=== PATIENT | female | born 1940 | race Caucasian/White ===

== ENCOUNTER 2016-08-08 11:09 | Emergency (ER) | payer OTHER ==
[2016-08-08 11:45] VITALS: BP 193/72; PULSE 68; RESP 18; TEMP 97.7; O2SAT 91
--- NOTE | 2016-08-08 12:21 | UCPHY ---
[id number] Chief complaint. Right shoulder pain HPI. 76-year-old female with previous surgery to the right shoulder developed pain in the right shoulder the middle of the night. She was fine when she went to bed and then she rolled over awoke her up. She is concerned could be dislocated. She has pain with range of motion and some tenderness and swelling to the anterior aspect of the right shoulder. ROS Constitutional. no fever/chills, no weakness Eyes. no problems with vision ENT. no sore throat, no nasal drainage Cardiovascular. no chest pain Respiratory. no shortness of breath, no cough Abdominal. no abdominal pain, no nausea/vomiting, no diarrhea . no problems urinating MS. Right shoulder pain Skin. no rash Lymph. no swollen glands Neuro. no headache, no dizziness, no difficulty walking or with speech Past Medical/Surgical History: Carotid endarterectomy, appendectomy hysterectomy. Previous rotator cuff repair. Hypertension Social History: , nonsmoker, no alcohol Smoking Status: Former smoker Physical Exam: General Appearance: Alert well-developed female distress vital signs are stable Eyes: Pupils equal and round no pallor or injection. ENT, Mouth: Mucous membranes are moist. Respiratory: There are no retractions, lungs are clear to auscultation. Cardiovascular: Regular rate and rhythm. Gastrointestinal: Abdomen is soft and nontender, no masses, bowel sounds normal. Neurological: Awake and alert, sensory and motor exams grossly normal. Skin: Warm and dry, no rashes. Musculoskeletal: Neck is supple nontender. Extremities tenderness to the anterior aspect of the right shoulder. No obvious deformity. She has active range of motion including flexion extension and AB duction Psychiatric: Patient is oriented X 3, there is no agitation. Constitutional: Initial Vital Signs Temperature (C) 36.5 C 08/08/16 11:37 Heart Rate 68 08/08/16 11:37 Respiratory Rate 18 08/08/16 11:37 Blood Pressure 193/72 H 08/08/16 11:37 O2 Sat (%) 91 L 08/08/16 11:37 O2 Delivery Mode Room Air Allergies/Adverse Reactions: levofloxacin [From Levaquin] Allergy (Verified 08/08/16 11:45) meclizine HCl [From Antivert] Allergy (Verified 08/08/16 11:45) procainamide HCl [From Procan SR] Allergy (Verified 08/08/16 11:45) thallium-201 Allergy (Verified 08/08/16 11:45) Home Medications: Medication Instructions Recorded Aspirin 81mg (*) 08/08/16 Estradiol 08/08/16 INDAPAMIDE 08/08/16 Lisinopril 08/08/16 MAGNESIUM 08/08/16 Metoprolol Succinate 08/08/16 Omeprazole 08/08/16 Pravastatin Sodium 08/08/16 Medical Decision Making - Diagnostics Imaging: X-ray right shoulder interpreted by me and discussed with Dr. Pace shows degeneration and previous rotator cuff surgery. There is no evidence of dislocation or fracture ED Course/Re-evaluation: Re-evaluation patient's and placed a sling. The patient is able to abduct and has good range of motion of the shoulder. She and I discussed treatment plan including criteria for return importance of follow-up and further evaluation. She expresses understanding and agreement Differential Diagnosis: I considered fracture, dislocation, rotator cuff injury Departure - Departure Disposition: Home, Routine, Self-Care Clinical Impression: Right shoulder pain Qualifiers: Chronicity: acute Qualifier Code: (M25.511) Pain in right shoulder Condition: Good Instructions: Shoulder Pain (ED) Additional Instructions: Ice to shoulder next 24-48 hours. Sling for 3-4 days. Tylenol or ibuprofen as needed for discomfort. Return for worsening symptoms. Follow up with orthopedist for further evaluation of your shoulder Referrals: Dawn Watt MD [Primary Care Provider] - As per Instructions Emerson Schultz MD [Medical Doctor] - 5-7 days, call for appt. - PQRS PQRS Measurement: 134: Depression screening and followup, PRIME MD-PHQ2 (12 years and older) Over the last 2 weeks, how often have you been bothered by any of the following problems? 1. Feeling down, depressed, or hopeless? 2. Little interest or pleasure in doing things? Patient answered no to both 1 and 2 130: Documentation of medications. Reviewed all patient medications, doses, route and frequency. 226: Do you smoke? No. 47: 65 and older: Advanced care planning. Patient has advanced directive.
--- NOTE | 2016-08-08 15:15 | DX ---
Right Shoulder, Four Views August 08, 2016 at 11:56 a.m. Clinical History: 76-year-old female who indicated that she believes her shoulder dislocated last nig ht with no specific antecedent trauma. She had prior rotator cuff surgery nine years ago. Comparison Study: CT mobility specialist topogram associated with a neck exam, dated March 09, 2016. Findings: There are three orthopedic anchors projected over the humeral head. The positioning of the right humeral head relative to the glenoid on the AP projection is unchanged from the previous CT sca n. There appears to be glenohumeral alignment, also confirmed on axillary and scapular Y views. There is some narrowing of the acromiohumeral distance, which may reflect some rotator cuff pathology. The re is smoothly-contoured osteolysis versus postsurgical resection of the distal right clavicle. The c oracoclavicular distance is normal. The scapula is intact, as is the visualized right rib cage. There is no acute fracture observed. I discussed these findings with Dr. Odin Salcedo, who indicated the patient had appropriate range of motion with no clinical evidence of a dislocation. Impression: There is no acute osseous abnormality identified. If there is further clinical concern regarding the patient's shoulder pain and/or integrity of the ro tator cuff, MR imaging could be considered.
== END 2016-08-08 12:42 | disposition home or self-care (01) ==
LOC: CED 11:09
DX: M25.511 Pain in right shoulder (principal); Z87.891 Personal history of nicotine dependence
CPT/HCPCS: 73030; G0463; 99214-PO

== ENCOUNTER → 2016-10-08 | Outpatient (CLI) | payer OTHER ==
[~2016-10-08] MED LIST: IOPAMIDOL (ISOVUE 370) 100 ML BTL IV ONE
== END ==
LOC: CIMAGING 11:12
PROVIDERS: ATTEND Surgery
DX: I70.8 Atherosclerosis of other arteries (principal); J43.2 Centrilobular emphysema; Z98.890 Other specified postprocedural states
CPT/HCPCS: 70498; Q9967

== ENCOUNTER 2016-12-12 15:17 | Observation (INO) | payer OTHER ==
[2016-12-12] MEDS ORDERED: ONDANSETRON 4 MG/2 ML VIAL IVP ONE (15:54)
[2016-12-12] MEDS ORDERED: NS 500 ML IV ONE ×2 (15:54→17:30)
--- NOTE | 2016-12-12 15:54 | EDPHY ---
H & P Time Seen by Provider: 12/12/16 15:25 HPI/ROS: CHIEF COMPLAINT: Nausea and vomiting HISTORY OF PRESENT ILLNESS: Patient is a 76-year-old female with a history of vascular disease who presents to the emergency department with nausea and vomiting since . Patient made a salad with 1000 [place] and Rachael dressing mixed together. She thought she may have had some bad tried onions. 2 hours later she developed nausea, vomiting and diarrhea. She has had numerous episodes daily. She last vomited this morning "a small amount." Her last episode of emesis prior to that was prior to going to bed. She has no abdominal pain. She denies fevers. No dysuria frequency. Patient had intermittent mild epigastric pain none recently. No shortness of breath or cough. REVIEW OF SYSTEMS: My complete review of systems is negative except as mentioned in the HPI. Past Medical/Surgical History: Includes vascular disease, carotid endarterectomy, tonsillectomy, appendectomy, hysterectomy, rotator cuff surgery Social history: The patient quit smoking 2 years ago. The patient was at home alone. Smoking Status: Former smoker Physical Exam: 36.7, 157/66, 71, 16, 89% on room air GENERAL: Well-appearing, in no acute distress, alert. HEENT: Eyes normal to inspection, normal pharynx, no signs of dehydration. NECK: No thyromegaly, no lymphadenopathy, supple. RESPIRATORY: Clear to auscultation bilaterally, no rales, rhonchi or wheezing. CVS: Regular rate and rhythm, no rubs, murmurs, or gallops. ABDOMEN: Soft, nontender, nondistended, no organomegaly. Benign BACK: Normal to inspection, no CVA tenderness. SKIN: Normal color, no rash, warm, dry. No pallor. EXTREMITIES: No pedal edema, no calf tenderness, no Homans sign or cords, no joint swelling. NEURO/PSYCH: Alert and oriented x3, normal mood and affect, normal motor sensory exam. Constitutional: Initial Vital Signs Temperature (C) 36.7 C 12/12/16 15:18 Heart Rate 71 12/12/16 15:18 Respiratory Rate 16 12/12/16 15:18 Blood Pressure 157/66 H 12/12/16 15:18 O2 Sat (%) 89 L 12/12/16 15:18 O2 Delivery Mode Room Air Allergies/Adverse Reactions: levofloxacin [From Levaquin] Allergy (Verified 08/08/16 11:45) meclizine HCl [From Antivert] Allergy (Verified 08/08/16 11:45) procainamide HCl [From Procan SR] Allergy (Verified 08/08/16 11:45) thallium-201 Allergy (Verified 08/08/16 11:45) Home Medications: Medication Instructions Recorded Aspirin 81mg (*) 08/08/16 Estradiol 08/08/16 INDAPAMIDE 08/08/16 Lisinopril 08/08/16 MAGNESIUM 08/08/16 Metoprolol Succinate 08/08/16 Omeprazole 08/08/16 Pravastatin Sodium 08/08/16 Medical Decision Making ED Course/Re-evaluation: In the emergency department I discussed the plan with the patient. I answered all her questions. IV was placed. Laboratory studies ordered. Patient was given normal saline 500 mL IV and Zofran 4 mg IV. The patient a mildly elevated white count of 10.5. Her med crit is normal. Platelets are normal. Her chemistry panel is notable for low sodium 130, a low potassium at 3.3, chloride 92, carbon dioxide 21, anion gap 27, BUN 46, creatinine 1.5, glucose 117. LFTs are normal. Lipase 151. 1628: The patient was given a repeat dose of normal saline 500 mL IV for hydration. Differential Diagnosis: My differential includes but is not limited to small-bowel obstruction, perforation, viral illness, presents [place] ischemia, dehydration, electrolyte abnormality, sugar abnormality, cholecystitis, pancreatitis - Data Points Laboratory Results: Laboratory Results 12/12/16 15:32 12/12/16 15:32 12/12/16 12/12/16 15:32 15:32 WBC 10.53 10^3/uL H 10^3/uL (3.80-9.50) RBC 5.06 10^6/uL 10^6/uL (4.18-5.33) Hgb 14.6 g/dL g/dL (12.6-16.3) Hct 44.7 % % (38.0-47.0) MCV 88.3 fL fL (81.5-99.8) MCH 28.9 pg pg (27.9-34.1) MCHC 32.7 g/dL g/dL (32.4-36.7) RDW 15.5 % H % (11.5-15.2) Plt Count 238 10^3/uL 10^3/uL (150-400) MPV 12.0 fL H fL (8.7-11.7) Neut % (Auto) 74.2 % % (39.3-74.2) Lymph % (Auto) 14.2 % L % (15.0-45.0) [place] % (Auto) 10.7 % % (4.5-13.0) Eos % (Auto) 0.2 % L % (0.6-7.6) Baso % (Auto) 0.3 % % (0.3-1.7) Nucleat RBC Rel Count 0.0 % % (0.0-0.2) Absolute Neuts (auto) 7.82 10^3/uL H 10^3/uL (1.70-6.50) Absolute Lymphs (auto) 1.49 10^3/uL 10^3/uL (1.00-3.00) Absolute Monos (auto) 1.13 10^3/uL H 10^3/uL (0.30-0.80) Absolute Eos (auto) 0.02 10^3/uL L 10^3/uL (0.03-0.40) Absolute Basos (auto) 0.03 10^3/uL 10^3/uL (0.02-0.10) Absolute Nucleated RBC 0.00 10^3/uL 10^3/uL (0-0.01) Immature Gran % 0.4 % % (0.0-1.1) Immature Gran # 0.04 10^3/uL 10^3/uL (0.00-0.10) Sodium 130 mEq/L L mEq/L (134-144) Potassium 3.3 mEq/L L mEq/L (3.5-5.2) Chloride 92 mEq/L L mEq/L (97-110) Carbon Dioxide 21 mEq/l L mEq/l (22-31) Anion Gap 17 mEq/L H mEq/L (8-16) BUN 46 mg/dL H mg/dL (7-23) Creatinine 1.5 mg/dL H mg/dL (0.6-1.0) Estimated GFR 34 Glucose 117 mg/dL H mg/dL (70-100) Calcium 9.1 mg/dL mg/dL (8.5-10.4) Total Bilirubin 1.2 mg/dL mg/dL (0.1-1.4) Conjugated Bilirubin 0.2 mg/dL mg/dL (0.0-0.5) Unconjugated Bilirubin 1.0 mg/dL mg/dL (0.0-1.1) AST 35 IU/L IU/L (14-46) ALT 36 IU/L IU/L (9-52) Alkaline Phosphatase 116 IU/L IU/L (38-126) Total Protein 8.3 g/dL H g/dL (6.3-8.2) Albumin 4.3 g/dL g/dL (3.5-5.0) Lipase 151.0 IU/L IU/L (23-300) Medications Given: Discontinued Medications Sodium Chloride (Ns) 500 mls @ 0 mls/hr IV ONCE ONE; Wide Open PRN Reason: Protocol Stop: 12/12/16 15:55 Last Admin: 12/12/16 16:11 Dose: 500 mls Ondansetron HCl (Zofran) 4 mg IVP EDNOW ONE Stop: 12/12/16 15:55 Last Admin: 12/12/16 16:11 Dose: Not Given Departure - Departure Disposition: Home, Routine, Self-Care Clinical Impression: Nausea vomiting and diarrhea Condition: Good Instructions: Acute Nausea and Vomiting (ED), Acute Diarrhea (ED) Referrals: Dawn Watt MD [Primary Care Provider] - 5-7 days, call for appt.
[2016-12-12 16:10] LABS: % IMMATURE GRANULYOCYTES 0.4 % (0.0-1.1); ABSOLUTE IMMATURE GRANULOCYTES 0.04 10^3/uL (0.00-0.10); ADD DIFF? NO; ADD MORPH? NO; ADD SCAN? NO; ATYPICAL LYMPHOCYTE FLAG 20 (0-99); FRAGMENT RBC FLAG 0 (0-99); HEMATOCRIT 44.7 % (38.0-47.0); HEMOGLOBIN 14.6 g/dL (12.6-16.3); LEFT SHIFT FLG 0 (0-99); LIPEMIA HEMOLYSIS FLAG 80 (0-99); MEAN CELL HEMOGLOBIN 28.9 pg (27.9-34.1); MEAN CELL HEMOGLOBIN CONCENTR. 32.7 g/dL (32.4-36.7); MEAN CELL VOLUME 88.3 fL (81.5-99.8); PLATELET CLUMPS FLAG 10 (0-99); PLATELET COUNT 238 10^3/uL (150-400); RED BLOOD CELL COUNT 5.06 10^6/uL (4.18-5.33); RED CELL DISTRIBUTION WIDTH 15.5 % (11.5-15.2)
[2016-12-12 16:19] LABS: ALANINE AMINOTRANSFERASE 36 IU/L (9-52); ALBUMIN 4.3 g/dL (3.5-5.0); ALKALINE PHOSPHATASE 116 IU/L (38-126); ANION GAP 17 mEq/L (8-16); ASPARTATE AMINOTRANSFERASE 35 IU/L (14-46); BILIRUBIN,TOTAL 1.2 mg/dL (0.1-1.4); BILIRUBIN-CONJUGATED 0.2 mg/dL (0.0-0.5); CALCIUM 9.1 mg/dL (8.5-10.4); CARBON DIOXIDE 21 mEq/l (22-31); CHLORIDE 92 mEq/L (97-110); CREATININE 1.5 mg/dL (0.6-1.0); GLOMERULAR FILTRATION RATE 34; GLUCOSE 117 mg/dL (70-100); POTASSIUM 3.3 mEq/L (3.5-5.2); SODIUM 130 mEq/L (134-144); TOTAL PROTEIN 8.3 g/dL (6.3-8.2)
[2016-12-12 18:09] LABS: COLOR YELLOW; LEUKOCYTE ESTERASE,URINE NEGATIVE (NEGATIVE); NITRITE,URINE NEGATIVE (NEGATIVE)
[2016-12-12 18:16] LABS: BACTERIA TRACE /hpf (NONE SEEN); MUCUS TRACE /lpf (NONE-1+)
[2016-12-12] MEDS ORDERED: ONDANSETRON 4 MG/2 ML VIAL IVP PRN (20:05)
[2016-12-12] MEDS ORDERED: ONDANSETRON DISINTEGRATING 4 MG TAB PO PRN (20:05)
[2016-12-12] MEDS ORDERED: PROMETHAZINE HCL 25 MG/ML INJ IVP PRN (20:05)
[2016-12-12] MEDS ORDERED: ACETAMINOPHEN 325 MG TAB PO PRN (20:05)
[2016-12-12] MEDS ORDERED: PRAVASTATIN SODIUM 40 MG TAB PO SCH (21:00)
[2016-12-12] MEDS ORDERED: ASPIRIN EC 325 MG TAB PO SCH (21:00)
--- NOTE | 2016-12-12 21:01 | GHP ---
[f rep st] HISTORY AND PHYSICAL DATE OF ADMISSION: 12/12/2016 HISTORY OF PRESENT ILLNESS: The patient is a pleasant 76-year-old female with a history of hyperten charo, vascular disease, and carotid endarterectomy by Dr. Nakul hunt, who presents with 4 days of naus ea, vomiting, and diarrhea. She attributes this to some salad dressing she ate. She merged some Ca chet and ranch dressing. She has had no sick contacts. No one around her has been sick. She has taken in limited p.o. She has had multiple bowel movements per day. No hematemesis. No coffee-gr ound emesis. No black diarrhea. No abdominal pain. She does not have her appendix. She has felt lightheaded, especially with one episode of straining at stool, trying to get all of her diarrhea ou t. No falls. REVIEW OF SYSTEMS: A complete 10-point review of systems was conducted and negative except as noted in the HPI. PAST MEDICAL HISTORY: 1. Hypertension. 2. Hyperlipidemia. 3. Peripheral vascular disease. 4. Left and right carotid endarterectomy. 5. Appendectomy. 6. Septoplasty. 7. Hysterectomy. 8. Rotator cuff tear. 9. Rhinoplasty. 10. Coronary artery disease. ALLERGIES: Levaquin, meclizine, Persantine, procainamide. 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 Quit smoking 2 years ago. . Minimal alcoho l. FAMILY HISTORY: Daughter present at the bedside and healthy. PHYSICAL EXAM: PRESENTING VITALS: Temp 36.7, blood pressure 157/66, pulse 71, breathing 16 times a minute, 89% on room air. GENERAL: No acute distress. HEENT: Mucous membranes dry. NECK: Suppl e, without lymphadenopathy or JVD. LUNGS: Clear to auscultation bilaterally. HEART: S1, S2. Not tachycardic. ABDOMEN: Soft, nontender, nondistended. LOWER EXTREMITIES: Without edema. Calves are nontender. SKIN: Without rash. NEUROLOGIC: Exam is nonfocal. LABORATORY DATA: White count 10.5, hematocrit 44, platelets 230,000. Sodium 130, potassium 2.3, ch loride 92, bicarb 21, BUN 46, creatinine 1.5--baseline 0.7, glucose 117. LFTs normal. Lipase pham l. UA shows 5-10 white cells and 2+ epithelial cells, consistent with a contaminated specimen. I have discussed the case Dr. Filomena Morse. ASSESSMENT AND PLAN: A 76-year-old female who presents with viral gastroenteritis. 1. Viral gastroenteritis. Supportive treated with IV fluids and antiemetics. 2. Hyponatremia. This is mild. She has had low sodiums in the past. We will follow. 3. Hypokalemia. This is secondary to nausea, vomiting, and poor p.o. intake. We will put some pot assium in her IV fluids. 4. Acute kidney injury, prerenal. Volume resuscitate and follow. 5. Hypertension. We will continue her beta aime and hold her ERNST inhibitor and her indapamide. 6. Prophylaxis. Moderate to high risk. Likely in the hospital just 24 hours. We will just do SCD s for now. If she is in the hospital longer than 24 hours, recommend pharmacologic VT prophylaxis. 7. Observation status. /[id number]/MODL
[2016-12-12] MEDS: NS W/ 20 KCl/L 1,000 ML IV SCH (22:01)
[2016-12-13] MEDS: NS W/ 20 KCl/L 1,000 ML IV SCH (05:43)
[2016-12-13 06:43] LABS: ANION GAP 7 mEq/L (8-16); CALCIUM 7.5 mg/dL (8.5-10.4); CARBON DIOXIDE 22 mEq/l (22-31); CHLORIDE 104 mEq/L (97-110); GLOMERULAR FILTRATION RATE 54; GLUCOSE 77 mg/dL (70-100); POTASSIUM 3.4 mEq/L (3.5-5.2); SODIUM 133 mEq/L (134-144)
[2016-12-13] MEDS ORDERED: NON-FORMULARY NEW DRUG (Omeprazole [Prilosec 20 Mg] 20 MG) PO SCH (09:00)
[2016-12-13] MEDS ORDERED: ESTRADIOL 0.5 MG TAB PO SCH (09:00)
[2016-12-13] MEDS ORDERED: PANTOPRAZOLE SODIUM 40 MG TAB PO SCH (09:00)
[2016-12-13] MEDS: METOPROLOL TARTRATE 100 MG TAB PO SCH ×2 (10:19→16:34)
[2016-12-13] MEDS: PRESERVISION AREDS2 FORMULA EYE VIT 1 EACH PO SCH ×2 (10:22→16:35)
[2016-12-13 12:16] VITALS: RESP 16
[2016-12-13 15:16] VITALS: TEMP 97.7; O2SAT 94
[2016-12-13 16:31] VITALS: BP 170/74; PULSE 68
[2016-12-13] MEDS ORDERED: MAGNESIUM OXIDE 250 MG PO SCH (17:00)
[2016-12-13] MEDS ORDERED: MAGNESIUM OXIDE 400 MG TAB PO SCH (17:00)
--- NOTE | 2016-12-13 19:28 | GDS ---
[f rep st] DISCHARGE SUMMARY DIAGNOSES: 1. Viral gastroenteritis. 2. Acute kidney injury. 3. Hyponatremia. 4. Hypokalemia. 5. Chronic hypertension. 6. History of peripheral vascular disease. 7. Coronary artery disease. HOSPITAL COURSE: This is a 76-year-old female, admitted with a few days of intractable nausea, vomi ting, as well as diarrhea. She was dehydrated on presentation. She had hyponatremia with a sodium of 130, which is somewhat worse than her chronic sodiums. Her creatinine was 1.5 on admission, down to 1.0 the day after with hydration. She is tolerating a small amount of food, as well as liquids at this time. She has not had any episodes of vomiting or diarrhea today. She believes that she ca n keep herself adequately hydrated. I have discussed this all with her daughter as well. MEDICATION CHANGES: 1. Hold lisinopril with recent acute kidney injury. 2. Continue metoprolol. 3. Continue indapamide. 4. Start low-dose amlodipine as she is still hypertensive on discharge with blood pressure of 170/9 5. /[id number]/MODL
== END 2016-12-13 19:20 | disposition home or self-care (01) ==
LOC: F1N 18:52
PROVIDERS: ADMIT Internal Medicine; ATTEND Student in an Organized Health Care Education/Training Program
DX: A08.4 Viral intestinal infection, unspecified (principal); N17.9 Acute kidney failure, unspecified; E87.1 Hypo-osmolality and hyponatremia; E87.6 Hypokalemia; I25.10 Atherosclerotic heart disease of native coronary artery without angina pectoris; I73.9 Peripheral vascular disease, unspecified; I10 Essential (primary) hypertension; E78.5 Hyperlipidemia, unspecified
CPT/HCPCS: G0378 ×2

== ENCOUNTER → 2017-01-06 | Outpatient (CLI) | payer OTHER | LOC: CIMAGING 13:56 | PROVIDERS: ATTEND Family Medicine | DX: Z12.31 Encounter for screening mammogram for malignant neoplasm of breast (principal) | CPT/HCPCS: G0202 ==

== ENCOUNTER → 2017-01-18 | Outpatient (CLI) | payer OTHER | LOC: CIMAGING 13:16 | PROVIDERS: ATTEND Family Medicine | DX: Z12.39 Encounter for other screening for malignant neoplasm of breast (principal); N63 Unspecified lump in breast | CPT/HCPCS: 76641; G0206 ==

== ENCOUNTER 2017-02-12 23:52 | Emergency (ER) | payer OTHER ==
[2017-02-12 23:59] VITALS: TEMP 98.1
[2017-02-13] MEDS ORDERED: TDAP ADULT 0.5 ML INJ (BOOSTRIX) IM ONE
--- NOTE | 2017-02-13 01:17 | EDPHY ---
H & P Stated Complaint: fall, skin injuries to left hand and forearm - Personal History Current Tetanus/Diphtheria Vaccine: Unsure Tetanus Vaccine Date: unsure, "but likely up to date with PCP" - Medical/Surgical History Hx Asthma: No Hx Chronic Respiratory Disease: Yes Hx Diabetes: No Hx Cardiac Disease: Yes Hx Renal Disease: No Hx Cirrhosis: No Hx Alcoholism: No Hx HIV/AIDS: No Hx Splenectomy or Spleen Trauma: No Other PMH: PCP Elsi Watt. Tetanus ??? Flu vacc . carotid endarectomy / tonsilectomy appy,hyster. Rotator cuff surg r shoulder 10 yrs ago - Social History Smoking Status: Former smoker HPI/ROS: Chief complaint: Left hand injury History of present illness: This is a 77-year-old female who presents to the emergency department for left hand injury. Just prior to arrival patient tripped and fell cutting her left 3rd finger, she has also noted scrapes to her left 4th finger and her forearm. There has been some pain. Bleeding but that has been controlled with a dressing. She states she can still move the fingers well. No report of abnormal coolness or paresthesias in the finger. No other trauma is reported. She is unsure of her last tetanus shot. (Geraldo Vitale) - Physical Exam Exam: General: Alert, nontoxic Skin: There is a 2 cm laceration to the proximal, flexor surface of the left 3rd finger, abrasion left 4th finger and forearm. Musculoskeletal: Patient is flexing and extending all fingers in all joints without difficulty, she is moving the wrist in all fry. The hand, wrist and forearm is nontender. Vascular: Capillary refill brisk in all digits of the left hand. Radial pulse 2 +. Neurologic: Sensation intact in the fingers left hand using light touch and two -point discrimination (Geraldo Vitale) Constitutional: Initial Vital Signs Temperature (C) 36.7 C 02/12/17 23:54 Heart Rate 69 02/12/17 23:54 Respiratory Rate 19 02/12/17 23:54 Blood Pressure 198/92 H 02/12/17 23:54 O2 Sat (%) 94 02/12/17 23:54 O2 Delivery Mode Room Air Allergies/Adverse Reactions: levofloxacin [From Levaquin] Allergy (Verified 08/08/16 11:45) meclizine HCl [From Antivert] Allergy (Verified 08/08/16 11:45) procainamide HCl [From Procan SR] Allergy (Verified 08/08/16 11:45) thallium-201 Allergy (Verified 08/08/16 11:45) Home Medications: Medication Instructions Recorded Aspirin EC [Aspirin EC 325 mg (*)] 325 mg PO HS 08/08/16 Estradiol 0.5 mg PO DAILY 08/08/16 Indapamide [Indapamide 2.5 mg (*)] 2.5 mg PO HS 08/08/16 Metoprolol Tartrate [Lopressor 100 100 mg PO BID@,08/08/16 mg (*)] Omeprazole [Prilosec 20 mg] 20 mg PO DAILY 08/08/16 Pravastatin Sodium [Pravachol] 40 mg PO HS 08/08/16 C/E/Zn/Cu/OM3/DHA/EPA/LUT/ZEAX 1 cap PO BID@12/12/16 [Preservision Areds 2 Softgel] Magnesium Oxide 250 mg PO DAILY@17 12/12/16 amLODIPine BESYLATE [Norvasc 2.5 2.5 mg PO DAILY #30 tab 12/13/16 mg (*)] Medical Decision Making - Diagnostics Imaging: I viewed and interpreted images myself Procedures: Procedure: Laceration repair. Verbal consent was obtained from the patient. The 2 cm laceration on the left 3rd finger was anesthetized in the usual fashion. The wound was irrigated, draped and explored to its base with a gloved finger. There were no deep structures involved. The tendon was identified and no injury was noted. No foreign body contamination appreciated. The wound was repaired with 5 0 Prolene , 10 simple interrupted sutures. The wound repair was simple. The procedure was performed by myself. Procedure: Splint placement. A finger splint was applied. After application of the splint I returned and re- examined the patient. The splint was adequately immobilizing the joint and distal to the splint the patient's circulation and sensation was intact. (Geraldo Vitale) ED Course/Re-evaluation: Patient seen under the supervision of my secondary supervising physician Dr. Caroline Cuello. Patient presents to the emergency department for injury to her left hand. She primarily has a laceration to her left middle finger. The finger is neurovascularly intact. She has good musculoskeletal control. Other wounds are minor. X-rays obtained and negative. Wound has been cleaned, repaired and dressed. The finger splinted. Her tetanus is updated. She will be discharged home, home care is discussed. She is referred to a hand surgeon for continued evaluation and care. Return precautions are given. The patient voiced understanding and agreement with plan. (Geraldo Vitale) PHYSICIAN DOCUMENTATION: The patient was evaluated and managed by the Physician Instrument Setter. My co- signature indicates that I have reviewed this chart and I agree with the findings and plan of care as documented. I am the secondary supervising physician. (Caroline Daly) Differential Diagnosis: Included but not limited to soft tissue injury, deep structure injury, foreign body contamination (Geraldo Vitale) - Data Points Medications Given: Discontinued Medications Diphtheria/Tetanus/Acell Pertussis (Boostrix) 0.5 ml IM .ONCE ONE Stop: 02/13/17 00:01 Last Admin: 02/13/17 00:40 Dose: 0.5 ml Departure - Departure Disposition: Home, Routine, Self-Care Clinical Impression: Finger laceration Qualifiers: Encounter type: initial encounter Finger: middle finger Damage to nail status: without damage Foreign body presence: without foreign body Laterality: left Qualified Code(s): S61.213A - Laceration without foreign body of left middle finger without damage to nail, initial encounter Condition: Good Instructions: Care For Your Stitches (ED), Finger Laceration (ED), Acute Wounds (ED) Additional Instructions: Follow-up with a hand surgeon next week for recheck Stitches to be removed in 10 days If symptoms worsen or new symptoms develop return to the emergency room for recheck Referrals: Dawn Watt MD [Primary Care Provider] - As per Instructions Leroy Delcid MD [Medical Doctor] - As per Instructions
[2017-02-13 01:27] VITALS: BP 163/74; PULSE 58; RESP 18; O2SAT 93
== END 2017-02-13 01:46 | disposition home or self-care (01) ==
PROC: 0HQGXZZ Repair Left Hand Skin, External Approach (ICD-10-PCS; principal; 2017-02-12)
DX: S61.213A Laceration without foreign body of left middle finger without damage to nail, initial encounter (principal); Z87.891 Personal history of nicotine dependence; Z79.82 Long term (current) use of aspirin; Z23 Encounter for immunization; W01.0XXA Fall on same level from slipping, tripping and stumbling without subsequent striking against object, initial encounter

== ENCOUNTER → 2017-03-31 | Outpatient (CLI) | payer OTHER | LOC: CIMAGING 13:26 | PROVIDERS: ATTEND Surgery | DX: I70.0 Atherosclerosis of aorta (principal); I65.21 Occlusion and stenosis of right carotid artery; I67.2 Cerebral atherosclerosis; I70.8 Atherosclerosis of other arteries; J43.2 Centrilobular emphysema | CPT/HCPCS: 70498; Q9967 ==

== ENCOUNTER → 2017-10-12 | Outpatient (CLI) | payer OTHER ==
[~2017-10-12] MED LIST changes: -IOPAMIDOL (ISOVUE 370) 100 ML BTL IV ONE; +IOPAMIDOL (ISOVUE-300) 100 ML BTL ONE
== END ==
LOC: CIMAGING 09:13
PROVIDERS: ATTEND Internal Medicine Gastroenterology
DX: C15.9 Malignant neoplasm of esophagus, unspecified (principal); I70.90 Unspecified atherosclerosis; I31.8 Other specified diseases of pericardium; D44.11 Neoplasm of uncertain behavior of right adrenal gland; K62.3 Rectal prolapse; N81.10 Cystocele, unspecified; M51.36 Other intervertebral disc degeneration, lumbar region
CPT/HCPCS: 71260; 74177; Q9967

== ENCOUNTER → 2017-10-30 | Outpatient (CLI) | payer OTHER ==
[~2017-10-30] MED LIST changes: +GADOBUTROL 10 ML VIAL IVP ONE; -IOPAMIDOL (ISOVUE-300) 100 ML BTL ONE
== END ==
LOC: FIMAGING 09:00
PROVIDERS: ATTEND Internal Medicine Hematology & Oncology
DX: G31.9 Degenerative disease of nervous system, unspecified (principal); C15.5 Malignant neoplasm of lower third of esophagus; D60.0 Chronic acquired pure red cell aplasia
CPT/HCPCS: 70553; A9585

== ENCOUNTER 2017-11-04 08:36 | Day surgery (SDC) | payer OTHER ==
[2017-11-04] MEDS ORDERED: ceFAZolin 2 GM/SWFI 2 GM/20 ML SYR IVP ONE (08:44)
[2017-11-04] MEDS ORDERED: LR 1,000 ML IV ONE (08:45)
[2017-11-04] MEDS ORDERED: BUPIVACAINE 0.5% 30 ML SDV ONE (09:24)
[2017-11-04] MEDS ORDERED: PROPOFOL 200 MG/20 ML VIAL ONE ×2 (09:25)
[2017-11-04] MEDS ORDERED: LIDOCAINE 2% 5 ML SDV ONE (09:25)
--- NOTE | 2017-11-04 09:34 | PDHPUP ---
History & Physical Update H&P update statement: This history and physical update is based on an assessment of the patient which was completed after admission or registration (within 24 hours), but prior to the surgery/procedure. H&P update: H&P reviewed & patient examined, no change in patient's condition since H&P completed
[2017-11-04] MEDS ORDERED: ONDANSETRON 4 MG/2 ML VIAL IVP PRN (09:55)
[2017-11-04] MEDS ORDERED: fentaNYL 100 MCG/2 ML INJ IVP PRN (09:55)
[2017-11-04] MEDS ORDERED: DEXAMETHASONE 4 MG/ML VIAL IVP PRN (09:55)
[2017-11-04] MEDS ORDERED: NALOXONE HCL 0.4 MG/ML INJ IVP PRN (09:55)
[2017-11-04] MEDS ORDERED: ALBUTEROL 3 ML DEYVIAL IH PRN (09:55)
[2017-11-04] MEDS ORDERED: LR 500 ML IV PRN (09:55)
--- NOTE | 2017-11-04 09:55 | PDANEPAE ---
ANE Past Medical History - Cardiovascular History Hx Hypertension: Yes Hx Arrhythmias: Yes Hx Chest Pain: No Hx Coronary Artery / Peripheral Vascular Disease: Yes Hx CHF / Valvular Disease: No Hx Palpitations: Yes Cardiovascular History Comment: HYPERLIPIDEMIA. CAROTID ARTERY STENOSIS. PVD - Pulmonary History Hx COPD: Yes Hx Asthma/Reactive Airway Disease: No Hx Recent Upper Respiratory Infection: No Hx Oxygen in Use at Home: No Hx Sleep Apnea: No Sleep Apnea Screening Result - Last Documented: Negative - Neurologic History Hx Cerebrovascular Accident: No Hx Seizures: No Hx Dementia: No - Endocrine History Hx Diabetes: No - Renal History Hx Renal Disorders: No - Liver History Hx Hepatic Disorders: No - Neurological & Psychiatric Hx Hx Neurological and Psychiatric Disorders: No - Cancer History Hx Cancer: No Cancer History Comment: ESOPHAGEAL CANCER - Congenital Disorder History Hx Congenital Disorders: No - GI History Hx Gastrointestinal Disorders: Yes Gastrointestinal History Comment: ACID REFLUX - Other Health History Other Health History: NEG - Chronic Pain History Chronic Pain: No - Surgical History Prior Surgeries: L CEA. HYSTERECTOMY. TONSILLECTOMY. DEVIATED SEPTUM. RHINOPLASTY. RTC R SHOULDER ANE Review of Systems Review of Systems: - Exercise capacity METS (RN): 4 METS ANE Patient History - Allergies Allergies/Adverse Reactions: levofloxacin [From Levaquin] Allergy (Verified 08/08/16 11:45) meclizine HCl [From Antivert] Allergy (Verified 08/08/16 11:45) procainamide HCl [From Procan SR] Allergy (Verified 08/08/16 11:45) thallium-201 Allergy (Verified 08/08/16 11:45) - Home Medications Home Medications: Aspirin EC [Aspirin EC 325 mg (*)] 325 mg PO HS 08/08/16 [Last Taken 11/03/17] Estradiol 0.5 mg PO DAILY 08/08/16 [Last Taken 11/04/17] Indapamide [Indapamide 2.5 mg (*)] 2.5 mg PO HS 08/08/16 [Last Taken 11/03/17] Metoprolol Tartrate [Lopressor 100 mg (*)] 100 mg PO BID@08/08/16 [Last Taken 11/04/17] Omeprazole [Prilosec 20 mg] 20 mg PO DAILY 08/08/16 [Last Taken 11/04/17] Pravastatin Sodium [Pravachol] 40 mg PO HS 08/08/16 [Last Taken 11/03/17] C/E/Zn/Cu/OM3/DHA/EPA/LUT/ZEAX [Preservision Areds 2 Softgel] 1 cap PO BID@, 12/12/16 [Last Taken 11/03/17] Magnesium Oxide 250 mg PO DAILY@12/12/16 [Last Taken 11/03/17] Colace 11/02/17 [Last Taken 11/03/17] - NPO status NPO Since - Liquids (Date): 11/04/17 NPO Since - Liquids (Time): 06:30 NPO Since - Solids (Date): 11/03/17 NPO Since - Solids (Time): 20:00 - Smoking Hx Smoking Status: Former smoker - Family Anes Hx Family Hx Anesthesia Complications: UNK ANE Labs/Vital Signs - Labs Result Diagrams: 11/04/17 09:30 - Vital Signs Blood Pressure: 139/74 Heart Rate: 60 Respiratory Rate: 16 O2 Sat (%): 92 Height: 152.4 cm Weight: 59.874 kg ANE Physical Exam - Airway Neck exam: decreased ROM Mallampati Score: Class 1 Mouth exam: normal dental/mouth exam - Pulmonary Pulmonary: no respiratory distress, no rales or rhonchi, clear to auscultation - Cardiovascular Cardiovascular: regular rate and rhythym, no murmur, rub, or gallop - ASA Status ASA Status: III ANE Anesthesia Plan Anesthesia Plan: GA w LMA
[2017-11-04] MEDS ORDERED: BACITRACIN ZINC 14.2 GM OINTTUBE TP ONE (10:17)
--- NOTE | 2017-11-04 10:29 | POSTOPPROG ---
Post Op Note Date of Operation: 11/04/17 Surgeon: Timothy Mota Anesthesiologist: XIANG Anesthesia: GET(General Endotracheal) Pre-op Diagnosis: ESOPHAGEAL CANCER Post-op Diagnosis: SAME Indication: CHEMO ACCESS Procedure: LEFT SUBCLAVIAN PORT WITH FLOURO Findings: GOOD POSITION AND FLOW Inf/Abcess present in the surg proc area at time of surgery?: No Depth: Deep Incisional (Fascial) EBL: Minimal Complications: 0
[2017-11-04] MEDS ORDERED: ONDANSETRON DISINTEGRATING 4 MG TAB PO PRN (10:30)
[2017-11-04] MEDS ORDERED: HYDROCODONE/APAP 5/325 TAB PO PRN (10:30)
[2017-11-04 11:33] VITALS: BP 172/69
--- NOTE | 2017-11-04 11:44 | POSTANESTH ---
Post Anesthetic Evaluation Cardiovascular Status: Normal, Stable, Similar to Pre-Op Cond Respiratory Status: Normal, Stable, Similar to Pre-op Cond. Level of Consciousness/Mental Status: Can Participate in Eval Pain Control: Adequate, Prn Tx Ordered Nausea/Vomiting Control: Adequate, Prn Tx Ordered Complications Possibly Related to Anesthesia: None Noted
--- NOTE | 2017-11-06 18:15 | GOP ---
[f rep st] OPERATIVE REPORT DATE OF OPERATION: SURGEON: Timothy Mota MD PREOPERATIVE DIAGNOSIS: Esophageal cancer. POSTOPERATIVE DIAGNOSIS: Esophageal cancer. PROCEDURE PERFORMED: Left subclavian port placement with fluoroscopic guidance. FINDINGS: Patient was found to have good flow and good position of the catheter. DESCRIPTION OF PROCEDURE: Patient taken to the operating room where she received satisfactory genera l laryngeal mask anesthesia by Dr. Dominguez. Placed in supine position and prepped and draped in the u sual sterile fashion. A single stick was made in the left subclavian vein. Guidewire was introduced . Position was confirmed with fluoroscopy. A subcu pocket was made in the 2nd intercostal space. P ort tubing was passed from that pocket to the subclavian insertion site. It was trimmed to the appro priate length using fluoroscopic guidance and introduced via the introducer sheath into the right atr ium. The pocket was closed with 3-0 Vicryl for the subcu and a 4-0 Prolene subcuticular stitch for t he skin. The port was secured to the fascia with 3-0 Vicryl sutures. The entrance site was also christina sed with Prolene mattress suture. The catheter was flushed with heparin and saline and appeared to f low well. There were no complications. Taken to recovery room in good condition. Copy requested to: [facility] /[id number]/MODL
== END 2017-11-04 12:20 | disposition home or self-care (01) ==
LOC: FSGY 08:36
PROVIDERS: ATTEND Surgery
PROC: B5171ZA Fluoroscopy of Left Subclavian Vein using Low Osmolar Contrast, Guidance (ICD-10-PCS; 2017-11-04)
PROC: 0JH60XZ Insertion of Tunneled Vascular Access Device into Chest Subcutaneous Tissue and Fascia, Open Approach (ICD-10-PCS; principal; 2017-11-04 09:45)
PROC: 05H533Z Insertion of Infusion Device into Right Subclavian Vein, Percutaneous Approach (ICD-10-PCS; principal; 2017-11-04 09:45)
DX: C15.9 Malignant neoplasm of esophagus, unspecified (principal); I10 Essential (primary) hypertension; I65.29 Occlusion and stenosis of unspecified carotid artery; I25.10 Atherosclerotic heart disease of native coronary artery without angina pectoris; E78.5 Hyperlipidemia, unspecified; J44.9 Chronic obstructive pulmonary disease, unspecified; K21.9 Gastro-esophageal reflux disease without esophagitis; I73.9 Peripheral vascular disease, unspecified; Z79.82 Long term (current) use of aspirin; Z87.891 Personal history of nicotine dependence
CPT/HCPCS: C1788; J0690; J1642; J2704

== ENCOUNTER → 2017-11-16 | Outpatient (CLI) | payer OTHER | PROVIDERS: ATTEND Internal Medicine Hematology & Oncology | DX: R13.10 Dysphagia, unspecified (principal); C15.5 Malignant neoplasm of lower third of esophagus; D50.0 Iron deficiency anemia secondary to blood loss (chronic) | CPT/HCPCS: 74230; 92611; G8996; G8997; G8998 ==

== ENCOUNTER 2018-01-27 20:33 | Inpatient (IN) | payer OTHER ==
[2018-01-27] MEDS ORDERED: NS 500 ML IV ONE (20:46)
[2018-01-27] MEDS ORDERED: MAG HYDROX/AL HYDROX/SIMETH 30 ML UDCUP PO ONE (20:46)
[2018-01-27] MEDS ORDERED: HYOSCYAMINE SULFATE 0.125 MG TAB PO ONE (20:46)
[2018-01-27] MEDS ORDERED: LIDOCAINE 2% VISCOUS 15 ML UDCUP PO ONE (20:46)
--- NOTE | 2018-01-27 20:50 | EDPHY ---
H & P Time Seen by Provider: 01/27/18 20:35 HPI/ROS: CHIEF COMPLAINT: Epigastric pain HISTORY OF PRESENT ILLNESS: The patient is a 77-year-old female who comes to the emergency department via EMS complaining of epigastric pain after eating a cheeseburger at 3 o'clock this afternoon. She has history of esophageal cancer as well as hiatal hernia. She just finished her chemotherapy and radiation 2 weeks ago. Her oncologist is Dr. Feliz. She also has a history of atrial fibrillation but is not anticoagulated other than aspirin. She also started azithromycin 2 days ago for a dry cough. She had a single episode of diarrhea today. She has felt slightly short of breath. REVIEW OF SYSTEMS: Constitutional: denies: chills, fever, recent illness, recent injury EENTM: denies: blurred vision, double vision, nose congestion Respiratory: See HPI Cardiac: See HPI Gastrointestinal/Abdominal: See HPI denies: nausea, vomiting, blood streaked stools Genitourinary: denies: dysuria, frequency, hematuria, pain Musculoskeletal: denies: joint pain, muscle pain Skin: denies: lesions, rash, jaundice, bruising Neurological: denies: headache, numbness, paresthesia, tingling, dizziness, weakness Hematologic/Lymphatic: denies: blood clots, easy bleeding, easy bruising Immunologic/allergic: denies: HIV/AIDS, transplant EXAM: GENERAL: no acute distress. HEAD: Atraumatic, normocephalic. EYES: Pupils equal round and reactive to light, extraocular movements intact, sclera anicteric, conjunctiva are normal. ENT: TMs normal, nares patent, oropharynx clear without exudates. Moist mucous membranes. NECK: Normal range of motion, supple without lymphadenopathy or JVD. LUNGS: Breath sounds clear to auscultation bilaterally and equal. No wheezes rales or rhonchi. HEART: Irregular without murmurs, rubs or gallops. ABDOMEN: Soft, nontender, normoactive bowel sounds. No guarding, no rebound. No masses appreciated. BACK: No CVA tenderness, no spinal tenderness, step-offs or deformities EXTREMITIES: Normal range of motion, no pitting or edema. No clubbing or cyanosis. NEUROLOGICAL: Cranial nerves II through XII grossly intact. Normal speech, normal gait. 5/5 strength, normal movement in all extremities, normal sensation PSYCH: Normal mood, normal affect. SKIN: Warm, dry, normal turgor, no visible rashes or lesions. Source: Patient - Personal History Tetanus Vaccine Date: unsure, "but likely up to date with PCP" - Medical/Surgical History Hx Asthma: No Hx Chronic Respiratory Disease: Yes Hx Diabetes: No Hx Cardiac Disease: Yes Hx Renal Disease: No Hx Cirrhosis: No Hx Alcoholism: No Hx HIV/AIDS: No Hx Splenectomy or Spleen Trauma: No Other PMH: Esophageal cancer, hiatal hernia, atrial fibrillation. carotid endarectomy /tonsilectomy appy,hyster. Rotator cuff surg r shoulder 10 yrs ago - Family History Significant Family History: No pertinent family hx - Social History Smoking Status: Former smoker Alcohol Use: None Constitutional: Initial Vital Signs Temperature (C) 36.5 C 01/27/18 20:40 Heart Rate 128 H 01/27/18 20:40 Respiratory Rate 18 01/27/18 20:40 Blood Pressure 158/101 H 01/27/18 20:40 O2 Sat (%) 95 01/27/18 20:40 O2 Delivery Mode Room Air Allergies/Adverse Reactions: levofloxacin [From Levaquin] Allergy (Verified 01/27/18 20:47) meclizine HCl [From Antivert] Allergy (Verified 01/27/18 20:47) procainamide HCl [From Procan SR] Allergy (Verified 01/27/18 20:47) thallium-201 Allergy (Verified 01/27/18 20:47) Home Medications: Medication Instructions Recorded Aspirin EC [Aspirin EC 325 mg (*)] 325 mg PO HS 08/08/16 Indapamide [Indapamide 2.5 mg (*)] 2.5 mg PO HS 08/08/16 Pravastatin Sodium [Pravachol] 40 mg PO 08/08/16 C/E/Zn/Cu/OM3/DHA/EPA/LUT/ZEAX 1 cap PO BID@12/12/16 [Preservision Areds 2 Softgel] Magnesium Oxide 250 mg PO DAILY@12/12/16 Azithromycin [Zithromax] 250 mg PO DAILY 01/28/18 Cholecalciferol Vit D3 [Vitamin D3 2,000 units PO DAILY 01/28/18 (*)] Potassium Chloride [Potassium 10 meq PO DAILY@1800 01/28/18 Chloride] Potassium Chloride [Potassium 20 meq PO DAILY 01/28/18 Chloride] Medical Decision Making - Diagnostics EKG Interpretation: An EKG obtained and was read and documented in trace view. Please see trace view for full reading and report. Atrial fibrillation, no acute ischemic changes Imaging: Discussed imaging studies w/ header dock Radiologist ED Course/Re-evaluation: The patient has low sodium and potassium compared to blood draws earlier today. She states that she has been battling this was supplements but was not able to take her medications today because it hurts her to swallow. She is anemic which is also baseline. She received transfusion week ago. She has not had any blood in her stool. She thinks that her epigastric pain is from her hiatal hernia which may be true. She does not feel better after GI cocktail. I will add Protonix. Her 1st troponin is negative. Her D-dimer is elevated and she is high risk for DVTs consider AFib and cancer status not anticoagulated. I will order CT of her chest. 10:40 p.m. I discussed the case with Dr. Rodriguez who will admit to the PCU. Differential Diagnosis: Partial list of the Differential diagnosis considered include but were not limited to; electrolyte abnormality, arrhythmia, GERD, hiatal hernia and although unlikely based on the history and physical exam, I also considered perforation, obstruction, acute coronary disease. Critical Care Time: Critical care time spent by me, Dr. Montoya exclusive with this patient was 35 minutes, exclusive of the PA time exclusive of procedures. The organ system that was at risk was cardiovascular and I gave diagnostics, IV medications, consultation and admission to prevent worsening of the patient's condition - Data Points Laboratory Results: Laboratory Results 01/28/18 04:00 01/28/18 04:00 Medications Given: Azithromycin (Zithromax) 250 mg PO DAILY [facility] PRN Reason: Protocol Stop: 01/31/18 13:44 Last Admin: 01/30/18 08:57 Dose: 250 mg Pantoprazole Sodium (Protonix) 40 mg PO DAILY [facility] Stop: 07/27/18 08:59 Last Admin: 01/29/18 07:41 Dose: 40 mg Discontinued Medications Al Hydroxide/Mg Hydroxide (Maalox Susp) 30 ml PO ONCE ONE Stop: 01/27/18 20:47 Last Admin: 01/27/18 21:23 Dose: 30 ml Hyoscyamine Sulfate (Levsin, Hyomax-Sl) 0.25 mg PO ONCE ONE Stop: 01/27/18 20:47 Last Admin: 01/27/18 21:22 Dose: 0.25 mg Sodium Chloride (Ns) 500 mls @ 0 mls/hr IV EDNOW ONE; [facility] PRN Reason: Protocol Stop: 01/27/18 20:47 Last Admin: 01/27/18 21:24 Dose: 500 mls Potassium Chloride (Potassium Cl 10 Meq (Premix)) 100 mls @ 100 mls/hr IV Q1H NACNY Stop: 01/28/18 00:59 Last Admin: 01/28/18 00:45 Dose: 100 mls Magnesium Sulfate (Magnesium Sulf 2 Gm (Premix)) 50 mls @ 50 mls/hr IV ONCE ONE Stop: 01/28/18 00:23 Last Admin: 01/27/18 23:57 Dose: 50 mls Magnesium Sulfate (Magnesium Sulf 2 Gm (Premix)) 50 mls @ 50 mls/hr IV ONCE ONE Stop: 01/29/18 09:25 Last Admin: 01/29/18 10:12 Dose: 50 mls Potassium Chloride (Potassium Cl 10 Meq (Premix)) 100 mls @ 100 mls/hr IV ONCE ONE Stop: 01/29/18 09:24 Last Admin: 01/29/18 09:03 Dose: 100 mls Potassium Chloride (Potassium Cl 10 Meq (Premix)) 100 mls @ 100 mls/hr IV ONCE ONE Stop: 01/29/18 10:54 Last Admin: 01/29/18 11:31 Dose: 100 mls Magnesium Sulfate/Dextrose (Magnesium Sulf 1 Gm (Premix)) 100 mls @ 100 mls/hr IV ONCE ONE Stop: 01/30/18 09:08 Last Admin: 01/30/18 08:51 Dose: 100 mls Lidocaine (Lidocaine 2% Viscous) 15 ml PO ONCE ONE Stop: 01/27/18 20:47 Last Admin: 01/27/18 22:53 Dose: Not Given Potassium Chloride (Klor-Con) 40 meq PO ONCE ONE Stop: 01/28/18 06:58 Last Admin: 01/28/18 07:52 Dose: 40 meq Point of Care Test Results: Chemistry 01/27/18 21:22 POC Troponin I 0.01 ng/mL ng/mL (0.00-0.08) Departure - Departure Disposition: [facility] Acute Clinical Impression: Hypokalemia, Hyponatremia Chest pain Qualifiers: Chest pain type: unspecified Qualified Code(s): R07.9 - Chest pain, unspecified Atrial fibrillation Qualifiers: Atrial fibrillation type: chronic Qualified Code(s): I48.2 - Chronic atrial fibrillation Condition: Fair
--- NOTE | 2018-01-27 20:58 | CPEKG ---
Heart Rate: 127 RR Interval: 472 P-R Interval: 196 QRSD Interval: 80 QT Interval: 328 QTC Interval: 477 P [place]: 80 QRS [place]: 43 T Wave [place]: -68 EKG Severity - BORDERLINE ECG - EKG Impression: Atrial fibrillation Electronically Signed By: Antwan Montoya 27-Jan-2018 21:00:17
[2018-01-27] MEDS ORDERED: KETAMINE 500 MG/10 ML VIAL IVP ONE ×2 (21:20→21:28)
[2018-01-27] MEDS ORDERED: PROPOFOL 200 MG/20 ML VIAL IVP ONE ×2 (21:20→21:33)
[2018-01-27 21:44] LABS: INR 1.05 (0.83-1.16); PROTIME(PATIENT) 13.9 SEC (12.0-15.0)
[2018-01-27 22:01] LABS: PLATELET COUNT 33 10^3/uL (150-400)
[2018-01-27] MEDS ORDERED: POTASSIUM Cl (KCl) 100 ML IV ONE (22:12)
[2018-01-27] MEDS ORDERED: IOPAMIDOL (ISOVUE 370) 100 ML BTL IV ONE (22:37)
[2018-01-27] MEDS ORDERED: ACETAMINOPHEN 325 MG TAB PO PRN (22:39)
[2018-01-27] MEDS ORDERED: ONDANSETRON 4 MG/2 ML VIAL IVP PRN (22:39)
[2018-01-27] MEDS ORDERED: ONDANSETRON DISINTEGRATING 4 MG TAB PO PRN (22:39)
[2018-01-27] MEDS: POTASSIUM Cl (KCl) 100 ML IV SCH (23:03)
[2018-01-27] MEDS ORDERED: MAGNESIUM SULF 2 GM/WATER 50 ML IV ONE (23:24)
[2018-01-28] MEDS: POTASSIUM Cl (KCl) 100 ML IV SCH (00:45)
--- NOTE | 2018-01-28 01:37 | PDGENHP ---
History and Physical - Chief Complaint Abdominal pain - History of Present Illness 77 yo F w/ hx of esophageal CA s/p chemotherapy and radiation presents with abdominal pain. Patient was eating a hamburger and drinking a soda when she began to experience severe epigastric pain around 3 PM. The pain radiated to her back. She denies vomiting and diarrhea. The pain has resolved at this time. Work-up in the ED included an elevated D-dimer so a CTA was obtained, which showed only esophageal thickening. Her laboratory work-up is notable for pancytopenia, which is stable and due to her recent treatment, as well as hypokalemia and hyponatremia. Per the patient and family her electrolytes have been difficult to manage at home due to her poor PO tolerance. She is being admitted for management of this. Case discussed with ED physician Dr. Montoya, previous records reviewed including most recent progress note from Dr. Feliz dated 01/24/18. History Information - Allergies/Home Medication List Allergies/Adverse Reactions: levofloxacin [From Levaquin] Allergy (Verified 01/27/18 20:47) meclizine HCl [From Antivert] Allergy (Verified 01/27/18 20:47) procainamide HCl [From Procan SR] Allergy (Verified 01/27/18 20:47) thallium-201 Allergy (Verified 01/27/18 20:47) Home Medications: Aspirin EC [Aspirin EC 325 mg (*)] 325 mg PO HS 08/08/16 [Last Taken 11/03/17] Indapamide [Indapamide 2.5 mg (*)] 2.5 mg PO HS 08/08/16 [Last Taken 11/03/17] Pravastatin Sodium [Pravachol] 40 mg PO HS 08/08/16 [Last Taken 11/03/17] C/E/Zn/Cu/OM3/DHA/EPA/LUT/ZEAX [Preservision Areds 2 Softgel] 1 cap PO BID@12/12/16 [Last Taken 11/03/17] Magnesium Oxide 250 mg PO DAILY@12/12/16 [Last Taken 11/03/17] Colace 11/02/17 [Last Taken 11/03/17] Azithromycin 01/27/18 [Last Taken Unknown] I have personally reviewed and updated: family history, medical history - Past Medical History cancer - Surgical History Reports: appendectomy, hysterectomy Additional surgical history: L CEA - Family History Positive for: cancer - Social History Smoking Status: Former smoker Alcohol Use: None Review of Systems Review of Systems: ROS: 10pt was reviewed & negative except for what was stated in HPI & below Physical Exam Physical Exam: Temp Pulse Resp BP Pulse Ox 36.7 C 108 H 14 167/82 H 93 01/28/18 00:35 01/28/18 00:35 01/28/18 00:35 01/28/18 00:35 01/28/18 00:35 Constitutional: no apparent distress, chronically ill appearing Eyes: PERRL, EOMI Ears, Nose, Mouth, Throat: moist mucous membranes, no oral mucosal ulcers Cardiovascular: regular rate and rhythym, no murmur, rub, or gallop Respiratory: no respiratory distress, no rales or rhonchi Gastrointestinal: normoactive bowel sounds, soft, non-tender abdomen Skin: warm, normal color Musculoskeletal: full muscle strength, no muscle tenderness Neurologic: AAOx3, CN II-XII Intact Psychiatric: interacting appropriately, not anxious Lab Data & Imaging Review 01/27/18 21:20 01/27/18 21:20 WBC 3.27 10^3/uL (3.80-9.50) L 01/27/18 21:20 RBC 2.47 10^6/uL (4.18-5.33) L 01/27/18 21:20 Hgb 7.5 g/dL (12.6-16.3) L 01/27/18 21:20 Hct 22.4 % (38.0-47.0) L 01/27/18 21:20 MCV 90.7 fL (81.5-99.8) 01/27/18 21:20 MCH 30.4 pg (27.9-34.1) 01/27/18 21:20 MCHC 33.5 g/dL (32.4-36.7) 01/27/18 21:20 RDW 21.6 % (11.5-15.2) H 01/27/18 21:20 Plt Count 33 10^3/uL (150-400) L 01/27/18 21:20 MPV 12.4 fL (8.7-11.7) H 01/27/18 21:20 Neut % (Auto) Not Reported 01/27/18 21:20 Lymph % (Auto) Not Reported 01/27/18 21:20 [place] % (Auto) Not Reported 01/27/18 21:20 Eos % (Auto) Not Reported 01/27/18 21:20 Baso % (Auto) Not Reported 01/27/18 21:20 Nucleat RBC Rel Count Not Reported 01/27/18 21:20 Absolute Neuts (auto) Not Reported 01/27/18 21:20 Absolute Lymphs (auto) Not Reported 01/27/18 21:20 Absolute Monos (auto) Not Reported 01/27/18 21:20 Absolute Eos (auto) Not Reported 01/27/18 21:20 Absolute Basos (auto) Not Reported 01/27/18 21:20 Absolute Nucleated RBC Not Reported 01/27/18 21:20 Immature Gran % Not Reported 01/27/18 21:20 Seg Neutrophils % 68.0 % 01/27/18 21:20 Band Neutrophils % 0 % 01/27/18 21:20 Lymphocytes % 11.0 % 01/27/18 21:20 Monocytes % 20.0 % 01/27/18 21:20 Eosinophils % 0 % 01/27/18 21:20 Basophils % 1.0 % 01/27/18 21:20 Metamyelocytes % 0 % 01/27/18 21:20 Myelocytes % 0 % 01/27/18 21:20 Promyelocytes % 0 % 01/27/18 21:20 Blast Cells % 0 % 01/27/18 21:20 Immature Gran # Not Reported 01/27/18 21:20 Absolute Seg Neuts 2.22 10^/uL (1.70-6.50) 01/27/18 21:20 Absolute Band Neuts 0.00 10^3/uL (0.00-0.70) 01/27/18 21:20 Absolute Lymphocytes 0.36 10^3/uL (1.00-3.00) L 01/27/18 21:20 Absolute Monocytes 0.65 10^3/uL (0.30-0.80) 01/27/18 21:20 Absolute Eosinophils 0.00 10^3/uL (0.03-0.40) L 01/27/18 21:20 Absolute Basophils 0.03 10^3/uL (0.02-0.10) 01/27/18 21:20 Absolute Metamyelocyte 0.00 10^3/mL (0.00-0.00) 01/27/18 21:20 Absolute Myelocytes 0.00 10^3/mL (0.00-0.00) 01/27/18 21:20 Absolute Promyelocytes 0.00 10^3/uL (0.00-0.00) 01/27/18 21:20 Absolute Plasma Cells 0.00 10^3/uL (0.00-0.00) 01/27/18 21:20 Nucleated RBCs 0 /100 WBC (0-0) 01/27/18 21:20 Absolute Blast Cells 0.00 10^3/uL (0.00-0.00) 01/27/18 21:20 Plasma Cells % 0 % 01/27/18 21:20 Platelet Estimate DECREASED (ADEQ) L 01/27/18 21:20 PT 13.9 SEC (12.0-15.0) 01/27/18 21:20 INR 1.05 (0.83-1.16) 01/27/18 21:20 APTT 34.2 SEC (23.0-38.0) 01/27/18 21:20 D-Dimer 1.59 ug/mLFEU (0.00-0.50) H 01/27/18 21:20 Sodium 127 mEq/L (135-145) L 01/27/18 21:20 Potassium 2.7 mEq/L (3.3-5.0) L* 01/27/18 21:20 Chloride 96 mEq/L (97-110) L 01/27/18 21:20 Carbon Dioxide 25 mEq/l (22-31) 01/27/18 21:20 Anion Gap 6 mEq/L (8-16) L 01/27/18 21:20 BUN 17 mg/dL (7-23) 01/27/18 21:20 Creatinine 0.6 mg/dL (0.6-1.0) 01/27/18 21:20 Estimated GFR > 60 01/27/18 21:20 Glucose 142 mg/dL (70-100) H 01/27/18 21:20 Serum Osmolality 273 mosmo/kg (280-297) L 01/27/18 21:20 Calcium 7.7 mg/dL (8.5-10.4) L 01/27/18 21:20 Magnesium 1.2 mg/dL (1.6-2.3) L 01/27/18 21:20 Total Bilirubin 0.9 mg/dL (0.1-1.4) 01/27/18 21:20 Conjugated Bilirubin 0.2 mg/dL (0.0-0.5) 01/27/18 21:20 Unconjugated Bilirubin 0.7 mg/dL (0.0-1.1) 01/27/18 21:20 AST 30 IU/L (14-46) 01/27/18 21:20 ALT 27 IU/L (9-52) 01/27/18 21:20 Alkaline Phosphatase 106 IU/L (38-126) 01/27/18 21:20 POC Troponin I 0.01 ng/mL (0.00-0.08) 01/27/18 21:22 Total Protein 5.7 g/dL (6.3-8.2) L 01/27/18 21:20 Albumin 2.9 g/dL (3.5-5.0) L 01/27/18 21:20 Lipase 72 IU/L (23-300) 01/27/18 21:20 Imaging Review: Imaging Impressions Chest X-Ray 01/27/18 20:46 Impression: No acute findings in the chest. Chest/Thorax CTA 01/27/18 22:29 Impression: 1. No visible pulmonary embolus. 2. Increased diffuse esophageal thickening, which could be related to radiation change or less likely progression of disease. 3. Grossly stable paraesophageal adenopathy. 4. Additional findings as above. Findings discussed with Malik Kulkarni 01/27/2018 at 23:33. Visualized and Interpreted EKG results: Yes EKG Interpretation: Positive for: other (Afib) Assessment & Plan Assessment: 77 yo F w/ hx of esophageal CA and AF p/w abdominal pain. Plan: 1. Abdominal pain - Likely related to combination of esophagitis and large hiatal hernia. Troponin negative on admission and ECG without signs of acute ischemia. CTPE negative for PE or other acute pathology. - Admit for observation - Will start daily PPI 2. Hypokalemia - Per patient and family this has been a chronic issue in the setting of recent esophagitis and poor PO intake. Additionally, hypomagnesemia may be complicating the issue. - Replete K and Mg as needed - Monitor on telemetry 3. Hyponatremia - Suspect hypovolemic etiology noting overall picture of dehydration. - Obtain [place], FeNa - S/p 500 mL NS Bolus - Repeat BMP in the AM 4. Pancytopenia - 2/2 chemotherapy, values are relatively stable from prior. 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 Her course has been complicated by dysphagia and poor PO intake. 6. Severe protein calorie malnutrition - 2/2 above. - Dietary consult placed - Will order TID nutritional supplements with meals 7. AF - Has prior hx of this but not on medication. It seems metoprolol was stopped due to low blood pressures. She is not on anticoagulation ( contraindicated in setting of thrombocytopenia). - Monitor on telemetry - Will rely on PRN neri blocking agents as needed if she sustains concerning heart rates only Diet - Regular + TID supplements Code - DNR per patient wishes Ppx - SCDs 2/2 thrombocytopenia Dispo - Admit under observation status
[2018-01-28] MEDS ORDERED: PANTOPRAZOLE SODIUM 40 MG VIAL IVP SCH (04:11)
[2018-01-28 04:45] LABS: PLATELET COUNT 30 10^3/uL (150-400)
[2018-01-28] MEDS ORDERED: POTASSIUM CL 20 MEQ TAB PO ONE (06:57)
[2018-01-28] MEDS: PANTOPRAZOLE SODIUM 40 MG TAB PO SCH (07:52)
--- NOTE | 2018-01-28 10:28 | ASMTCMCOM ---
CM Note CM Note Notes: CM reviewed chart for D/C palnning. Pt is a 77 y/o female with hx of esophogeal CA s/p chemotherapy and radiation presents with abdominal pain. Pt was eating when she began to experience severe epigastric pain; the pain radiated to her back. Pain resolved by the time she came to the unit. Her lab workup was notable for pancytopenia, which is stable and due to her recent treatment, as well as hypokalemia and hyponatremia. Per Pt and family electrolytes have been difficult to manage at home due to her poor PO tolerance. She was admitted for management of this. Pt's daughter is Ashley, #[phone]. Per Verónica, her mother is not eating, drinking or taking her medications regularly. Daughter is concerned that her mother's weakness may lead to a fall and would like her to be discharge to SNF/Rehab. Hospitalist informed. If Pt is discharged home today home care with an RN will be considered. CM to follow. D/C Plan: TBD Date Signed: 01/28/2018 10:27 AM Electronically Signed By:Dianna Bojorquez
[2018-01-28] MEDS: AZITHROMYCIN 250 MG TAB PO SCH (14:32)
--- NOTE | 2018-01-28 18:22 | HOSPPROG ---
Hospitalist Progress Note Assessment/Plan: Ms Mcguire is a 77yo F with h/o esophageal cancer recently undergoing chemotherapy and radiation who presents with abdominal pain and several electrolyte abnormalities. 1. Hypokalemia: Requiring IV replacement. Almost certainly related to poor PO intake. Monitor and replete K and Mg as needed. 2. Deconditioning: Related to chemotherapy. Consulted PT/OT. 3. Abdominal pain: Improving. Suspect related to esophagitis and will continue PPI. 4. Pancytopenia: Related to chemotherapy. Counts stable with no e/o bleeding. Transfuse to keep hgb>7, plts>10. 5. Acute bronchitis: Diagnosed by oncologist recently. Will continue azithromycin for 5 day course. 6. Hypovolemic hyponatremia: Improved with IVF. Monitor. 7. Severe protein calorie malnutrition: Secondary to malignancy. Dietary consult placed and ordered TID nutritional supplements with meals. 8. 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 9. Atrial fibrillation: In NSR here. Monitor. VTE ppx: SCDs Diet: regular Code: DNR Disposition: Will remain inpatient for management of severe electrolyte abnormalities. 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 CM involved and will await PT/OT recs to determine final disposition. Subjective: Feeling weak and tired but has good appetite. Denies fevers, chills , cough. No nausea or pain. Objective: Vital Signs Temp Pulse Resp BP Pulse Ox 36.8 C 85 18 113/62 94 01/28/18 15:48 01/28/18 15:48 01/28/18 15:48 01/28/18 15:48 01/28/18 15:48 PT 13.9 SEC (12.0-15.0) 01/27/18 21:20 INR 1.05 (0.83-1.16) 01/27/18 21:20 - Physical Exam Constitutional: cachectic Eyes: PERRL, anicteric sclera, EOMI Ears, Nose, Mouth, Throat: dry mucous membranes Cardiovascular: regular rate and rhythym, no murmur, rub, or gallop Respiratory: no respiratory distress, no rales or rhonchi, clear to auscultation Gastrointestinal: normoactive bowel sounds, soft, non-tender abdomen, no palpable masses Skin: no rashes or abrasions, no fluctuance, no induration Neurologic: AAOx3, sensation intact bilaterally, weakness (4+/5 strenght throughout), CN II-XII Intact, No numbness Psychiatric: interacting appropriately, not anxious, not encephalopathic, thought process linear ICD10 Worksheet Patient Problems: Problems Problem Status Onset Atrial fibrillation Acute Chest pain Acute Hypokalemia Acute Hyponatremia Acute Carotid stenosis Acute Nausea vomiting and diarrhea Acute
[2018-01-29 06:12] LABS: PLATELET COUNT 28 10^3/uL (150-400)
[2018-01-29] MEDS: PANTOPRAZOLE SODIUM 40 MG TAB PO SCH (07:41)
[2018-01-29] MEDS: AZITHROMYCIN 250 MG TAB PO SCH (07:54)
--- NOTE | 2018-01-29 08:08 | PDMN ---
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
[2018-01-29] MEDS ORDERED: POTASSIUM Cl (KCl) 100 ML IV ONE ×2 (08:25→09:55)
[2018-01-29] MEDS ORDERED: MAGNESIUM SULF 2 GM/WATER 50 ML IV ONE (08:26)
--- NOTE | 2018-01-29 12:39 | HOSPPROG ---
Hospitalist Progress Note Assessment/Plan: Ms Mcguire is a 77yo F with h/o esophageal cancer recently undergoing chemotherapy and radiation who presents with abdominal pain and several electrolyte abnormalities. 1. Hypokalemia: Requiring IV replacement. Related to poor PO intake. Monitor and replete K and Mg as needed. 2. Anemia: Hgb 6.4 this morning. No e/o blood loss. Due to chemotherapy. Will transfuse 1u PRBC. 3. Deconditioning: Related to chemotherapy. Consulted PT/OT and they are recommending SNF placement which patient is agreeable to. Case management invovled. 4. Abdominal pain: Improving. Suspect related to esophagitis and will continue PPI. 5. Pancytopenia: Related to chemotherapy. Counts stable with no e/o bleeding. Transfuse to keep hgb>7, plts>10. 6. Acute bronchitis: Diagnosed by oncologist recently. Continue azithromycin for 5 day course. 7. Hypovolemic hyponatremia: Improved with IVF. Monitor. 8. Severe protein calorie malnutrition: Secondary to malignancy. Dietary consult placed and ordered TID nutritional supplements with meals. 9. 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 10. Atrial fibrillation: In NSR here. Monitor. VTE ppx: SCDs with thrombocytopenia Diet: regular Code: DNR Disposition: Will remain inpatient for management of severe electrolyte abnormalities. PT recommending SNF placement due to deconditioning/unsafe for home discharge at this time. Subjective: Lynne is tired this morning and continues to be cold all the time. Denies fever, rigors, shortness of breath, bleeding. No cough. Objective: Vital Signs Temp Pulse Resp BP Pulse Ox 36.8 C 78 13 126/66 H 94 01/29/18 07:33 01/29/18 07:33 01/29/18 07:33 01/29/18 07:33 01/29/18 07:33 Laboratory Results 01/29/18 05:55 01/29/18 05:55 01/28/18 01/29/18 01/30/18 05:59 05:59 05:59 Intake Total 750 Balance 750 PT 13.9 SEC (12.0-15.0) 01/27/18 21:20 INR 1.05 (0.83-1.16) 01/27/18 21:20 - Physical Exam Constitutional: no apparent distress, not in pain, cachectic Eyes: PERRL, anicteric sclera, EOMI Ears, Nose, Mouth, Throat: dry mucous membranes Cardiovascular: regular rate and rhythym, no murmur, rub, or gallop Respiratory: no respiratory distress, no rales or rhonchi, clear to auscultation Gastrointestinal: normoactive bowel sounds, soft, non-tender abdomen, no palpable masses Skin: warm, no fluctuance, no induration, rash (petechiae on bilateral arms) Musculoskeletal: generalized weakness (4+/5 weakness throughout) Neurologic: AAOx3 Psychiatric: interacting appropriately, not anxious, not encephalopathic, thought process linear ICD10 Worksheet Patient Problems: Problems Problem Status Onset Atrial fibrillation Acute Chest pain Acute Hypokalemia Acute Hyponatremia Acute Carotid stenosis Acute Nausea vomiting and diarrhea Acute
--- NOTE | 2018-01-29 16:47 | ASMTCMCOM ---
CM Note CM Note Notes: Chart reviewed. Not ready for dc due to electrolyte abnormalities. Referrals via allscripts for SNF. CM to follow, Plan: SNF rehab Date Signed: 01/29/2018 04:46 PM Electronically Signed By:Colleen Aguilera RN
[2018-01-30 07:28] LABS: PLATELET COUNT 36 10^3/uL (150-400)
[2018-01-30] MEDS ORDERED: MAGNESIUM SULF 1 GM/DEXTROSE 100 ML IV ONE (08:09)
[2018-01-30] MEDS: AZITHROMYCIN 250 MG TAB PO SCH (08:57)
[2018-01-30] MEDS: POTASSIUM Cl (KCl) 100 ML IV SCH (13:36)
[2018-01-30] MEDS ORDERED: POTASSIUM CL 20 MEQ TAB PO ONE (14:12)
--- NOTE | 2018-01-30 15:11 | HOSPPROG ---
Hospitalist Progress Note Assessment/Plan: Ms Mcguire is a 77yo F with h/o esophageal cancer recently undergoing chemotherapy and radiation who presents with abdominal pain and several electrolyte abnormalities. 1. Hypokalemia: Improving. Repleted with IV magnesium and PO potasiium today. Will continue to monitor and replete. 2. Deconditioning: Related to chemotherapy. Consulted PT/OT and they are recommending SNF placement which patient is agreeable to. Case management invovled. 3. Anemia: S/p 1 u PRBC on 01/29 with appropriate response. No e/o bleeding. Related to chemotherapy. Monitor daily. 4. Abdominal pain: Improved. Suspect related to esophagitis and will continue PPI. 5. Pancytopenia: Related to chemotherapy. Counts stable with no e/o bleeding. Transfuse to keep hgb>7, plts>10. 6. Acute bronchitis: Diagnosed by oncologist recently. Continue azithromycin for 5 day course, to complete today. 7. Hypovolemic hyponatremia: Improved with IVF. Monitor. 8. Severe protein calorie malnutrition: Secondary to malignancy. Dietary consult placed and ordered TID nutritional supplements with meals. 9. 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 10. Atrial fibrillation: In NSR here. Monitor. VTE ppx: SCDs with thrombocytopenia Diet: regular Code: DNR Disposition: Remain inpatient for management of severe electrolyte disturbances. If improved and stable in AM, plan to discharge to SNF. Subjective: Doing better this morning. No pain or nausea. Still has mild discomfort when swallowing. No fevers. Objective: Vital Signs Temp Pulse Resp BP Pulse Ox 36.8 C 72 16 122/78 H 94 01/30/18 07:35 01/30/18 07:35 01/30/18 07:35 01/30/18 07:35 01/30/18 07:35 Laboratory Results 01/30/18 06:15 01/30/18 06:15 01/29/18 01/30/18 01/31/18 05:59 05:59 05:59 Intake Total 750 1200 Output Total 850 Balance 750 350 PT 13.9 SEC (12.0-15.0) 01/27/18 21:20 INR 1.05 (0.83-1.16) 01/27/18 21:20 - Physical Exam Constitutional: no apparent distress, not in pain, cachectic Eyes: PERRL, anicteric sclera, EOMI Ears, Nose, Mouth, Throat: hearing normal, ears appear normal, no oral mucosal ulcers, dry mucous membranes Cardiovascular: regular rate and rhythym, no murmur, rub, or gallop Respiratory: no respiratory distress, no rales or rhonchi, clear to auscultation Gastrointestinal: normoactive bowel sounds, soft, non-tender abdomen, no palpable masses Skin: no rashes or abrasions, no fluctuance, no induration, other (L chest port c/d/i) Musculoskeletal: generalized weakness (4+/5 strenght throughout) Neurologic: AAOx3, sensation intact bilaterally Psychiatric: interacting appropriately, not anxious, not encephalopathic, thought process linear ICD10 Worksheet Patient Problems: Problems Problem Status Onset Atrial fibrillation Acute Chest pain Acute Hypokalemia Acute Hyponatremia Acute Carotid stenosis Acute Nausea vomiting and diarrhea Acute
[2018-01-31] MEDS ORDERED: POTASSIUM CL 20 MEQ TAB PO ONE (08:23)
[2018-01-31] MEDS ORDERED: MAGNESIUM OXIDE 400 MG TAB PO ONE (08:24)
[2018-01-31] MEDS: PANTOPRAZOLE SODIUM 40 MG TAB PO SCH (09:25)
[2018-01-31] MEDS: AZITHROMYCIN 250 MG TAB PO SCH (09:26)
[2018-01-31 11:39] VITALS: BP 135/79
[2018-01-31] MEDS ORDERED: amLODIPine BESYLATE 5 MG TAB PO SCH (11:45)
--- NOTE | 2018-01-31 12:18 | PDIAF ---
- Diagnosis Code Status: Do Not Resuscitate - Medication Management Discharge Medications: Medications to Continue on Transfer Aspirin EC [Aspirin EC 325 mg (*)] 325 mg PO HS 08/08/16 [Last Taken 01/26/18] Pravastatin Sodium [Pravachol] 40 mg PO HS 08/08/16 [Last Taken 01/26/18] C/E/Zn/Cu/OM3/DHA/EPA/LUT/ZEAX [Preservision Areds 2 Softgel] 1 cap PO BID@, 12/12/16 [Last Taken 01/26/18] Magnesium Oxide 250 mg PO DAILY@12/12/16 [Last Taken 01/26/18] Cholecalciferol Vit D3 [Vitamin D3 (*)] 2,000 units PO DAILY 01/28/18 [Last Taken 01/26/18] Potassium Chloride 10 meq PO DAILY@1800 01/28/18 [Last Taken 01/26/18] Potassium Chloride 20 meq PO DAILY 01/28/18 [Last Taken 01/26/18] Pantoprazole Sodium [Protonix 40mg (*)] 40 mg PO DAILY tab 01/31/18 [Last Taken Unknown] amLODIPine BESYLATE [Norvasc 5 mg (*)] 5 mg PO DAILY tab 01/31/18 [Last Taken Unknown] Discharge Medications: Refer to the Discharge Home Medication list for PRN reason. - Orders Services needed: Physical Therapy (Recommend 4 wheeled walker.), Occupational Therapy (Recommend shower chair and grab bars in walk-in shower for safety.) Additional Instructions: 1. You will be discharging to [facility]. 2. Please continue taking your medications as prescribed. We have discontinued your indapamide and started amlodipine to help control your blood pressure. Additionally we have started you on protonix to help with GI symptoms. You completed a course of azithromycin for bronchitis while you were here and do not need to continue this medication. - Follow Up Care Current Providers and Referrals: Patient,NotPresent [Unknown] - As per Instructions
--- NOTE | 2018-01-31 14:23 | PDIAF ---
- Diagnosis Code Status: Do Not Resuscitate - Medication Management Discharge Medications: Medications to Continue on Transfer Aspirin EC [Aspirin EC 325 mg (*)] 325 mg PO HS 08/08/16 [Last Taken 01/26/18] Pravastatin Sodium [Pravachol] 40 mg PO HS 08/08/16 [Last Taken 01/26/18] C/E/Zn/Cu/OM3/DHA/EPA/LUT/ZEAX [Preservision Areds 2 Softgel] 1 cap PO BID@, 12/12/16 [Last Taken 01/26/18] Magnesium Oxide 250 mg PO DAILY@17 12/12/16 [Last Taken 01/26/18] Cholecalciferol Vit D3 [Vitamin D3 (*)] 2,000 units PO DAILY 01/28/18 [Last Taken 01/26/18] Potassium Chloride 10 meq PO DAILY@1800 01/28/18 [Last Taken 01/26/18] Potassium Chloride 20 meq PO DAILY 01/28/18 [Last Taken 01/26/18] Pantoprazole Sodium [Protonix 40mg (*)] 40 mg PO DAILY tab 01/31/18 [Last Taken Unknown] Sulfamethox/Tmp 800/160 mg [Bactrim Ds] 1 tab PO BID #6 tab 01/31/18 [Last Taken Unknown] amLODIPine BESYLATE [Norvasc 5 mg (*)] 5 mg PO DAILY tab 01/31/18 [Last Taken Unknown] Additional Medication Instructions: Please initiate bactrim DS 1 tab PO BID for 3 days upon discharge for urinary tract infection. Discharge Medications: Refer to the Discharge Home Medication list for PRN reason. - Orders Services needed: Physical Therapy, Occupational Therapy Additional Instructions: 1. You will be discharging to [facility]. 2. Please continue taking your medications as prescribed. We have discontinued your indapamide and started amlodipine to help control your blood pressure. Additionally we have started you on protonix to help with GI symptoms. You completed a course of azithromycin for bronchitis while you were here and do not need to continue this medication. 3. Your oncologist called before you discharged and said that you had a urinary tract infection from a recent urine sample that was not treated. This tested positive for E coli and we will send you to [facility] with 3 days of bactrim. - Follow Up Care Current Providers and Referrals: Patient,NotPresent [Unknown] - As per Instructions
--- NOTE | 2018-01-31 14:26 | ASMTCMCOM ---
CM Note CM Note Notes: Patient discussed in rounds today. Medically cleared for discharge to SNF. Message left with daughter? FABIÁN Sanches at [phone]. Final orders via allscripts. CM available if other needs arise. Plan: To Power Back Date Signed: 01/31/2018 12:52 PM Electronically Signed By:Colleen Aguilera RN
--- NOTE | 2018-02-01 09:06 | ASDISCHSUM ---
Discharge Information Plan Status:SNF Medically Cleared to Leave: Discharge Date:01/31/2018 03:35 PM CM D/C Disposition: ADT D/C Disposition:Home, Routine, Self-Care Projected Discharge Date:01/31/2018 11:00 AM Transportation at D/C: Discharge Delay Reason: Follow-Up Date:01/31/2018 11:00 AM Discharge Slot: Final Diagnosis: Placement Information Referral Type:*Residential/SNF Referral ID:[id number] Provider Name:Judie Kirkland Address 1:[address] Phone Number: Address 2: Fax Number: City:[place] Selection Factors: State:[place] Patient Contact Information Contact Name:RAMON Relationship:Daughter Address: Work Phone: Gisel:MIRIAM Guardado Phone: [facility] Code:[place] Email: Financial Information Financial Class:Medicare Advantage Plans Primary Plan Desc:[facility] ADVANTAGE PLANS Primary Plan Number:[id number] Secondary Plan Desc: Secondary Plan Number: Assessment Information [facility] CM Progress Note CM Note CM Note Notes: CM reviewed chart for D/C palnning. Pt is a 77 y/o female with hx of esophogeal CA s/p chemotherapy and radiation presents with abdominal pain. Pt was eating when she began to experience severe epigastric pain; the pain radiated to her back. Pain resolved by the time she came to the unit. Her lab workup was notable for pancytopenia, which is stable and due to her recent treatment, as well as hypokalemia and hyponatremia. Per Pt and family electrolytes have been difficult to manage at home due to her poor PO tolerance. She was admitted for management of this. Pt's daughter is Ashley, #[phone]. Per Verónica, her mother is not eating, drinking or taking her medications regularly. Daughter is concerned that her mother's weakness may lead to a fall and would like her to be discharge to SNF/Rehab. Hospitalist informed. If Pt is discharged home today home care with an RN will be considered. CM to follow. D/C Plan: TBD Date Signed: 01/28/2018 10:27 AM Electronically Signed By:Dianna Bojorquez [facility] CM Progress Note CM Note CM Note Notes: Chart reviewed. Not ready for dc due to electrolyte abnormalities. Referrals via allscripts for SNF. CM to follow, Plan: SNF rehab Date Signed: 01/29/2018 04:46 PM Electronically Signed By:Colleen Aguilera RN [facility] CM Progress Note CM Note CM Note Notes: Patient discussed in rounds today. Medically cleared for discharge to SNF. Message left with daughterDenisha Sanches at [phone]. Final orders via allscripts. CM available if other needs arise. Plan: To Power Back Date Signed: 01/31/2018 12:52 PM Electronically Signed By:Colleen Aguilera RN Intervention Information Intervention Type:*IM-Signed Date of Service:01/31/2018 01:37 PM Patient Type:Inpatient Staff Member:Cally Acevedo Hours: Discipline: Severity: Comment:
--- NOTE | 2018-02-02 15:32 | PDDCSUM ---
Discharge Summary Discharge Summary: Date of Admission: 01/28/2018 Date of Discharge: 01/31/2018 Consultants: none Procedures/Studies: none Brief Hospital Course by Diagnosis: 77yo F with h/o esophageal cancer recently undergoing chemotherapy and radiation who presents with abdominal pain and electrolyte abnormalities. 1. Hypokalemia: Due to poor PO. Resolved prior to discharge with supplementation. She was discharged on K supplementation and we discontinued her indapamide. 2. Deconditioning: PT/OT recommended SNF and patient discharged to [facility]. Daughter is primary planisher. Patient usually lives at home alone. 3. Anemia: S/p 1 u PRBC on 01/29 with appropriate response. No e/o bleeding. Related to chemotherapy. 4. Abdominal pain: Improved. Suspect related to esophagitis and continued PPI. 5. Pancytopenia: Related to chemotherapy. Counts stable with no e/o bleeding or infection. 6. Acute bronchitis: Diagnosed by oncologist recently. Completed course of azithromcyin. 7. E coli UTI: Patient's oncologist called hospital on day of discharge and informed us that urine sample from 01/25 was + for E coli. Patient is asymptomatic. Given her leukopenia, elected to treat with 3 days of bactrim. 8. Severe protein calorie malnutrition: Secondary to malignancy. Nutritional supplements with meals. 9. 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 10. Atrial fibrillation: In NSR here. 11. HTN: Discontinued indapamide. Started amlodipine. Follow Up Plan/Items for Follow Up: 1. Monitor blood counts, transfuse hgb<7, plts<10 2. Assess need for home health after discharge from SNF Tests Pending at Discharge: none Medications at Discharge: Please refer to EMR for complete list. We discontinued her indapamide and started amlodipine 5mg daily. We also added pantoprazole 40mg daily. She will complete 3 days of bactrim. Physical Exam: Vitals reviewed and patient examined on day of discharge. She was alert and oriented with normal cardiac, pulmonary and abdominal exams.
== END 2018-01-31 15:35 | DRG 640 ==
LOC: EDUNIT# → F2W 01-28 00:22 → OBSVTOIN 01-28 13:34
PROVIDERS: ADMIT Student in an Organized Health Care Education/Training Program; ATTEND Student in an Organized Health Care Education/Training Program
PROC: 30233N1 Transfusion of Nonautologous Red Blood Cells into Peripheral Vein, Percutaneous Approach (ICD-10-PCS; principal; 2018-01-29)
DX: E87.6 Hypokalemia (principal); D61.810 Antineoplastic chemotherapy induced pancytopenia; E43 Unspecified severe protein-calorie malnutrition; C15.9 Malignant neoplasm of esophagus, unspecified; N39.0 Urinary tract infection, site not specified; K20.9 Esophagitis, unspecified; E86.9 Volume depletion, unspecified; D64.81 Anemia due to antineoplastic chemotherapy; J40 Bronchitis, not specified as acute or chronic; B96.20 Unspecified Escherichia coli [E. coli] as the cause of diseases classified elsewhere; I48.91 Unspecified atrial fibrillation; I10 Essential (primary) hypertension; K44.9 Diaphragmatic hernia without obstruction or gangrene; Z66 Do not resuscitate
CPT/HCPCS: 84484-PO; 97110-GP; 97116-GP; 97161-GP; 97165-GO; 97535-GO; G0378; G8978-GP-CJ; G8979-GP-CI; G8987-GO-CJ; G8988-GO-CI; J1642; J3475; J3480; P9016; Q9967

== ENCOUNTER 2018-05-16 11:24 | Inpatient (IN) | payer OTHER ==
[2018-05-16 12:16] LABS: PLATELET COUNT 163 10^3/uL (150-400)
--- NOTE | 2018-05-16 12:31 | EDPHY ---
H & P Stated Complaint: cancer pt presents with hypoxia Time Seen by Provider: 05/16/18 12:29 HPI/ROS: CHIEF COMPLAINT: Hypoxemia HISTORY OF PRESENT ILLNESS: The patient has a history of esophageal cancer and is referred to the ED for evaluation of acute hypoxemia. The patient reportedly underwent upper endoscopy last week. She did have a productive cough following that procedure which is improved over the past several days. She has continued to have ongoing hypoxemia, pleuritic pain and cough. The patient denies any asymmetric calf pain or swelling. She is not currently anticoagulated. The patient denies any vomiting or diarrhea. She denies fever. The patient reports that her symptoms of shortness of breath or moderate to severe in nature. REVIEW OF SYSTEMS: A comprehensive 10 point review of systems is otherwise negative aside from elements mentioned in the history of present illness. Source: Patient - Personal History Current Tetanus Diphtheria and Acellular Pertussis (TDAP): Unsure Tetanus Vaccine Date: unsure, "but likely up to date with PCP" - Medical/Surgical History Hx Asthma: No Hx Chronic Respiratory Disease: Yes Hx Diabetes: No Hx Cardiac Disease: Yes Hx Renal Disease: No Hx Cirrhosis: No Hx Alcoholism: No Hx HIV/AIDS: No Hx Splenectomy or Spleen Trauma: No Other PMH: Esophageal cancer, hiatal hernia, atrial fibrillation. carotid endarectomy /tonsilectomy appy,hyster. Rotator cuff surg r shoulder 10 yrs ago - Social History Smoking Status: Former smoker - Physical Exam Exam: General Appearance: Alert, no distress Eyes: Pupils equal and round no pallor or injection ENT, Mouth: Dry mucous membranes Respiratory: Crackles right lung base Cardiovascular: Tachycardic Gastrointestinal: Abdomen is soft and nontender, no masses, bowel sounds normal Neurological: 5/5 strength all 4 extremities Skin: Warm and dry, no rashes Musculoskeletal: Neck is supple nontender Extremities: symmetrical, full range of motion, specifically no evidence of DVT Constitutional: Initial Vital Signs Temperature (C) 37.6 C 05/16/18 11:32 Heart Rate 122 H 05/16/18 11:32 Respiratory Rate 22 H 05/16/18 11:32 Blood Pressure 112/81 H 05/16/18 11:32 O2 Sat (%) 64 L 05/16/18 11:32 O2 Delivery Mode Nasal Cannula O2 (L/minute) 3 Allergies/Adverse Reactions: levofloxacin [From Levaquin] Allergy (Verified 05/16/18 11:30) meclizine HCl [From Antivert] Allergy (Verified 05/16/18 11:30) procainamide HCl [From Procan SR] Allergy (Verified 05/16/18 11:30) thallium-201 Allergy (Verified 05/16/18 11:30) Home Medications: Medication Instructions Recorded Aspirin EC [Aspirin EC 325 mg (*)] 325 mg PO HS 08/08/16 Pravastatin Sodium [Pravachol] 40 mg PO HS 08/08/16 C/E/Zn/Cu/OM3/DHA/EPA/LUT/ZEAX 1 cap PO BID@,12/12/16 [Preservision Areds 2 Softgel] Magnesium Oxide 250 mg PO DAILY@12/12/16 Cholecalciferol Vit D3 [Vitamin D3 2,000 units PO DAILY 01/28/18 (*)] Pantoprazole Sodium [Protonix 40mg 40 mg PO DAILY tab 01/31/18 (*)] amLODIPine BESYLATE [Norvasc 5 mg 5 mg PO DAILY tab 01/31/18 (*)] Medical Decision Making - Diagnostics Imaging Results: Imaging Impressions Chest X-Ray 05/16/18 11:47 Impression: Bilateral pneumonia. Chest/Thorax CTA 05/16/18 12:54 Impression: 1. No evidence of thrombopulmonary embolic disease. 2. Acute interstitial edema/pneumonitis may be sequela of chemotherapy, aspiration with reactive inflammation, or viral pneumonitis. 3. New simple right pleural effusion. No evidence of empyema. 4. New minimal left hilar lymphadenopathy. 5. Right paraesophageal node and diffuse esophageal thickening are unchanged. Findings discussed with Emergency Department physician, Dr. Leo Penn on May 16, 2018 at 1348 hours. ED Course/Re-evaluation: The patient presents to the ED with tachycardia and hypoxemia. The patient was given supplemental oxygen and does corrects with 2 L nasal cannula. The patient did have endoscopy a week ago then developed respiratory symptoms. She also has a history of esophageal cancer. Given history of malignancy in absence of fever I did perform a CT pulmonary angiogram which demonstrates no evidence of PE. The patient does have evidence of bilateral pneumonia. Blood cultures x2 have been obtained. Screening lactic acid was performed and is normal. The patient will be started on IV Invanz. The patient will be admitted to the hospital in a setting of her hypoxemia. The patient does have evidence of sepsis with tachycardia and tachypnea. There is no evidence of severe sepsis. Consultation is made with the hospitalist service. The patient will be admitted by Dr. Carrasquillo to a medical-surgical floor bed. Differential Diagnosis: Differential diagnosis considered includes asthma, bronchitis, pneumonia, aspiration pneumonia, pulmonary embolism, pleural effusion - Data Points Laboratory Results: Laboratory Results 05/16/18 11:50 05/16/18 11:50 05/16/18 05/16/18 05/16/18 11:50 11:50 11:50 WBC 8.34 10^3/uL 10^3/uL (3.80-9.50) RBC 3.67 10^6/uL L 10^6/uL (4.18-5.33) Hgb 10.9 g/dL L g/dL (12.6-16.3) Hct 32.8 % L % (38.0-47.0) MCV 89.4 fL fL (81.5-99.8) MCH 29.7 pg pg (27.9-34.1) MCHC 33.2 g/dL g/dL (32.4-36.7) RDW 14.8 % % (11.5-15.2) Plt Count 163 10^3/uL 10^3/uL (150-400) MPV 11.8 fL H fL (8.7-11.7) Neut % (Auto) 83.1 % H % (39.3-74.2) Lymph % (Auto) 7.1 % L % (15.0-45.0) [place] % (Auto) 8.3 % % (4.5-13.0) Eos % (Auto) 1.0 % % (0.6-7.6) Baso % (Auto) 0.1 % L % (0.3-1.7) Nucleat RBC Rel Count 0.0 % % (0.0-0.2) Absolute Neuts (auto) 6.93 10^3/uL H 10^3/uL (1.70-6.50) Absolute Lymphs (auto) 0.59 10^3/uL L 10^3/uL (1.00-3.00) Absolute Monos (auto) 0.69 10^3/uL 10^3/uL (0.30-0.80) Absolute Eos (auto) 0.08 10^3/uL 10^3/uL (0.03-0.40) Absolute Basos (auto) 0.01 10^3/uL L 10^3/uL (0.02-0.10) Absolute Nucleated RBC 0.00 10^3/uL 10^3/uL (0-0.01) Immature Gran % 0.4 % % (0.0-1.1) Immature Gran # 0.03 10^3/uL 10^3/uL (0.00-0.10) RBC/WBC/PLT Morphology TNP Platelet Estimate TNP VBG Lactic Acid 1.9 mmol/L mmol/L (0.7-2.1) Sodium 134 mEq/L L mEq/L (135-145) Potassium 3.5 mEq/L mEq/L (3.3-5.0) Chloride 95 mEq/L L mEq/L (97-110) Carbon Dioxide 28 mEq/l mEq/l (22-31) Anion Gap 11 mEq/L mEq/L (6-14) BUN 19 mg/dL mg/dL (7-23) Creatinine 0.6 mg/dL mg/dL (0.6-1.0) Estimated GFR > 60 Glucose 101 mg/dL H mg/dL (70-100) Calcium 8.1 mg/dL L mg/dL (8.5-10.4) Departure - Departure Disposition: [facility] Inpatient Acute Clinical Impression: Esophageal cancer Pneumonia Qualifiers: Pneumonia type: aspiration pneumonia Laterality: bilateral Condition: Fair Referrals: Dawn Watt MD [Primary Care Provider] - As per Instructions
[2018-05-16] MEDS ORDERED: IOPAMIDOL (ISOVUE 370) 100 ML BTL IV ONE (13:05)
[2018-05-16] MEDS ORDERED: ERTAPENEM 1 GM in NS 100 ML IV ONE (14:00)
[2018-05-16] MEDS ORDERED: ONDANSETRON 4 MG/2 ML VIAL IVP PRN (14:15)
[2018-05-16] MEDS ORDERED: ACETAMINOPHEN 325 MG TAB PO PRN (14:15)
--- NOTE | 2018-05-16 14:56 | PDGENHP ---
History and Physical - Chief Complaint Productive Cough, SOB - History of Present Illness Lynne Mcguire is a 78 yo F with a PMHx of esophageal cancer s/p chemotherapy and radiation, HTN, HLD who presents to [facility] for cough and shortness of breath. She reports that she had a surveillance EGD last Tuesday which after the procedure she began to experience these symptoms. She also reports on and off chills and fevers. She has had productive sputum of clear, yellow, and brown sputum. She also has had dyspnea on exertion. She denies any chest pain, d/c, n/v, dysuria, presyncope. Per report patient had 02 sat of 60% on RA which improved to 90's on 3L NC. She does not wear 02 at home. History Information - Allergies/Home Medication List Allergies/Adverse Reactions: levofloxacin [From Levaquin] Allergy (Verified 05/16/18 14:15) Other-Enter Comments meclizine HCl [From Antivert] Allergy (Verified 05/16/18 14:15) Other-Enter Comments procainamide HCl [From Procan SR] Allergy (Verified 05/16/18 14:15) Unknown thallium-201 Allergy (Verified 05/16/18 14:15) Other-Enter Comments Home Medications: Pravastatin Sodium [Pravachol] 40 mg PO HS 08/08/16 [Last Taken 05/15/18] C/E/Zn/Cu/OM3/DHA/EPA/LUT/ZEAX [Preservision Areds 2 Softgel] 1 cap PO BIDMEAL 12/12/16 [Last Taken 05/16/18] Cholecalciferol Vit D3 [Vitamin D3 (*)] 2,000 units PO DAILY18 01/28/18 [Last Taken 05/15/18] I have personally reviewed and updated: family history, medical history, social history, surgical history - Past Medical History cancer - Surgical History Reports: appendectomy, hysterectomy Additional surgical history: L CEA - Family History Positive for: cancer - Social History Smoking Status: Former smoker Review of Systems Review of Systems: ROS: 10pt was reviewed & negative except for what was stated in HPI & below Physical Exam Physical Exam: Temp Pulse Resp BP Pulse Ox 37.6 C 103 H 18 115/70 93 05/16/18 11:32 05/16/18 14:00 05/16/18 14:00 05/16/18 14:00 05/16/18 14:00 Constitutional: no apparent distress, chronically ill appearing Eyes: PERRL Ears, Nose, Mouth, Throat: dry mucous membranes Cardiovascular: tachycardia Respiratory: no respiratory distress, reduced air movement, dullness to percussion Gastrointestinal: soft, non-tender abdomen Genitourinary: no bladder tenderness Musculoskeletal: no joint effusions Neurologic: AAOx3 Psychiatric: interacting appropriately Lab Data & Imaging Review 05/16/18 11:50 05/16/18 11:50 WBC 8.34 10^3/uL (3.80-9.50) 05/16/18 11:50 RBC 3.67 10^6/uL (4.18-5.33) L 05/16/18 11:50 Hgb 10.9 g/dL (12.6-16.3) L 05/16/18 11:50 Hct 32.8 % (38.0-47.0) L 05/16/18 11:50 MCV 89.4 fL (81.5-99.8) 05/16/18 11:50 MCH 29.7 pg (27.9-34.1) 05/16/18 11:50 MCHC 33.2 g/dL (32.4-36.7) 05/16/18 11:50 RDW 14.8 % (11.5-15.2) 05/16/18 11:50 Plt Count 163 10^3/uL (150-400) 05/16/18 11:50 MPV 11.8 fL (8.7-11.7) H 05/16/18 11:50 Neut % (Auto) 83.1 % (39.3-74.2) H 05/16/18 11:50 Lymph % (Auto) 7.1 % (15.0-45.0) L 05/16/18 11:50 [place] % (Auto) 8.3 % (4.5-13.0) 05/16/18 11:50 Eos % (Auto) 1.0 % (0.6-7.6) 05/16/18 11:50 Baso % (Auto) 0.1 % (0.3-1.7) L 05/16/18 11:50 Nucleat RBC Rel Count 0.0 % (0.0-0.2) 05/16/18 11:50 Absolute Neuts (auto) 6.93 10^3/uL (1.70-6.50) H 05/16/18 11:50 Absolute Lymphs (auto) 0.59 10^3/uL (1.00-3.00) L 05/16/18 11:50 Absolute Monos (auto) 0.69 10^3/uL (0.30-0.80) 05/16/18 11:50 Absolute Eos (auto) 0.08 10^3/uL (0.03-0.40) 05/16/18 11:50 Absolute Basos (auto) 0.01 10^3/uL (0.02-0.10) L 05/16/18 11:50 Absolute Nucleated RBC 0.00 10^3/uL (0-0.01) 05/16/18 11:50 Immature Gran % 0.4 % (0.0-1.1) 05/16/18 11:50 Immature Gran # 0.03 10^3/uL (0.00-0.10) 05/16/18 11:50 RBC/WBC/PLT Morphology TNP 05/16/18 11:50 Platelet Estimate TNP 05/16/18 11:50 VBG Lactic Acid 1.9 mmol/L (0.7-2.1) 05/16/18 11:50 Sodium 134 mEq/L (135-145) L 05/16/18 11:50 Potassium 3.5 mEq/L (3.3-5.0) 05/16/18 11:50 Chloride 95 mEq/L (97-110) L 05/16/18 11:50 Carbon Dioxide 28 mEq/l (22-31) 05/16/18 11:50 Anion Gap 11 mEq/L (6-14) 05/16/18 11:50 BUN 19 mg/dL (7-23) 05/16/18 11:50 Creatinine 0.6 mg/dL (0.6-1.0) 05/16/18 11:50 Estimated GFR > 60 05/16/18 11:50 Glucose 101 mg/dL (70-100) H 05/16/18 11:50 Calcium 8.1 mg/dL (8.5-10.4) L 05/16/18 11:50 Visualized and Interpreted Chest x-ray results: Yes Chest X-Ray results: infiltrate, effusion Assessment & Plan Assessment: Pneumonia (Acute) - Presents 6 days after surveillance EGD with productive cough and SOB - CXR shows bilateral PNA, alveolar opacities in b/l lower lobes and RML - CTA performed which was negative for PE, showed interstitial edema/pneumonitis , aspiration w reactive inflammation, vs. viral pneumonitis - Likely aspiration in setting of recent EGD - Mildly tachycardic on exam, 02 improved to 90's on 3L NC - Started on Invanz in ED, will continue for now - Blood cultures collected x2, f/u results - Will order sputum cx - Continue 02, wean as toleration Sepsis - Tachycardic with tachypnea on admission, BP WNL - LA 1.9 on admission - Will give IVF upon admission - Management of PNA as above Acute Hypoxic Respiratory Failure - 02 on RA 60% reported by ED staff, improved to 90's on 3L NC - 2/2 to PNA, Pleural effusion, management as above - Wean 02 as tolerated R Pleural Effusion - Seen on CT, new, no evidence of empyema - May be parapneumonic effusion vs. malignant effusion - Consider therapeutic/diagnostic thoracentesis in the AM, will repeat CXR in the AM Esophageal cancer (Acute) - Follows with Dr. Feliz - R paraesophageal node and diffuse esophageal thickening are unchanged on CT from today - Consider discussing with Oncology in the AM HTN - Holding home Amlodipine in setting of sepsis HLD - Continue home Pravastatin after med reconciliation FEN: Regular diet Ppx: Lovenox Code: DNR Dispo: Admit to Medicine, pending clinical course
--- NOTE | 2018-05-16 15:40 | PDMN ---
Medical Necessity Medical necessity: MCG: M 283 aspiration pna 3 days: 78 yr old with recent EGD, admits with cough, SOB, chills, fever, productive sputum, dyspnea on exertion, RA sats 64% , 3L in the 90's - PMHx of esophageal Ca s/p chemo and radiation. HTN, HLD, CXR shows bilat pna., alveolar opacities in bilat lower lobes and RML., sepsis , tachycardia with tachypnea on admission, R pleural effusion, admit as INPT from time of admit.
[2018-05-16] MEDS: NS 1,000 ML IV SCH ×2 (17:12→23:52)
[2018-05-16] MEDS: CHOLECALCIFEROL VIT D3 1,000 UNITS TAB PO SCH (17:14)
[2018-05-16] MEDS: PRESERVISION AREDS2 FORMULA EYE VIT 1 EACH PO SCH (17:15)
[2018-05-16] MEDS: MAGNESIUM OXIDE 400 MG TAB PO SCH (19:31)
[2018-05-16] MEDS: PRAVASTATIN SODIUM 40 MG TAB PO SCH (21:48)
[2018-05-17 05:44] LABS: PLATELET COUNT 143 10^3/uL (150-400)
[2018-05-17] MEDS ORDERED: ERTAPENEM 0.5 GM in NS 50 ML IV SCH (09:00)
[2018-05-17] MEDS: ERTAPENEM 1 GM in NS 100 ML IV SCH (09:17)
[2018-05-17] MEDS: PRESERVISION AREDS2 FORMULA EYE VIT 1 EACH PO SCH ×2 (09:17→17:41)
--- NOTE | 2018-05-17 09:52 | ASMTCMCOM ---
CM Note CM Note Notes: Pt is a 78 y/o female admitted for pneumonia, hypoxemia, and esophageal cancer. Therapies have been ordered and awaiting recommendations. Needs are TBD at this time. CM to follow. Plan: TBD Date Signed: 05/17/2018 09:52 AM Electronically Signed By:AYAAN Degroot
--- NOTE | 2018-05-17 14:51 | HOSPPROG ---
Hospitalist Progress Note Assessment/Plan: 78 yo F w esophageal CA here w aspiration pneumonia aspiration: ertapenem incident response consultant eval esophageal CA: was having surveillance endoscopy results unknown at this time AHRF: 2/2 above sepsis: tachycardia, hypotension, infection proph: lmwh dispo: inpt needs snf Subjective: cxr w R>L airspace disease c/w aspiration pneumonia Objective: Vital Signs Temp Pulse Resp BP Pulse Ox 36.7 C 91 18 121/47 H 83 L 05/17/18 12:00 05/17/18 12:00 05/17/18 12:00 05/17/18 12:00 05/17/18 12:59 Microbiology 05/16/18 22:05 - Final Sputum, Expectorated Sputum Culture - Final Laboratory Results 05/17/18 05:13 05/17/18 05:13 05/16/18 05/17/18 05/18/18 05:59 05:59 05:59 Intake Total 540 Balance 540 - Physical Exam Constitutional: no apparent distress, appears nourished Eyes: PERRL, anicteric sclera Ears, Nose, Mouth, Throat: moist mucous membranes, hearing normal Cardiovascular: regular rate and rhythym, no murmur, rub, or gallop, No tachycardia Respiratory: rhonchi, other (R>L crackles and rhonchi. 1/2 [address] up on R) Gastrointestinal: normoactive bowel sounds, soft, non-tender abdomen Genitourinary: no bladder fullness, No lujan in urethra Skin: warm Musculoskeletal: no muscle tenderness, No full muscle strength Neurologic: AAOx3 ICD10 Worksheet Patient Problems: Problems Problem Status Onset Esophageal cancer Acute Pneumonia Acute Atrial fibrillation Acute Carotid stenosis Acute Chest pain Acute Hypokalemia Acute Hyponatremia Acute Nausea vomiting and diarrhea Acute
[2018-05-17] MEDS: ENOXAPARIN 40 MG/0.4 ML SYR SC SCH (16:23)
[2018-05-17] MEDS: CHOLECALCIFEROL VIT D3 1,000 UNITS TAB PO SCH (17:40)
[2018-05-17] MEDS: MAGNESIUM OXIDE 400 MG TAB PO SCH (17:41)
[2018-05-17] MEDS: PRAVASTATIN SODIUM 40 MG TAB PO SCH (21:30)
[2018-05-18] MEDS: PRESERVISION AREDS2 FORMULA EYE VIT 1 EACH PO SCH ×2 (08:44→17:57)
[2018-05-18] MEDS: ENOXAPARIN 40 MG/0.4 ML SYR SC SCH (08:44)
[2018-05-18] MEDS: ERTAPENEM 1 GM in NS 100 ML IV SCH (08:45)
--- NOTE | 2018-05-18 09:59 | ASMTCMCOM ---
CM Note CM Note Notes: CM spoke to pts daughter Verónica. Verónica would like a referral sent to [facility]. Pt has been in the past and had a good experience. Referral sent. [facility] is able to accept. CM discussed case w/ Dr. Carrasquillo. Pt is still currently getting ivabx. CM to follow. Plan: Powerback Date Signed: 05/18/2018 09:59 AM Electronically Signed By:AYAAN Degroot
[2018-05-18] MEDS ORDERED: guaiFENesin 600 MG TAB.ER PO PRN (15:29)
--- NOTE | 2018-05-18 15:29 | HOSPPROG ---
Hospitalist Progress Note Assessment/Plan: 78 yo F w esophageal CA here w aspiration pneumonia aspiration: ertapenem, changed to unasyn today per pharmacy sports physician eval esophageal CA: was having surveillance endoscopy results unknown at this time AHRF: 2/2 above sepsis: tachycardia, hypotension, infection, improving proph: lmwh dispo: inpt needs snf Subjective: Patient reports improving shortness of breath this AM Objective: Vital Signs Temp Pulse Resp BP Pulse Ox 37.1 C 92 18 109/61 96 05/18/18 12:00 05/18/18 12:00 05/18/18 12:00 05/18/18 12:00 05/18/18 12:00 Laboratory Results 05/17/18 05:13 05/17/18 05:13 05/17/18 05/18/18 05/19/18 05:59 05:59 05:59 Intake Total 540 750 Balance 540 750 - Physical Exam Constitutional: chronically ill appearing Eyes: PERRL Ears, Nose, Mouth, Throat: moist mucous membranes Cardiovascular: regular rate and rhythym Respiratory: reduced air movement, rhonchi Gastrointestinal: soft, non-tender abdomen Skin: normal color Musculoskeletal: generalized weakness Neurologic: AAOx3 Psychiatric: interacting appropriately ICD10 Worksheet Patient Problems: Problems Problem Status Onset Esophageal cancer Acute Pneumonia Acute Atrial fibrillation Acute Carotid stenosis Acute Chest pain Acute Hypokalemia Acute Hyponatremia Acute Nausea vomiting and diarrhea Acute
[2018-05-18] MEDS: CHOLECALCIFEROL VIT D3 1,000 UNITS TAB PO SCH (17:57)
[2018-05-18] MEDS: MAGNESIUM OXIDE 400 MG TAB PO SCH (17:57)
[2018-05-18] MEDS: PRAVASTATIN SODIUM 40 MG TAB PO SCH (20:06)
[2018-05-19] MEDS: AMPICILLIN/SULBACTAM 3 GM in NS 100 ML IV SCH ×3 (05:36→18:57)
[2018-05-19 05:49] LABS: PLATELET COUNT 145 10^3/uL (150-400)
[2018-05-19] MEDS: PRESERVISION AREDS2 FORMULA EYE VIT 1 EACH PO SCH ×2 (07:46→18:23)
[2018-05-19] MEDS: ENOXAPARIN 40 MG/0.4 ML SYR SC SCH (07:47)
--- NOTE | 2018-05-19 12:57 | HOSPPROG ---
Hospitalist Progress Note Assessment/Plan: 78 yo F w esophageal CA here w aspiration pneumonia aspiration: ertapenem, changed to unasyn yesterday per pharmacy instructor of education eval esophageal CA: was having surveillance endoscopy results unknown at this time AHRF: 2/2 above sepsis: tachycardia, hypotension, infection, improving proph: lmwh dispo: inpt needs snf Subjective: Patient reports improving SOB this AM Objective: Vital Signs Temp Pulse Resp BP Pulse Ox 36.6 C 100 12 124/69 H 90 L 05/19/18 12:26 05/19/18 12:26 05/19/18 12:26 05/19/18 12:26 05/19/18 12:26 Laboratory Results 05/19/18 05:27 05/19/18 05:27 05/18/18 05/19/18 05/20/18 05:59 05:59 05:59 Intake Total 750 Balance 750 - Physical Exam Constitutional: chronically ill appearing Eyes: PERRL Ears, Nose, Mouth, Throat: moist mucous membranes Cardiovascular: regular rate and rhythym Respiratory: rhonchi Gastrointestinal: soft, non-tender abdomen Skin: warm Musculoskeletal: generalized weakness Neurologic: AAOx3 Psychiatric: interacting appropriately ICD10 Worksheet Patient Problems: Problems Problem Status Onset Esophageal cancer Acute Pneumonia Acute Atrial fibrillation Acute Carotid stenosis Acute Chest pain Acute Hypokalemia Acute Hyponatremia Acute Nausea vomiting and diarrhea Acute
[2018-05-19] MEDS: CHOLECALCIFEROL VIT D3 1,000 UNITS TAB PO SCH (18:22)
[2018-05-19] MEDS: MAGNESIUM OXIDE 400 MG TAB PO SCH (18:23)
[2018-05-19] MEDS: PRAVASTATIN SODIUM 40 MG TAB PO SCH (21:33)
[2018-05-20] MEDS: AMPICILLIN/SULBACTAM 3 GM in NS 100 ML IV SCH ×4 (00:43→17:31)
[2018-05-20] MEDS: PRESERVISION AREDS2 FORMULA EYE VIT 1 EACH PO SCH ×2 (08:41→17:28)
[2018-05-20] MEDS: ENOXAPARIN 40 MG/0.4 ML SYR SC SCH (08:41)
--- NOTE | 2018-05-20 10:22 | HOSPPROG ---
Hospitalist Progress Note Assessment/Plan: 78 yo F w esophageal CA here w aspiration pneumonia aspiration: ertapenem, changed to unasyn on 05/18 Patient continues to require oxygen with persistent rhonchi in b/l LL, will repeat CXR this morning, likely continue IV abx, Day 5 esophageal CA: was having surveillance endoscopy results unknown at this time AHRF: 2/2 above sepsis: tachycardia, hypotension, infection, improving proph: lmwh dispo: inpt needs snf Subjective: Patient reports improved SOB this AM Objective: Vital Signs Temp Pulse Resp BP Pulse Ox 36.7 C 103 H 16 136/74 H 89 L 05/20/18 07:27 05/20/18 07:27 05/20/18 07:27 05/20/18 07:27 05/20/18 07:27 Laboratory Results 05/19/18 05:27 05/19/18 05:27 - Physical Exam Constitutional: no apparent distress, chronically ill appearing Eyes: PERRL Ears, Nose, Mouth, Throat: moist mucous membranes Cardiovascular: regular rate and rhythym Respiratory: no respiratory distress, rhonchi (b/l lower lobes) Gastrointestinal: normoactive bowel sounds Genitourinary: no bladder fullness Skin: warm Neurologic: AAOx3 Psychiatric: interacting appropriately ICD10 Worksheet Patient Problems: Problems Problem Status Onset Esophageal cancer Acute Pneumonia Acute Atrial fibrillation Acute Carotid stenosis Acute Chest pain Acute Hypokalemia Acute Hyponatremia Acute Nausea vomiting and diarrhea Acute
--- NOTE | 2018-05-20 14:26 | ASMTCMCOM ---
CM Note CM Note Notes: Reviewed chart regarding discharge plan of care, pt's progress. Per MD notes, pt still requiring oxygen and has rhonchi in the bilateral lower lobes. Repeat CXR ordered. Pt on Day 5 of IV antibiotics. Per prior CM notes, pt to discharge to [facility] when medically stable. Plan remains unchanged. CM will continue to follow. Discharge Plan: [facility] Date Signed: 05/20/2018 02:25 PM Electronically Signed By:Dafne Gee RN
[2018-05-20] MEDS: CHOLECALCIFEROL VIT D3 1,000 UNITS TAB PO SCH (17:28)
[2018-05-20] MEDS: MAGNESIUM OXIDE 400 MG TAB PO SCH (17:28)
[2018-05-20] MEDS: PRAVASTATIN SODIUM 40 MG TAB PO SCH (20:46)
[2018-05-21] MEDS: AMPICILLIN/SULBACTAM 3 GM in NS 100 ML IV SCH ×5 (00:41→23:27)
[2018-05-21 06:01] LABS: PLATELET COUNT 133 10^3/uL (150-400)
[2018-05-21] MEDS: PRESERVISION AREDS2 FORMULA EYE VIT 1 EACH PO SCH ×2 (08:22→17:51)
[2018-05-21] MEDS: ENOXAPARIN 40 MG/0.4 ML SYR SC SCH (08:24)
--- NOTE | 2018-05-21 10:44 | HOSPPROG ---
Hospitalist Progress Note Assessment/Plan: 78 yo F w esophageal CA here w aspiration pneumonia aspiration: ertapenem, changed to unasyn on 05/18 Patient continues to require oxygen with now improving/almost resolved rhonchi in b/l LL, repeat CXR from yesterday showed persistent interstitial opacities - Will continue IV Unasyn, Day 6/(Likely 10 day course), consider transition tomorrow to PO if improving esophageal CA: was having surveillance endoscopy results unknown at this time AHRF: 2/2 above sepsis: tachycardia, hypotension, infection, improving proph: lmwh dispo: inpt needs snf Subjective: Patient reports much improved breathing this morning, able to take deep breaths Objective: Vital Signs Temp Pulse Resp BP Pulse Ox 36.9 C 113 H 16 118/65 87 L 05/21/18 07:29 05/21/18 07:29 05/21/18 07:29 05/21/18 07:29 05/21/18 07:29 Laboratory Results 05/21/18 04:16 05/21/18 04:16 05/20/18 05/21/18 05/22/18 05:59 05:59 05:59 Intake Total 850 500 Balance 850 500 - Physical Exam Constitutional: no apparent distress, chronically ill appearing Eyes: PERRL Ears, Nose, Mouth, Throat: moist mucous membranes Cardiovascular: regular rate and rhythym Respiratory: no respiratory distress, rhonchi (mild, b/l LL) Gastrointestinal: normoactive bowel sounds Genitourinary: no bladder fullness Skin: normal color Neurologic: AAOx3 Psychiatric: interacting appropriately ICD10 Worksheet Patient Problems: Problems Problem Status Onset Esophageal cancer Acute Pneumonia Acute Atrial fibrillation Acute Carotid stenosis Acute Chest pain Acute Hypokalemia Acute Hyponatremia Acute Nausea vomiting and diarrhea Acute
[2018-05-21] MEDS: IPRATROPIUM/ALBUTEROL 3 ML DEYVIAL IH PRN (16:22)
[2018-05-21] MEDS: CHOLECALCIFEROL VIT D3 1,000 UNITS TAB PO SCH (17:51)
[2018-05-21] MEDS: MAGNESIUM OXIDE 400 MG TAB PO SCH (17:52)
[2018-05-21] MEDS: PRAVASTATIN SODIUM 40 MG TAB PO SCH (19:59)
[2018-05-22] MEDS: AMPICILLIN/SULBACTAM 3 GM in NS 100 ML IV SCH ×2 (05:00→12:32)
[2018-05-22] MEDS: PRESERVISION AREDS2 FORMULA EYE VIT 1 EACH PO SCH ×2 (08:04→17:50)
[2018-05-22] MEDS: ENOXAPARIN 40 MG/0.4 ML SYR SC SCH (08:05)
[2018-05-22] MEDS ORDERED: IOPAMIDOL (ISOVUE 370) 100 ML BTL IV ONE (09:31)
--- NOTE | 2018-05-22 10:05 | ASMTCMCOM ---
CM Note CM Note Notes: CM spoke to Dr. Carrasquillo regarding d/c POC. Pt is not responding to ivabx at this time. A CT has been ordered. Updates sent to [facility]. CM to follow. Plan: Powerback Date Signed: 05/22/2018 10:04 AM Electronically Signed By:AYAAN Degroot
--- NOTE | 2018-05-22 11:16 | HOSPPROG ---
Hospitalist Progress Note Assessment/Plan: 78 yo F w esophageal CA here w aspiration pneumonia aspiration: ertapenem, changed to unasyn on 05/18 - Patient continues to require oxygen with now improving/almost resolved rhonchi in b/l LL, repeat CXR from 05/19 showed persistent interstitial opacities, will repeat CT chest today due to continued 02 requirement - Will continue IV Unasyn, Day 7/(Likely 10 day course), consider transition tomorrow to PO if improving esophageal CA: was having surveillance endoscopy results unknown at this time AHRF: 2/2 above sepsis: tachycardia, hypotension, infection, improving proph: lmwh dispo: inpt needs snf Subjective: Patient reports improving SOB Objective: Vital Signs Temp Pulse Resp BP Pulse Ox 36.6 C 101 H 18 91/49 L 91 L 05/22/18 07:34 05/22/18 07:34 05/22/18 07:34 05/22/18 07:34 05/22/18 07:34 Microbiology 05/17/18 05:13 Blood Culture - Final Blood 05/17/18 05:21 Blood Culture - Final Blood Laboratory Results 05/21/18 04:16 05/21/18 04:16 05/21/18 05/22/18 05/23/18 05:59 05:59 05:59 Intake Total 850 1440 250 Balance 850 1440 250 - Physical Exam Constitutional: chronically ill appearing Eyes: PERRL Ears, Nose, Mouth, Throat: moist mucous membranes Cardiovascular: regular rate and rhythym Respiratory: reduced air movement, rhonchi Gastrointestinal: soft, non-tender abdomen Skin: normal color Neurologic: AAOx3 Psychiatric: interacting appropriately ICD10 Worksheet Patient Problems: Problems Problem Status Onset Esophageal cancer Acute Pneumonia Acute Atrial fibrillation Acute Carotid stenosis Acute Chest pain Acute Hypokalemia Acute Hyponatremia Acute Nausea vomiting and diarrhea Acute
[2018-05-22] MEDS: IPRATROPIUM/ALBUTEROL 3 ML DEYVIAL IH PRN (17:48)
[2018-05-22] MEDS: MAGNESIUM OXIDE 400 MG TAB PO SCH (17:49)
[2018-05-22] MEDS: CHOLECALCIFEROL VIT D3 1,000 UNITS TAB PO SCH (17:50)
[2018-05-22] MEDS: PIPERACILLIN/TAZO 4.5 GM/DEX 100 ML IV SCH ×2 (17:50→23:55)
[2018-05-22] MEDS ORDERED: PIPERACILLIN/TAZO 3.375 GM/DEX 50 ML IV SCH (18:00)
[2018-05-22] MEDS: PRAVASTATIN SODIUM 40 MG TAB PO SCH (21:58)
[2018-05-23 04:54] LABS: PLATELET COUNT 125 10^3/uL (150-400)
[2018-05-23] MEDS: PIPERACILLIN/TAZO 4.5 GM/DEX 100 ML IV SCH ×4 (05:29→23:49)
[2018-05-23] MEDS: PRESERVISION AREDS2 FORMULA EYE VIT 1 EACH PO SCH ×2 (08:18→18:00)
[2018-05-23] MEDS: ENOXAPARIN 40 MG/0.4 ML SYR SC SCH (08:19)
[2018-05-23] MEDS ORDERED: POTASSIUM CL 20 MEQ TAB PO ONE (10:15)
--- NOTE | 2018-05-23 16:00 | HOSPPROG ---
Hospitalist Progress Note Objective: Vital Signs Temp Pulse Resp BP Pulse Ox 37.2 C 107 H 18 152/72 H 90 L 05/23/18 15:39 05/23/18 15:39 05/23/18 15:39 05/23/18 15:39 05/23/18 15:39 Laboratory Results 05/23/18 04:18 05/23/18 04:18 05/22/18 05/23/18 05/24/18 05:59 05:59 05:59 Intake Total 1440 250 Balance 1440 250 ICD10 Worksheet Patient Problems: Problems Problem Status Onset Esophageal cancer Acute Pneumonia Acute Atrial fibrillation Acute Carotid stenosis Acute Chest pain Acute Hypokalemia Acute Hyponatremia Acute Nausea vomiting and diarrhea Acute
[2018-05-23] MEDS: MAGNESIUM OXIDE 400 MG TAB PO SCH (17:59)
[2018-05-23] MEDS: CHOLECALCIFEROL VIT D3 1,000 UNITS TAB PO SCH (18:00)
--- NOTE | 2018-05-23 18:12 | HOSPPROG ---
Hospitalist Progress Note Assessment/Plan: The patient is a 78-year-old female with PMH esophageal cancer who was admitted for aspiration pneumonia after she underwent EGD with ballooning. This patient is new to me. Reviewed patient's chart/records for this visit. ASSESSMENT/PLAN: Interstitial pneumonia, worsening - DDx AIP, R side pleural effusion Hypoxemia, 2/2 above Esophageal cancer Suspected Emphysema Hx tobacco smoking -Pt not responding to Abx and O2 demand remains high. Unclear if this is bacterial/aspiration PNA vs AIP. Check procalcitonin, resp panel to r/o viruses/ atypical organisms. Recheck sputum Cx. Request for Pulm to see in AM. -Discussed case w/ Pulm and ID. -Consult Oncology. -Check AM labs w/ BNP. -Consider thoracentesis if pleural effusion gets large enough. -Continue O2, SVNs. -Consider steroids to help w/ breathing if O2 demand remains high. VTE prophylaxis: Lovenox Code Status: DNR Status: Inpatient for greater than 2 midnight stay. Disposition: Med surge with discharge eventually anticipated back to rehab ____ SUBJECTIVE: Patient has continued to require 6 L of oxygen to maintain O2 sat 90%. She has been coughing more today, productive of phlegm which is nonbloody , sometimes yellow. OBJECTIVE: Physical Exam: General: The patient is an elderly female who is alert and in no acute distress. HEENT: normocephalic, extraocular movements intact, conjunctivae clear. Mucous membranes moist. Neck: trachea midline, no visible masses. CV: +S1/S2, RRR, no MRG. Resp: unlabored, bilateral breath sounds. Bibasilar rales. Few rhonchi right side. Abd: soft and nondistended. Musculoskeletal: Normal muscle tone/bulk. Neuro: cranial nerves II XII grossly intact. Intact gross motor and sensory function. Psych: Appropriate mood and appropriate affect. Skin: + pallor. No petechiae. Heme/lymph: No peripheral edema at bilateral lower extremities. Labs/Imaging/Other Tests: CTA chest-no PE. Interval worsening of severe, acute interstitial pneumonia. Stable small right pleural effusion. CTA chest-no PE. Worsening interstitial pneumonia. Sputum Cx - normal resp doug. Objective: Vital Signs Temp Pulse Resp BP Pulse Ox 37.2 C 107 H 18 152/72 H 90 L 05/23/18 15:39 05/23/18 15:39 05/23/18 15:39 05/23/18 15:39 05/23/18 15:39 Laboratory Results 05/23/18 04:18 05/23/18 04:18 05/22/18 05/23/18 05/24/18 05:59 05:59 05:59 Intake Total 1440 250 Balance 1440 250 - Time Spent With Patient Time Spent with Patient: greater than 35 minutes Time Spent with Patient: Greater than 35 minutes spent on this patients care, greater than 50% of time spent counseling, educating, and coordinating care regarding the above mentioned plan. ICD10 Worksheet Patient Problems: Problems Problem Status Onset Esophageal cancer Acute Pneumonia Acute Atrial fibrillation Acute Carotid stenosis Acute Chest pain Acute Hypokalemia Acute Hyponatremia Acute Nausea vomiting and diarrhea Acute
[2018-05-23] MEDS: PRAVASTATIN SODIUM 40 MG TAB PO SCH (21:48)
[2018-05-24 05:01] LABS: PLATELET COUNT 120 10^3/uL (150-400)
[2018-05-24] MEDS: PIPERACILLIN/TAZO 4.5 GM/DEX 100 ML IV SCH ×3 (05:43→17:02)
[2018-05-24] MEDS: IPRATROPIUM/ALBUTEROL 3 ML DEYVIAL IH PRN ×2 (06:11→09:29)
--- NOTE | 2018-05-24 09:53 | ASMTCMCOM ---
CM Note CM Note Notes: Pt admitted to hospital after experiencing sob post EGD. Currently still not responding to abx, changes to abx have been made and hopefully she will respond. Pulmonary and ID have been consulted. Hosea Sanches is involved and dc to SNF is planned DC Plan: Powerback Date Signed: 05/24/2018 09:52 AM Electronically Signed By:Gilma Castillo RN
--- NOTE | 2018-05-24 10:17 | HOSPPROG ---
Hospitalist Progress Note Assessment/Plan: The patient is a 78-year-old female with PMH esophageal cancer who was admitted for aspiration pneumonia. ASSESSMENT/PLAN: Acute hypoxemia respiratory failure, on Oxymask 15L Interstitial pneumonia, worsening - multiple possible causes R pleural effusion Hypoxemia, 2/2 above Suspected Emphysema Hx recent Esophageal cancer, in remission Hx tobacco smoking -Upgrade pt to Intermediate care (stepdown) for closer monitoring for resp decompensation. -Stat CXR, ABG. -Solumedrol IVP. -Consulted Pulm and Onc. -Consider thoracentesis if pleural effusion gets large enough. -Continue O2, SVNs. -Discussed w/ Pulm, Onc. VTE prophylaxis: Lovenox Code Status: DNR Status: Inpatient for greater than 2 midnight stay. Disposition: Med surge with discharge eventually anticipated back to rehab ____ SUBJECTIVE: Notified by pt's RN that pt's O2 demand went up to 15L today. Pt had walked around the floor w/ PT while on 25L O2 and felt labored in breathing afterward. OBJECTIVE: Physical Exam: General: The patient is an elderly female who is alert and in no acute distress. HEENT: normocephalic, extraocular movements intact, conjunctivae clear. Mucous membranes moist. Neck: trachea midline, no visible masses. CV: +S1/S2, tachy rate, no MRG. Resp: unlabored on Oxymask at rest, bilateral breath sounds. Bibasilar rales. +fine crackles b/l throughout both lungs posteriorly. Abd: soft and nondistended. Musculoskeletal: Normal muscle tone/bulk. Neuro: cranial nerves II XII grossly intact. Intact gross motor and sensory function. Psych: Appropriate mood and appropriate affect. Skin: + pallor. No petechiae. No cold extremities noted. No cyanosis noted in extremities. Heme/lymph: No peripheral edema at bilateral lower extremities. Labs/Imaging/Other Tests: CTA chest-no PE. Interval worsening of severe, acute interstitial pneumonia. Stable small right pleural effusion. CTA chest-no PE. Worsening interstitial pneumonia. Sputum Cx - normal resp doug. Procalcitonin - positive. Resp panel - negative. ABG - normal. CXR - pending. Objective: Vital Signs Temp Pulse Resp BP Pulse Ox 36.2 C 105 H 20 108/58 L 85 L 05/24/18 07:24 05/24/18 09:07 05/24/18 09:07 05/24/18 07:24 05/24/18 09:07 Microbiology 05/23/18 21:50 Respiratory Panel (PCR) - Final Nasal, Sinus - Anaerobic Tube/Swab No Organism Detected By Pcr Laboratory Results 05/24/18 04:20 05/24/18 04:20 05/23/18 05/24/18 05/25/18 05:59 05:59 05:59 Intake Total 250 Balance 250 - Time Spent With Patient Time Spent with Patient: greater than 35 minutes Time Spent with Patient: Greater than 35 minutes spent on this patients care, greater than 50% of time spent counseling, educating, and coordinating care regarding the above mentioned plan. ICD10 Worksheet Patient Problems: Problems Problem Status Onset Esophageal cancer Acute Pneumonia Acute Atrial fibrillation Acute Carotid stenosis Acute Chest pain Acute Hypokalemia Acute Hyponatremia Acute Nausea vomiting and diarrhea Acute
--- NOTE | 2018-05-24 10:23 | ASMTCMCOM ---
CM Note CM Note Notes: Pt getting transferred to ICU, Powerback has been updated Date Signed: 05/24/2018 10:22 AM Electronically Signed By:Gilma Castillo RN
[2018-05-24] MEDS ORDERED: methylPREDNISolone SOD SUCC 125 MG/2 ML VIAL IVP ONE (10:26)
[2018-05-24] MEDS: ENOXAPARIN 40 MG/0.4 ML SYR SC SCH (10:49)
[2018-05-24] MEDS: PRESERVISION AREDS2 FORMULA EYE VIT 1 EACH PO SCH ×2 (10:49→17:02)
--- NOTE | 2018-05-24 15:33 | GCON ---
ONCOLOGY INITIAL VISIT PRIMARY ONCOLOGIST: Dr. Oskar Feliz. REASON FOR VISIT: Evaluation and management of esophageal cancer. 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 She was a stage III (T3 N2). She presented with dysphagia and 10-pound weight loss. She was having a partially obstructing mass in the lower third of her esop hagus. Initial staging showed no evidence of metastatic disease, so she was treated with radiation w ith concurrent chemotherapy, which the chemotherapy was carboplatin and etoposide. She received 4 cy cles of chemotherapy, which completed in mid January. Radiation completed at the end of December, total dos e of about just under 5000 cGy. She had a post-treatment PET-CT scan in March that showed a shahzad le bit of activity at the region of the mass, but no other sites of metastatic disease. She had an e ndoscopy with biopsies that showed just inflammation. Last week, she was doing a followup endoscopy, which had biopsies and a dilation. This is her second dilation that she has had. This was a week before she was admitted to the hospital. She was told t o follow up a chest x-ray a week later, which she did. She was found to be hypoxic, and there was co ncern of aspiration pneumonia. She reports that she started having problems with cough and shortness of breath shortly after the upper endoscopy. On arrival, she was saturating 60% on room air, which improved with 3 L of oxygen. She was admitted to the hospital and started on antibiotics, but she do es not seem like she has been getting much better. She feels like it is a little harder to take a de ep breath, and she still feels very tired. She denies any fever or chills. She denies any pain. Pr ior to coming in, her daughter reports that the patient has had a very poor appetite. She lost a tot al of 20 pounds from the time of the cancer diagnosis. At her last visit last month, her weight was 59 kg, and she is currently [address] scan showed that the pleural effusion was worse, as w ell as the consolidation and interstitial pneumonia. I was asked to see her because of the history o f esophageal cancer. ALLERGIES: She is allergic to levofloxacin, meclizine, procainamide, and Valium. HOME MEDICATIONS: Include magnesium oxide, PreserVision, amlodipine, pravastatin, and cholecalcifero l. PAST MEDICAL HISTORY: Chronic illnesses include: 1. Esophageal cancer, as described above. 2. Hypertension. 3. Carotid artery stenosis, status post left carotid endarterectomy. 4. Degenerative joint disease. PAST SURGICAL HISTORY: Includes appendectomy and hysterectomy. FAMILY HISTORY: Positive for a sister who may have had esophageal cancer. SOCIAL HISTORY: She smoked about a quarter pack a day, quit about 3 years ago. No alcohol use. She lives alone. REVIEW OF SYSTEMS: Ten-point review of systems performed. Pertinent positives as per HPI, otherwise negative. PHYSICAL EXAM: VITAL SIGNS: Current temperature is 36.4. Since her hospitalization, her highest te mperature is 37.4. Pulse is in the 120s. Saturations currently 97%, I believe on 5 L. Blood pressu re is 120/48. GENERAL: She is an elderly woman. She is actually awake and alert. She appears fati gued, but in no distress. Her daughter is with her. HEENT: Sclerae nonicteric. Oral mucosa is unr emarkable. LUNGS: Bilateral crackles and squeaks. CARDIAC: Tachycardic, but regular. ABDOMEN: S oft. EXTREMITIES: No edema. SKIN: Unremarkable. NEUROLOGICAL: Grossly intact. ERIBERTO EXAM: I d id not appreciate any peripheral lymphadenopathy. LABS: On arrival, she had a mild anemia at 10.9, but her white count and platelet count were normal. At her visit last month, her hemoglobin was 12.1. The platelet count was 100,000. Chemistries las t month were normal, except for an albumin of 3.4. Chemistries on arrival, LFTs and albumin have not been done, but sodium is down a little bit, but otherwise unremarkable. Currently, her hemoglobin i s 8.8. White count is normal, platelet count 120,000. Chest CT showed no embolic disease. There is, again, a consolidative opacification associated with e xtensive airspace disease and interstitial thickening, with honeycombing superimposed on m oderate to severe changes of emphysema. This has worsened significantly since last week. Her pleura l effusion has also enlarged. Cultures, including respiratory panel, are all negative. She had a pr evious swallow study in May, which was normal. IMPRESSION: 1. 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 2. Bilateral multilobular pneumonia, without fever. PLAN: At this point, I do not have an explanation for the cause of her pneumonia. She is too far ou t for this to be related to the chemotherapy or radiation. I cannot entirely rule out lymphangitic s pread, but she is not as ill as would be expected for that diagnosis, and it had significantly worsen ed over the last week, making this less likely. A classic bacterial infection is less likely as the patient is not severely ill. She should be under good coverage for an aspiration pneumonia. I agree with a consultation with Pulmonary for evaluation and whether or not she might benefit from bronchos copy. I also recommend that we repeat her swallow study to make sure she is not having persistent si lent aspiration that could be contributing to the worsening changes. I do not recommend any other st udies at this time. She can be transfused as clinically indicated when needed. /[id number]/MODL
[2018-05-24] MEDS: MAGNESIUM OXIDE 400 MG TAB PO SCH (17:02)
[2018-05-24] MEDS: CHOLECALCIFEROL VIT D3 1,000 UNITS TAB PO SCH (17:02)
[2018-05-24] MEDS: methylPREDNISolone SOD SUCC 125 MG/2 ML VIAL IVP SCH (18:12)
[2018-05-24] MEDS: AZITHROMYCIN IV 500 MG in NS 250 ML IV SCH (18:12)
--- NOTE | 2018-05-24 19:04 | GCON ---
PULMONARY CRITICAL CARE CONSULTATION DATE OF CONSULTATION: 05/24/2018 REASON FOR CONSULTATION: Progressive pulmonary infiltrates associated with hypoxemia. HISTORY: The patient is a very pleasant 78-year-old who was admitted on 05/16 with "pneumonia." Following admission, she was treated with Invanz for suspected aspiration pneumonia. Her symptoms had been present prior to admission and started after a recent upper endoscopy associated with biopsies and dilatation. The patient does have a history of esophageal cancer. This was diagnosed in October of this year. She was stage III at the time of diagnosis and was treated with chemotherapy including carboplatin and etoposide along with radiation therapy. She completed all therapies by mid January. Followup PET-CT done approximately 2 months ago showed no evidence of metastatic disease and only a small amount of residual activity in the area of her esophagus that was initially involved by cancer. A CT scan done on the day of admission showed no evidence of pulmonary embolic disease. There was evidence of bilateral interstitial pneumonitis that was nonspecific and felt possibly to be viral versus aspiration versus inflammatory and secondary to previous chemotherapy. A small right pleural effusion was present as well, along with minimal lymphadenopathy, probably reactive. Despite treatment over the last week, she has not improved. Chest x-rays have suggested worsening of her interstitial process. She has been on Unasyn. Antibiotics were changed on the to Zosyn. She has been on inhaled therapies. She was given 1 dose of Solu-Medrol today. She has had no atypical coverage. A respiratory viral panel has been negative. BNP was only mildly elevated and did not suggest significant congestive heart failure. Repeat CT scan done on the showed progression of her interstitial infiltrates and a persistent small pleural effusion. The patient clinically is doing well. She was transferred to the intensive care unit today secondary to increasing oxygen requirements. However , in the ICU, she was only on 4 L. She is coughing up only a small amount of yellow mucus at times. She does feel short of breath. She denies any chest pain. She is not wheezing. 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 She had a CT scan of the chest done in October of this year for staging of her esophageal carcinoma. Emphysema was noted. There was lower zone interstitial thickening with some peripheral honeycombing, but no active interstitial process. She does have a long history of tobacco abuse. She quit smoking 3 years ago. She was told previously she had COPD, but was never on any inhaled therapies, never on oxygen previously. PAST MEDICAL HISTORY: Remarkable for the esophageal cancer, systemic hypertension, history of carotid disease with previous left endarterectomy and degenerative joint disease. PAST SURGICAL HISTORY: Previous surgeries have included appendectomy and hysterectomy. MEDICATIONS: On admission included amlodipine and Pravachol, supplements and vitamins. DRUG ALLERGIES: Levaquin, meclizine, procainamide, and thallium. SOCIAL HISTORY: The patient lives independently. She has a daughter and extended family nearby. Alcohol is negative. She started smoking around the age of 19 and quit around the age of 74. When she quit, she was smoking a quarter pack of cigarettes per day, but smoked more than that previously. FAMILY HISTORY: Sister possibly with esophageal cancer. REVIEW OF SYSTEMS: 10-point review of systems is negative except as outlined above. There is no history of heart disease that she is aware of. No history of thromboembolic disease. PHYSICAL EXAMINATION: GENERAL: Reveals a pleasant elderly woman who is sitting comfortably up in a chair. Family is at the bedside. VITAL SIGNS: She is on 4 L with saturations of 94%. Respiratory rate somewhat shallow at 20. Blood pressure is 128/68, heart rate approximately 100 with probable sinus tachycardia versus possible atrial fibrillation on the monitor. She is afebrile. HEENT: Unremarkable for lymphadenopathy or thyromegaly. Mucous membranes are moist. There is no jugular venous distention. CHEST: Reveals rales bilaterally most of the way up. These are present anteriorly as well. There are no rhonchi, no significant wheezes. Expiratory phase is mildly prolonged. HEART: Somewhat irregular. There is a soft systolic murmur, no obvious gallop. P2 is increased. ABDOMEN: Soft, nontender. There is no organomegaly. EXTREMITIES: Unremarkable for edema, cords, or tenderness. NEUROLOGIC: Nonfocal. ASSESSMENT: #1. Interstitial pneumonitis. The patient presented with shortness of breath, hypoxemia, and interstitial changes on x-ray and CT scan. This has progressed during hospitalization despite treatment with antibiotics for possible aspiration pneumonia. The patient has little symptoms to support the diagnosis of a significant bacterial pneumonia. She is not coughing much, has little in the way of sputum, which is only slightly yellow. Respiratory panel has been negative. Blood cultures are negative. She did have an interstitial process going on at the bases peripherally over 6 months ago. The possibility of a rapidly progressive interstitial pneumonia/pneumonitis does exist. An atypical infectious process is possible as well. Chemotherapy and radiation therapy were completed almost 6 months ago at this point. I feel she is too far out for a chemo/radiation induced pneumonitis. Opportunistic infection seems unlikely as she has not been recently immunosuppressed. Metastatic esophageal cancer to the long also seems unlikely. Further evaluation is warranted. #2. Esophageal cancer. Without evidence of significant metastatic disease. #3. COPD/emphysema. Secondary to previous tobacco abuse. Probably mild to possibly moderate as she has never had any significant symptoms prior to this presentation. #4. History of systemic hypertension, carotid disease. PLAN AND RECOMMENDATIONS: The patient will be kept in the intensive care unit for now. Bronchoscopy with biopsies will be arranged in the next day or 2. This does not need to be done emergently and tomorrow is Thanksgiving, so Tuesday may be the best day to perform this procedure. She will be at somewhat increased risk for complications such as pneumothorax in light of her emphysema. Coverage for atypical organisms will be empirically added. Further serologies will be obtained. Intravenous Solu-Medrol will be continued for now. A cardiac echo will be requested for tomorrow. Further plans and recommendations will be made based on her progress over the next 12-24 hours. /[id number]/MODL MTDD
[2018-05-24] MEDS: PRAVASTATIN SODIUM 40 MG TAB PO SCH (21:07)
[2018-05-24] MEDS: ONDANSETRON DISINTEGRATING 4 MG TAB PO PRN (21:52)
[2018-05-25] MEDS: methylPREDNISolone SOD SUCC 125 MG/2 ML VIAL IVP SCH ×4 (00:13→18:07)
[2018-05-25] MEDS: PIPERACILLIN/TAZO 4.5 GM/DEX 100 ML IV SCH ×4 (00:13→18:14)
[2018-05-25 05:58] LABS: PLATELET COUNT 134 10^3/uL (150-400)
[2018-05-25 06:05] LABS: INR 1.22 (0.83-1.16); PROTIME(PATIENT) 15.6 SEC (12.0-15.0)
[2018-05-25] MEDS: PRESERVISION AREDS2 FORMULA EYE VIT 1 EACH PO SCH ×2 (10:18→18:08)
[2018-05-25] MEDS: ENOXAPARIN 40 MG/0.4 ML SYR SC SCH (10:18)
[2018-05-25] MEDS: AZITHROMYCIN IV 500 MG in NS 250 ML IV SCH (10:55)
--- NOTE | 2018-05-25 11:42 | SOAPPROG ---
SOAP Progress Note Assessment/Plan: Assessment: 1. Interstitial pneumonitis: Initially thought to be possible aspiration pneumonia. Cultures are negative, respiratory panel negative. No leukocytosis or fevers. Currently on Zosyn which should provide adequate coverage for aspiration. On steroids as well. Plan for bronchoscopy on tuesday. 2. 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 Based on imaging, it doesn't appear to be dx recurrence. 05/25/18 11:38 Subjective: No acute events overnight. Feeling frustrated today as she is not getting better. Objective: Vital Signs Temp Pulse Resp BP Pulse Ox 36.4 C 98 20 120/60 93 05/25/18 07:38 05/25/18 07:38 05/25/18 07:38 05/25/18 07:38 05/25/18 07:38 Microbiology 05/23/18 21:50 Respiratory Panel (PCR) - Final Nasal, Sinus - Anaerobic Tube/Swab No Organism Detected By Pcr Laboratory Results 05/25/18 05:45 05/24/18 04:20 05/24/18 05/25/18 05/26/18 05:59 05:59 05:59 Intake Total 1070 Balance 1070 PT 15.6 SEC (12.0-15.0) H 05/25/18 05:45 INR 1.22 (0.83-1.16) H 05/25/18 05:45 General: Pleasant, conversant, NAD HEENT: NC in place, op clear, eomi CV: RRR Pulm: Bilateral crackles appreciated 1/3 up the lung fry abd: Soft, nt, nd, bs+ Ext: No c/c/e ICD10 Worksheet Patient Problems: Problems Problem Status Onset Esophageal cancer Acute Pneumonia Acute Atrial fibrillation Acute Carotid stenosis Acute Chest pain Acute Hypokalemia Acute Hyponatremia Acute Nausea vomiting and diarrhea Acute
--- NOTE | 2018-05-25 12:32 | PDINTPN ---
Communications Coordinator Progress Note Assessment/Plan: Assessment: Bilateral pulmonary infiltrates: Differential includes atypical infectious process, inflammatory process including possible Hamilton Rich, opportunistic infection (less likely), drug-induced pneumonitis (less likely). Doubt aspiration. Swallow study today looked pretty good. On empiric antibiotics and empiric steroids. For bronchoscopy and biopsies tomorrow. Acute respiratory failure secondary to #1. Associated with hypoxemia. 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 Currently on inhaled medications and steroids. Esophageal cancer. [place] to be localized, without evidence of significant metastatic disease in March. Anemia: Hematocrit stable at 30. No active bleeding. Follow. Metabolic: No issues identified. Prophylaxis: On enoxaparin, eating. Plan: Continue oxygen and inhaled therapies. Continue present antibiotics and steroids. Mobilize as possible. Await further serologies pending. Will proceed with bronchoscopies and biopsies tomorrow. 30 min of critical care time spent directly with the patient. Issues discussed with the patient. No family members present. Discussed with hospitalist, are T , nursing, and the ICU multi disciplinary team. Subjective: Feels better. On 4 L. Still short of breath with increased hypoxemia walking to the bathroom. Little in the way of cough and mucus this morning. No pain. Objective: Vital Signs Temp Pulse Resp BP Pulse Ox 36.4 C 98 20 120/60 93 05/25/18 07:38 05/25/18 07:38 05/25/18 07:38 05/25/18 07:38 05/25/18 07:38 Microbiology 05/23/18 21:50 Respiratory Panel (PCR) - Final Nasal, Sinus - Anaerobic Tube/Swab No Organism Detected By Pcr Laboratory Results 05/25/18 05:45 05/24/18 04:20 05/24/18 05/25/18 05/26/18 05:59 05:59 05:59 Intake Total 1070 Balance 1070 PT 15.6 SEC (12.0-15.0) H 05/25/18 05:45 INR 1.22 (0.83-1.16) H 05/25/18 05:45 Laboratory Tests 05/25/18 05/25/18 05/25/18 05:45 05:45 05:45 ESR 85 H C-Reactive Protein 138.3 H Anti-Cycl Citrul Peptide QUITA Screen Pending Urine Legionella Ag Ur Strep pneumoniae Ag 05/25/18 05/25/18 05:45 09:15 ESR C-Reactive Protein Anti-Cycl Citrul Peptide Pending QUITA Screen Urine Legionella Ag Pending Ur Strep pneumoniae Ag Pending CXR: Bilateral infiltrates about the same. Physical Exam - Physical Exam General Appearance: alert, no apparent distress, thin EENT: other (Nasal cannula in place at 4-6 L) Neck: normal inspection (No JVD) Respiratory: decreased breath sounds (Bilaterally. Excursions improved compared to yesterday), rales (Rales present bilaterally. Decreased both anteriorly and posteriorly today.), No rhonchi, No wheezing Cardiac/Chest: regular rate, rhythm, No gallop Abdomen: normal bowel sounds, non-tender, soft Pelvic Exam: other (No [place] catheter) Skin: warm/dry, pallor Extremities: No pedal edema Neuro/Psych: no motor/sensory deficits, No cognition abnormalities ICD10 Worksheet Patient Problems: Problems Problem Status Onset Carotid stenosis Acute Nausea vomiting and diarrhea Acute Chest pain Acute Hypokalemia Acute Hyponatremia Acute Atrial fibrillation Acute Pneumonia Acute Esophageal cancer Acute
[2018-05-25] MEDS: PANTOPRAZOLE SODIUM 40 MG TAB PO SCH (14:04)
[2018-05-25] MEDS: ONDANSETRON DISINTEGRATING 4 MG TAB PO PRN (15:52)
--- NOTE | 2018-05-25 17:22 | HOSPPROG ---
Hospitalist Progress Note Assessment/Plan: The patient is a 78-year-old female with PMH esophageal cancer who was admitted for aspiration pneumonia. ASSESSMENT/PLAN: Acute hypoxemia respiratory failure, on Oxymask 15L Interstitial pneumonia, worsening - many Ddx of etiology R pleural effusion Hypoxemia, 2/2 above Suspected Emphysema Hx recent Esophageal cancer, in remission Hx tobacco smoking -Upgrade pt to Intermediate care (stepdown) for closer monitoring for resp decompensation. -Stat CXR, ABG. -Solumedrol IVP. -Consulted Pulm and Onc. -Consider thoracentesis if pleural effusion gets large enough. -Continue O2, SVNs. VTE prophylaxis: Lovenox Code Status: DNR Status: Inpatient for greater than 2 midnight stay. Disposition: Med surge with discharge eventually anticipated back to rehab ____ SUBJECTIVE: Notified by pt OBJECTIVE: Physical Exam: General: The patient is an elderly female who is alert and in no acute distress. HEENT: normocephalic, extraocular movements intact, conjunctivae clear. Mucous membranes moist. Neck: trachea midline, no visible masses. CV: +S1/S2, tachy rate, no MRG. Resp: unlabored on Oxymask at rest, bilateral breath sounds. Bibasilar rales. +fine crackles b/l throughout both lungs posteriorly. Abd: soft and nondistended. Musculoskeletal: Normal muscle tone/bulk. Neuro: cranial nerves II XII grossly intact. Intact gross motor and sensory function. Psych: Appropriate mood and appropriate affect. Skin: + pallor. No petechiae. No cold extremities noted. No cyanosis noted in extremities. Heme/lymph: No peripheral edema at bilateral lower extremities. Labs/Imaging/Other Tests: CTA chest-no PE. Interval worsening of severe, acute interstitial pneumonia. Stable small right pleural effusion. CTA chest-no PE. Worsening interstitial pneumonia. Sputum Cx - normal resp doug. Procalcitonin - positive. Resp panel - negative. ABG - normal. CXR - pending. Objective: Vital Signs Temp Pulse Resp BP Pulse Ox 36.7 C 99 18 136/71 H 90 L 05/25/18 15:57 05/25/18 15:57 05/25/18 15:57 05/25/18 15:57 05/25/18 15:57 Laboratory Results 05/25/18 05:45 05/24/18 04:20 05/24/18 05/25/18 05/26/18 05:59 05:59 05:59 Intake Total 1070 400 Output Total 300 Balance 1070 100 PT 15.6 SEC (12.0-15.0) H 05/25/18 05:45 INR 1.22 (0.83-1.16) H 05/25/18 05:45 - Time Spent With Patient Time Spent with Patient: greater than 35 minutes Time Spent with Patient: Greater than 35 minutes spent on this patients care, greater than 50% of time spent counseling, educating, and coordinating care regarding the above mentioned plan. ICD10 Worksheet Patient Problems: Problems Problem Status Onset Esophageal cancer Acute Pneumonia Acute Atrial fibrillation Acute Carotid stenosis Acute Chest pain Acute Hypokalemia Acute Hyponatremia Acute Nausea vomiting and diarrhea Acute
--- NOTE | 2018-05-25 17:27 | HOSPPROG ---
Hospitalist Progress Note Assessment/Plan: The patient is a 78-year-old female with PMH esophageal cancer who was admitted for aspiration pneumonia. ASSESSMENT/PLAN: Acute hypoxemia respiratory failure, improved Idiopathic Interstitial pneumonia R pleural effusion Hypoxemia, 2/2 above Suspected Emphysema Hx recent Esophageal cancer, in remission Hx tobacco smoking -Downgrade to med tele status since O2 demand has improved. -I have discussed the case w/ Pulm and Oncology. -Awaiting bronchoscopy tomorrow. -Solumedrol IVP - working well. Add PPI to protect stomach as pt has Hx gastritis. -Continue O2, SVNs. -PT. VTE prophylaxis: Lovenox Code Status: DNR Status: Inpatient for greater than 2 midnight stay. Disposition: Med surge with discharge eventually anticipated back to rehab ____ SUBJECTIVE: Today pt feels well. On 6L O2. OBJECTIVE: Physical Exam: General: The patient is an elderly female who is alert and in no acute distress. HEENT: normocephalic, extraocular movements intact, conjunctivae clear. Mucous membranes moist. Neck: trachea midline, no visible masses. Resp: unlabored on NC at rest. Abd: soft and nondistended. Musculoskeletal: Normal muscle tone/bulk. Neuro: cranial nerves II XII grossly intact. Intact gross motor and sensory function. Psych: Appropriate mood and appropriate affect. Skin: + pallor. No petechiae. No cold extremities noted. No cyanosis noted in extremities. Heme/lymph: No peripheral edema at bilateral lower extremities. Labs/Imaging/Other Tests: CTA chest-no PE. Interval worsening of severe, acute interstitial pneumonia. Stable small right pleural effusion. CTA chest-no PE. Worsening interstitial pneumonia. Sputum Cx - normal resp doug. Procalcitonin - positive. Resp panel - negative. ABG - normal. CXR - personally interpreted - b/l infiltrates. Objective: Vital Signs Temp Pulse Resp BP Pulse Ox 36.7 C 99 18 136/71 H 90 L 05/25/18 15:57 05/25/18 15:57 05/25/18 15:57 05/25/18 15:57 05/25/18 15:57 Laboratory Results 05/25/18 05:45 05/24/18 04:20 05/24/18 05/25/18 05/26/18 05:59 05:59 05:59 Intake Total 1070 400 Output Total 300 Balance 1070 100 PT 15.6 SEC (12.0-15.0) H 05/25/18 05:45 INR 1.22 (0.83-1.16) H 05/25/18 05:45 ICD10 Worksheet Patient Problems: Problems Problem Status Onset Esophageal cancer Acute Pneumonia Acute Atrial fibrillation Acute Carotid stenosis Acute Chest pain Acute Hypokalemia Acute Hyponatremia Acute Nausea vomiting and diarrhea Acute
[2018-05-25] MEDS: CHOLECALCIFEROL VIT D3 1,000 UNITS TAB PO SCH (18:08)
[2018-05-25] MEDS: MAGNESIUM OXIDE 400 MG TAB PO SCH (18:08)
[2018-05-25] MEDS: PRAVASTATIN SODIUM 40 MG TAB PO SCH (22:06)
[2018-05-26] MEDS: methylPREDNISolone SOD SUCC 125 MG/2 ML VIAL IVP SCH ×4 (00:26→17:58)
[2018-05-26 05:12] LABS: PLATELET COUNT 139 10^3/uL (150-400)
[2018-05-26] MEDS: AZITHROMYCIN IV 500 MG in NS 250 ML IV SCH (08:53)
[2018-05-26] MEDS: PANTOPRAZOLE SODIUM 40 MG TAB PO SCH (10:32)
[2018-05-26] MEDS: PRESERVISION AREDS2 FORMULA EYE VIT 1 EACH PO SCH ×2 (10:32→17:58)
--- NOTE | 2018-05-26 10:54 | PDINTPN ---
Neuropsychology Medical Consultant Progress Note Assessment/Plan: Assessment: Bilateral pulmonary infiltrates: Differential includes atypical infectious process, inflammatory process including possible Hamilton Rich, opportunistic infection (less likely), drug-induced pneumonitis (less likely). Doubt aspiration: swallow study 05/25 with only minor potential for aspiration. On empiric antibiotics and empiric steroids. For bronchoscopy and biopsies today. Acute respiratory failure secondary to #1. Associated with hypoxemia. 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 Currently on inhaled medications and steroids. Esophageal cancer. [place] to be localized, without evidence of significant metastatic disease in March. Anemia: Hematocrit stable at 32. No active bleeding. Follow. Metabolic: No issues identified. Prophylaxis: On enoxaparin, eating. Plan: Continue oxygen and inhaled therapies. Continue present antibiotics and steroids. Mobilize as possible. Await further serologies pending. Will proceed with bronchoscopies and biopsies today. Risks and benefits discussed. 20 min of critical care time spent directly with the patient. Issues discussed with the patient. Subjective: Remains short of breath, having trouble bringing up mucus this morning. Objective: Vital Signs Temp Pulse Resp BP Pulse Ox 36.5 C 85 20 127/45 H 92 05/26/18 07:54 05/26/18 07:54 05/26/18 07:54 05/26/18 07:54 05/26/18 07:54 Laboratory Results 05/26/18 05:06 05/26/18 05:06 05/25/18 05/26/18 05/27/18 05:59 05:59 05:59 Intake Total 1070 1996 Output Total 300 Balance 1070 1696 PT 15.6 SEC (12.0-15.0) H 05/25/18 05:45 INR 1.22 (0.83-1.16) H 05/25/18 05:45 Laboratory Tests 05/26/18 05:06 Calcium 7.4 L Laboratory Tests 05/25/18 05:45 PT 15.6 H INR 1.22 H APTT 36.5 CXR: No change in infiltrates bilaterally Physical Exam - Physical Exam General Appearance: alert, no apparent distress EENT: PERRL/EOMI, other (OxyMask in place) Neck: normal inspection (No JVD) Respiratory: decreased breath sounds, rales (Bilaterally at the posterior bases , extending about 1/[address]), No rhonchi (Some central secretions present) Cardiac/Chest: regular rate, rhythm, systolic murmur, No gallop Abdomen: normal bowel sounds, non-tender, soft Skin: warm/dry, pallor Extremities: No pedal edema Neuro/Psych: no motor/sensory deficits, No cognition abnormalities ICD10 Worksheet Patient Problems: Problems Problem Status Onset Carotid stenosis Acute Nausea vomiting and diarrhea Acute Chest pain Acute Hypokalemia Acute Hyponatremia Acute Atrial fibrillation Acute Pneumonia Acute Esophageal cancer Acute
[2018-05-26] MEDS ORDERED: EPINEPHrine 1 MG/ML INJ ONE ×2 (12:20→12:33)
[2018-05-26] MEDS ORDERED: ALBUTEROL 3 ML DEYVIAL ONE (12:20)
[2018-05-26] MEDS ORDERED: BENZOCAINE UNIT DOSE SPRAY HURRICAINE MM ONE (12:20)
[2018-05-26] MEDS ORDERED: LIDOCAINE 1% 300 MG/30 ML SDV ONE (12:20)
[2018-05-26] MEDS ORDERED: LIDOCAINE HCL 4% TOPICAL SOLN 50ML ONE (12:21)
[2018-05-26] MEDS ORDERED: MIDAZOLAM 2 MG/2 ML VIAL ONE (12:34)
[2018-05-26] MEDS ORDERED: fentaNYL 100 MCG/2 ML INJ ONE (12:34)
--- NOTE | 2018-05-26 13:04 | PDPROPOC ---
Sedation Plan of Care Sedation Plan of Care: vital signs stable, mental status noted, patient educated of risks, benefits, alternatives, patient can tolerate sedation ASA Classification: ASA 2 Planned drugs: fentanyl, midazolam Mallampati Score: Class 2 (Hypoxemia present with needs between 4 and 10 L. At risk for increased hypoxemia post bronchoscopy. Do not resuscitate status will be waved for the procedure) Mallampati Reference Image:
[2018-05-26] MEDS ORDERED: METOPROLOL TARTRATE 5 MG/5 ML INJ IVP ONE ×2 (13:15)
[2018-05-26] MEDS ORDERED: fentaNYL 100 MCG/2 ML INJ IVP ONE ×2 (13:30)
[2018-05-26] MEDS ORDERED: MIDAZOLAM 2 MG/2 ML VIAL IVP ONE ×2 (13:30)
[2018-05-26] MEDS ORDERED: PROTOCOL POTASSIUM 1 DOSE MISC PRN (14:13)
[2018-05-26] MEDS ORDERED: PROTOCOL MAGNESIUM 1 DOSE IV PRN (14:13)
[2018-05-26] MEDS ORDERED: ALBUMIN 5% 500 ML IV ONE (14:21)
--- NOTE | 2018-05-26 15:09 | GPN ---
DATE OF PROCEDURE: 05/26/2018 PROCEDURE PERFORMED: Bronchoscopy. INDICATION FOR PROCEDURE: Increasing bilateral pulmonary infiltrates of unclear etiology in a patien t with underlying esophageal cancer. DESCRIPTION OF PROCEDURE: The procedure was performed in the endoscopy unit. Informed consent was o btained from the patient. Appropriate time-out was performed. N95 masks were worn, although there w as no evidence of risk for airborne infectious respiratory organisms. Conscious sedation included 3 mg of Versed and 75 mcg of fentanyl. Approximately 25 mL of 1% lidocaine was used for topical anesth esia, with 4 cc of 4% lidocaine used to anesthetize the posterior oropharynx. 4 cc of 1:10,000 epine phrine was given at the end of the procedure for bleeding as described below. The fiberoptic bronchoscope was passed via a bite block orally in the larynx. The vocal cords were i dentified. They appeared normal and moved normally with phonation. The bronchoscope was then advanc ed into the trachea and in the lower tracheobronchial tree bilaterally. All areas were observed to a t least the first subsegmental level. Anatomy was normal bilaterally. There were no endobronchial l esions. There were no secretions. There was no evidence of extrinsic compression. Bronchoalveolar lavage/bronch wash samples were taken from both sides and combined. Following this, a transbronchial biopsy was performed under fluoroscopic guidance in the anterior lateral segment of the left upper l obe. One biopsy was obtained. With this, there was significant bleeding, estimated to possibly be 5 0 mL? The airway was left occluded by the bronchoscope and suction applied. Eventually, 2 cc of 1:1 0,000 epinephrine was given. When bleeding persisted and heart rate did not rise significantly, anot her 2 cc was eventually given. With this, heart rate went from approximately 100-120. At the end of the procedure, there was no evidence of any further bleeding. The bronchoscope was removed from the left upper lobe. Blood was removed from other airways, and the bronchoscope withdrawn. Saturations on supplemental oxygen were in the 90s throughout the procedure. She had [address], a simpl e mask and a nasal cannula. She was mildly hypertensive throughout the procedure. Prior to starting the procedure, secondary to tachycardia, PVCs, and some short runs of SVT, 5 mg of metoprolol was given intravenously. IMPRESSION: 1. Normal endobronchial anatomy. 2. Bilateral pulmonary infiltrates, query etiology. 3. Bleeding with a single biopsy obtained, as outlined above. Appropriate samples were sent to the lab and included cultures, PCP stains, and routine pathology fro m the biopsy. Following the procedure, the patient is being moved from recovery to a bed in the intensive care unit as full intensive care status. All of the above was discussed with the patient's daughter and son-in-law. /[id number]/MODL
[2018-05-26] MEDS ORDERED: POTASSIUM CL 10 MEQ TAB PO ONE ×2 (16:08→21:35)
--- NOTE | 2018-05-26 17:26 | HOSPPROG ---
Hospitalist Progress Note Assessment/Plan: The patient is a 78-year-old female with PMH esophageal cancer who was admitted for aspiration pneumonia. ASSESSMENT/PLAN: Diffuse parenchymal lung disease, stable Acute hypoxemic respiratory failure, 2/2 above R pleural effusion Suspected Emphysema Hx recent Esophageal cancer, in remission Hx tobacco smoking -Bronchoscopy today. Pulm recs appreciated. FU specimen studies. -Solumedrol IVP. -Continue O2, SVNs. -Discussed w/ Onc. -Empiric Abx in case of PNA - was on Invanz, now Zosyn. Azithro added 04/23. -Add cardiac monitoring. VTE prophylaxis: Lovenox Code Status: DNR Status: Inpatient for greater than 2 midnight stay. Disposition: Med surge with discharge eventually anticipated back to rehab ____ SUBJECTIVE: Saw pt earlier this AM prior to bronchoscopy. She felt well, was awaiting bronch. Coughed up a large blob of phlegm earlier but was unable to save it. She is up from 6L O2 to 10L. OBJECTIVE: Physical Exam: General: The patient is an elderly female who is alert and in no acute distress. HEENT: normocephalic, extraocular movements intact, conjunctivae clear. Mucous membranes moist. Neck: trachea midline, no visible masses. CV: +S1/S2, reg rate, no MRG. Resp: unlabored, on NC O2. Abd: soft and nondistended. Musculoskeletal: Normal muscle tone/bulk. Neuro: cranial nerves II XII grossly intact. Intact gross motor and sensory function. Psych: Appropriate mood and appropriate affect. Skin: + pallor. No petechiae. No cold extremities noted. No cyanosis noted in extremities. Heme/lymph: No peripheral edema at bilateral lower extremities. Labs/Imaging/Other Tests: CTA chest-no PE. Interval worsening of severe, acute interstitial pneumonia. Stable small right pleural effusion. CTA chest-no PE. Worsening interstitial pneumonia. Sputum Cx - normal resp doug. Procalcitonin - positive. Resp panel - negative. ABG - normal. CXR - b/l infiltrates. Objective: Vital Signs Temp Pulse Resp BP Pulse Ox 36.4 C 100 18 97/54 L 91 L 05/26/18 11:54 05/26/18 16:00 05/26/18 16:00 05/26/18 16:00 05/26/18 16:00 Microbiology 05/26/18 13:25 Gram Stain - Final Bronchial Alveolar Lavage - Bilateral Lobes Laboratory Results 05/26/18 15:07 05/26/18 15:07 05/25/18 05/26/18 05/27/18 05:59 05:59 05:59 Intake Total 1070 1996 Output Total 300 Balance 1070 1696 PT 15.6 SEC (12.0-15.0) H 05/25/18 05:45 INR 1.22 (0.83-1.16) H 05/25/18 05:45 - Time Spent With Patient Time Spent with Patient: greater than 35 minutes Time Spent with Patient: Greater than 35 minutes spent on this patients care, greater than 50% of time spent counseling, educating, and coordinating care regarding the above mentioned plan. ICD10 Worksheet Patient Problems: Problems Problem Status Onset Esophageal cancer Acute Pneumonia Acute Atrial fibrillation Acute Carotid stenosis Acute Chest pain Acute Hypokalemia Acute Hyponatremia Acute Nausea vomiting and diarrhea Acute
[2018-05-26] MEDS: CHOLECALCIFEROL VIT D3 1,000 UNITS TAB PO SCH (17:58)
[2018-05-26] MEDS: MAGNESIUM OXIDE 400 MG TAB PO SCH (17:58)
[2018-05-26] MEDS: PRAVASTATIN SODIUM 40 MG TAB PO SCH (21:36)
[2018-05-26] MEDS: PIPERACILLIN/TAZO 4.5 GM/DEX 100 ML IV SCH (23:25)
[2018-05-27] MEDS: methylPREDNISolone SOD SUCC 125 MG/2 ML VIAL IVP SCH ×4 (00:10→18:37)
[2018-05-27] MEDS: PIPERACILLIN/TAZO 4.5 GM/DEX 100 ML IV SCH ×3 (05:28→18:36)
[2018-05-27 05:47] LABS: PLATELET COUNT 165 10^3/uL (150-400)
[2018-05-27] MEDS: PRESERVISION AREDS2 FORMULA EYE VIT 1 EACH PO SCH ×2 (09:19→17:21)
[2018-05-27] MEDS: ENOXAPARIN 40 MG/0.4 ML SYR SC SCH (09:20)
[2018-05-27] MEDS: PANTOPRAZOLE SODIUM 40 MG TAB PO SCH (09:20)
[2018-05-27] MEDS: AZITHROMYCIN IV 500 MG in NS 250 ML IV SCH (09:20)
[2018-05-27] MEDS ORDERED: FUROSEMIDE 20 MG/2 ML VIAL IVP ONE (10:38)
[2018-05-27] MEDS: FLUCONAZOLE/NaCl 200 ML IV SCH (11:08)
--- NOTE | 2018-05-27 11:38 | ASMTCMCOM ---
CM Note CM Note Notes: 05/27/2018 Case Management Note Discussed pt during multidisciplanary rounds this morning. Pt has high O2 needs and increased SOB with exertion. Updated [facility] on [employer]. Case Management d/c poc: [facility] re[facility] when medically stable. Case Management to follow. Date Signed: 05/27/2018 11:37 AM Electronically Signed By:Keila Aguirre RN
--- NOTE | 2018-05-27 13:05 | SOAPPROG ---
SOAP Progress Note Assessment/Plan: Assessment: 1. Interstitial pneumonitis: Initially thought to be possible aspiration pneumonia. Cultures are negative, respiratory panel negative. No leukocytosis or fevers. Currently on Zosyn which should provide adequate coverage for aspiration. On steroids as well. Had bronch. Results are pending. She had pulm hemorrhage post procedure and had increased O2 requirement, so now in ICU. Specific therapy will be related to the results of her bronch (infectious vs. inflammatory). 2. 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 Based on imaging, it doesn't appear to be dx recurrence. Plan: - Agree with pulm RX as you are doing - Agree with empiric abx - Check bronch results when available I spoke with the patient and her daughter Ashley Bourgeois today. 05/27/18 13:02 Subjective: Doesn't feel short of breath. Eating. Blames her recent deterioration on her recent EGD. Objective: Vital Signs Temp Pulse Resp BP Pulse Ox 36.4 C 92 28 H 156/72 H 87 L 05/27/18 10:00 05/27/18 12:00 05/27/18 12:00 05/27/18 12:00 05/27/18 12:00 Microbiology 05/26/18 13:25 Gram Stain - Final Bronchial Alveolar Lavage - Bilateral Lobes Laboratory Results 05/27/18 05:30 05/27/18 05:30 05/25/18 05/26/18 05/27/18 23:59 23:59 23:59 Intake Total 1951 545 500 Output Total 300 650 Balance 1651 545 -150 PT 15.6 SEC (12.0-15.0) H 05/25/18 05:45 INR 1.22 (0.83-1.16) H 05/25/18 05:45 Physical Exam - Physical Exam General Appearance: alert, mild distress ICD10 Worksheet Patient Problems: Problems Problem Status Onset Carotid stenosis Acute Nausea vomiting and diarrhea Acute Chest pain Acute Hypokalemia Acute Hyponatremia Acute Atrial fibrillation Acute Pneumonia Acute Esophageal cancer Acute
--- NOTE | 2018-05-27 13:48 | PDINTPN ---
Hims Clerk Progress Note Assessment/Plan: Assessment: 78-year-old with underlying esophageal cancer and COPD admitted with hypoxemia and bilateral pulmonary infiltrates. She was initially treated with antibiotics for possible aspiration but had progressive hypoxemia and worsening of infiltrates by chest x-ray and CT scan. Bilateral pulmonary infiltrates: Differential includes atypical infectious process, inflammatory process including possible Hamilton Rich, opportunistic infection (less likely), drug-induced pneumonitis (less likely). Doubt aspiration: swallow study 05/25 with only minor potential for aspiration. On empiric antibiotics and empiric steroids. Bronchoscopy 05/27. Unfortunately only 1 biopsy obtained secondary to bleeding. Cultures and pathology pending. Some fungal organisms present. These likely will end up being [place]. QUITA elevated along with CRP and ESR. Associated pneumonitis thus not excluded. Acute respiratory failure secondary to #1. Associated with hypoxemia. Oxygen requirements remain high. 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 Currently on inhaled medications and steroids. Esophageal cancer. [place] to be localized, without evidence of significant metastatic disease in March. Anemia: Hematocrit stable at 28. No active bleeding. Follow. Metabolic: No issues identified. Prophylaxis: On enoxaparin, eating. Plan: Continue oxygen and inhaled therapies. Continue present antibiotics and steroids. Will likely stop Zosyn tomorrow if cultures are negative. Will add Diflucan pending further information from the bronchoscopy. Mobilize as possible. Await further serologies. Await pathology from biopsy 35 min of critical care time spent directly with the patient, RT, nursing, and the ICU multi disciplinary team.. Issues discussed with the patient. I also met with the patient's family including daughter, son-in-law, and son for about 20 min discussing where we are at clinically and prognosis. Subjective: Doing okay. Remains on double oxygen setup. Remains short of breath. No chest pain. Had a lot a cough yesterday after the bronchoscopy and brought up blood several times. Objective: Vital Signs Temp Pulse Resp BP Pulse Ox 36.4 C 92 28 H 156/72 H 87 L 05/27/18 10:00 05/27/18 12:00 05/27/18 12:00 05/27/18 12:00 05/27/18 12:00 Microbiology 05/26/18 13:25 Gram Stain - Final Bronchial Alveolar Lavage - Bilateral Lobes Laboratory Results 05/27/18 05:30 05/27/18 05:30 05/26/18 05/27/18 05/28/18 05:59 05:59 05:59 Intake Total 1995 620 Output Total 300 1000 Balance 1696 620 -1000 PT 15.6 SEC (12.0-15.0) H 05/25/18 05:45 INR 1.22 (0.83-1.16) H 05/25/18 05:45 Laboratory Tests 05/27/18 05:30 Potassium 4.2 Magnesium 2.0 Laboratory Tests 05/25/18 05:45 QUITA Screen 1.24 H QUITA Titer 1:640 Physical Exam - Physical Exam General Appearance: alert, no apparent distress EENT: other (On double O2 set-up) Neck: normal inspection (No JVD) Respiratory: decreased breath sounds, rales (Present bilaterally, no change), No rhonchi, No wheezing Cardiac/Chest: regular rate, rhythm, No gallop Abdomen: normal bowel sounds, non-tender, soft Pelvic Exam: other (No [place] catheter) Skin: normal color, warm/dry Extremities: No pedal edema Neuro/Psych: no motor/sensory deficits, No cognition abnormalities ICD10 Worksheet Patient Problems: Problems Problem Status Onset Esophageal cancer Acute Pneumonia Acute Atrial fibrillation Acute Carotid stenosis Acute Chest pain Acute Hypokalemia Acute Hyponatremia Acute Nausea vomiting and diarrhea Acute
[2018-05-27] MEDS: CHOLECALCIFEROL VIT D3 1,000 UNITS TAB PO SCH (17:18)
[2018-05-27] MEDS: MAGNESIUM OXIDE 400 MG TAB PO SCH (17:18)
--- NOTE | 2018-05-27 17:28 | HOSPPROG ---
Hospitalist Progress Note Assessment/Plan: The patient is a 78-year-old female with PMH esophageal cancer who was admitted for aspiration pneumonia, but worsened despite treatment, and is now suspected to have a non-infectious parenchymal lung disease. ASSESSMENT/PLAN: Diffuse parenchymal lung disease, stable Acute hypoxemic respiratory failure, 2/2 above Hemoptysis, post-bronchoscopy - resolved R pleural effusion Suspected Emphysema Sinus tachycardia, intermittent - likely 2/2 lung disease Hx recent Esophageal cancer, in remission Hx tobacco smoking -FU Bronch studies. -Solumedrol IVP. -O2, SVNs. -Empiric Abx in case of PNA - was initially on Invanz, now Zosyn. Azithro added 04/23. VTE prophylaxis: Lovenox. Code Status: DNR. Status: Inpatient for greater than 2 midnight stay. Disposition: Med surge with discharge eventually anticipated back to rehab ____ SUBJECTIVE: Saw pt w/ her daughter and son. She feels okay. Has intermittent sinus tachycardia. OBJECTIVE: Physical Exam: General: The patient is an elderly female who is alert and in no acute distress. HEENT: normocephalic, extraocular movements intact, conjunctivae clear. Mucous membranes moist. Neck: trachea midline, no visible masses. CV: +S1/S2, reg rhythm, rate jumped from 90 to 130 for a few seconds and then back to 90 during auscultation, no MRG. Resp: unlabored, on NC O2. Abd: soft and nondistended. Musculoskeletal: Normal muscle tone/bulk. Neuro: cranial nerves II XII grossly intact. Intact gross motor and sensory function. Psych: Appropriate mood and appropriate affect. Skin: + pallor. No petechiae. No cold extremities noted. No cyanosis noted in extremities. Heme/lymph: No peripheral edema at bilateral lower extremities. Labs/Imaging/Other Tests: CTA chest-no PE. Interval worsening of severe, acute interstitial pneumonia. Stable small right pleural effusion. CTA chest-no PE. Worsening interstitial pneumonia. Sputum Cx - normal resp doug. Procalcitonin - positive. Resp panel - negative. Objective: Vital Signs Temp Pulse Resp BP Pulse Ox 36.4 C 91 21 H 156/65 H 89 L 05/27/18 10:00 05/27/18 16:00 05/27/18 16:00 05/27/18 16:00 05/27/18 16:00 Microbiology 05/26/18 13:25 Mycobacterial Smear (NICOLLE) - Final Bronchial Alveolar Lavage - Bilateral Lobes 05/26/18 13:25 Gram Stain - Final Bronchial Alveolar Lavage - Bilateral Lobes Laboratory Results 05/27/18 05:30 05/27/18 05:30 05/26/18 05/27/18 05/28/18 05:59 05:59 05:59 Intake Total 1995 620 Output Total 300 1350 Balance 1696 620 -1350 PT 15.6 SEC (12.0-15.0) H 05/25/18 05:45 INR 1.22 (0.83-1.16) H 05/25/18 05:45 ICD10 Worksheet Patient Problems: Problems Problem Status Onset Esophageal cancer Acute Pneumonia Acute Atrial fibrillation Acute Carotid stenosis Acute Chest pain Acute Hypokalemia Acute Hyponatremia Acute Nausea vomiting and diarrhea Acute
[2018-05-27] MEDS ORDERED: AMIODARONE HCL 100 ML IV ONE (19:30)
[2018-05-27] MEDS ORDERED: METOPROLOL TARTRATE 5 MG/5 ML INJ IVP ONE (19:30)
[2018-05-27] MEDS ORDERED: POTASSIUM CL 20 MEQ/15 ML UDCUP PO ONE (19:30)
[2018-05-27] MEDS: PRAVASTATIN SODIUM 40 MG TAB PO SCH (19:34)
[2018-05-27] MEDS: METOPROLOL TARTRATE 25 MG TAB PO SCH (21:13)
[2018-05-28] MEDS: methylPREDNISolone SOD SUCC 125 MG/2 ML VIAL IVP SCH ×5 (00:54→23:37)
[2018-05-28] MEDS: PIPERACILLIN/TAZO 4.5 GM/DEX 100 ML IV SCH ×2 (00:54→06:33)
[2018-05-28 06:56] LABS: PLATELET COUNT 135 10^3/uL (150-400)
[2018-05-28] MEDS ORDERED: POTASSIUM CL 20 MEQ/15 ML UDCUP PO ONE (08:02)
[2018-05-28] MEDS ORDERED: MAGNESIUM SULF 1 GM/DEXTROSE 100 ML IV ONE (08:03)
[2018-05-28] MEDS ORDERED: POTASSIUM CL 20 MEQ PKT PO ONE (08:15)
[2018-05-28] MEDS: FLUCONAZOLE/NaCl 200 ML IV SCH (08:23)
[2018-05-28] MEDS: AZITHROMYCIN 250 MG TAB PO SCH (09:15)
[2018-05-28] MEDS: PRESERVISION AREDS2 FORMULA EYE VIT 1 EACH PO SCH ×2 (09:17→17:43)
[2018-05-28] MEDS: ENOXAPARIN 40 MG/0.4 ML SYR SC SCH (09:33)
[2018-05-28] MEDS: PANTOPRAZOLE SODIUM 40 MG TAB PO SCH (09:35)
[2018-05-28] MEDS: METOPROLOL TARTRATE 25 MG TAB PO SCH ×2 (09:35→20:26)
--- NOTE | 2018-05-28 12:47 | PDINTPN ---
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 She was initially treated with antibiotics for possible aspiration but had progressive hypoxemia and worsening of infiltrates by chest x-ray and CT scan. Bilateral pulmonary infiltrates: Differential includes atypical infectious process, inflammatory process including possible Hamilton Rich, opportunistic infection (less likely), delayed drug-induced pneumonitis to previous chemotherapy (less likely). Doubt aspiration: swallow study 05/25 with only minor potential for aspiration. On empiric antibiotics and empiric steroids. Bronchoscopy done 05/27. Unfortunately only 1 biopsy obtained secondary to bleeding. Cultures negative so far and pathology pending. Some fungal organisms present. These likely will end up being Autumn. QUITA elevated along with CRP and ESR. Associated pneumonitis thus not excluded. Acute respiratory failure secondary to #1. Associated with hypoxemia. Oxygen requirements remain high but stable. 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 Currently on inhaled medications and steroids. Esophageal cancer. [place] to be localized, without evidence of significant metastatic disease in March. Anemia: Hematocrit stable at 29. No active bleeding. Follow. Metabolic: No issues identified. Prophylaxis: On enoxaparin, eating. Plan: Continue oxygen and inhaled therapies. Continue azithromycin, Diflucan for now and steroids. DC Zosyn. Will await further culture information from the bronchoscopy a expect this to be negative. Mobilize as possible. Await further serologies. Await pathology from biopsy 40 min of critical care time spent directly with the patient, RT, nursing, and the ICU multi disciplinary team.. Issues discussed with the patient. I also met with the patient's family including daughter, son-in-law, and son for about 20 min discussing where we are at clinically and prognosis. Subjective: Feels about the same over the last 24 hr. Remains short of breath with any attempts at exertional activities. Little cough or mucus. No further blood. Denies chest pain. Objective: Vital Signs Temp Pulse Resp BP Pulse Ox 36.4 C 75 27 H 151/69 H 98 05/28/18 11:58 05/28/18 11:58 05/28/18 11:58 05/28/18 11:58 05/28/18 11:58 Microbiology 05/26/18 13:25 Gram Stain - Final Bronchial Alveolar Lavage - Bilateral Lobes 05/26/18 13:25 Mycobacterial Smear (NICOLLE) - Final Bronchial Alveolar Lavage - Bilateral Lobes Laboratory Results 05/28/18 06:40 05/28/18 06:40 05/27/18 05/28/18 05/29/18 05:59 05:59 05:59 Intake Total 620 1329 100 Output Total 2050 Balance 620 -721 100 PT 15.6 SEC (12.0-15.0) H 05/25/18 05:45 INR 1.22 (0.83-1.16) H 05/25/18 05:45 Laboratory Tests 05/28/18 06:40 Calcium 7.6 L Magnesium 1.8 Total Bilirubin 0.7 AST 34 ALT 47 Albumin 2.9 L CXR: No significant changes in bilateral pulmonary infiltrates. Physical Exam - Physical Exam General Appearance: alert, no apparent distress EENT: PERRL/EOMI, other (Simple mask and nasal cannula in place) Neck: normal inspection (No JVD) Respiratory: lungs clear (Anteriorly), decreased breath sounds (At bases), rales (Bibasilar rales persist, approximately 3[address]) Cardiac/Chest: regular rate, rhythm, extra beats (PACs) Abdomen: normal bowel sounds, non-tender, soft Pelvic Exam: other (Using commode, good urine output) Skin: normal color, warm/dry Extremities: No pedal edema Neuro/Psych: no motor/sensory deficits, No cognition abnormalities ICD10 Worksheet Patient Problems: Problems Problem Status Onset Carotid stenosis Acute Nausea vomiting and diarrhea Acute Chest pain Acute Hypokalemia Acute Hyponatremia Acute Atrial fibrillation Acute Pneumonia Acute Esophageal cancer Acute
--- NOTE | 2018-05-28 12:56 | SOAPPROG ---
SOAP Progress Note Assessment/Plan: Assessment: 1. Interstitial pneumonitis: Initially thought to be possible aspiration pneumonia. Cultures are negative, respiratory panel negative. No leukocytosis or fevers. Currently on Zosyn which should provide adequate coverage for aspiration. On steroids as well. Had bronch. Results are pending. She had pulm hemorrhage post procedure and had increased O2 requirement, so now in ICU. Specific therapy will be related to the results of her bronch (infectious vs. inflammatory). CXR is looking a little better today 28 MAY 2018. 2. 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 Based on imaging, it doesn't appear to be dx recurrence. Plan: - Agree with pulm RX as you are doing - Agree with empiric abx/steroids - Check bronch results when available Discussed with Dr. Med Jurado. Subjective: She feels a little better today. Objective: Vital Signs Temp Pulse Resp BP Pulse Ox 36.4 C 75 27 H 151/69 H 98 05/28/18 11:58 05/28/18 11:58 05/28/18 11:58 05/28/18 11:58 05/28/18 11:58 Microbiology 05/26/18 13:25 Gram Stain - Final Bronchial Alveolar Lavage - Bilateral Lobes 05/26/18 13:25 Mycobacterial Smear (NICOLLE) - Final Bronchial Alveolar Lavage - Bilateral Lobes Laboratory Results 05/28/18 06:40 05/28/18 06:40 05/26/18 05/27/18 05/28/18 23:59 23:59 23:59 Intake Total 545 1279 650 Output Total 1600 450 Balance 545 -321 200 PT 15.6 SEC (12.0-15.0) H 05/25/18 05:45 INR 1.22 (0.83-1.16) H 05/25/18 05:45 Physical Exam - Physical Exam General Appearance: mild distress Respiratory: rhonchi (scattered) Abdomen: normal bowel sounds Neuro/Psych: oriented x 3 ICD10 Worksheet Patient Problems: Problems Problem Status Onset Esophageal cancer Acute Pneumonia Acute Atrial fibrillation Acute Carotid stenosis Acute Chest pain Acute Hypokalemia Acute Hyponatremia Acute Nausea vomiting and diarrhea Acute
--- NOTE | 2018-05-28 14:33 | HOSPPROG ---
Hospitalist Progress Note Assessment/Plan: The patient is a 78-year-old female with PMH esophageal cancer who was admitted for aspiration pneumonia, but worsened despite treatment, and is now suspected to have a non-infectious parenchymal lung disease. ASSESSMENT/PLAN: Diffuse parenchymal lung disease, stable Acute hypoxemic respiratory failure, 2/2 above Suspected Emphysema Hx tobacco smoking -FU Bronch studies, pending labs/microbiology. -Solumedrol IVP. -O2, SVNs. -Empiric antimicrobials in case of PNA -Started on Invanz 05/16. -Switched to Unasyn on 05/18. -Switched to Zosyn 05/22 - present. -Azithro 04/23 - present. -Fluconazole 05/27. Sinus tachycardia, treated HTN, treated -Likely 2/2 high O2 demand/lung disease -Pulm gave pt amiodarone yesterday. Also scheduled metoprolol 25mg BID. -Pt does not want Echo at this time, she is tired of tests. She sees [facility] in the outpatient setting. Hemoptysis, post-bronch Hx recent Esophageal cancer, in remission VTE prophylaxis: Lovenox. Code Status: DNR. Status: Inpatient for greater than 2 midnight stay. Disposition: Med [facility] with discharge eventually anticipated back to rehab ____ SUBJECTIVE: Saw pt today. She just ambulated around the unit w/ O2. On 15L w/ Oxymask. OBJECTIVE: Physical Exam: General: The patient is an elderly female who is alert and in no acute distress. HEENT: normocephalic, extraocular movements intact, conjunctivae clear. Mucous membranes moist. Neck: trachea midline, no visible masses. CV: +S1/S2, reg rhythm, reg rate, no MRG. Resp: unlabored, on Oxymask, +b/l fine crackles posterior lungs, CTAB anteriorly. Abd: soft and nondistended. Musculoskeletal: Normal muscle tone/bulk. Neuro: cranial nerves II XII grossly intact. Intact gross motor and sensory function. Psych: Appropriate mood and appropriate affect. Skin: + pallor. No petechiae. No cold extremities noted. No cyanosis noted in extremities. Heme/lymph: No peripheral edema at bilateral lower extremities. Labs/Imaging/Other Tests: CTA chest-no PE. Interval worsening of severe, acute interstitial pneumonia. Stable small right pleural effusion. CTA chest-no PE. Worsening interstitial pneumonia. Sputum Cx - normal resp doug. Procalcitonin - positive. Resp panel - negative. CXR [personally interpreted]: limited study as it is AP 1 view. Stable chest - b /l infiltrates mostly low/mid lungs. SARIAH hemorrhage improved. Objective: Vital Signs Temp Pulse Resp BP Pulse Ox 36.4 C 75 27 H 151/69 H 98 05/28/18 11:58 05/28/18 11:58 05/28/18 11:58 05/28/18 11:58 05/28/18 11:58 Microbiology 05/26/18 13:25 Gram Stain - Final Bronchial Alveolar Lavage - Bilateral Lobes 05/26/18 13:25 Mycobacterial Smear (NICOLLE) - Final Bronchial Alveolar Lavage - Bilateral Lobes Laboratory Results 05/28/18 06:40 05/28/18 06:40 05/27/18 05/28/18 05/29/18 05:59 05:59 05:59 Intake Total 620 1329 587 Output Total 2050 Balance 620 -721 587 PT 15.6 SEC (12.0-15.0) H 05/25/18 05:45 INR 1.22 (0.83-1.16) H 05/25/18 05:45 ICD10 Worksheet Patient Problems: Problems Problem Status Onset Esophageal cancer Acute Pneumonia Acute Atrial fibrillation Acute Carotid stenosis Acute Chest pain Acute Hypokalemia Acute Hyponatremia Acute Nausea vomiting and diarrhea Acute
[2018-05-28] MEDS ORDERED: POTASSIUM CL 10 MEQ TAB PO ONE (17:41)
[2018-05-28] MEDS: MAGNESIUM OXIDE 400 MG TAB PO SCH (17:45)
[2018-05-28] MEDS: CHOLECALCIFEROL VIT D3 1,000 UNITS TAB PO SCH (17:45)
[2018-05-28] MEDS: PRAVASTATIN SODIUM 40 MG TAB PO SCH (20:26)
[2018-05-29] MEDS: methylPREDNISolone SOD SUCC 125 MG/2 ML VIAL IVP SCH ×4 (06:35→22:40)
--- NOTE | 2018-05-29 09:34 | HOSPPROG ---
Hospitalist Progress Note Assessment/Plan: 78-year-old female with PMH esophageal cancer who was admitted for suspected aspiration pneumonia, but now concern for worsening ILD with increased O2 requirements. ASSESSMENT/PLAN: Diffuse parenchymal lung disease with bibasilar infiltrates - reviewed recent CT and compared with prior 01/[address] Caro, process has rapidly blossomed since 01/2018. Query ILD with acute infection. No aspiration on video swallow 05/25. Acute hypoxemic respiratory failure, 2/2 above - s/p bronch complicated by pulmonary hemorrhage with hemoptysis, which is now resolved Suspected COPD Hx tobacco abuse -Cont Zosyn (previously on Invanz 05/16, then Unasyn 05/18) -D/C Azithro, s/p 7 days -Cont Fluconazole, started 05/27 -cont solumedrol 60 IV q6h per pulm recs, day 6 -FU Bronch studies, pending labs/microbiology. -Wean O2 as above (currently requiring 10-15 LPM with poor reserve) Sinus tachycardia, resolved -cont BB HTN - Likely 2/2 high O2 demand/lung disease -declined echo -outpt f/u [facility] Hx recent Esophageal cancer, in remission VTE prophylaxis: Lovenox. Code Status: DNR. Status: cont inpt Disposition: Med surg with discharge eventually anticipated back to rehab ____ Subjective: Pt doing ok. Up in chair. Cough persists, is wet, bringing up some clearish sputum. No more hemoptysis. No CP. SOB with activity. No fevers/chills. Objective: Vital Signs Temp Pulse Resp BP Pulse Ox 36.5 C 76 24 H 148/80 H 93 05/29/18 07:30 05/29/18 07:30 05/29/18 07:30 05/29/18 07:30 05/29/18 07:30 Microbiology 05/26/18 13:25 Gram Stain - Final Bronchial Alveolar Lavage - Bilateral Lobes Laboratory Results 05/28/18 06:40 05/29/18 05:28 05/28/18 05/29/18 05/30/18 05:59 05:59 05:59 Intake Total 1329 1097 Output Total 2050 Balance -721 1097 PT 15.6 SEC (12.0-15.0) H 05/25/18 05:45 INR 1.22 (0.83-1.16) H 05/25/18 05:45 - Physical Exam Constitutional: no apparent distress Eyes: PERRL Ears, Nose, Mouth, Throat: moist mucous membranes Cardiovascular: regular rate and rhythym Respiratory: no respiratory distress, inspiratory crackles Gastrointestinal: normoactive bowel sounds, soft, non-tender abdomen Skin: warm Musculoskeletal: full muscle strength Neurologic: AAOx3 Psychiatric: interacting appropriately ICD10 Worksheet Patient Problems: Problems Problem Status Onset Esophageal cancer Acute Pneumonia Acute Atrial fibrillation Acute Carotid stenosis Acute Chest pain Acute Hypokalemia Acute Hyponatremia Acute Nausea vomiting and diarrhea Acute
[2018-05-29] MEDS: PRESERVISION AREDS2 FORMULA EYE VIT 1 EACH PO SCH ×2 (09:35→17:17)
[2018-05-29] MEDS: PANTOPRAZOLE SODIUM 40 MG TAB PO SCH (09:36)
[2018-05-29] MEDS: METOPROLOL TARTRATE 25 MG TAB PO SCH ×3 (09:36→22:39)
[2018-05-29] MEDS: ENOXAPARIN 40 MG/0.4 ML SYR SC SCH (09:36)
[2018-05-29] MEDS ORDERED: methylPREDNISolone SOD SUCC 125 MG/2 ML VIAL IVP SCH (09:45)
[2018-05-29] MEDS: AZITHROMYCIN 250 MG TAB PO SCH (09:45)
--- NOTE | 2018-05-29 09:45 | PDINTPN ---
Certified Paralegal Progress Note Assessment/Plan: Assessment/Plan: 78-year-old with underlying esophageal cancer and COPD admitted 05/16 with hypoxemia and bilateral pulmonary infiltrates. She was initially treated with antibiotics for possible aspiration but had progressive hypoxemia and worsening of infiltrates by chest x-ray and CT scan. * Bilateral pulmonary infiltrates: Differential includes atypical infectious process, inflammatory process including possible Hamilton Rich, opportunistic infection (less likely), delayed drug-induced pneumonitis to previous chemotherapy (less likely). Doubt aspiration: swallow study 05/25 with only minor potential for aspiration. On empiric antibiotics and empiric steroids. Bronchoscopy done 05/27. Unfortunately only 1 biopsy obtained secondary to bleeding. Cultures negative so far and pathology pending. Some fungal organisms present. These likely will end up being Autumn. QUITA elevated along with CRP and ESR. Associated pneumonitis thus not excluded. -await pathology report * Acute respiratory failure secondary to #1. Associated with hypoxemia. Oxygen requirements remain high but stable. -wean as tolerated * 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 -continue inhaled medications and steroids. * Esophageal cancer. [place] to be localized, without evidence of significant metastatic disease in March. * Anemia: Hematocrit stable at 29. No active bleeding. Follow. * Metabolic: No issues identified. * Prophylaxis: On enoxaparin, eating. * PT/OT * Out of bed Subjective: Sitting up in chair. Comfortable. Concerned about eating and possibly aspirating. Objective: Vital Signs Temp Pulse Resp BP Pulse Ox 36.5 C 76 24 H 148/80 H 93 05/29/18 07:30 05/29/18 07:30 05/29/18 07:30 05/29/18 07:30 05/29/18 07:30 Microbiology 05/26/18 13:25 Gram Stain - Final Bronchial Alveolar Lavage - Bilateral Lobes Laboratory Results 05/28/18 06:40 05/29/18 05:28 05/28/18 05/29/18 05/30/18 05:59 05:59 05:59 Intake Total 1329 1097 Output Total 2050 Balance -721 1097 PT 15.6 SEC (12.0-15.0) H 05/25/18 05:45 INR 1.22 (0.83-1.16) H 05/25/18 05:45 - Time Spent With Patient Time Spent With Patient: 35 min of time spent with patient, over 1/2 involved with coordination of care counseling. Case discussed with nursing. Physical Exam - Physical Exam General Appearance: alert, no apparent distress EENT: PERRL/EOMI Neck: non-tender, full range of motion Respiratory: crackles (Bibasilar), No accessory muscle use, No wheezing Cardiac/Chest: normal peripheral pulses, regular rate, rhythm, systolic murmur Abdomen: normal bowel sounds, non-tender, soft Pelvic Exam: deferred Rectal: deferred Lymphatic: no adenopathy Extremities: normal range of motion, non-tender, normal inspection, normal capillary refill Neuro/Psych: alert, normal mood/affect, oriented x 3 ICD10 Worksheet Patient Problems: Problems Problem Status Onset Esophageal cancer Acute Pneumonia Acute Atrial fibrillation Acute Carotid stenosis Acute Chest pain Acute Hypokalemia Acute Hyponatremia Acute Nausea vomiting and diarrhea Acute
[2018-05-29] MEDS: FLUCONAZOLE/NaCl 200 ML IV SCH (10:47)
[2018-05-29] MEDS ORDERED: POTASSIUM CL 10 MEQ TAB PO ONE ×4 (13:49→19:44)
--- NOTE | 2018-05-29 15:26 | SOAPPROG ---
SOAP Progress Note Assessment/Plan: Assessment/Plan: 78 yo woman w localized SCC of lower esophagus s/p definitive chemoXRT who p/w acute hypoxic resp failure and bilateral infiltrates of unknwon etiology 1. AHRF - Bronch without any final dx treated empirically w antibiotics and antifungals Hypoxemia has improved on steroids, ?ILD vs pneumonitis doubt aspiration given swallowing study 2. Hx of SCC of esophagus - no e/o recurrence 3. Anemia - multifactorial did have hemoptysis post bronch 4. COPD 05/29/18 15:23 05/29/18 15:26 05/29/18 15:26 Subjective: No acute events feels breathing better Objective: Vital Signs Temp Pulse Resp BP Pulse Ox 36.5 C 77 20 147/69 H 95 05/29/18 11:44 05/29/18 11:44 05/29/18 11:44 05/29/18 11:44 05/29/18 11:44 Microbiology 05/26/18 13:25 Gram Stain - Final Bronchial Alveolar Lavage - Bilateral Lobes Laboratory Results 05/28/18 06:40 05/29/18 05:28 05/28/18 05/29/18 05/30/18 05:59 05:59 05:59 Intake Total 1329 1097 Output Total 2050 Balance -721 1097 PT 15.6 SEC (12.0-15.0) H 05/25/18 05:45 INR 1.22 (0.83-1.16) H 05/25/18 05:45 Gen - elderly woman NAD HEENT - anicteric CV- RRR Lungs- inspiratory crackles bilaterally but moving air well Abd - soft, BS+ Ext - no edema ICD10 Worksheet Patient Problems: Problems Problem Status Onset Esophageal cancer Acute Pneumonia Acute Atrial fibrillation Acute Carotid stenosis Acute Chest pain Acute Hypokalemia Acute Hyponatremia Acute Nausea vomiting and diarrhea Acute
[2018-05-29] MEDS: MAGNESIUM OXIDE 400 MG TAB PO SCH (16:29)
[2018-05-29] MEDS ORDERED: METOPROLOL TARTRATE 25 MG TAB PO SCH (17:05)
[2018-05-29] MEDS: CHOLECALCIFEROL VIT D3 1,000 UNITS TAB PO SCH (17:17)
[2018-05-29] MEDS: PRAVASTATIN SODIUM 40 MG TAB PO SCH (20:13)
[2018-05-30] MEDS: methylPREDNISolone SOD SUCC 125 MG/2 ML VIAL IVP SCH (04:14)
[2018-05-30] MEDS: ENOXAPARIN 40 MG/0.4 ML SYR SC SCH (07:53)
[2018-05-30] MEDS: METOPROLOL TARTRATE 25 MG TAB PO SCH ×3 (07:53→21:54)
[2018-05-30] MEDS: PANTOPRAZOLE SODIUM 40 MG TAB PO SCH (07:53)
[2018-05-30] MEDS: PRESERVISION AREDS2 FORMULA EYE VIT 1 EACH PO SCH ×2 (07:53→16:54)
--- NOTE | 2018-05-30 08:22 | PDINTPN ---
Instrumentation Instructor Progress Note Assessment/Plan: Assessment/Plan: 78-year-old with underlying esophageal cancer and COPD admitted 05/16 with hypoxemia and bilateral pulmonary infiltrates. She was initially treated with antibiotics for possible aspiration but had progressive hypoxemia and worsening of infiltrates by chest x-ray and CT scan. * Bilateral pulmonary infiltrates: Differential includes atypical infectious process, inflammatory process including possible Hamilton Rich, opportunistic infection (less likely), delayed drug-induced pneumonitis to previous chemotherapy (less likely). Doubt aspiration: swallow study 05/25 with only minor potential for aspiration. On empiric antibiotics and empiric steroids. Bronchoscopy done 05/27. Unfortunately only 1 biopsy obtained secondary to bleeding. Cultures negative so far and pathology pending. Some fungal organisms present. These likely will end up being Autumn. QUITA elevated along with CRP and ESR. Associated pneumonitis thus not excluded. -pathology report is nondiagnostic -continue high-dose steroids -patient clinically improved -will check a high-resolution CT scan of the chest today * Acute respiratory failure secondary to #1. Associated with hypoxemia. 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 -continue inhaled medications and steroids. * Esophageal cancer. [place] to be localized, without evidence of significant metastatic disease in March. * Anemia: Hematocrit stable at 29. No active bleeding. Follow. * Metabolic: No issues identified. * Prophylaxis: On enoxaparin, eating. * PT/OT -begin ambulation * Out of bed * Disposition-stable enough for transfer to floor Subjective: Looks and feels markedly improved. Objective: Vital Signs Temp Pulse Resp BP Pulse Ox 36.6 C 79 21 H 157/75 H 90 L 05/30/18 07:19 05/30/18 07:19 05/30/18 07:19 05/30/18 07:19 05/30/18 07:19 Microbiology 05/26/18 13:25 Gram Stain - Final Bronchial Alveolar Lavage - Bilateral Lobes Bronchial Culture - Final Laboratory Results 05/28/18 06:40 05/30/18 05:30 05/29/18 05/30/18 05/31/18 05:59 05:59 05:59 Intake Total 1097 1154 Output Total 375 Balance 1097 779 PT 15.6 SEC (12.0-15.0) H 05/25/18 05:45 INR 1.22 (0.83-1.16) H 05/25/18 05:45 - Time Spent With Patient Time Spent With Patient: 35 min of time spent with patient, over 1/2 involved with coordination of care or counseling Physical Exam - Physical Exam General Appearance: WD/WN, alert, no apparent distress EENT: PERRL/EOMI Neck: non-tender, full range of motion, supple, normal inspection Respiratory: crackles (Bibasilar), No respiratory distress, No wheezing Cardiac/Chest: normal peripheral pulses, regular rate, rhythm Peripheral Pulses: 2+: carotid (R), carotid (L), femoral (R), femoral (L), dorsalis-pedis (R), dorsalis-pedis (L) Abdomen: normal bowel sounds, non-tender, soft Pelvic Exam: deferred Rectal: deferred Skin: normal color, warm/dry Extremities: normal range of motion, non-tender, normal inspection, normal capillary refill Neuro/Psych: no motor/sensory deficits, alert, normal mood/affect, oriented x 3 ICD10 Worksheet Patient Problems: Problems Problem Status Onset Esophageal cancer Acute Pneumonia Acute Atrial fibrillation Acute Carotid stenosis Acute Chest pain Acute Hypokalemia Acute Hyponatremia Acute Nausea vomiting and diarrhea Acute
--- NOTE | 2018-05-30 08:24 | HOSPPROG ---
Hospitalist Progress Note Assessment/Plan: 78-year-old female with PMH esophageal cancer who was admitted for suspected aspiration pneumonia, but now concern for worsening ILD with increased O2 requirements. ASSESSMENT/PLAN: Diffuse parenchymal lung disease with bibasilar infiltrates - reviewed recent CT and compared with prior 01/[address] Caro, process has rapidly blossomed since 01/2018. Query ILD with acute infection. No aspiration on video swallow 05/25. Acute hypoxemic respiratory failure, 2/2 above - s/p bronch complicated by pulmonary hemorrhage with hemoptysis, which is now resolved Suspected COPD Hx tobacco abuse -S/P 7 days atbx (erta, then unasyn) -change steroids to prednisone, 60 mg daily per pulm -high res chest CT today, reviewed imaging with pulm, improved -cont to wean O2 as able SVT - occurred last night -increased metoprolol to 25 tid -change albuterol to xopenex HTN - cont BB -consider addition of norvasc Hx recent Esophageal cancer, in remission VTE prophylaxis: Lovenox. Code Status: DNR. Disposition: cont inpt, transfer to med/surg. Discussed with Dr. Caro. ____ Subjective: Pt feels a bit better. Coughing less. No CP or SOB. No fevers/ chills. Objective: Vital Signs Temp Pulse Resp BP Pulse Ox 36.6 C 79 21 H 157/75 H 90 L 05/30/18 07:19 05/30/18 07:19 05/30/18 07:19 05/30/18 07:19 05/30/18 07:19 Microbiology 05/26/18 13:25 Gram Stain - Final Bronchial Alveolar Lavage - Bilateral Lobes Bronchial Culture - Final Laboratory Results 05/28/18 06:40 05/30/18 05:30 05/29/18 05/30/18 05/31/18 05:59 05:59 05:59 Intake Total 1097 1154 Output Total 375 Balance 1097 779 PT 15.6 SEC (12.0-15.0) H 05/25/18 05:45 INR 1.22 (0.83-1.16) H 05/25/18 05:45 - Physical Exam Constitutional: no apparent distress Eyes: PERRL Ears, Nose, Mouth, Throat: moist mucous membranes Cardiovascular: regular rate and rhythym Respiratory: no respiratory distress, inspiratory crackles Gastrointestinal: normoactive bowel sounds, soft, non-tender abdomen Skin: warm Musculoskeletal: full muscle strength Neurologic: AAOx3 Psychiatric: interacting appropriately ICD10 Worksheet Patient Problems: Problems Problem Status Onset Esophageal cancer Acute Pneumonia Acute Atrial fibrillation Acute Carotid stenosis Acute Chest pain Acute Hypokalemia Acute Hyponatremia Acute Nausea vomiting and diarrhea Acute
[2018-05-30] MEDS ORDERED: IPRATROPIUM BROMIDE 0.5 MG/2.5 ML DEYVIAL IH PRN (08:25)
[2018-05-30] MEDS ORDERED: LEVALBUTEROL 1.25 MG/3 ML DEYVIAL IH PRN (08:25)
--- NOTE | 2018-05-30 09:08 | ASMTCMCOM ---
CM Note CM Note Notes: Family Meeting Family meeting was held today with pt's daughter Verónica and son Masood. Pt's children report that Lynne has a strong personality and is awaiting anxiously to hear pathology results that are likely to come today. They are reporting that Lynne just "beat" her esophagal cancer and was doing very well and optimistic. They report that Lynne is very concerned and overwhelmed with her treatment right now hypersensitive to the ways she is treated/spoken to. Lynne likes to be included in any conversations about her care. Pt's family reports Lynne has been having short term memory issues and would benefit being reminded of where the call light/phone is prior to leaving the room. Pt's family reports that she is the youngest of 4 children and has recently lost her two brothers and her to cancer. Verónica, pts daughter, reports she would like to be there when the test results are in and discussed with pt. Pt goes to [facility] in [place] and has a strong voodoo family, [place] [employer] has been here to visit. Pt currently lives at an independent living senior residence in [place] and would like to return after going to [facility]. CM to follow. Plan: [facility] Date Signed: 05/29/2018 04:25 PM Electronically Signed By:Tori Collins
[2018-05-30] MEDS: predniSONE 20 MG TAB PO SCH (09:25)
[2018-05-30] MEDS: FLUCONAZOLE/NaCl 200 ML IV SCH (09:28)
[2018-05-30] MEDS: MAGNESIUM OXIDE 400 MG TAB PO SCH (16:54)
[2018-05-30] MEDS: CHOLECALCIFEROL VIT D3 1,000 UNITS TAB PO SCH (16:54)
--- NOTE | 2018-05-30 17:11 | ECHO ---
[email or web address] [address] Main: [phone] Fax: Transthoracic Echocardiogram Name: SIMONA LAUGHLIN MR#: [id number] Study Date: 05/30/2018 Study Time: 02:38 PM Date of : 1940 Age: 78 year(s) Height: 152.4 cm (60 in.) Weight: 53.07 kg (117 lb.) BSA: 1.49 m2 Gender: Female Examination: Echo Indication: V-Tach, Supraventricular Tachycardia Image Quality: Contrast: Requested by: Meghan Pena BP: 161 mmHg/88 mmHg Heart Rate: Rhythm: Normal sinus rhythm Indication: V-Tach, Supraventricular Tachycardia Procedure Staff Balancing Machine Set Up Worker: Deni Romero RDCS Reading Physician: Brittney Romo MD Requesting Provider: Meghan Pena Conclusions: Normal size left ventricle. No LV hypertrophy. Normal global systolic LV function. EF is 71 %. No regional wall motion abnormality. Normal size right ventricle. Normal RV function. The left atrium is normal in size. Mild mitral valve regurgitation is present. No prior echo Measurements: Chambers Valvular Assessment AV/MV Valvular Assessment TV/PV Normal Normal Normal Name Value Range Name Value Range Name Value Range Ao Shayy (MM): 2.3 cm (2.2 cm-3.7 AV Vmax: 1.38 m/s (1 m/s-1.7 PV Vmax: 0.62 m/s (0.6 m/s-0.9 cm) m/s) m/s) IVSd (2D): 0.9 cm (0.6 cm-1.1 AV maxP mmHg ( - ) PV PGmax: 2 mmHg ( - ) cm) LVOT Vmax: 0.88 m/s (0.7 m/s-1.1 LVDd (2D): 3.8 cm (3.9 cm-5.3 m/s) cm) MV E Vmax: 1.12 m/s ( - ) LVDs (2D): 2.3 cm (2.1 cm-4 cm) LVPWd (2D): 1.0 cm ( - ) LVEF (2D): 71 (>=54 %) Continued Measurements: Chambers Valvular Assessment AV/MV Patient: SIMONA LAUGHLIN Study Date: 05/30/2018 Page 1 of 2 02:38 PM Name Value Name Value LADs Lon.5 cm MV E' Septal: 0.04 m/s LA Area: 15.5 cm2 MV E/E' Septal: 28.70 LA Volume: 39 ml MV E/E' Lateral: 20.90 LA Volume Index: 26.2 ml/m2 RA Area: 15.0 cm2 Findings: Left Ventricle: Normal size left ventricle. No LV hypertrophy. Normal global systolic LV function. EF is 71 %. No regional wall motion abnormality. Grade 1 diastolic dysfunction (abnormal relaxation). Right Ventricle: Normal size right ventricle. Normal RV function. Left Atrium: The left atrium is normal in size. The LA Volume index is 26.2 ml/m2. Right Atrium: The right atrium is normal in size. The RA measure 4.3cm x 3.2cm. Mitral Valve: The mitral valve is normal in appearance. There is mild thickening of the mitral valve leaflets. Mild mitral valve regurgitation is present. Aortic Valve: Mild aortic cusp calcification is noted. There is no significant aortic valve regurgitation. No aortic valve stenosis is present. Tricuspid Valve: The tricuspid valve is normal in appearance and function. Pulmonic Valve: The pulmonic valve is normal in appearance and function. Aorta: The aorta is normal. Pericardium: No pericardial effusion. (No Signature Object) Patient: SIMONA LAUGHLIN Study Date: 05/30/2018 Page 2 of 2 02:38 PM [id number]
[2018-05-30] MEDS ORDERED: POTASSIUM CL 10 MEQ TAB PO ONE (21:44)
[2018-05-30] MEDS: PRAVASTATIN SODIUM 40 MG TAB PO SCH (21:54)
[2018-05-31] MEDS: METOPROLOL TARTRATE 25 MG TAB PO SCH ×3 (08:06→21:00)
[2018-05-31] MEDS: PANTOPRAZOLE SODIUM 40 MG TAB PO SCH (08:06)
[2018-05-31] MEDS: predniSONE 20 MG TAB PO SCH (08:06)
[2018-05-31] MEDS: PRESERVISION AREDS2 FORMULA EYE VIT 1 EACH PO SCH ×2 (08:06→17:11)
[2018-05-31] MEDS: ENOXAPARIN 40 MG/0.4 ML SYR SC SCH (08:07)
[2018-05-31] MEDS: POTASSIUM CL 10 MEQ TAB PO ONE ×2 (08:12→10:40)
--- NOTE | 2018-05-31 08:58 | PDINTPN ---
Cash Management Specialist Progress Note Assessment/Plan: Assessment/Plan: 78-year-old with underlying esophageal cancer and COPD admitted 05/16 with hypoxemia and bilateral pulmonary infiltrates. She was initially treated with antibiotics for possible aspiration but had progressive hypoxemia and worsening of infiltrates by chest x-ray and CT scan. * Bilateral pulmonary infiltrates: Differential includes atypical infectious process, inflammatory process including possible Hamilton Rich, opportunistic infection (less likely), delayed drug-induced pneumonitis to previous chemotherapy (less likely). Doubt aspiration: swallow study 05/25 with only minor potential for aspiration. On empiric antibiotics and empiric steroids. Bronchoscopy done 05/27. Unfortunately only 1 biopsy obtained secondary to bleeding. Cultures negative so far and pathology pending. Some fungal organisms present. These likely will end up being Autumn. QUITA elevated along with CRP and ESR. Associated pneumonitis thus not excluded. -pathology report is nondiagnostic -continue high-dose steroids -patient clinically improved -high-resolution CT scan of the chest is markedly improved * Acute respiratory failure secondary to #1. Associated with hypoxemia. 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 -continue inhaled medications and steroids. * SVT-echocardiogram with normal ejection fraction. * Esophageal cancer. [place] to be localized, without evidence of significant metastatic disease in March. * Anemia: Hematocrit stable at 29. No active bleeding. Follow. * Metabolic: No issues identified. * Prophylaxis: On enoxaparin, eating. * PT/OT -begin ambulation * Out of bed * Disposition-stable enough for transfer to floor Subjective: Breathing easily. Still breathless exertion. Cough has improved. Objective: Vital Signs Temp Pulse Resp BP Pulse Ox 36.4 C 71 18 141/63 H 97 05/31/18 07:41 05/31/18 08:06 05/31/18 07:41 05/31/18 08:06 05/31/18 07:41 Microbiology 05/26/18 13:25 Mycobacterial Smear (NICOLLE) - Final Bronchial Alveolar Lavage - Bilateral Lobes Laboratory Results 05/28/18 06:40 05/31/18 05:06 05/30/18 05/31/18 06/01/18 05:59 05:59 05:59 Intake Total 1154 925 Output Total 375 575 Balance 779 350 PT 15.6 SEC (12.0-15.0) H 11/22/18 05:45 INR 1.22 (0.83-1.16) H 05/25/18 05:45 - Time Spent With Patient Time Spent With Patient: 35 min of time spent with patient, over 1/2 involved with coordination of care or counseling. Case discussed with nursing. Physical Exam - Physical Exam General Appearance: WD/WN, alert, mild distress EENT: PERRL/EOMI Neck: non-tender, full range of motion Respiratory: crackles (Few), No respiratory distress, No wheezing Cardiac/Chest: normal peripheral pulses, regular rate, rhythm Peripheral Pulses: 2+: carotid (R), carotid (L), femoral (R), femoral (L), dorsalis-pedis (R), dorsalis-pedis (L) Abdomen: normal bowel sounds, non-tender, soft Pelvic Exam: deferred Rectal: deferred Skin: normal color, warm/dry Extremities: normal range of motion, non-tender, normal inspection, normal capillary refill Neuro/Psych: alert ICD10 Worksheet Patient Problems: Problems Problem Status Onset Esophageal cancer Acute Pneumonia Acute Atrial fibrillation Acute Carotid stenosis Acute Chest pain Acute Hypokalemia Acute Hyponatremia Acute Nausea vomiting and diarrhea Acute
[2018-05-31] MEDS: POTASSIUM CL 20 MEQ/15 ML UDCUP PO SCH (09:40)
--- NOTE | 2018-05-31 12:11 | HOSPPROG ---
Hospitalist Progress Note Assessment/Plan: 78-year-old female with PMH esophageal cancer who was admitted for suspected aspiration pneumonia, suffered pulmonary hemorrhage after bronch, with increased O2 requirements. ASSESSMENT/PLAN: Diffuse parenchymal lung disease with bibasilar infiltrates - reviewed recent CT and compared with prior 01/[address] Caro, process has rapidly blossomed since 01/2018. Query ILD with acute infection. No aspiration on video swallow 05/25. Acute hypoxemic respiratory failure, 2/2 above - s/p bronch complicated by pulmonary hemorrhage with hemoptysis, which is now resolved Suspected COPD Hx tobacco abuse -S/P 7 days atbx (erta, then unasyn) -cont prednisone, plan for slow taper -high res chest CT yest, showed improvement -cont to wean O2 as able SVT - asymptomatic, no recurrence with increased metoprolol to 25 tid -cont BB -changed albuterol to xopenex HTN - cont BB Hx recent Esophageal cancer, in remission VTE prophylaxis: Lovenox. Code Status: DNR. Disposition: cont inpt, transfer to med/surg. Discussed with Dr. Caro. CM following, will need SNF. ____ Subjective: Pt doing ok, a bit frustrated today. Cough is improved. No CP, still SOB. No fevers/chills. Eating well. Objective: Vital Signs Temp Pulse Resp BP Pulse Ox 36.4 C 71 18 141/63 H 97 05/31/18 07:41 05/31/18 08:06 05/31/18 07:41 05/31/18 08:06 05/31/18 07:41 Microbiology 05/26/18 13:25 Mycobacterial Smear (NICOLLE) - Final Bronchial Alveolar Lavage - Bilateral Lobes Laboratory Results 05/28/18 06:40 05/31/18 05:06 05/30/18 05/31/18 06/01/18 05:59 05:59 05:59 Intake Total 1154 925 Output Total 375 575 200 Balance 779 350 -200 PT 15.6 SEC (12.0-15.0) H 05/25/18 05:45 INR 1.22 (0.83-1.16) H 05/25/18 05:45 - Physical Exam Constitutional: no apparent distress Eyes: PERRL Ears, Nose, Mouth, Throat: moist mucous membranes Cardiovascular: regular rate and rhythym Respiratory: no respiratory distress, inspiratory crackles Gastrointestinal: normoactive bowel sounds, soft, non-tender abdomen Skin: warm Musculoskeletal: full muscle strength Neurologic: AAOx3 Psychiatric: interacting appropriately ICD10 Worksheet Patient Problems: Problems Problem Status Onset Esophageal cancer Acute Pneumonia Acute Atrial fibrillation Acute Carotid stenosis Acute Chest pain Acute Hypokalemia Acute Hyponatremia Acute Nausea vomiting and diarrhea Acute
[2018-05-31] MEDS: MAGNESIUM OXIDE 400 MG TAB PO SCH (17:11)
[2018-05-31] MEDS: CHOLECALCIFEROL VIT D3 1,000 UNITS TAB PO SCH (17:11)
[2018-05-31] MEDS: PRAVASTATIN SODIUM 40 MG TAB PO SCH (20:58)
[2018-06-01] MEDS: ENOXAPARIN 40 MG/0.4 ML SYR SC SCH (08:09)
[2018-06-01] MEDS: PRESERVISION AREDS2 FORMULA EYE VIT 1 EACH PO SCH ×2 (08:10→17:34)
[2018-06-01] MEDS: PANTOPRAZOLE SODIUM 40 MG TAB PO SCH (08:10)
[2018-06-01] MEDS: METOPROLOL TARTRATE 25 MG TAB PO SCH ×3 (08:10→21:02)
[2018-06-01] MEDS: predniSONE 20 MG TAB PO SCH (08:11)
[2018-06-01] MEDS: POTASSIUM CL 20 MEQ/15 ML UDCUP PO SCH (08:11)
--- NOTE | 2018-06-01 09:21 | PDINTPN ---
Sock Turner Progress Note Assessment/Plan: Assessment/Plan: 78-year-old with underlying esophageal cancer and COPD admitted 05/16 with hypoxemia and bilateral pulmonary infiltrates. She was initially treated with antibiotics for possible aspiration but had progressive hypoxemia and worsening of infiltrates by chest x-ray and CT scan. * Bilateral pulmonary infiltrates: Differential includes atypical infectious process, inflammatory process including possible Hamilton Rich, opportunistic infection (less likely), delayed drug-induced pneumonitis to previous chemotherapy (less likely). Doubt aspiration: swallow study 05/25 with only minor potential for aspiration. On empiric antibiotics and empiric steroids. Bronchoscopy done 05/27. Unfortunately only 1 biopsy obtained secondary to bleeding. Cultures negative so far and pathology pending. Some fungal organisms present. These likely will end up being Autumn. QUITA elevated along with CRP and ESR. Associated pneumonitis thus not excluded. -pathology report is nondiagnostic -continue high-dose steroids -patient continues clinical improvement with reduced oxygen requirements -will reduce oral steroids * Acute respiratory failure secondary to #1. Associated with hypoxemia. 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 -continue inhaled medications and steroids. * SVT-echocardiogram with normal ejection fraction. * Esophageal cancer. [place] to be localized, without evidence of significant metastatic disease in March. * Anemia: Hematocrit stable at 29. No active bleeding. Follow. * Metabolic: No issues identified. * Prophylaxis: On enoxaparin, eating. * PT/OT -begin ambulation * Out of bed * Disposition-stable enough for transfer to floor Subjective: Sitting up in chair. Resting comfortably. States he feels markedly improved. Less breathless. Objective: Vital Signs Temp Pulse Resp BP Pulse Ox 36.9 C 75 23 H 101/53 L 97 06/01/18 07:21 06/01/18 08:10 06/01/18 07:21 06/01/18 08:10 06/01/18 07:21 Laboratory Results 05/28/18 06:40 05/31/18 05:06 05/31/18 06/01/18 06/02/18 05:59 05:59 05:59 Intake Total 925 1100 Output Total 575 350 Balance 350 750 PT 15.6 SEC (12.0-15.0) H 05/25/18 05:45 INR 1.22 (0.83-1.16) H 05/25/18 05:45 - Time Spent With Patient Time Spent With Patient: 35 min of time spent with patient, over 1/2 involved with coordination of care or counseling. Case discussed with nursing Physical Exam - Physical Exam General Appearance: alert, no apparent distress EENT: PERRL/EOMI Neck: non-tender, full range of motion Respiratory: crackles (Scattered), No respiratory distress, No wheezing Cardiac/Chest: normal peripheral pulses, regular rate, rhythm, systolic murmur, extra beats Abdomen: normal bowel sounds, non-tender, soft Pelvic Exam: deferred Rectal: deferred Skin: normal color, warm/dry Extremities: normal range of motion, non-tender, normal inspection, normal capillary refill Neuro/Psych: no motor/sensory deficits, alert, normal mood/affect, oriented x 3 ICD10 Worksheet Patient Problems: Problems Problem Status Onset Esophageal cancer Acute Pneumonia Acute Atrial fibrillation Acute Carotid stenosis Acute Chest pain Acute Hypokalemia Acute Hyponatremia Acute Nausea vomiting and diarrhea Acute
--- NOTE | 2018-06-01 14:47 | HOSPPROG ---
Hospitalist Progress Note Assessment/Plan: 78 yo F w esophageal CA here w b/l infiltrates Diffuse parenchymal lung disease with bibasilar infiltrates - reviewed recent CT and compared with prior 01/[address] Fung, process has rapidly blossomed since 01/2018. Query ILD with acute infection. No aspiration on video swallow 05/25. Acute hypoxemic respiratory failure, 2/2 above - s/p bronch complicated by pulmonary hemorrhage with hemoptysis, which is now resolved Suspected COPD Hx tobacco abuse -S/P 7 days atbx (erta, then unasyn) -cont prednisone, plan for slow taper -high res chest CT yest, showed improvement -cont to wean O2 as able SVT - asymptomatic, no recurrence with increased metoprolol to 25 tid -cont BB -changed albuterol to xopenex HTN - cont BB Hx recent Esophageal cancer, in remission VTE prophylaxis: Lovenox. Code Status: DNR. Disposition: cont inpt, transfer to med/surg. Discussed with Dr. Fung. CM following, will need SNF. Subjective: case d/w dr fung. she feels her breeathing has improved Objective: Vital Signs Temp Pulse Resp BP Pulse Ox 36.9 C 80 22 H 123/73 H 97 06/01/18 07:21 06/01/18 11:58 06/01/18 11:58 06/01/18 11:58 06/01/18 11:58 Laboratory Results 05/28/18 06:40 05/31/18 05:06 05/31/18 06/01/18 06/02/18 05:59 05:59 05:59 Intake Total 925 1100 Output Total 575 350 Balance 350 750 PT 15.6 SEC (12.0-15.0) H 05/25/18 05:45 INR 1.22 (0.83-1.16) H 05/25/18 05:45 - Physical Exam Constitutional: no apparent distress, appears nourished Eyes: PERRL, anicteric sclera Ears, Nose, Mouth, Throat: moist mucous membranes, hearing normal Cardiovascular: regular rate and rhythym, no murmur, rub, or gallop Respiratory: other (diffuse crackles) Gastrointestinal: normoactive bowel sounds, soft, non-tender abdomen Genitourinary: No lujan in urethra Skin: warm, normal color Musculoskeletal: No full muscle strength Neurologic: AAOx3 ICD10 Worksheet Patient Problems: Problems Problem Status Onset Esophageal cancer Acute Pneumonia Acute Atrial fibrillation Acute Carotid stenosis Acute Chest pain Acute Hypokalemia Acute Hyponatremia Acute Nausea vomiting and diarrhea Acute
[2018-06-01] MEDS: MAGNESIUM OXIDE 400 MG TAB PO SCH (17:34)
[2018-06-01] MEDS: CHOLECALCIFEROL VIT D3 1,000 UNITS TAB PO SCH (17:34)
[2018-06-01] MEDS: PRAVASTATIN SODIUM 40 MG TAB PO SCH (20:20)
--- NOTE | 2018-06-02 09:22 | SOAPPROG ---
SOAP Progress Note Assessment/Plan: Assessment/Plan: 78-year-old with underlying esophageal cancer and COPD admitted 05/16 with hypoxemia and bilateral pulmonary infiltrates. She was initially treated with antibiotics for possible aspiration but had progressive hypoxemia and worsening of infiltrates by chest x-ray and CT scan. * Bilateral pulmonary infiltrates: Differential includes atypical infectious process, inflammatory process including possible Hamilton Rich, opportunistic infection (less likely), delayed drug-induced pneumonitis to previous chemotherapy (less likely). Doubt aspiration: swallow study 05/25 with only minor potential for aspiration. On empiric antibiotics and empiric steroids. Bronchoscopy done 05/27. Unfortunately only 1 biopsy obtained secondary to bleeding. Cultures negative so far and pathology pending. Some fungal organisms present. These likely will end up being Autumn. QUITA elevated along with CRP and ESR. Associated pneumonitis thus not excluded. -pathology report is nondiagnostic -continue high-dose steroids -patient continues clinical improvement with reduced oxygen requirements -will reduce oral steroids * Acute respiratory failure secondary to #1. Associated with hypoxemia. 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 -continue inhaled medications and steroids. * SVT-echocardiogram with normal ejection fraction. * Esophageal cancer. [place] to be localized, without evidence of significant metastatic disease in March. * Anemia: Hematocrit stable at 29. No active bleeding. Follow. * Metabolic: No issues identified. * Prophylaxis: On enoxaparin, eating. * PT/OT -begin ambulation * Out of bed Subjective: Sitting up in chair. Resting comfortably. Patient states she is more breathless this morning. Objective: Vital Signs Temp Pulse Resp BP Pulse Ox 37.0 C 88 26 H 144/57 H 94 06/02/18 08:00 06/02/18 08:00 06/02/18 08:00 06/02/18 08:00 06/02/18 08:00 Laboratory Results 05/28/18 06:40 05/31/18 05:06 06/01/18 06/02/18 06/03/18 05:59 05:59 05:59 Intake Total 1100 840 Output Total 350 400 Balance 750 440 PT 15.6 SEC (12.0-15.0) H 05/25/18 05:45 INR 1.22 (0.83-1.16) H 05/25/18 05:45 - Time Spent With Patient Time Spent With Patient: 35 min of time spent with patient, over 1/2 involved with coordination of care counseling. Case discussed with nursing Physical Exam - Physical Exam General Appearance: alert, no apparent distress EENT: PERRL/EOMI Neck: non-tender, full range of motion Respiratory: crackles (Bibasilar), No respiratory distress, No wheezing Cardiac/Chest: normal peripheral pulses, regular rate, rhythm, systolic murmur Peripheral Pulses: 2+: carotid (R), carotid (L), femoral (R), femoral (L), dorsalis-pedis (R), dorsalis-pedis (L) Abdomen: normal bowel sounds, non-tender, soft Pelvic Exam: deferred Rectal: deferred Skin: normal color, warm/dry Extremities: normal range of motion, non-tender, normal inspection, normal capillary refill Neuro/Psych: alert ICD10 Worksheet Patient Problems: Problems Problem Status Onset Esophageal cancer Acute Pneumonia Acute Atrial fibrillation Acute Carotid stenosis Acute Chest pain Acute Hypokalemia Acute Hyponatremia Acute Nausea vomiting and diarrhea Acute
[2018-06-02] MEDS: predniSONE 20 MG TAB PO SCH (09:28)
[2018-06-02] MEDS: PANTOPRAZOLE SODIUM 40 MG TAB PO SCH (09:29)
[2018-06-02] MEDS: ENOXAPARIN 40 MG/0.4 ML SYR SC SCH (09:29)
[2018-06-02] MEDS: PRESERVISION AREDS2 FORMULA EYE VIT 1 EACH PO SCH ×3 (09:29→17:47)
[2018-06-02] MEDS: METOPROLOL TARTRATE 25 MG TAB PO SCH ×3 (09:29→21:29)
[2018-06-02] MEDS: POTASSIUM CL 20 MEQ/15 ML UDCUP PO SCH (11:47)
[2018-06-02] MEDS: POTASSIUM CL 20 MEQ TAB PO SCH (12:22)
[2018-06-02] MEDS ORDERED: FUROSEMIDE 40 MG/4 ML VIAL IVP ONE (13:43)
--- NOTE | 2018-06-02 13:54 | HOSPPROG ---
Hospitalist Progress Note Assessment/Plan: 78 yo F w esophageal CA here w b/l infiltrates Diffuse parenchymal lung disease with bibasilar infiltrates - reviewed recent CT and compared with prior 01/[address] Fung, process has rapidly blossomed since 01/2018. Query ILD with acute infection. No aspiration on video swallow 05/25. Acute hypoxemic respiratory failure, 2/2 above - s/p bronch complicated by pulmonary hemorrhage with hemoptysis, which is now resolved Suspected COPD Hx tobacco abuse -S/P 7 days atbx (erta, then unasyn) -cont prednisone, plan for slow taper -high res chest CT yest, showed improvement -cont to wean O2 as able 06/02- lasix X 1 and gauge effect SVT - asymptomatic, no recurrence with increased metoprolol to 25 tid -cont BB -changed albuterol to xopenex HTN - cont BB Hx recent Esophageal cancer, in remission VTE prophylaxis: Lovenox. Code Status: DNR. Disposition: cont inpt, transfer to med/surg. Discussed with Dr. Fung. CM following, will need SNF. Subjective: case d/w dr fung. she states her breathing is better this afternoon Objective: Vital Signs Temp Pulse Resp BP Pulse Ox 37.0 C 88 26 H 144/57 H 94 06/02/18 08:00 06/02/18 08:00 06/02/18 08:00 06/02/18 08:00 06/02/18 08:00 Laboratory Results 05/28/18 06:40 05/31/18 05:06 06/01/18 06/02/18 06/03/18 05:59 05:59 05:59 Intake Total 1100 840 Output Total 350 400 Balance 750 440 PT 15.6 SEC (12.0-15.0) H 05/25/18 05:45 INR 1.22 (0.83-1.16) H 05/25/18 05:45 - Physical Exam Constitutional: no apparent distress, appears nourished Eyes: PERRL, anicteric sclera Ears, Nose, Mouth, Throat: moist mucous membranes, hearing normal Cardiovascular: regular rate and rhythym, no murmur, rub, or gallop Respiratory: no respiratory distress, other (diffuse crackles b/l. more prominent in lower lung fry) Gastrointestinal: normoactive bowel sounds, soft, non-tender abdomen Genitourinary: no bladder fullness, hemorrhoids, No lujan in urethra Skin: warm, normal color Musculoskeletal: No full muscle strength Neurologic: AAOx3, sensation intact bilaterally Psychiatric: interacting appropriately, not anxious Lymph, Heme, Immunologic: no cervical LAD ICD10 Worksheet Patient Problems: Problems Problem Status Onset Esophageal cancer Acute Pneumonia Acute Atrial fibrillation Acute Carotid stenosis Acute Chest pain Acute Hypokalemia Acute Hyponatremia Acute Nausea vomiting and diarrhea Acute
[2018-06-02] MEDS: MAGNESIUM OXIDE 400 MG TAB PO SCH (17:46)
[2018-06-02] MEDS: CHOLECALCIFEROL VIT D3 1,000 UNITS TAB PO SCH (17:46)
[2018-06-02] MEDS: PRAVASTATIN SODIUM 40 MG TAB PO SCH (21:31)
[2018-06-03] MEDS: PRESERVISION AREDS2 FORMULA EYE VIT 1 EACH PO SCH ×2 (08:19→17:54)
[2018-06-03] MEDS: POTASSIUM CL 20 MEQ TAB PO SCH (08:22)
[2018-06-03] MEDS: predniSONE 20 MG TAB PO SCH (08:22)
[2018-06-03] MEDS: METOPROLOL TARTRATE 25 MG TAB PO SCH ×3 (08:22→21:09)
[2018-06-03] MEDS: ENOXAPARIN 40 MG/0.4 ML SYR SC SCH (08:23)
[2018-06-03] MEDS: PANTOPRAZOLE SODIUM 40 MG TAB PO SCH (08:23)
--- NOTE | 2018-06-03 09:54 | SOAPPROG ---
SOAP Progress Note Assessment/Plan: Assessment/Plan: 78-year-old with underlying esophageal cancer and COPD admitted 05/16 with hypoxemia and bilateral pulmonary infiltrates. She was initially treated with antibiotics for possible aspiration but had progressive hypoxemia and worsening of infiltrates by chest x-ray and CT scan. * Bilateral pulmonary infiltrates: Differential includes atypical infectious process, inflammatory process including possible Hamilton Rich, opportunistic infection (less likely), delayed drug-induced pneumonitis to previous chemotherapy (less likely). Doubt aspiration: swallow study 05/25 with only minor potential for aspiration. On empiric antibiotics and empiric steroids. Bronchoscopy done 05/27. Unfortunately only 1 biopsy obtained secondary to bleeding. Cultures negative so far and pathology pending. Some fungal organisms present. These likely will end up being Autumn. QUITA elevated along with CRP and ESR. Associated pneumonitis thus not excluded. Slow to improve -pathology report is nondiagnostic -continue high-dose steroids -patient continues clinical improvement with reduced oxygen requirements -will reduce oral steroids * Acute respiratory failure secondary to #1. Associated with hypoxemia. 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 -continue inhaled medications and steroids. * SVT-echocardiogram with normal ejection fraction. * Esophageal cancer. [place] to be localized, without evidence of significant metastatic disease in March. * Anemia: Hematocrit stable at 29. No active bleeding. Follow. * Metabolic: No issues identified. * Prophylaxis: On enoxaparin, eating. * PT/OT -begin ambulation * Out of bed Subjective: Sitting up in chair. Still becomes breathless with minor exertion. Becoming frustrated Objective: Vital Signs Temp Pulse Resp BP Pulse Ox 36.7 C 85 20 131/55 H 95 06/03/18 07:52 06/03/18 08:22 06/03/18 07:52 06/03/18 08:22 06/03/18 07:52 Laboratory Results 05/28/18 06:40 05/31/18 05:06 06/02/18 06/03/18 06/04/18 05:59 05:59 05:59 Intake Total 840 1500 Output Total 400 1075 Balance 440 425 PT 15.6 SEC (12.0-15.0) H 05/25/18 05:45 INR 1.22 (0.83-1.16) H 05/25/18 05:45 - Time Spent With Patient Time Spent With Patient: 35 min of time spent with patient, over 1/2 involved with coordination of care or counseling. Case discussed with Nursing and hospitalist Physical Exam - Physical Exam General Appearance: alert, no apparent distress EENT: PERRL/EOMI Neck: non-tender, full range of motion Respiratory: crackles (Scattered), No respiratory distress, No wheezing Cardiac/Chest: normal peripheral pulses, regular rate, rhythm Peripheral Pulses: 2+: carotid (R), carotid (L), femoral (R), femoral (L), dorsalis-pedis (R), dorsalis-pedis (L) Abdomen: normal bowel sounds, non-tender, soft Pelvic Exam: deferred Rectal: deferred Skin: normal color, warm/dry Extremities: normal range of motion, non-tender, normal inspection, normal capillary refill Neuro/Psych: alert ICD10 Worksheet Patient Problems: Problems Problem Status Onset Esophageal cancer Acute Pneumonia Acute Atrial fibrillation Acute Carotid stenosis Acute Chest pain Acute Hypokalemia Acute Hyponatremia Acute Nausea vomiting and diarrhea Acute
--- NOTE | 2018-06-03 14:01 | HOSPPROG ---
Hospitalist Progress Note Assessment/Plan: 78 yo F w esophageal CA here w b/l infiltrates Diffuse parenchymal lung disease with bibasilar infiltrates - reviewed recent CT and compared with prior 01/[address] Fung, process has rapidly blossomed since 01/2018. Query ILD with acute infection. No aspiration on video swallow 05/25. Acute hypoxemic respiratory failure, 2/2 above - s/p bronch complicated by pulmonary hemorrhage with hemoptysis, which is now resolved Suspected COPD Hx tobacco abuse -S/P 7 days atbx (erta, then unasyn) -cont prednisone, plan for slow taper -high res chest CT yest, showed improvement -cont to wean O2 as able 06/02- lasix X 1 and gauge effect 06/03 improved symptomatically today unclear if lasix drove this response 1. check labs 2. consider add'l lasix 3. down to 5 L SVT - asymptomatic, no recurrence with increased metoprolol to 25 tid -cont BB -changed albuterol to xopenex HTN - cont BB Hx recent Esophageal cancer, in remission VTE prophylaxis: Lovenox. Code Status: DNR. Disposition: cont inpt, transfer to med/surg. Discussed with Dr. Fung. CM following, will need SNF. Subjective: case d/w dr fung Objective: Vital Signs Temp Pulse Resp BP Pulse Ox 36.8 C 72 14 124/63 H 96 06/03/18 10:59 06/03/18 10:59 06/03/18 10:59 06/03/18 10:59 06/03/18 10:59 Laboratory Results 05/28/18 06:40 05/31/18 05:06 06/02/18 06/03/18 06/04/18 05:59 05:59 05:59 Intake Total 840 1500 Output Total 400 1075 100 Balance 440 425 -100 PT 15.6 SEC (12.0-15.0) H 05/25/18 05:45 INR 1.22 (0.83-1.16) H 05/25/18 05:45 - Physical Exam Constitutional: no apparent distress, appears nourished Eyes: PERRL, anicteric sclera Ears, Nose, Mouth, Throat: moist mucous membranes, hearing normal Cardiovascular: regular rate and rhythym, no murmur, rub, or gallop Respiratory: other (diffuse crackles, no wheeze, good air movement) Gastrointestinal: normoactive bowel sounds, soft, non-tender abdomen Genitourinary: no bladder fullness, No lujan in urethra Skin: warm, normal color Musculoskeletal: No full muscle strength ICD10 Worksheet Patient Problems: Problems Problem Status Onset Esophageal cancer Acute Pneumonia Acute Atrial fibrillation Acute Carotid stenosis Acute Chest pain Acute Hypokalemia Acute Hyponatremia Acute Nausea vomiting and diarrhea Acute
[2018-06-03] MEDS: CHOLECALCIFEROL VIT D3 1,000 UNITS TAB PO SCH (17:53)
[2018-06-03] MEDS: MAGNESIUM OXIDE 400 MG TAB PO SCH (17:53)
[2018-06-03] MEDS: PRAVASTATIN SODIUM 40 MG TAB PO SCH (21:09)
[2018-06-03] MEDS ORDERED: CEPACOL LOZENGE PO PRN (22:38)
[2018-06-04 06:12] LABS: PLATELET COUNT 110 10^3/uL (150-400)
[2018-06-04] MEDS: POTASSIUM CL 20 MEQ TAB PO SCH (08:53)
[2018-06-04] MEDS: PANTOPRAZOLE SODIUM 40 MG TAB PO SCH (08:53)
[2018-06-04] MEDS: METOPROLOL TARTRATE 25 MG TAB PO SCH ×3 (08:54→21:29)
[2018-06-04] MEDS: predniSONE 20 MG TAB PO SCH (08:54)
[2018-06-04] MEDS: ENOXAPARIN 40 MG/0.4 ML SYR SC SCH (08:56)
--- NOTE | 2018-06-04 09:22 | HOSPPROG ---
Hospitalist Progress Note Assessment/Plan: 78 yo F w esophageal CA here w b/l infiltrates Diffuse parenchymal lung disease with bibasilar infiltrates - reviewed recent CT and compared with prior 01/[address] Fung, process has rapidly blossomed since 01/2018. Query ILD with acute infection. No aspiration on video swallow 05/25. Acute hypoxemic respiratory failure, 2/2 above - s/p bronch complicated by pulmonary hemorrhage with hemoptysis, which is now resolved Suspected COPD Hx tobacco abuse -S/P 7 days atbx (erta, then unasyn) -cont prednisone, plan for slow taper -high res chest CT yest, showed improvement -cont to wean O2 as able 06/02- lasix X 1 and gauge effect 06/03 improved symptomatically today unclear if lasix drove this response 1. check labs 2. consider add'l lasix 3. down to 5 L 06/04: stable on 4-5 L labs suggest mild intravasc depletion hold further lasix SVT - asymptomatic, no recurrence with increased metoprolol to 25 tid -cont BB -changed albuterol to xopenex hypokalemia: hates pill stop daily K follow HTN - cont BB Hx recent Esophageal cancer, in remission VTE prophylaxis: Lovenox. Code Status: DNR. Disposition: cont inpt, transfer to med/surg. Discussed with Dr. Fung. CM following, will need SNF. Subjective: case d/w dr fung. breathing improved Objective: Vital Signs Temp Pulse Resp BP Pulse Ox 36.6 C 92 18 127/62 H 95 06/04/18 07:48 06/04/18 08:54 06/04/18 07:48 06/04/18 08:54 06/04/18 07:48 Laboratory Results 06/04/18 04:54 06/04/18 04:54 06/03/18 06/04/18 06/05/18 05:59 05:59 05:59 Intake Total 1500 1040 Output Total 1075 500 Balance 425 540 PT 15.6 SEC (12.0-15.0) H 05/25/18 05:45 INR 1.22 (0.83-1.16) H 05/25/18 05:45 - Physical Exam Constitutional: no apparent distress, appears nourished Eyes: PERRL, anicteric sclera Ears, Nose, Mouth, Throat: moist mucous membranes, hearing normal Cardiovascular: regular rate and rhythym, no murmur, rub, or gallop Respiratory: no respiratory distress, other (diffuse crackles, good air movement, no wheeze) Gastrointestinal: normoactive bowel sounds, soft, non-tender abdomen Genitourinary: no bladder fullness Skin: warm, normal color Musculoskeletal: full muscle strength Neurologic: AAOx3 ICD10 Worksheet Patient Problems: Problems Problem Status Onset Esophageal cancer Acute Pneumonia Acute Atrial fibrillation Acute Carotid stenosis Acute Chest pain Acute Hypokalemia Acute Hyponatremia Acute Nausea vomiting and diarrhea Acute
[2018-06-04] MEDS: PRESERVISION AREDS2 FORMULA EYE VIT 1 EACH PO SCH ×2 (10:29→16:26)
--- NOTE | 2018-06-04 12:48 | SOAPPROG ---
SOAP Progress Note Assessment/Plan: Assessment/Plan: 78-year-old with underlying esophageal cancer and COPD admitted 05/16 with hypoxemia and bilateral pulmonary infiltrates. She was initially treated with antibiotics for possible aspiration but had progressive hypoxemia and worsening of infiltrates by chest x-ray and CT scan. * Bilateral pulmonary infiltrates: Differential includes atypical infectious process, inflammatory process including possible Hamilton Rich, opportunistic infection (less likely), delayed drug-induced pneumonitis to previous chemotherapy (less likely). Doubt aspiration: swallow study 05/25 with only minor potential for aspiration. On empiric antibiotics and empiric steroids. Bronchoscopy done 05/27. Unfortunately only 1 biopsy obtained secondary to bleeding. Cultures negative so far and pathology pending. Some fungal organisms present. These likely will end up being Autumn. QUITA elevated along with CRP and ESR. Associated pneumonitis thus not excluded. Slow to improve -continue 40 mg/day prednisone until followup with Dr. Mde Jurado * Acute respiratory failure secondary to #1. Associated with hypoxemia. 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 -continue inhaled medications and steroids. * SVT-echocardiogram with normal ejection fraction. * Esophageal cancer. [place] to be localized, without evidence of significant metastatic disease in March. * Anemia: Hematocrit stable at 29. No active bleeding. Follow. * Metabolic: No issues identified. * Prophylaxis: On enoxaparin, eating. * PT/OT -begin ambulation * Disposition-rehab vs SNF in a few days 06/04/18 12:45 Subjective: Comfortable. Objective: Vital Signs Temp Pulse Resp BP Pulse Ox 36.6 C 92 18 127/62 H 95 06/04/18 07:48 06/04/18 08:54 06/04/18 07:48 06/04/18 08:54 06/04/18 07:48 Laboratory Results 06/04/18 04:54 06/04/18 04:54 06/03/18 06/04/18 06/05/18 05:59 05:59 05:59 Intake Total 1500 1040 Output Total 1075 500 Balance 425 540 PT 15.6 SEC (12.0-15.0) H 05/25/18 05:45 INR 1.22 (0.83-1.16) H 05/25/18 05:45 - Time Spent With Patient Time Spent With Patient: 25 minutes of time spent with patient, over 1/2 involved with coordination of care or counseling. Physical Exam - Physical Exam General Appearance: alert, no apparent distress EENT: PERRL/EOMI Neck: non-tender, full range of motion Respiratory: crackles (few), No accessory muscle use, No wheezing Cardiac/Chest: normal peripheral pulses, regular rate, rhythm Peripheral Pulses: 2+: carotid (R), carotid (L), femoral (R), femoral (L), dorsalis-pedis (R), dorsalis-pedis (L) Abdomen: normal bowel sounds, non-tender, soft Pelvic Exam: deferred Rectal: deferred Skin: normal color, warm/dry Neuro/Psych: no motor/sensory deficits, alert, normal mood/affect, oriented x 3 ICD10 Worksheet Patient Problems: Problems Problem Status Onset Esophageal cancer Acute Pneumonia Acute Atrial fibrillation Acute Carotid stenosis Acute Chest pain Acute Hypokalemia Acute Hyponatremia Acute Nausea vomiting and diarrhea Acute
[2018-06-04] MEDS: CHOLECALCIFEROL VIT D3 1,000 UNITS TAB PO SCH (17:12)
[2018-06-04] MEDS: MAGNESIUM OXIDE 400 MG TAB PO SCH (17:12)
--- NOTE | 2018-06-04 17:55 | ASMTCMCOM ---
CM Note CM Note Notes: CM spoke with RN about patient case, December patient is improving though O2 is dropping on exertion. Therapies recommending SNF rehab, [facility] accepted. CM to follow. Current Discharge Plan: SNF, [facility]. Date TBD. Date Signed: 06/04/2018 05:54 PM Electronically Signed By:Rosalina Barton
[2018-06-04] MEDS: PRAVASTATIN SODIUM 40 MG TAB PO SCH (21:29)
[2018-06-05] MEDS: ENOXAPARIN 40 MG/0.4 ML SYR SC SCH (09:00)
[2018-06-05] MEDS: METOPROLOL TARTRATE 25 MG TAB PO SCH ×3 (09:00→20:52)
[2018-06-05] MEDS: predniSONE 20 MG TAB PO SCH (09:01)
[2018-06-05] MEDS: PANTOPRAZOLE SODIUM 40 MG TAB PO SCH (09:01)
[2018-06-05] MEDS: PRESERVISION AREDS2 FORMULA EYE VIT 1 EACH PO SCH ×2 (09:08→18:23)
[2018-06-05] MEDS ORDERED: guaiFENesin 200 MG/10 ML UDL PO PRN (14:33)
--- NOTE | 2018-06-05 14:54 | PDINTPN ---
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 # Bilateral pulmonary infiltrates. infectious w/u negative. Interval worsening on abx. S/p transbronchial biopsy but complicated by bleeding. Clinically improving on high dose steroids. Autoimmune serologies positive but nonspecific. Pathology report nondiagnostic. # COPD - moderate # hypervolemia - diastolic dysfunction and steroids # Esophageal cancer. Local invasive no e/o metastases as of 03/2019 PLAN # Continue prednisone 40 mg po qday # agree with diuresis # wean supplemental oxygen as tolerated # continue inhaled bronchodilators # CXR PA and lat in AM to establish new baseline now that she has had interval improvement # SQhep, ambulation 06/05/18 14:57 06/05/18 14:59 Objective: Vital Signs Temp Pulse Resp BP Pulse Ox 36.6 C 91 18 151/75 H 94 06/05/18 07:58 06/05/18 07:58 06/05/18 07:58 06/05/18 07:58 06/05/18 07:58 Laboratory Results 06/04/18 04:54 06/05/18 04:12 06/04/18 06/05/18 06/06/18 05:59 05:59 05:59 Intake Total 1040 890 Output Total 500 Balance 540 890 PT 15.6 SEC (12.0-15.0) H 05/25/18 05:45 INR 1.22 (0.83-1.16) H 05/25/18 05:45 I reviewed interpreted patient's most recent images CT chest 05/30/2018 1. Increased left lung opacities, possibly representing hemorrhage superimposed on underlying pneumonia or asymmetric pulmonary edema, with improved right lung opacities. 2. Slight decrease in a small right pleural effusion with equivocal pleural thickening in the right hemithorax is likely related to the effusion. 3. Additional findings as above. Physical Exam - Physical Exam General Appearance: alert, no apparent distress EENT: PERRL/EOMI, normal ENT inspection Neck: full range of motion, normal inspection, No thyromegaly Respiratory: chest non-tender, lungs clear, normal breath sounds Cardiac/Chest: normal peripheral pulses, regular rate, rhythm Abdomen: normal bowel sounds, non-tender Back: Normal inspection Skin: normal color, warm/dry Neuro/Psych: no motor/sensory deficits, alert, normal mood/affect, oriented x 3 ICD10 Worksheet Patient Problems: Problems Problem Status Onset Esophageal cancer Acute Pneumonia Acute Atrial fibrillation Acute Carotid stenosis Acute Chest pain Acute Hypokalemia Acute Hyponatremia Acute Nausea vomiting and diarrhea Acute
--- NOTE | 2018-06-05 15:32 | HOSPPROG ---
Hospitalist Progress Note Assessment/Plan: 78 yo F w esophageal CA here w b/l infiltrates Diffuse parenchymal lung disease with bibasilar infiltrates - reviewed recent CT and compared with prior 01/[address] Caro, process has rapidly blossomed since 01/2018. Query ILD with acute infection. No aspiration on video swallow 05/25. Acute hypoxemic respiratory failure, 2/2 above - s/p bronch complicated by pulmonary hemorrhage with hemoptysis, which is now resolved Suspected COPD Hx tobacco abuse -S/P 7 days atbx (erta, then unasyn) -cont prednisone, plan for slow taper -high res chest CT yest, showed improvement -cont to wean O2 as able 06/02- lasix X 1 and gauge effect 06/03 improved symptomatically today unclear if lasix drove this response 1. check labs 2. consider add'l lasix 3. down to 5 L 06/04: stable on 4-5 L labs suggest mild intravasc depletion hold further lasix 06/05: continues to improve to SNF next 1-2 days SVT - asymptomatic, no recurrence with increased metoprolol to 25 tid -cont BB -changed albuterol to xopenex hypokalemia: hates pill stop daily K follow HTN - cont BB Hx recent Esophageal cancer, in remission VTE prophylaxis: Lovenox. Code Status: DNR. Disposition: cont inpt, transfer to med/surg. Discussed with Dr. Caro. CM following, will need SNF. Subjective: 20 minutes spent discussing code. she wishes to be full code. case d/w dr gauthier Objective: Vital Signs Temp Pulse Resp BP Pulse Ox 36.6 C 91 18 151/75 H 94 06/05/18 07:58 06/05/18 07:58 06/05/18 07:58 06/05/18 07:58 06/05/18 07:58 Laboratory Results 06/04/18 04:54 06/05/18 04:12 06/04/18 06/05/18 06/06/18 05:59 05:59 05:59 Intake Total 1040 890 Output Total 500 Balance 540 890 PT 15.6 SEC (12.0-15.0) H 05/25/18 05:45 INR 1.22 (0.83-1.16) H 11/22/18 05:45 - Physical Exam Constitutional: no apparent distress, appears nourished Eyes: PERRL, anicteric sclera Ears, Nose, Mouth, Throat: moist mucous membranes, hearing normal Cardiovascular: regular rate and rhythym, no murmur, rub, or gallop Respiratory: rhonchi (exam improved, less crackles) Gastrointestinal: normoactive bowel sounds, soft, non-tender abdomen Genitourinary: no bladder fullness, No lujan in urethra Skin: warm, normal color Musculoskeletal: full muscle strength, no muscle tenderness Neurologic: AAOx3 ICD10 Worksheet Patient Problems: Problems Problem Status Onset Esophageal cancer Acute Pneumonia Acute Atrial fibrillation Acute Carotid stenosis Acute Chest pain Acute Hypokalemia Acute Hyponatremia Acute Nausea vomiting and diarrhea Acute
[2018-06-05] MEDS: CHOLECALCIFEROL VIT D3 1,000 UNITS TAB PO SCH (16:56)
[2018-06-05] MEDS: MAGNESIUM OXIDE 400 MG TAB PO SCH (16:56)
[2018-06-05] MEDS: PRAVASTATIN SODIUM 40 MG TAB PO SCH (20:52)
[2018-06-06] MEDS: PRESERVISION AREDS2 FORMULA EYE VIT 1 EACH PO SCH ×2 (08:19→17:37)
[2018-06-06] MEDS: ENOXAPARIN 40 MG/0.4 ML SYR SC SCH (08:20)
[2018-06-06] MEDS: PANTOPRAZOLE SODIUM 40 MG TAB PO SCH (08:20)
[2018-06-06] MEDS: predniSONE 20 MG TAB PO SCH (08:20)
--- NOTE | 2018-06-06 08:20 | PDINTPN ---
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 # Bilateral pulmonary infiltrates. Now improving clinically and radiographically with steroids. infectious w/u negative (Autumn from BAL is a colonizer not true pathogen). Interval worsening on abx. S/p transbronchial biopsy but complicated by bleeding. Clinically improving on high dose steroids. Autoimmune serologies positive but nonspecific. Pathology report nondiagnostic. # COPD - moderate # hypervolemia - diastolic dysfunction and steroids # Esophageal cancer. Local invasive no e/o metastases as of 03/2019 PLAN # Continue prednisone 40 mg po qday # agree with diuresis # wean supplemental oxygen as tolerated # continue inhaled bronchodilators # CXR PA and lat in AM to establish new baseline now that she has had interval improvement # SQhep, ambulation Imaging I reviewed interpreted patient's images 06/06/2018 chest x-ray interval improvement in patchy airspace opacity. Subjective: Patient underwent chest x-ray yesterday afternoon. Continues to feel better. Continues to ambulate. Tolerating steroids. No insomnia. No worsening leg swelling, no chest pain, no increasing shortness of breath, no fevers, no chills , no hot or cold intolerance. Objective: Vital Signs Temp Pulse Resp BP Pulse Ox 36.6 C 82 14 144/71 H 96 06/06/18 07:42 06/06/18 07:42 06/06/18 07:42 06/06/18 07:42 06/06/18 07:42 Laboratory Results 06/04/18 04:54 06/05/18 04:12 06/05/18 06/06/18 06/07/18 05:59 05:59 05:59 Intake Total 890 500 Output Total 750 Balance 890 -250 PT 15.6 SEC (12.0-15.0) H 05/25/18 05:45 INR 1.22 (0.83-1.16) H 05/25/18 05:45 I reviewed interpreted patient's radiographic imaging as per above ICD10 Worksheet Patient Problems: Problems Problem Status Onset Esophageal cancer Acute Pneumonia Acute Atrial fibrillation Acute Carotid stenosis Acute Chest pain Acute Hypokalemia Acute Hyponatremia Acute Nausea vomiting and diarrhea Acute
[2018-06-06] MEDS: METOPROLOL TARTRATE 25 MG TAB PO SCH ×3 (08:21→22:23)
--- NOTE | 2018-06-06 09:40 | HOSPPROG ---
Hospitalist Progress Note Assessment/Plan: 78 yo F w esophageal CA here w b/l infiltrates Diffuse parenchymal lung disease with bibasilar infiltrates - recent CT compared with prior 01/2018 CT shows process has rapidly blossomed since 01/2018. Query ILD with acute infection. No aspiration on video swallow 05/25. Acute hypoxemic respiratory failure, 2/2 above - s/p bronch complicated by pulmonary hemorrhage with hemoptysis, which is now resolved Suspected COPD Hx tobacco abuse -S/P 7 days atbx (erta, then unasyn) -cont prednisone 40 mg daily, plan for slow taper -pers reviewed CXR yest, improvement noted -cont to wean O2 as able, currently on 4-6 LPM -resume oral lasix, follow lytes, Cr SVT - asymptomatic, no recurrence with increased metoprolol to 25 tid -cont BB -changed albuterol to xopenex hypokalemia: replete as needed HTN - cont BB Hx recent Esophageal cancer, in remission VTE prophylaxis: Lovenox. Code Status: DNR. Disposition: cont inpt, transfer to med/surg. Discussed with Dr. Gudino. CM following, will need SNF, likely tomorrow. Subjective: PT doing ok, coughing up a lot of phlegm, slowly improving. Denies CP or SOB at rest. No fevers. Taking po well. Objective: Vital Signs Temp Pulse Resp BP Pulse Ox 36.6 C 82 14 144/71 H 96 06/06/18 07:42 06/06/18 08:21 06/06/18 07:42 06/06/18 08:21 06/06/18 07:42 Laboratory Results 06/04/18 04:54 06/05/18 04:12 06/05/18 06/06/18 06/07/18 05:59 05:59 05:59 Intake Total 890 500 Output Total 750 Balance 890 -250 PT 15.6 SEC (12.0-15.0) H 05/25/18 05:45 INR 1.22 (0.83-1.16) H 05/25/18 05:45 - Physical Exam Constitutional: no apparent distress Eyes: PERRL Ears, Nose, Mouth, Throat: moist mucous membranes Cardiovascular: regular rate and rhythym Respiratory: no respiratory distress, reduced air movement, inspiratory crackles Gastrointestinal: normoactive bowel sounds, soft, non-tender abdomen Skin: warm Musculoskeletal: full muscle strength, other (tr b/l LE edema) Neurologic: AAOx3 Psychiatric: interacting appropriately ICD10 Worksheet Patient Problems: Problems Problem Status Onset Esophageal cancer Acute Pneumonia Acute Atrial fibrillation Acute Carotid stenosis Acute Chest pain Acute Hypokalemia Acute Hyponatremia Acute Nausea vomiting and diarrhea Acute
--- NOTE | 2018-06-06 10:23 | ASMTCMCOM ---
CM Note CM Note Notes: Plan of care reviewed. Patient likely to be able to discharge tomorrow. Updates to [facility]. Plan: Dc to SNF when medically cleared for discharge. Date Signed: 06/06/2018 10:22 AM Electronically Signed By:Colleen Aguilera RN
[2018-06-06] MEDS: FUROSEMIDE 40 MG TAB PO SCH (10:26)
[2018-06-06] MEDS: MAGNESIUM OXIDE 400 MG TAB PO SCH (17:36)
[2018-06-06] MEDS: CHOLECALCIFEROL VIT D3 1,000 UNITS TAB PO SCH (17:36)
[2018-06-06] MEDS ORDERED: PROTOCOL POTASSIUM 1 DOSE MISC PRN (20:16)
[2018-06-06] MEDS: PRAVASTATIN SODIUM 40 MG TAB PO SCH (22:22)
[2018-06-07 07:39] VITALS: BP 144/52
[2018-06-07] MEDS: PRESERVISION AREDS2 FORMULA EYE VIT 1 EACH PO SCH (09:12)
[2018-06-07] MEDS: predniSONE 20 MG TAB PO SCH (09:13)
[2018-06-07] MEDS: FUROSEMIDE 40 MG TAB PO SCH (09:13)
[2018-06-07] MEDS: METOPROLOL TARTRATE 25 MG TAB PO SCH (09:13)
[2018-06-07] MEDS: PANTOPRAZOLE SODIUM 40 MG TAB PO SCH (09:13)
[2018-06-07] MEDS: ENOXAPARIN 40 MG/0.4 ML SYR SC SCH (09:15)
[2018-06-07] MEDS ORDERED: POTASSIUM CL 10 MEQ TAB PO ONE (09:45)
--- NOTE | 2018-06-07 09:56 | PDINTPN ---
Mold Inspector Progress Note Assessment/Plan: ASSESSMENT 78-year-old with underlying esophageal cancer and COPD admitted 05/16 with hypoxemia and bilateral pulmonary infiltrates consistent with non infectious etiology and radiographically consistent with cryptogenic organizing pneumonia or CHEMICAL DETECTION EXPERT. # Bilateral pulmonary infiltrates. Suspect cryptogenic organizing pneumonia. Now improving clinically and radiographically with steroids. Infectious w/u negative (Autumn from BAL is a colonizer not true pathogen). Interval worsening on abx. S/p transbronchial biopsy but complicated by bleeding. Autoimmune serologies positive but nonspecific. Pathology report nondiagnostic. # COPD - moderate # hypervolemia - diastolic dysfunction and steroids # Esophageal cancer. Local invasive no e/o metastases as of 03/2019 PLAN # Continue prednisone 40 mg po qday to be continued on discharge # added bactrim SS daily 06/07/18 for PJP ppx # Patient to follow up with Dr Med Jurado as an outpatient to titrate steroids # agree with diuresis # wean supplemental oxygen as tolerated # continue inhaled bronchodilators # CXR PA and lat in AM to establish new baseline now that she has had interval improvement # SQhep, ambulation Imaging I reviewed interpreted patient's images 06/06/2018 chest x-ray interval improvement in patchy airspace opacity. Subjective: Continues to feel better, ambulating, still requiring supplemental oxygen. Attempted diuresis, unmeasured voids. No new fevers, chills n/v, chest pain. Objective: Vital Signs Temp Pulse Resp BP Pulse Ox 36.6 C 80 16 144/52 H 90 L 06/07/18 07:38 06/07/18 09:13 06/07/18 07:38 06/07/18 09:13 06/07/18 07:38 Microbiology 05/26/18 13:25 Mycobacterial Smear (NICOLLE) - Final Bronchial Alveolar Lavage - Bilateral Lobes Laboratory Results 06/04/18 04:54 06/07/18 04:32 06/06/18 06/07/18 06/08/18 05:59 05:59 05:59 Intake Total 500 650 Output Total 750 Balance -250 650 PT 15.6 SEC (12.0-15.0) H 05/25/18 05:45 INR 1.22 (0.83-1.16) H 05/25/18 05:45 Physical Exam - Physical Exam General Appearance: WD/WN, alert EENT: PERRL/EOMI, normal ENT inspection Neck: non-tender, full range of motion Respiratory: other (Bibasilar rales, in no respiratory distress, still requiring supple oxygen) Cardiac/Chest: normal peripheral pulses, regular rate, rhythm Abdomen: normal bowel sounds, non-tender, soft Back: Normal inspection Skin: normal color, warm/dry, No cyanosis Extremities: normal range of motion, non-tender Neuro/Psych: no motor/sensory deficits, alert, normal mood/affect ICD10 Worksheet Patient Problems: Problems Problem Status Onset Esophageal cancer Acute Pneumonia Acute Atrial fibrillation Acute Carotid stenosis Acute Chest pain Acute Hypokalemia Acute Hyponatremia Acute Nausea vomiting and diarrhea Acute
[2018-06-07] MEDS ORDERED: SULFAMETHOX/TMP 400/80 MG 1 TAB PO SCH (10:00)
--- NOTE | 2018-06-07 10:03 | PDIAF ---
- Diagnosis Diagnosis: interstitial lung disease Code Status: Full Code - Medication Management Discharge Medications: electronically signed and located in the Home Medication List. - Orders Services needed: Registered Nurse, Physical Therapy, Occupational Therapy Diet Recommendation: no restrictions on diet Diet Texture: Regular Texture Diet, Thin Liquids, Meds Whole w/Liquids Additional Instructions: Continue nebs and prednisone 40 mg daily until you have a follow up appointment with Dr. Med Jurado in 2 weeks. - Follow Up Care Current Providers and Referrals: Dawn Watt MD [Primary Care Provider] - As per Instructions Med Jurado MD [Medical Doctor] -
--- NOTE | 2018-06-07 11:36 | ASMTLACE ---
LACE Length of stay for Answers: 14 days or more current admission Acuity / Level of Answers: Yes Care: Did the patient have an inpatient admission? Comorbidities - select Answers: Any tumor (including all that apply lymphoma or leukemia) Other Notes: AFib # of Emergency department Answers: 1-2 visits in the last 6 months Score: 14 Date Signed: 06/07/2018 11:36 AM Electronically Signed By:Colleen Aguilera RN
--- NOTE | 2018-06-07 11:45 | ASMTCMCOM ---
CM Note CM Note Notes: Patient medically cleared for discharge to [facility]. Maury notified at [facility] . Set up for transportation at 12:30 Via wheelchair with oxygen. Final orders via allscripts. CM available should needs arise. Plan: DC to [facility] Date Signed: 06/07/2018 11:44 AM Electronically Signed By:Colleen Aguilera RN
--- NOTE | 2018-06-08 04:53 | GDS ---
DISCHARGE DIAGNOSES: 1. Interstitial lung disease with bilateral infiltrates. 2. Acute hypoxemic respiratory failure, secondary to above. 3. Suspected chronic obstructive pulmonary disease. 4. History of tobacco abuse. 5. Supraventricular tachycardia, controlled on beta aime. 6. Hypokalemia, resolved. 7. Hypertension, stable. 8. History of esophageal cancer, in remission. CONSULTANTS: 1. Dr. Med Jurado, pulmonology. 2. Dr. Tiff Dixon, oncology. HISTORY: For details, please see the history and physical dated May 16, 2018. In brief, the pa dex is a 78-year-old female with a history of recent esophageal cancer, status post chemotherapy an d radiation, as well as hypertension, hyperlipidemia, who presented to the emergency department with cough and shortness of breath. Imaging revealed an infiltrate with an effusion. A CTA was negative for PE, which showed interstitial lung disease. She was mildly tachycardic requiring 3 L of oxygen o n arrival. Blood cultures were drawn. She was started on Invanz. She was admitted to the hospital for further management. HOSPITAL COURSE: Patient was admitted to the step-down unit. She did meet sepsis criteria on admiss ion with tachycardia, tachypnea, but a normal lactate, and was hemodynamically stable. She was treat ed with ertapenem for presumed aspiration pneumonia. This was changed to Unasyn on May 18. Unf ortunately, her condition worsened, and her oxygen requirements increased to 15 L/minute. Repeat timothy ging revealed worsening interstitial lung disease with a right pleural effusion. She was started on IV Solu-Medrol. Pulmonology consult was obtained. She underwent bronchoscopy, and unfortunately, hardy ffered pulmonary hemorrhage. This contributed to ongoing high O2 needs. Video swallow did not revea l evidence of aspiration with thin liquids. In addition, her culture data was unrevealing other than Autumn on her bronchoalveolar lavage. She completed her course of antibiotics. She was weaned off high-dose IV steroids to prednisone 40 mg daily. It was thought she may have interstitial lung dise ase that acutely worsened in the setting of infection. Close followup with pulmonology is planned. During her hospitalization, she also suffered several episodes of supraventricular tachycardia. She was started on metoprolol. This was uptitrated to 25 mg 3 times daily and kept the SVT at [place]. She had no further recurrences. Over the past several days prior to discharge, she maintained her oxygen needs at 4-6 L/minute by nasal cannula. She did also receive some diuresis with Lasix, which may jennings ve helped a bit, though this is not continued at the time of discharge. She was started on Bactrim f or prophylaxis at the recommendation of Pulmonology. On the day of discharge, she is hemodynamically stable with blood pressure 144/52, heart rate 78, respiratory rate 18. She is 92% on 5 L oxygen. DISPOSITION: [facility] is discharged [facility] in stable condition. FOLLOWUP: 1. Dr. Med Jurado, pulmonology. 2. Dr. Dawn Watt, primary care. DISCHARGE MEDICATIONS: Please see [facility] [employer] completed outpatient medication list. Medications on dis charge include: 1. Prednisone 40 mg p.o. daily, but she will continue until she has followup appointment with Pulmon ology in 2 weeks. 2. Bactrim single strength 1 tablet p.o. daily #90, no refills. 3. Protonix 40 mg p.o. daily. 4. Zofran 4 mg p.o. q.4 hours p.r.n. 5. Metoprolol 25 mg p.o. three times daily. 6. Xopenex 1.25 mg inhaled q.4 hours p.r.n. 7. Atrovent nebulizer 0.5 mg inhaled four times daily. 8. Tylenol 650 mg p.o. q.4 hours p.r.n. She will continue all other outpatient medications as previously prescribed. Discontinued medications: Amlodipine is discontinued in favor of metoprolol. /[id number]/MODL
--- NOTE | 2018-06-08 12:26 | ASDISCHSUM ---
Discharge Information Plan Status:SNF Medically Cleared to Leave:06/06/2018 Discharge Date:06/07/2018 12:48 PM CM D/C Disposition: ADT D/C Disposition:Fdc Facility Projected Discharge Date:06/07/2018 11:00 AM Transportation at D/C: Discharge Delay Reason: Follow-Up Date:06/07/2018 11:00 AM Discharge Slot: Final Diagnosis: Placement Information Referral Type:*Care Home/SNF Referral ID:[id number] Provider Name:Judie Kirkland Address 1:[address] Phone Number: Address 2: Fax Number: City:[place] Selection Factors: State:[place] Patient Contact Information Contact Name:LENAPOLAERISMichelle Relationship:Daughter Address: Work Phone: City:[place] Phone: [facility] Code:[place] Email: Financial Information Financial Class:Medicare Advantage Plans Primary Plan Desc:[facility] [employer] Primary Plan Number:[id number] Secondary Plan Desc: Secondary Plan Number: Assessment Information LACE LACE Length of stay for Answers: 14 days or more current admission Acuity / Level of Answers: Yes Care: Did the patient have an inpatient admission? Comorbidities - select Answers: Any tumor (including all that apply lymphoma or leukemia) Other Notes: AFib # of Emergency department Answers: 1-2 visits in the last 6 months Score: 14 Date Signed: 06/07/2018 11:36 AM Electronically Signed By:Colleen Aguilera RN [facility] CM Progress Note CM Note CM Note Notes: Pt is a 78 y/o female admitted for pneumonia, hypoxemia, and esophageal cancer. Therapies have been ordered and awaiting recommendations. Needs are TBD at this time. CM to follow. Plan: TBD Date Signed: 05/17/2018 09:52 AM Electronically Signed By:AYAAN Degroot [facility] CM Progress Note CM Note CM Note Notes: CM spoke to pts daughter Verónica. Verónica would like a referral sent to [facility]. Pt has been in the past and had a good experience. Referral sent. [facility] is able to accept. CM discussed case w/ Dr. Carrasquillo. Pt is still currently getting ivabx. CM to follow. Plan: [facility] Date Signed: 05/18/2018 09:59 AM Electronically Signed By:AYAAN Degroot [facility] CM Progress Note CM Note CM Note Notes: Reviewed chart regarding discharge plan of care, pt's progress. Per MD notes, pt still requiring oxygen and has rhonchi in the bilateral lower lobes. Repeat CXR ordered. Pt on Day 5 of IV antibiotics. Per prior CM notes, pt to discharge to [facility] when medically stable. Plan remains unchanged. CM will continue to follow. Discharge Plan: [facility] Date Signed: 05/20/2018 02:25 PM Electronically Signed By:Dafne Gee RN [facility] CM Progress Note CM Note CM Note Notes: CM spoke to Dr. Carrasquillo regarding d/c POC. Pt is not responding to ivabx at this time. A CT has been ordered. Updates sent to [facility]. CM to follow. Plan: [facility] Date Signed: 05/22/2018 10:04 AM Electronically Signed By:AYAAN Degroot [facility] CM Progress Note CM Note CM Note Notes: Pt admitted to hospital after experiencing sob post EGD. Currently still not responding to abx, changes to abx have been made and hopefully she will respond. Pulmonary and ID have been consulted. Hosea Sanches is involved and dc to SNF is planned DC Plan: [facility] Date Signed: 05/24/2018 09:52 AM Electronically Signed By:Gilma Castillo RN [facility] CM Progress Note CM Note CM Note Notes: Pt getting transferred to ICU, [facility] has been updated Date Signed: 05/24/2018 10:22 AM Electronically Signed By:Gilma Castillo RN [facility] CM Progress Note CM Note CM Note Notes: 05/27/2018 Case Management Note Discussed pt during multidisciplanary rounds this morning. Pt has high O2 needs and increased SOB with exertion. Updated [facility] on [employer]. Case Management d/c poc: [facility] re[facility] when medically stable. Case Management to follow. Date Signed: 05/27/2018 11:37 AM Electronically Signed By:Keila Aguirre RN [facility] KAYLAN Progress Note CM Note CM Note Notes: Family Meeting Family meeting was held today with pt's daughter Verónica and son Masood. Pt's children report that Lynne has a strong personality and is awaiting anxiously to hear pathology results that are likely to come today. They are reporting that Lynne just "beat" her esophagal cancer and was doing very well and optimistic. They report that Lynne is very concerned and overwhelmed with her treatment right now hypersensitive to the ways she is treated/spoken to. Lynne likes to be included in any conversations about her care. Pt's family reports Lynne has been having short term memory issues and would benefit being reminded of where the call light/phone is prior to leaving the room. Pt's family reports that she is the youngest of 4 children and has recently lost her two brothers and her to cancer. Verónica, pts daughter, reports she would like to be there when the test results are in and discussed with pt. Pt goes to [facility] in [place] and has a strong buddhism family, Cribber has been here to visit. Pt currently lives at an independent living senior residence in [place] and would like to return after going to [facility]. CM to follow. Plan: [facility] Date Signed: 05/29/2018 04:25 PM Electronically Signed By:AYAAN Maria [facility] CM Progress Note CM Note CM Note Notes: CM spoke with RN about patient case, December patient is improving though O2 is dropping on exertion. Therapies recommending SNF rehab, [facility] accepted. CM to follow. Current Discharge Plan: SNF, [facility]. Date TBD. Date Signed: 06/04/2018 05:54 PM Electronically Signed By:Rosalina Barton [facility] CM Progress Note CM Note CM Note Notes: Plan of care reviewed. Patient likely to be able to discharge tomorrow. Updates to [facility]. Plan: Dc to SNF when medically cleared for discharge. Date Signed: 06/06/2018 10:22 AM Electronically Signed By:Colleen Aguilera RN [facility] CM Progress Note CM Note CM Note Notes: Patient medically cleared for discharge to [facility]. Maury notified at [facility] . Set up for transportation at 12:30 Via wheelchair with oxygen. Final orders via allscripts. CM available should needs arise. Plan: DC to [facility] Date Signed: 06/07/2018 11:44 AM Electronically Signed By:Colleen Aguilera RN Intervention Information Intervention Type:*IM-Signed Date of Service:06/07/2018 09:49 AM Patient Type:Inpatient Staff Member:Cally Acevedo Hours: Discipline: Severity: Comment:
== END 2018-06-07 12:48 | DRG 166 ==
LOC: OBSVTOIN 14:15 → F3E 14:59 → F2N 05-24 11:27 → F1N 06-03 10:43
PROVIDERS: ADMIT Internal Medicine; ATTEND Hospitalist
DX: J84.9 Interstitial pulmonary disease, unspecified (principal); J96.01 Acute respiratory failure with hypoxia; J43.9 Emphysema, unspecified; I47.1 Supraventricular tachycardia; J95.61 Intraoperative hemorrhage and hematoma of a respiratory system organ or structure complicating a respiratory system procedure; E87.6 Hypokalemia; J90 Pleural effusion, not elsewhere classified; I10 Essential (primary) hypertension; C15.5 Malignant neoplasm of lower third of esophagus; Z87.891 Personal history of nicotine dependence; Z66 Do not resuscitate
CPT/HCPCS: 87449-90; 92526-GN; 92610-GN; 92611-GN; 97110-GP; 97116-GP; 97161-GP; 97165-GO; 97530-GO; 97530-GP; 97535-GO; G8978-GP-CJ; G8979-GP-CI; G8987-GO-CI; G8987-GO-CJ; G8988-GO-CI; G8996-GN-CI; G8997-GN-CI; G8998-GN-CI; J0171; J0282; J0295; J0456; J1335; J1450; J1650; J1940; J2250; J2543; J2930; J3010; J3475; J7512; J7613; P9041; Q9967

== ENCOUNTER → 2018-08-09 | Outpatient (CLI) | payer OTHER | LOC: FIMAGING 08:16 | PROVIDERS: ATTEND Internal Medicine Pulmonary Disease | DX: J34.9 Unspecified disorder of nose and nasal sinuses (principal); J44.9 Chronic obstructive pulmonary disease, unspecified; J84.89 Other specified interstitial pulmonary diseases; R09.02 Hypoxemia; Z85.01 Personal history of malignant neoplasm of esophagus; Z87.891 Personal history of nicotine dependence ==

== ENCOUNTER 2018-09-12 11:28 | Inpatient (IN) | payer OTHER ==
[2018-09-12] MEDS ORDERED: ONDANSETRON 4 MG/2 ML VIAL IVP PRN (14:49)
[2018-09-12] MEDS ORDERED: ONDANSETRON DISINTEGRATING 4 MG TAB PO PRN (14:49)
[2018-09-12] MEDS ORDERED: ACETAMINOPHEN 325 MG TAB PO PRN (14:49)
--- NOTE | 2018-09-12 17:00 | PDGENHP ---
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 She reports that 5 days ago she had acute onset inability to swallow both liquids and solids. She denies any pain with swallowing but is unable to get food past a certain point. She is forced to vomit her food and drinks back up due to inability to swallow. She has not taken PO due to this. She denies any nausea, abdominal pain, d/c, f/c, chest pain, SOB, edema, headaches. History Information - Allergies/Home Medication List Allergies/Adverse Reactions: levofloxacin [From Levaquin] Allergy (Verified 05/16/18 14:15) Other-Enter Comments meclizine HCl [From Antivert] Allergy (Verified 05/16/18 14:15) Other-Enter Comments procainamide HCl [From Procan SR] Allergy (Verified 05/16/18 14:15) Unknown [id number]-201 Allergy (Verified 05/16/18 14:15) Other-Enter Comments Home Medications: Pravastatin Sodium [Pravachol] 40 mg PO HS 08/08/16 [Last Taken 09/11/18] Cholecalciferol Vit D3 [Vitamin D3 (*)] 2,000 units PO DAILY18 01/28/18 [Last Taken 09/11/18] Magnesium Oxide [Magnesium] 250 mg PO DAILY@18 05/16/18 [Last Taken 09/11/18] Acetaminophen [Tylenol 325mg (*)] 650 mg PO Q4HRS PRN 09/12/18 [Last Taken 09/11] Ipratropium [place] 0.5 mg IH TID@,15,09/12/18 [Last Taken 09/11/18] Metoprolol Tartrate [Lopressor 25 mg (*)] 25 mg PO PRN PRN 09/12/18 [Last Taken Unknown] I have personally reviewed and updated: family history, medical history, social history, surgical history - Past Medical History cancer, COPD - Surgical History Reports: appendectomy, hysterectomy Additional surgical history: L CEA - Family History Positive for: cancer - Social History Smoking Status: Former smoker Review of Systems Review of Systems: ROS: 10pt was reviewed & negative except for what was stated in HPI & below Physical Exam Physical Exam: Temp Pulse Resp BP Pulse Ox 36.6 C 117 H 15 113/67 100 09/12/18 14:13 09/12/18 15:40 09/12/18 15:40 09/12/18 15:40 09/12/18 15:40 O2 (L/minute) 5 Constitutional: no apparent distress Eyes: PERRL Ears, Nose, Mouth, Throat: dry mucous membranes Cardiovascular: tachycardia Respiratory: no respiratory distress Gastrointestinal: soft, non-tender abdomen, No distension Skin: warm Musculoskeletal: full muscle strength Neurologic: AAOx3 Psychiatric: interacting appropriately Assessment & Plan Assessment: Dysphagia - 5 day duration with both solids and liquids - Hx of esophageal cancer with chemo/radiation - Has had EGD in the past with dilation of stricture in 06/2018 - GI and oncology consulted on admission - GI to evaluate patient this evening for possible EGD tomorrow - Will keep NPO for now, mIVF ordered overnight - CT C/A/P ordered per oncology to further evaluate - Speech and swallow consulted Hyponatremia - Na 133 on admission - In setting of decreased PO intake - mIVF as above - Repeat Na in the AM Tachycardia - HR 122 on admission, in setting of dehydration - EKG performed which shows NSR, HR 70's - Continue to monitor Esophageal Cancer - Follows with Dr. Feliz, consulted on admission - CT CAP as above - Followup Oncology recommendations COPD - Not currently in exacerbation, recently tapered off of steroids - Continue home inhalers, nebs SVT - Had episodes on last admission - Continue home B-Eli FEN: NPO, mIVF DVT PPx: SubQ Lovenox Code: DNR, discussed this afternoon Dispo: Admit to Medicine
[2018-09-12] MEDS ORDERED: METOPROLOL TARTRATE 25 MG TAB PO PRN (17:06)
[2018-09-12] MEDS: NS 1,000 ML IV SCH (17:25)
[2018-09-12] MEDS: PRAVASTATIN SODIUM 40 MG TAB PO SCH (20:51)
[2018-09-12] MEDS: IPRATROPIUM BROMIDE 0.5 MG/2.5 ML DEYVIAL IH SCH (21:13)
--- NOTE | 2018-09-12 21:18 | PDMN ---
Medical Necessity Medical necessity: Pt meets inpt criteria per MD order and MCG M-123, Dehydration. 78 y/o w/hx sm cell cancer of esophagus s/p chemo and radiation and asp PNA, presented to ED w/inability to swallow both liquids and solids for last 5 days, admitted w/dysphasia, GI to evaluate and possible EGD tomorrow (hx of EGD w/dilation of stricture 06/2018), NPO, onc consult, CT C/A/P pending, sp/ swallow eval pending. Also found to be tachycardic, HR 122 on adm in setting of dehydration, hyponatremia w/sodium 133. Other PMHx includes COPD (pt currently using 4-5L O2, ?baseline requirements), SVT, and ILD, comorbid adv age. Est LOS > 2MN for ongoing eval/management of above.
--- NOTE | 2018-09-12 21:25 | SOAPPROG ---
SOAP Progress Note Assessment/Plan: Assessment:Plan: see full dictated consult EGD in am with anesthesia postponed swallow study pending EGD CT after EGD discussed with Dr. Neida Garces MD [phone] 09/12/18 21:24 Objective: Vital Signs Temp Pulse Resp BP Pulse Ox 36.6 C 91 18 145/68 H 97 09/12/18 20:30 09/12/18 20:30 09/12/18 20:30 09/12/18 20:30 09/12/18 20:30 ICD10 Worksheet Patient Problems: Problems Problem Status Onset Atrial fibrillation Acute Carotid stenosis Acute Chest pain Acute Esophageal cancer Acute Hypokalemia Acute Hyponatremia Acute Nausea vomiting and diarrhea Acute Pneumonia Acute
[2018-09-13] MEDS: NS 1,000 ML IV SCH (01:29)
--- NOTE | 2018-09-13 08:04 | GCON ---
[f rep st] CONSULTATION DATE OF CONSULTATION: 09/12/2018 REFERRING PHYSICIAN: Barak Carrasquillo DO INDICATION FOR CONSULTATION: Dysphagia, odynophagia. HPI: The patient is a pleasant 78-year-old female with past medical history for recently diagnosed small cell cancer about 1 year ago, who has undergone chemo and radiation, finishing in the fall. She had subsequent EGDs by my partner in April and May which did show an abnormality at the GE junction , although there was no evidence of recurrent cancer. This is likely scar tissue. She had an acute onset approximately 5 days ago of difficulty swallowing both liquids and solids. She did not have any significant odynophagia, just dysphagia. The food comes back up and she cannot keep it down. She does not complain of any fevers, chills, sweats. She has no cold sore/herpes outbreaks. Her last endoscopy was in May, as noted above. She did have a CT scan that showed possible recurrence, which will be followed up in the near future. I am now called to help evaluate her acute onset of dysphagia. 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 SURGICAL HISTORY: Includes an appendectomy, hysterectomy, left carotid endarterectomy. FAMILY HISTORY: Significant for breast cancer. SOCIAL HISTORY: She quit smoking about 5 years ago. She does not drink alcohol to any extent. MEDICATIONS: Medications in hospital currently are Tylenol p.r.n., Lovenox 40 mg subcu daily, ipratropium bromide inhaler t.i.d., magnesium oxide 200 mg daily , Lopressor 25 mg p.r.n., Zofran p.r.n., pantoprazole 40 mg daily, Pravachol 40 mg at bedtime. ALLERGIES: To Levaquin, meclizine, procainamide, and Valium. REVIEW OF SYSTEMS: A complete review of systems was performed as is negative other then noted in the HPI PHYSICAL EXAM: GENERAL: Chronically ill-appearing female, sitting in her bed, in no acute distress. VITAL SIGNS: Blood pressure is 145/68, pulse is 91, respirations are 18. She is 97% on 4 L nasal cannula, temperature 36.6. EYES: Anicteric. ELÍAS. EOMI. MOUTH: No lesions. Moist membranes. NECK: Supple. Full range of motion. No JVD. BACK: No spine tenderness. No CVA tenderness. LUNGS: Clear to auscultation. CARDIAC: S1, S2. Regular rate and rhythm. ABDOMEN: Bowel sounds are normal pitch and frequency. ABDOMEN: Soft with mild epigastric, subxiphoid tenderness. No rebound. No guarding. EXTREMITIES: No cyanosis, clubbing. NEUROLOGIC: Cranial nerves intact. Nonfocal. SKIN: No rashes. LABORATORY DATA: From today WBC 9.24, hemoglobin 11.2, hematocrit 36.4, platelet count 109. Sodium 133, potassium 4.1, chloride 95, bicarb 28, BUN 22, creatinine 0.9, glucose 79, calcium 8.2, total bili 1.5. Of note, it has been normal in the past. AST 17, ALT 28, alk phos 82. CEA is 7.37. IMAGING: A chest CT performed August 09, 2018, shows moderate centrilobular and paraseptal emphysema, chronic interstitial lung disease, interval improvement with apparent resolution of previously noted areas of patchy ground- glass opacity and irregular parenchymal consolidation in the posterior upper lobes and in the superior segments of the right and left lower lobes and resolution of trace pleural effusions, distal thoracic esophageal wall thickening, and large retrocardiac hiatal hernia with stable imaging features in this patient with a prior history of esophageal cancer. Chest x-ray from September 12 revealed chronic versus recurrent pneumonitis superimposed upon chronic interstitial lung disease with new small right pleural effusion, new T10 compression fracture in this osteoporotic patient, chronic severe atherosclerosis. Her previous endoscopies, the one dating from May 04, 2018: Benign appearancing stricture dilated to 51-Palestinian with Savary dilators, medium-sized hiatal hernia, and erythematous mucosa in the antrum. Pathology of the GE junction showed benign junctional gastric mucosa with inflammation and chronic reactive changes, no evidence of residual small cell carcinoma. An EGD performed April 10, 2018, revealed severe stenosis at the GE junction, large hiatal hernia, gastric erythema, and normal duodenum. The stricture was dilated with a balloon up to 12 mm. Pathology at that time showed benign squamous esophageal mucosa with reactive changes, no evidence of residual small cell carcinoma. Her EGD at the time of diagnosis was October 05, 2017, and this revealed a large fungating mass in the lower 3rd of the esophagus, partially obstructing and circumferential, with a large hiatal hernia, diffuse gastric erythema. Biopsies of that abnormality revealed it to be a small cell neuroendocrine carcinoma. ASSESSMENT: 1. Acute onset of dysphagia. 2. 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 3. Pulmonary issues with possible acute on chronic findings. 4. Elevated bilirubin of 1.5 with no fractionation. 5. Abnormal imaging study with some thickening of the gastroesophageal junction as well as a new indeterminate lesion in her liver. RECOMMENDATIONS: 1. Proceed with EGD in the morning with anesthesia for evaluation of dysphagia. 2. I am going to postpone the video swallow study status post EGD if she just has significant esophageal abnormalities that are amenable to EGD dilation and symptoms improve, and she can proceed with her CT scans as appropriate. 3. Chest and abdomen CT scans as ordered. 4. Treatment of her other medical issues per hospitalist. I am going to ask this be performed with anesthesia given the patient's COPD, acute on chronic findings in the lung, and the history of esophageal cancer. Thank you for allowing me to participate in your patient's healthcare. Do not hesitate to call me with any questions. /[id number]/MODL MTDD
[2018-09-13] MEDS ORDERED: PROTOCOL POTASSIUM 1 DOSE MISC PRN (08:10)
[2018-09-13] MEDS: POTASSIUM Cl (KCl) 100 ML IV SCH ×3 (08:45→22:30)
[2018-09-13] MEDS: ENOXAPARIN 40 MG/0.4 ML SYR SC SCH (09:00)
[2018-09-13] MEDS: PANTOPRAZOLE SODIUM 40 MG TAB PO SCH (09:00)
[2018-09-13] MEDS: IPRATROPIUM BROMIDE 0.5 MG/2.5 ML DEYVIAL IH SCH (09:24)
[2018-09-13] MEDS ORDERED: IPRATROPIUM BROMIDE 0.5 MG/2.5 ML DEYVIAL IH PRN (09:24)
[2018-09-13] MEDS ORDERED: LR 1,000 ML IV ONE (09:59)
--- NOTE | 2018-09-13 10:15 | ASMTCMCOM ---
CM Note CM Note Notes: Chart reviewed. Patient admitted via ED with dysphagia for last 5 days. History significant for non small cell lung cancer. Last discharged to [facility] in June. Daughter Verónica is POA [phone]. Patient has had a GI consult and will have EGD this pm with anesthesia. CM to follow for needs. Plan: TBD Date Signed: 09/13/2018 10:14 AM Electronically Signed By:Colleen Aguilera RN
--- NOTE | 2018-09-13 10:35 | PDANEPAE ---
ANE Past Medical History - Cardiovascular History Hx Hypertension: Yes Hx Arrhythmias: Yes Hx Chest Pain: No Hx Coronary Artery / Peripheral Vascular Disease: Yes Hx CHF / Valvular Disease: No Hx Palpitations: Yes Cardiovascular History Comment: HYPERLIPIDEMIA. CAROTID ARTERY STENOSIS. PVD - Pulmonary History Hx COPD: Yes Hx Asthma/Reactive Airway Disease: No Hx Recent Upper Respiratory Infection: No Hx Oxygen in Use at Home: Yes O2 in Use at Home (L/minute): 5 Hx Sleep Apnea: No Sleep Apnea Screening Result - Last Documented: Positive - Neurologic History Hx Cerebrovascular Accident: No Hx Seizures: No Hx Dementia: No - Endocrine History Hx Diabetes: No Hypothyroid: No Hyperthyroid: No Obesity: no - Renal History Hx Renal Disorders: No - Liver History Hx Hepatic Disorders: No - Neurological & Psychiatric Hx Hx Neurological and Psychiatric Disorders: No - Cancer History Hx Cancer: No Cancer History Comment: ESOPHAGEAL CANCER - Congenital Disorder History Hx Congenital Disorders: No - GI History GERD: severe Hx Gastrointestinal Disorders: Yes Gastrointestinal History Comment: ACID REFLUX - Other Health History Other Health History: NEG - Chronic Pain History Chronic Pain: No - Surgical History Prior Surgeries: L CEA. HYSTERECTOMY. TONSILLECTOMY. DEVIATED SEPTUM. RHINOPLASTY. RTC R SHOULDER ANE Review of Systems Review of Systems: - Exercise capacity Exercise capacity: <4 METS ANE Patient History - Allergies Allergies/Adverse Reactions: levofloxacin [From Levaquin] Allergy (Verified 05/16/18 14:15) Other-Enter Comments meclizine HCl [From Antivert] Allergy (Verified 05/16/18 14:15) Other-Enter Comments procainamide HCl [From Procan SR] Allergy (Verified 05/16/18 14:15) Unknown [id number]-201 Allergy (Verified 05/16/18 14:15) Other-Enter Comments - Home Medications Home Medications: Pravastatin Sodium [Pravachol] 40 mg PO HS 08/08/16 [Last Taken 09/11/18] Cholecalciferol Vit D3 [Vitamin D3 (*)] 2,000 units PO DAILY18 01/28/18 [Last Taken 09/11/18] Magnesium Oxide [Magnesium] 250 mg PO DAILY@18 05/16/18 [Last Taken 09/11/18] Acetaminophen [Tylenol 325mg (*)] 650 mg PO Q4HRS PRN 09/12/18 [Last Taken 09/11] Ipratropium [place] 0.5 mg IH TID@,15,09/12/18 [Last Taken 09/11/18] Metoprolol Tartrate [Lopressor 25 mg (*)] 25 mg PO PRN PRN 09/12/18 [Last Taken Unknown] - NPO status NPO Since - Liquids (Date): 09/12/18 NPO Since - Liquids (Time): 23:59 NPO Since - Solids (Date): 09/12/18 NPO Since - Solids (Time): 23:59 - Anes Hx Anes Hx: no prior problems - Smoking Hx Smoking Status: Former smoker Marijuana use: No - Alcohol Use Alcohol Use: None - Family Anes Hx Family Anes Hx: neg - N/A Family Hx Anesthesia Complications: UNK ANE Labs/Vital Signs - Labs Result Diagrams: 09/14/18 09:00 09/14/18 09:00 - Vital Signs Blood Pressure: 183/110 Heart Rate: 107 Respiratory Rate: 16 O2 Sat (%): 99 Height: 152.4 cm Weight: 59.2 kg ANE Physical Exam - Airway Neck exam: decreased ROM Mallampati Score: Class 3 Mouth exam: poor dentition - Pulmonary Pulmonary: reduced air movement - Cardiovascular Cardiovascular: regular rate and rhythym, no murmur, rub, or gallop - ASA Status ASA Status: IV ANE Anesthesia Plan Anesthesia Plan: MAC Total IV Anesthesia: Yes
[2018-09-13] MEDS ORDERED: LIDOCAINE 2% 2 ML INJ ONE (10:53)
[2018-09-13] MEDS ORDERED: PROPOFOL/EMULSION 500 MG/50 ML BOTTLE IV ONE (10:53)
[2018-09-13] MEDS ORDERED: ESMOLOL HCL 100 MG/10 ML VIAL IV ONE ×2 (11:06)
[2018-09-13] MEDS ORDERED: NALOXONE HCL 0.4 MG/ML INJ IVP PRN (11:25)
[2018-09-13] MEDS ORDERED: PHENYLEPHRINE HCL 100 MCG/ML SYR IVP PRN (11:25)
[2018-09-13] MEDS ORDERED: ALBUTEROL 3 ML DEYVIAL IH PRN (11:25)
[2018-09-13] MEDS ORDERED: LABETALOL HCL 5 MG/ML 20 ML MDV IVP PRN (11:25)
[2018-09-13] MEDS ORDERED: LR 500 ML IV PRN (11:25)
[2018-09-13] MEDS ORDERED: ONDANSETRON 4 MG/2 ML VIAL IVP PRN (11:25)
[2018-09-13] MEDS ORDERED: METOPROLOL TARTRATE 5 MG/5 ML INJ IVP PRN ×2 (12:24)
[2018-09-13] MEDS: MAGNESIUM OXIDE 400 MG TAB PO SCH (18:00)
[2018-09-13] MEDS ORDERED: IOPAMIDOL (ISOVUE-300) 100 ML BTL ONE (18:43)
--- NOTE | 2018-09-13 19:31 | GCON ---
[f rep st] CONSULTATION INPATIENT ONCOLOGY CONSULTATION. DATE OF CONSULTATION: 09/13/2018 REQUESTING PHYSICIAN: Dr. Sandeep Bentley. REASON FOR CONSULTATION: Dysphagia and history of small cell carcinoma of the esophagus. HISTORY OF PRESENT ILLNESS: Ms. Mcguire is a 78-year-old woman with a history of small cell carcinoma of the esophagus. She is well known to me from my clinic. She presented in October 2017 with dysphagia. She was found to have a partially obstructing tumor in the lower 3rd of the esophagus along with a large hiatal hernia and gastritis. A biopsy showed a small cell carcinoma. PET -CT showed a 7 cm FDG avid tumor in the esophagus, but no evidence of metastasis. She was treated with 4 cycles of carboplatin and etoposide with concurrent radiotherapy. This was complicated by febrile neutropenia and she was hospitalized during her last cycle. Her treatment was finished in January of 2018 and a PET-CT scan in March did not show any evidence of residual disease. Her CEA had been elevated to 29 at the initial presentation and normalized during treatment. She had an upper endoscopy with Dr. Benedict in May, which apparently did not reveal any evidence of residual cancer. Shortly after that, she developed respiratory distress and was admitted. This was ultimately attributed to interstitial lung disease that had not been previously noted. She was discharged from the hospital in June on oxygen and prednisone. The prednisone has recently tapered off but she remains on 5 L per day. Over the past week she has noticed increased difficulty with swallowing. This got to the point where she has difficulty with liquids and even managing her secretions. She said she had some mild dysphagia prior to this, but there was a fairly rapid change. She denies fevers or other symptoms. PAST MEDICAL HISTORY: 1. Small cell carcinoma of the esophagus as described above. 2. Interstitial lung disease. Her electronic funds transfer coordinator is Dr. Med Jurado. 3. Hypertension. 4. History of carotid artery stenosis. 5. Atherosclerosis. CURRENT MEDICATIONS: Include prophylactic Lovenox, Atrovent, Lopressor, Protonix, and Pravachol. ALLERGIES: She is allergic to levofloxacin. FAMILY HISTORY: Noncontributory. SOCIAL HISTORY: She is a former smoker. She denies alcohol use. She lives in an independent living facility. REVIEW OF SYSTEMS: Pertinent positives as per HPI. 14-point review of systems negative. EXAMINATION: VITAL SIGNS: Her temperature was 36.6, blood pressure 144/77, heart rate 100, oxygen saturation 92% on 4 L. GENERAL: She was an elderly woman, breathing comfortably, no acute distress. HEENT: Sclerae anicteric. Oropharynx is clear. NECK: Supple without lymphadenopathy. LUNGS: Notable for fine crackles at both bases. CARDIAC EXAMINATION: Regular rate and rhythm. No murmurs, gallops, rubs. ABDOMEN: Normoactive bowel sounds. Nontender. EXTREMITIES: Without edema. NEUROLOGICAL: Alert and oriented x3. LABORATORY DATA: White count 9.4, hemoglobin 11.2, platelets of 109. Basic metabolic panel was unremarkable. Albumin is 3.0. CEA mildly elevated at 7.37. IMPRESSION: This is a 78-year-old woman with a history of localized small cell carcinoma of the esophagus 9 months status post chemo radiotherapy and also with a more recent history of idiopathic interstitial lung disease. She now presents with acute onset dysphagia. This is certainly concerning for recurrence of her malignancy. Other considerations include radiation-induced stricture or possibly infection such as Autumn. She is scheduled for an upper endoscopy today as well as a CT of the chest, abdomen and pelvis. I will meet with her once we have this information to determine if her cancer has recurred and if so, what can be done about it. Often immunotherapy is used to treat small cell carcinomas as second-line therapy. I have some concern about that given her history of interstitial lung disease. I would need to speak to Dr. Jurado to determine as best we can the true etiology of her interstitial lung disease and if it is autoimmune in nature. Thank you for this consultation. We will continue to follow patient closely with you while she is in the hospital. /[id number]/MODL MTDD
[2018-09-13] MEDS ORDERED: NS 500 ML IV ONE (21:03)
--- NOTE | 2018-09-13 21:09 | HOSPPROG ---
Hospitalist Progress Note Assessment/Plan: x-cover note notified by RN that patient is tachycardic and hypertensive. Not taking POs. Urine output has been poor a/p sinus tach on tele (per RN report) -bolus NS 500cc and repeat as indicated hypertension -prn iv metoprolol for sbp>200 dbp>100 Objective: Vital Signs Temp Pulse Resp BP Pulse Ox 36.3 C 122 H 24 H 191/99 H 96 09/13/18 20:40 09/13/18 20:40 09/13/18 20:40 09/13/18 20:40 09/13/18 20:40 Laboratory Results 09/13/18 04:34 09/12/18 09/13/18 09/14/18 05:59 05:59 05:59 Intake Total 1477 Balance 1477 ICD10 Worksheet Patient Problems: Problems Problem Status Onset Carotid stenosis Acute Nausea vomiting and diarrhea Acute Chest pain Acute Hypokalemia Acute Hyponatremia Acute Atrial fibrillation Acute Pneumonia Acute Esophageal cancer Acute
[2018-09-14] MEDS ORDERED: NS 1,000 ML IV ONE (01:12)
[2018-09-14] MEDS: POTASSIUM Cl (KCl) 100 ML IV SCH ×5 (01:24→23:45)
[2018-09-14] MEDS: PRAVASTATIN SODIUM 40 MG TAB PO SCH ×2 (03:21→20:20)
[2018-09-14] MEDS: D5W 1/2 NS 1,000 ML IV SCH ×2 (04:29→13:09)
[2018-09-14] MEDS: METOPROLOL TARTRATE 5 MG/5 ML INJ IVP PRN ×2 (04:38→08:31)
[2018-09-14] MEDS ORDERED: POTASSIUM Cl (KCl) 50 ML IV SCH ×2 (08:38→19:55)
[2018-09-14] MEDS ORDERED: POTASSIUM Cl (KCl) 10 MEQ/100 ML BAG IV ONE (08:42)
[2018-09-14] MEDS: ENOXAPARIN 40 MG/0.4 ML SYR SC SCH (08:50)
[2018-09-14] MEDS: PANTOPRAZOLE SODIUM 40 MG TAB PO SCH (09:09)
[2018-09-14 09:17] LABS: PLATELET COUNT 93 10^3/uL (150-400)
--- NOTE | 2018-09-14 09:49 | ASMTCMCOM ---
CM Note CM Note Notes: Patient to transfer to PCU for increased heart rate. CM to follow for needs. Plan: TBD Date Signed: 09/14/2018 09:48 AM Electronically Signed By:Colleen Aguilera RN
[2018-09-14] MEDS: AMPICILLIN/SULBACTAM 3 GM in NS 100 ML IV SCH ×2 (11:39→21:36)
--- NOTE | 2018-09-14 11:42 | SOAPPROG ---
SOAP Progress Note Assessment/Plan: Assessment: 1. Esophageal small cell carcinoma 2. Local recurrence of cancer 3. Chronic aspiration 4. Pneumonitis - aspiration vs autoimmune? EGD shows recurrent mass, almost certainly small cell carcinoma. Biopsy pending. CT shows the mass and small adjacent lymph nodes but no evidence of mets. we discussed her prognosis. This disease is not curable. Can be treated with additional chemo (topotecan) or immunotherapy (nivolumab.) Autoimmune pneumonitis would be a contraindication to immunotherapy, but clinically seems more likely to be due to chronic aspiration. I spoke to Dr. Jurado who is going to review her records and let me know what he thinks. We also discussed not doing any further Rx. She would like to "live as long as possible," would like to see the of her 3rd great granddaughter in March. In terms of her nutrition, Dr. Reyes will attempt to place a stent today . If that does not relieve the obstruction to allow her to eat and drink adequately, we can have a G tube placed. Plan: - esphogeal stent - likely immunotherapy as outpatient - will d/w pulmonary - G tube if stent not successful 45 min spent w/ pt and in coordination of care. prognosis and plan discussed w/ pt and family. 09/14/18 11:37 Subjective: feels well today. Objective: exam unchanged Vital Signs Temp Pulse Resp BP Pulse Ox 36.9 C 94 12 142/64 H 90 L 09/14/18 11:09 09/14/18 11:09 09/14/18 11:09 09/14/18 11:09 09/14/18 11:09 Laboratory Results 09/14/18 09:00 09/14/18 09:00 09/13/18 09/14/18 09/15/18 05:59 05:59 05:59 Intake Total 9114 1404 Output Total 1 Balance 6950 4613 ICD10 Worksheet Patient Problems: Problems Problem Status Onset Atrial fibrillation Acute Carotid stenosis Acute Chest pain Acute Esophageal cancer Acute Hypokalemia Acute Hyponatremia Acute Nausea vomiting and diarrhea Acute Pneumonia Acute
[2018-09-14] MEDS: METOPROLOL TARTRATE 5 MG/5 ML INJ IVP SCH ×2 (12:18→18:44)
--- NOTE | 2018-09-14 12:31 | SOAPPROG ---
SOAP Progress Note Assessment/Plan: Assessment:Plan: see full dictated consult EGD in am with anesthesia postponed swallow study pending EGD CT after EGD discussed with Dr. Neida Garces MD [phone] 09/12/18 21:24 09/14/18 12:27 1) Esoph Ca - bx pending, CT shows 8cm lesion with large LN next to it, no liver mets 2) dysphagia - for esoph stent at 4:[address] Reyes 3) cardiac - afib - now in , transferred to 4) PULM - effusion and asp pna - as per primary EGD and stent high risk given all her comorbidities she understands and desires to proceed Subjective: cc- esoph cancer, dysphagia feeling OK, had arrhythmia and transferred to tele no cp no f/c/s Objective: Vital Signs Temp Pulse Resp BP Pulse Ox 36.9 C 99 12 142/64 H 90 L 09/14/18 11:09 09/14/18 12:18 09/14/18 11:09 09/14/18 11:09 09/14/18 11:09 Laboratory Results 09/14/18 09:00 09/14/18 09:00 09/13/18 09/14/18 09/15/18 05:59 05:59 05:59 Intake Total 1477 4459 Output Total 1 Balance 1477 4458 A+OX3 S1S2, RR +BS soft epi tenderness Decreased breath sounds ICD10 Worksheet Patient Problems: Problems Problem Status Onset Atrial fibrillation Acute Carotid stenosis Acute Chest pain Acute Esophageal cancer Acute Hypokalemia Acute Hyponatremia Acute Nausea vomiting and diarrhea Acute Pneumonia Acute
[2018-09-14] MEDS ORDERED: PROTOCOL MAGNESIUM 1 DOSE IV PRN (15:54)
[2018-09-14] MEDS ORDERED: NALOXONE HCL 0.4 MG/ML INJ IVP PRN (16:55)
[2018-09-14] MEDS ORDERED: PROMETHAZINE HCL 25 MG/ML INJ IVP PRN (16:55)
[2018-09-14] MEDS ORDERED: ONDANSETRON 4 MG/2 ML VIAL IVP PRN (16:55)
[2018-09-14] MEDS ORDERED: fentaNYL 100 MCG/2 ML INJ IVP PRN (16:55)
--- NOTE | 2018-09-14 16:55 | PDANEPAE ---
ANE Past Medical History - Cardiovascular History Hx Hypertension: Yes Hx Arrhythmias: Yes Hx Chest Pain: No Hx Coronary Artery / Peripheral Vascular Disease: Yes Hx CHF / Valvular Disease: No Hx Palpitations: Yes Cardiovascular History Comment: HYPERLIPIDEMIA. CAROTID ARTERY STENOSIS. PVD - Pulmonary History Hx COPD: Yes Hx Asthma/Reactive Airway Disease: No Hx Recent Upper Respiratory Infection: No Hx Oxygen in Use at Home: Yes O2 in Use at Home (L/minute): 5 Hx Sleep Apnea: Yes Sleep Apnea Screening Result - Last Documented: Positive - Neurologic History Hx Cerebrovascular Accident: No Hx Seizures: No Hx Dementia: No - Endocrine History Hx Diabetes: No Hypothyroid: No Hyperthyroid: No Obesity: no - Renal History Hx Renal Disorders: No - Liver History Hx Hepatic Disorders: No - Neurological & Psychiatric Hx Hx Neurological and Psychiatric Disorders: No - Cancer History Hx Cancer: No Cancer History Comment: ESOPHAGEAL CANCER - Congenital Disorder History Hx Congenital Disorders: No - GI History GERD: severe Hx Gastrointestinal Disorders: Yes Gastrointestinal History Comment: ACID REFLUX - Other Health History Other Health History: NEG - Chronic Pain History Chronic Pain: No - Surgical History Prior Surgeries: L CEA. HYSTERECTOMY. TONSILLECTOMY. DEVIATED SEPTUM. RHINOPLASTY. RTC R SHOULDER ANE Review of Systems Review of Systems: ANE Patient History - Allergies Allergies/Adverse Reactions: levofloxacin [From Levaquin] Allergy (Verified 05/16/18 14:15) Other-Enter Comments meclizine HCl [From Antivert] Allergy (Verified 05/16/18 14:15) Other-Enter Comments procainamide HCl [From Procan SR] Allergy (Verified 05/16/18 14:15) Unknown thallium-201 Allergy (Verified 05/16/18 14:15) Other-Enter Comments - Home Medications Home medications: home medication list seen and reviewed Home Medications: Pravastatin Sodium [Pravachol] 40 mg PO HS 08/08/16 [Last Taken 09/11/18] Cholecalciferol Vit D3 [Vitamin D3 (*)] 2,000 units PO DAILY18 01/28/18 [Last Taken 09/11/18] Magnesium Oxide [Magnesium] 250 mg PO DAILY@18 05/16/18 [Last Taken 09/11/18] Acetaminophen [Tylenol 325mg (*)] 650 mg PO Q4HRS PRN 09/12/18 [Last Taken 09/11] Ipratropium [place] 0.5 mg IH TID@,15,09/12/18 [Last Taken 09/11/18] Metoprolol Tartrate [Lopressor 25 mg (*)] 25 mg PO PRN PRN 09/12/18 [Last Taken Unknown] - NPO status NPO Status: no food or drink >8 hours NPO Since - Liquids (Date): 09/12/18 NPO Since - Liquids (Time): 09:00 NPO Since - Solids (Date): 09/12/18 NPO Since - Solids (Time): 23:59 - Anes Hx Anes Hx: no prior problems - Smoking Hx Smoking Status: Former smoker - Family Anes Hx Family Hx Anesthesia Complications: UNK ANE Labs/Vital Signs - Labs Result Diagrams: 09/14/18 09:00 09/14/18 09:00 - Vital Signs Blood Pressure: 171/86 Heart Rate: 96 Respiratory Rate: 20 O2 Sat (%): 96 Height: 152.4 cm Weight: 59.2 kg ANE Physical Exam - Airway Neck exam: FROM Mallampati Score: Class 2 Mouth exam: poor dentition - Pulmonary Pulmonary: reduced air movement - Cardiovascular Cardiovascular: tachycardia - ASA Status ASA Status: IV ANE Anesthesia Plan Anesthesia Plan: general endotracheal anesthesia
--- NOTE | 2018-09-14 17:03 | POSTANESTH ---
Post Anesthetic Evaluation Cardiovascular Status: Similar to Pre-Op Cond Respiratory Status: Similar to Pre-op Cond. Level of Consciousness/Mental Status: Can Participate in Eval Pain Control: Adequate, Prn Tx Ordered Nausea/Vomiting Control: Adequate, Prn Tx Ordered Complications Possibly Related to Anesthesia: None Noted
[2018-09-14] MEDS ORDERED: PROPOFOL 200 MG/20 ML VIAL ONE (17:11)
[2018-09-14] MEDS ORDERED: LIDOCAINE 2% 2 ML INJ ONE (17:12)
[2018-09-14] MEDS ORDERED: SUCCINYLCHOLINE CHLORIDE 200 MG/10 ML SYR IVP ONE (17:12)
[2018-09-14] MEDS ORDERED: ESMOLOL HCL 100 MG/10 ML VIAL IV ONE (17:12)
[2018-09-14] MEDS ORDERED: MAGNESIUM SULF 2 GM/WATER 50 ML IV ONE (17:21)
--- NOTE | 2018-09-14 17:44 | GIREPORT ---
[facility] Surgical Services - Endoscopy Department Patient Name: Lynne Mcguire Procedure Date: 09/14/2018 5:15 PM Patient Type: Inpatient Attending MD/ ER Physician: Dewey Reyes MD Procedure: Upper GI endoscopy Indications: Dysphagia Patient Profile: 78 year old female with a history of non small cell lung cancer present s for stenting of a malignant tumor at her GE junction. Providers: Dewey Reyes MD Medicines: General Anesthesia Complications: No immediate complications. Estimated blood loss: Minimal. Description of Procedure: After obtaining informed consent, the endoscope was passed under direct vision. Throughout the procedure, the patient's blood pressure, pulse, and oxygen saturations were monitored continuously. The Endoscope was intro duced through the mouth, and advanced to the second part of duodenum. The [facility] GI endoscopy was accomplished without difficulty. The patient tolerated th e procedure well. Findings: A large, fungating and ulcerating mass was found in the lower third of the esophagus. The mass was completely obstructing and circumferential. The scope could not be passed beyond this stricture. A 0.035 inch guidewire was advanced into the stomach under fluoroscopy. The proximal part of the stricture was marked with a paper clip on the outside body. This was st ented with a 23 mm x 15.5 cm WallFlex covered stent under fluoroscopic guidan ce. Estimated Blood Loss: Estimated blood loss was minimal. Post Op Diagnosis: - Completely obstructing, malignant esophageal tumor was found in the l ower third of the esophagus. Prosthesis placed. - No specimens collected. Recommendation: - Return patient to [facility] for ongoing care. - Clear liquid diet. - Continue present medications. - PPI therapy. - Thank you for allowing me to participate in the care of your patient. Attending Participation: I personally performed the entire procedure. Dewey Reyes MD Dewey Reyes MD 09/14/2018 5:43:40 PM This report has been signed electronicallyDewey Reyes MD Number of Addenda: 0 Note Initiated On: 09/14/2018 5:15 PM [email or web address]
--- NOTE | 2018-09-14 18:00 | GIREPORT ---
[facility] Surgical Services - Endoscopy Department Patient Name: Lynne Mcguire Procedure Date: 09/13/2018 10:35 AM Patient Type: Inpatient Attending MD/ ER Physician: Lukasz Garces MD Procedure: Upper GI endoscopy Indications: Dysphagia, Family history of esophageal cancer Providers: Lukasz Garces MD Referring MD: Oskar Feliz MD Medicines: Propofol per Anesthesia = IV general with spont resps Complications: No immediate complications. Estimated blood loss: Minimal. Description of Procedure: After obtaining informed consent, the endoscope was passed under direct vision. Throughout the procedure, the patient's blood pressure, pulse, and oxygen saturations were monitored continuously. The Endoscope was intro duced through the mouth, and advanced to the lower third of esophagus. The up per GI endoscopy was accomplished without difficulty. The patient tolerated the procedure well. Findings: The upper third of the esophagus was normal. A large, fungating mass with bleeding was found in the lower third of t he esophagus, 30 cm from the incisors. The mass was partially obstructing and circumferential. Biopsies were taken with a cold forceps for histology. Estimated blood loss was minimal. The exam was otherwise without abnormality. Estimated Blood Loss: Estimated blood loss was minimal. Post Op Diagnosis: - Normal upper third of esophagus. - Partially obstructing, likely malignant esophageal tumor was found in the lower third of the esophagus. Biopsied. - The examination was otherwise normal. Recommendation: - Await pathology results. - My office will call with the pathology result with 5-7 days. If you h ave not heard from my office by 12-14, do not assume the pathology is pham l, please call [phone] to get the pathology results. - Perform a CT scan (computed tomography) of chest with contrast and ab domen with contrast today. - Return patient to hospital [facility] for ongoing care. - NPO. - Repeat upper endoscopy at appointment to be scheduled for retreatment . For esophageal stent - Thank you for allowing me to help in your patient's care. Do not hesi hearn to call with any questions. Attending Participation: I personally performed the entire procedure. Mili Dumont M.D Lukasz Garces MD 09/14/2018 5:59:44 PM This report has been signed electronicallyMatthew MD Mili Number of Addenda: 0 Note Initiated On: 09/13/2018 10:35 AM [email or web address]
--- NOTE | 2018-09-14 18:05 | POSTANESTH ---
Post Anesthetic Evaluation Cardiovascular Status: Similar to Pre-Op Cond (BP around 200/100, pulse 90. This has been her baseline recently, so I won't treat aggressively unless it rises.) Respiratory Status: Similar to Pre-op Cond., Tx Decrease in SpO2 Level of Consciousness/Mental Status: Can Participate in Eval, Alert and Oriented Pain Control: Adequate, Prn Tx Ordered Nausea/Vomiting Control: Adequate, Prn Tx Ordered Complications Possibly Related to Anesthesia: None Noted
[2018-09-14] MEDS: MAGNESIUM OXIDE 400 MG TAB PO SCH (18:45)
--- NOTE | 2018-09-14 18:50 | HOSPPROG ---
Hospitalist Progress Note Assessment/Plan: * Recurrent esophageal cancer - small cell -complete esophageal obstruction s/p esophageal stent -d/w Dr. Feliz - patient would like to proceed with immunotherapy * Aspiration pna -IV Unasyn * Rapid afib -takes PO metoprolol at home, but inconsistently -IV metoprolol while NPO -schedule metoprolol when able to take PO * ILD with chronic respiratory failure - 5L baseline -needs pulmonary re-eval prior to initiating immunotherapy Subjective: no complaints. Objective: Vital Signs Temp Pulse Resp BP Pulse Ox 36.8 C 107 H 21 H 195/98 H 97 09/14/18 18:18 09/14/18 17:02 09/14/18 18:15 09/14/18 18:11 09/14/18 18:18 Laboratory Results 09/14/18 09:00 09/14/18 09:00 09/13/18 09/14/18 09/15/18 05:59 05:59 05:59 Intake Total 1477 4459 656 Output Total 1 350 Balance 1477 4458 306 CXR - RUL infiltrate - Physical Exam Constitutional: no apparent distress, appears nourished, not in pain Cardiovascular: regular rate and rhythym, no murmur, rub, or gallop Respiratory: no respiratory distress, no rales or rhonchi, clear to auscultation Gastrointestinal: normoactive bowel sounds, soft, non-tender abdomen, no palpable masses Skin: no rashes or abrasions, no fluctuance, no induration Neurologic: AAOx3, sensation intact bilaterally Psychiatric: interacting appropriately, not anxious, not encephalopathic, thought process linear ICD10 Worksheet Patient Problems: Problems Problem Status Onset Carotid stenosis Acute Nausea vomiting and diarrhea Acute Chest pain Acute Hypokalemia Acute Hyponatremia Acute Atrial fibrillation Acute Pneumonia Acute Esophageal cancer Acute
[2018-09-15] MEDS: METOPROLOL TARTRATE 5 MG/5 ML INJ IVP SCH ×4 (00:49→19:05)
[2018-09-15] MEDS: AMPICILLIN/SULBACTAM 3 GM in NS 100 ML IV SCH ×4 (01:18→18:48)
[2018-09-15] MEDS ORDERED: POTASSIUM Cl (KCl) 50 ML IV SCH (09:00)
--- NOTE | 2018-09-15 11:50 | CPEKG ---
Test Reason : OPEN Blood Pressure : / mmHG Vent. Rate : 134 BPM Atrial Rate : 000 BPM P-R Int : 120 ms QRS Dur : 082 ms QT Int : 321 ms P-R-T Axes : 000 048 009 degrees QTc Int : 480 ms SINUS TACHYCARDIA WITH FIRST DEGREE av BLOCK Low voltage, extremity leads Non-specific change in ST segment in V4-V6 Confirmed by Bear Birch ([id number]) on 09/15/2018 11:50:02 AM Referred By: Barak Carrasquillo Confirmed By:Bear Birch
[2018-09-15] MEDS ORDERED: POTASSIUM CL 10 MEQ TAB PO ONE (12:18)
[2018-09-15] MEDS ORDERED: MAGNESIUM SULF 2 GM/WATER 50 ML IV ONE (12:19)
--- NOTE | 2018-09-15 12:56 | SOAPPROG ---
[facility]NAK Progress Note Assessment/Plan: Assessment: 1. Esophageal small cell carcinoma 2. Local recurrence of cancer 3. Chronic aspiration 4. Pneumonitis - aspiration vs autoimmune? 5. s/p esophageal stent placement s/p stent placement - unclear if she will be able to get adequate hydration/ nutrition. she is very resistant to the idea of a G-tube. I explained that TPN is associated with a number of problems (liver toxicity, increased risk of infection, etc) and a G-tube would be strongly preferred. Plan: - consider G tube if she is not getting enough nutrition/hydration orally - can d/c to home when nutritional issues have been adequately addressed - f/u with me in clinic next week to discuss Rx (immunotherapy vs chemo) 30 min spent w/ pt and in coordination of care. Subjective: tolerating small amounts of clears. Objective: exam unchanged Vital Signs Temp Pulse Resp BP Pulse Ox 36.9 C 117 H 10 L 159/84 H 91 L 09/15/18 07:49 09/15/18 09:38 09/15/18 07:49 09/15/18 09:38 09/15/18 09:38 Laboratory Results 09/15/18 09:08 09/14/18 09/15/18 09/16/18 05:59 05:59 05:59 Intake Total 4453 2356 Output Total 1 1600 450 Balance 4458 756 -450 ICD10 Worksheet Patient Problems: Problems Problem Status Onset Atrial fibrillation Acute Carotid stenosis Acute Chest pain Acute Esophageal cancer Acute Hypokalemia Acute Hyponatremia Acute Nausea vomiting and diarrhea Acute Pneumonia Acute
--- NOTE | 2018-09-15 12:59 | SOAPPROG ---
SOAP Progress Note Assessment/Plan: Assessment:Plan: see full dictated consult EGD in am with anesthesia postponed swallow study pending EGD CT after EGD discussed with Dr. Neida Garces MD [phone] 09/12/18 21:24 09/14/18 12:27 1) Esoph Ca - bx pending, CT shows 8cm lesion with large LN next to it, no liver mets 2) dysphagia - for esoph stent at 4:[address] Reyes 3) cardiac - afib - now in NS, transferred to 2W 4) PULM - effusion and asp pna - as per primary EGD and stent high risk given all her comorbidities she understands and desires to proceed 09/15/18 12:57 1) esoph CA - now s/op stent, immuno therapy as per Dr. Feliz 2) diet - clears, advance slowly 3) pulm - pna on Unasyn 4) cardiac - on tele, NSR Dr. Arguello to take over inpt service at 5pm today Subjective: CC- esoph ca with obstruction/dysphagia now s/p stent no sig pain form stent, does have some reflux happy to swallow liquids Objective: Vital Signs Temp Pulse Resp BP Pulse Ox 36.9 C 117 H 10 L 159/84 H 91 L 09/15/18 07:49 09/15/18 09:38 09/15/18 07:49 09/15/18 09:38 09/15/18 09:38 Laboratory Results 09/15/18 09:08 09/14/18 09/15/18 09/16/18 05:59 05:59 05:59 Intake Total 4459 2356 Output Total 1 1600 450 Balance 4458 756 -450 A+Ox3 Coarse BS S1S2 +BS, soft ICD10 Worksheet Patient Problems: Problems Problem Status Onset Atrial fibrillation Acute Carotid stenosis Acute Chest pain Acute Esophageal cancer Acute Hypokalemia Acute Hyponatremia Acute Nausea vomiting and diarrhea Acute Pneumonia Acute
[2018-09-15 14:07] LABS: PLATELET COUNT 89 10^3/uL (150-400)
--- NOTE | 2018-09-15 14:47 | CPEKG ---
Test Reason : OPEN Blood Pressure : / mmHG Vent. Rate : 086 BPM Atrial Rate : 086 BPM P-R Int : 168 ms QRS Dur : 087 ms QT Int : 354 ms P-R-T Axes : 045 017 -15 degrees QTc Int : 424 ms Sinus rhythm Poor R wave progression Atrial premature complexes Borderline T abnormalities, inferior leads Confirmed by Bear Birch ([id number]) on 09/15/2018 2:47:10 PM Referred By: Barak Carrasquillo Confirmed By:Bear Birch
--- NOTE | 2018-09-15 15:28 | ASMTCMCOM ---
CM Note CM Note Notes: 09/15/2018 Case Management Note Met w/pt during rounds today. Daughter Ashley present [phone]. PT has cleared pt for home independent. Pt used oxygen at home prior to admission. Case Management d/c poc: anticipating independent with follow up as directed. Case Management available if needs change. Date Signed: 09/15/2018 03:28 PM Electronically Signed By:Keila Aguirre RN
[2018-09-15] MEDS ORDERED: IOPAMIDOL (ISOVUE 370) 100 ML BTL IV ONE (17:42)
--- NOTE | 2018-09-15 18:14 | HOSPPROG ---
Hospitalist Progress Note Assessment/Plan: * Recurrent esophageal cancer - small cell -complete esophageal obstruction s/p esophageal stent -advance diet slowly -initiate immunotherapy as outpatient with Dr. Feliz * Aspiration pna -IV Unasyn * Afib - mostly sinus tachycardia here -very tachy HR 130 with minimal ambulation despite IV metoprolol -check CTA chest rule out PE - high risk given malignancy -change to PO metoprolol when PO intake established * ILD with chronic respiratory failure - 5L baseline -needs pulmonary re-eval prior to initiating immunotherapy Subjective: Taking very little clears, just a few sips tolerated Objective: Vital Signs Temp Pulse Resp BP Pulse Ox 36.3 C 115 H 25 H 132/74 H 93 09/15/18 15:15 09/15/18 15:15 09/15/18 15:15 09/15/18 15:15 09/15/18 15:15 Laboratory Results 09/15/18 09:08 09/15/18 09:08 09/14/18 09/15/18 09/16/18 05:59 05:59 05:59 Intake Total 4459 2356 520 Output Total 1 1600 750 Balance 4458 756 -230 - Physical Exam Constitutional: no apparent distress, appears nourished, not in pain Cardiovascular: regular rate and rhythym, no murmur, rub, or gallop Respiratory: no respiratory distress, no rales or rhonchi, clear to auscultation Gastrointestinal: normoactive bowel sounds, soft, non-tender abdomen, no palpable masses Skin: no rashes or abrasions, no fluctuance, no induration Neurologic: AAOx3, sensation intact bilaterally Psychiatric: interacting appropriately, not anxious, not encephalopathic, thought process linear ICD10 Worksheet Patient Problems: Problems Problem Status Onset Carotid stenosis Acute Nausea vomiting and diarrhea Acute Chest pain Acute Hypokalemia Acute Hyponatremia Acute Atrial fibrillation Acute Pneumonia Acute Esophageal cancer Acute
[2018-09-15] MEDS: ENOXAPARIN 40 MG/0.4 ML SYR SC SCH (18:41)
[2018-09-15] MEDS: PANTOPRAZOLE SODIUM 40 MG TAB PO SCH (18:44)
[2018-09-15] MEDS ORDERED: NS BOLUS 500 ML (Wide open) IV ONE (19:30)
[2018-09-15] MEDS: MAGNESIUM OXIDE 400 MG TAB PO SCH (19:44)
[2018-09-15] MEDS: PRAVASTATIN SODIUM 40 MG TAB PO SCH (22:09)
[2018-09-15] MEDS ORDERED: POTASSIUM Cl (KCl) 50 ML IV ONE (22:59)
[2018-09-15] MEDS ORDERED: POTASSIUM Cl (KCl) 100 ML IV ONE (23:30)
[2018-09-16] MEDS: AMPICILLIN/SULBACTAM 3 GM in NS 100 ML IV SCH ×4 (01:04→17:26)
[2018-09-16] MEDS: METOPROLOL TARTRATE 5 MG/5 ML INJ IVP SCH ×2 (01:04→05:45)
[2018-09-16 06:24] LABS: PLATELET COUNT 96 10^3/uL (150-400)
[2018-09-16] MEDS ORDERED: METOPROLOL TARTRATE 25 MG TAB PO SCH (09:00)
[2018-09-16] MEDS: PANTOPRAZOLE SODIUM 40 MG TAB PO SCH (09:16)
[2018-09-16] MEDS: ENOXAPARIN 40 MG/0.4 ML SYR SC SCH (09:20)
[2018-09-16] MEDS: NS 1,000 ML IV SCH ×2 (09:24→19:03)
--- NOTE | 2018-09-16 10:56 | SOAPPROG ---
SOAP Progress Note Assessment/Plan: Assessment: Esophageal cancer s/p stent tolreraing liquids. Stent may expnad more over next few days. Notes some GERD Plan: Continue clear liq consider slow advance to full liquids PPI for reflux Will sign off. 09/16/18 10:55 Objective: Vital Signs Temp Pulse Resp BP Pulse Ox 36.6 C 95 20 127/71 H 94 09/16/18 10:52 09/16/18 10:52 09/16/18 10:52 09/16/18 10:52 09/16/18 10:52 Laboratory Results 09/16/18 05:35 09/16/18 05:35 09/15/18 09/16/18 09/17/18 05:59 05:59 05:59 Intake Total 2356 2525 Output Total 1600 1375 Balance 756 1150 Physical Exam - Physical Exam General Appearance: alert Respiratory: decreased breath sounds Cardiac/Chest: regular rate, rhythm Abdomen: non-tender, soft ICD10 Worksheet Patient Problems: Problems Problem Status Onset Atrial fibrillation Acute Carotid stenosis Acute Chest pain Acute Esophageal cancer Acute Hypokalemia Acute Hyponatremia Acute Nausea vomiting and diarrhea Acute Pneumonia Acute
--- NOTE | 2018-09-16 12:47 | SOAPPROG ---
SOAP Progress Note Assessment/Plan: Assessment: 1) Locally recurrent esophageal small cell cancer 2) Dysphagia s/p esophageal stent 3) Chronic aspiration Plan: She is tolerating a limited diet following stent placement. Slowly advance diet. If unable to take in adequate nutrition PO, may ultimately require PEG tube. Follow up with Dr. Feliz at discharge to discuss treatment options. Her questions were answered. 09/16/18 12:43 Subjective: Feels she is doing better following esophageal stent placement. Tolerating limited diet thus far. Objective: Vital Signs Temp Pulse Resp BP Pulse Ox 36.6 C 95 20 127/71 H 94 09/16/18 10:52 09/16/18 10:52 09/16/18 10:52 09/16/18 10:52 09/16/18 10:52 Laboratory Results 09/16/18 05:35 09/16/18 05:35 09/15/18 09/16/18 09/17/18 05:59 05:59 05:59 Intake Total 2356 2525 Output Total 1600 1375 Balance 756 1150 - Time Spent With Patient Time Spent With Patient: 15 minutes Physical Exam - Physical Exam General Appearance: alert, no apparent distress EENT: PERRL/EOMI Abdomen: non-tender, soft, No mass Neuro/Psych: no motor/sensory deficits, alert, normal mood/affect ICD10 Worksheet Patient Problems: Problems Problem Status Onset Atrial fibrillation Acute Carotid stenosis Acute Chest pain Acute Esophageal cancer Acute Hypokalemia Acute Hyponatremia Acute Nausea vomiting and diarrhea Acute Pneumonia Acute
--- NOTE | 2018-09-16 16:30 | HOSPPROG ---
Hospitalist Progress Note Assessment/Plan: * Recurrent esophageal cancer - small cell -complete esophageal obstruction s/p esophageal stent -advance diet slowly -initiate immunotherapy as outpatient with Dr. Feliz * Aspiration pna -IV Unasyn * Afib - mostly sinus tachycardia here -very tachy HR 130 with minimal ambulation despite metoprolol -CTA negative for PE -check ECHO, TSH * ILD with chronic respiratory failure - 5L baseline -needs pulmonary re-eval prior to initiating immunotherapy Subjective: No complaints. Objective: Vital Signs Temp Pulse Resp BP Pulse Ox 37.0 C 99 20 162/71 H 94 09/16/18 15:18 09/16/18 15:18 09/16/18 15:18 09/16/18 15:18 09/16/18 15:18 Laboratory Results 09/16/18 05:35 09/16/18 05:35 09/15/18 09/16/18 09/17/18 05:59 05:59 05:59 Intake Total 2356 2525 1600 Output Total 1600 1375 300 Balance 756 1150 1300 tele reviewed - sinus tachy CTA chest - no PE, reviewed with DR. Posada - Physical Exam Constitutional: no apparent distress, appears nourished, not in pain Cardiovascular: regular rate and rhythym, no murmur, rub, or gallop Respiratory: no respiratory distress, no rales or rhonchi, clear to auscultation Gastrointestinal: normoactive bowel sounds, soft, non-tender abdomen, no palpable masses Skin: no rashes or abrasions, no fluctuance, no induration Neurologic: AAOx3, sensation intact bilaterally Psychiatric: interacting appropriately, not anxious, not encephalopathic, thought process linear ICD10 Worksheet Patient Problems: Problems Problem Status Onset Atrial fibrillation Acute Carotid stenosis Acute Chest pain Acute Esophageal cancer Acute Hypokalemia Acute Hyponatremia Acute Nausea vomiting and diarrhea Acute Pneumonia Acute
[2018-09-16] MEDS: MAGNESIUM OXIDE 400 MG TAB PO SCH (17:31)
[2018-09-16] MEDS ORDERED: POTASSIUM CL 10 MEQ TAB PO ONE ×2 (18:20→18:57)
[2018-09-16] MEDS ORDERED: BENZONATATE 100 MG CAP PO PRN (19:00)
[2018-09-16] MEDS: POTASSIUM Cl (KCl) 100 ML IV SCH ×2 (20:20→22:33)
[2018-09-16] MEDS: PRAVASTATIN SODIUM 40 MG TAB PO SCH (21:54)
[2018-09-16] MEDS: METOPROLOL TARTRATE 50 MG TAB PO SCH (21:54)
[2018-09-17] MEDS: AMPICILLIN/SULBACTAM 3 GM in NS 100 ML IV SCH ×4 (00:37→18:11)
[2018-09-17] MEDS: NS 1,000 ML IV SCH (05:42)
[2018-09-17] MEDS ORDERED: POTASSIUM CL 10 MEQ TAB PO ONE (09:07)
[2018-09-17] MEDS: ENOXAPARIN 40 MG/0.4 ML SYR SC SCH (10:05)
[2018-09-17] MEDS: METOPROLOL TARTRATE 50 MG TAB PO SCH ×2 (10:05→20:39)
[2018-09-17] MEDS: PANTOPRAZOLE SODIUM 40 MG TAB PO SCH (10:06)
--- NOTE | 2018-09-17 14:44 | ASMTCMCOM ---
CM Note CM Note Notes: 09/17/2018 Case Management Note Discussed pt during rounds this morning. Advancing diet. Case Management d/c poc: remains home independent with support from daughterHannahy. Case Management to follow. Date Signed: 09/17/2018 02:43 PM Electronically Signed By:Keila Aguirre RN
--- NOTE | 2018-09-17 15:49 | ECHO ---
[email or web address] [address] Main: [phone] Echocardiography Examination Transthoracic Name: SIMONA LAUGHLIN MR#: [id number] Study Date: 09/17/2018 Study Time: 01:13 PM Date of : 1940 Age: 78 year(s) Height: 152.4 cm (60 in.) Weight: 58.97 kg (130 lb.) BSA: 1.55 m2 Gender: Female Examination: Echo Contrast: Image Quality: Adequate Rhythm: Heart Rate: BP: 116 mmHg/63 mmHg Indication: Tachycardia Procedure Staff Referring Physician: Rn Hospice: Deni Romero RDCS Reading Physician: Deandre Reyes MD Requesting Provider: Indication: Tachycardia Measurements Chambers AV/MV Label Value Normal Value Label Value Normal Value IVSd, 2D 1 cm (0.6cm - 1.1cm) AV PGmax 10 mmHg LVDd, 2D 3.6 cm (3.9cm - 5.3cm) AV PGmean 6 mmHg LVDs, 2D 2.2 cm (2.1cm - 4cm) AV Vmax 1.62 m/s LVEF, 2D 68 % (54% - 74%) MAIKEL (continuity eq. 1.7 cm2 LVOT PGmax 4 mmHg Vmax) LVOT PGmean 2 mmHg MAIKEL D (continuity eq. 2 cm2 LVOT Vmax 0.95 m/s (0.7m/s - 1.1m/s) VTI) LVOT Vmean 0.63 m/s MV A Vmax 1.06 m/s LVOTd 1.9 cm (1.8cm - 2cm) MV E' lateral 0.04 m/s LVPWd, 2D 1.1 cm MV E' mean 0.04 m/s LA Area, A2C 9.3 cm2 (0cm2 - 20cm2) MV E' septal 0.04 m/s LA Volume, A2C 20 ml (22ml - 52ml) MV E Vmax 0.92 m/s LA Volume, A4C 34 ml (22ml - 52ml) MV E/A 0.87 LA Volume, BP 28 ml (22ml - 52ml) MV E/E' lateral 22.4 LAD Index, 2D 1.87 cm/m2 MV E/E' mean 23 LADs, 2D 2.9 cm (2.7cm - 3.8cm) MV E/E' septal 23 (0.45 - 1.25) LAESV index, MOD4 21.9 ml/m2 TV/PV RA Area 10 cm2 Label Value Normal Value Additional Vessels RA Pressure 5 mmHg Label Value Normal Value RVSP 40 mmHg Patient: SIMONA LAUGHLIN Study Date: 09/17/2018 Page 1 of 3 01:13 PM AoAsc 1.9 cm TR Pmax 35 mmHg AoRoot, MM 2.3 cm (2.2cm - 3.7cm) TR Vmax 2.97 m/s PV PGmax 2 mmHg PV Vmax, Caliper 0.75 m/s (0.6m/s - 0.9m/s) Conclusions Left Ventricle: Left ventricle is normal in size. There are no regional wall motion abnormalities. Right Ventricle: Normal size right ventricle. Left Atrium: The left atrium is normal in size. Mitral Valve: Mild mitral regurgitation. No mitral valve stenosis. Aortic Valve: No significant aortic valve regurgitation. There is no aortic stenosis. Tricuspid Valve: Tricuspid valve leaflets are structurally normal. Right Ventricular systolic pressure is measured at 40 mmHg. Findings Left Ventricle: Left ventricle is normal in size. Normal global systolic left ventricular function. The ejection fraction, measured by 2D, is 68 %. There are no regional wall motion abnormalities. Grade I Diastolic Dysfunction. No LV hypertrophy. Right Ventricle: Normal size right ventricle. Right ventricular systolic function is normal. Left Atrium: The left atrium is normal in size. Left Atrium Measurements LAESV index, MOD4 is 21.9 ml/m2. Right Atrium: The right atrium is normal in size. Mitral Valve: Mild mitral regurgitation. No mitral valve stenosis. There is mild mitral thickening. Aortic Valve: No significant aortic valve regurgitation. There is no aortic stenosis. Aortic leaflets exhibit mild calcification. Tricuspid Valve: Tricuspid valve leaflets are structurally normal. Mild tricuspid regurgitation. Right Ventricular systolic pressure is measured at 40 mmHg. Pulmonary artery pressure is mildly increased. Pulmonic Valve: Pulmonic leaflets are normal in appearance and function. Mild pulmonic valve regurgitation is present. Aorta: The aorta is normal. The aortic root size in M-mode measures 2.3 cm. The ascending aorta measures 1.9 cm. Aorta Measurements Patient: SIMONA LAUGHLIN Study Date: 09/17/2018 Page 2 of 3 01:13 PM AoRoot, MM is 2.3 cm. Pericardium: No pericardial effusion. Exam Details Procedure Ordered: Echo Procedure Status: Routine study Image Quality: Adequate Facility Location: Cardiac Echo 1 (No Signature Object) Patient: SIMONA LAUGHLIN Study Date: 09/17/2018 Page 3 of 3 01:13 PM [id number]
--- NOTE | 2018-09-17 16:36 | HOSPPROG ---
Hospitalist Progress Note Assessment/Plan: * Recurrent esophageal cancer - small cell -complete esophageal obstruction s/p esophageal stent -advance diet slowly -initiate immunotherapy as outpatient with Dr. Feliz * Aspiration pna -IV Unasyn * Afib - none seen since transfer to PCU - unclear if she has this * Sinus tachycardia -very tachy HR 160 (sinus) with minimal ambulation -CTA negative for PE -doing better on PO metoprolol * ILD with chronic respiratory failure - 5L baseline -needs pulmonary re-eval prior to initiating immunotherapy- outpatient Dr. Jurado -at baseline 3L at rest, 5L with activity Subjective: Tolerating full liquids, ready to advance further. Doesn't like the food here. Objective: Vital Signs Temp Pulse Resp BP Pulse Ox 36.8 C 100 20 135/83 H 96 09/17/18 15:25 09/17/18 15:25 09/17/18 15:25 09/17/18 15:25 09/17/18 15:25 Laboratory Results 09/16/18 05:35 09/17/18 05:30 09/16/18 09/17/18 09/18/18 05:59 05:59 05:59 Intake Total 2525 5050 2095 Output Total 1375 700 Balance 1150 4350 2095 ECHO - unremarkable tele reviewed - sinus tachy but less - Physical Exam Constitutional: no apparent distress, appears nourished, not in pain Cardiovascular: regular rate and rhythym, no murmur, rub, or gallop Respiratory: no respiratory distress, no rales or rhonchi, clear to auscultation Gastrointestinal: normoactive bowel sounds, soft, non-tender abdomen, no palpable masses Skin: no rashes or abrasions, no fluctuance, no induration Neurologic: AAOx3, sensation intact bilaterally Psychiatric: interacting appropriately, not anxious, not encephalopathic, thought process linear ICD10 Worksheet Patient Problems: Problems Problem Status Onset Carotid stenosis Acute Nausea vomiting and diarrhea Acute Chest pain Acute Hypokalemia Acute Hyponatremia Acute Atrial fibrillation Acute Pneumonia Acute Esophageal cancer Acute
[2018-09-17] MEDS: MAGNESIUM OXIDE 400 MG TAB PO SCH (18:11)
[2018-09-17] MEDS: POTASSIUM Cl (KCl) 100 ML IV SCH ×3 (20:38→23:42)
[2018-09-17] MEDS: PRAVASTATIN SODIUM 40 MG TAB PO SCH (20:39)
[2018-09-18] MEDS: AMPICILLIN/SULBACTAM 3 GM in NS 100 ML IV SCH ×5 (00:31→23:33)
[2018-09-18] MEDS ORDERED: POTASSIUM CL 10 MEQ TAB PO ONE (07:59)
[2018-09-18] MEDS: METOPROLOL TARTRATE 50 MG TAB PO SCH ×2 (08:34→20:33)
[2018-09-18] MEDS: PANTOPRAZOLE SODIUM 40 MG TAB PO SCH (08:35)
[2018-09-18] MEDS: ENOXAPARIN 40 MG/0.4 ML SYR SC SCH (08:35)
--- NOTE | 2018-09-18 12:15 | HOSPPROG ---
Hospitalist Progress Note Assessment/Plan: DIAGNOSES: * Recurrent esophageal cancer - small cell -complete esophageal obstruction, s/p esophageal stent and is swelling solid and liquids much more easily -advance diet slowly -initiate immunotherapy as outpatient with Dr. Feliz * Aspiration pna -IV Unasyn, continue that for now, antibiotics through 09/21 -will add flutter valve device as she is still with quite a bit of thick phlegm * ?Afib - none seen since transfer to PCU - unclear if she has this; continue alarm security or surveillance monitor * Sinus tachycardia -initially very tachy HR 160 (sinus) with minimal ambulation, improved now on PO metoprolol -CTA negative for PE -continue alarm security or surveillance monitor at this time * acute right-sided CHF with chronic right-sided CHF / chronic hypoxemic respiratory failure /interstitial lung disease - 5L baseline at home -will need to begin diuresis at this time, will also use Josh stockings and change diet to 2 g sodium -needs pulmonary re-eval prior to initiating immunotherapy- outpatient Dr. Jurado -at baseline 3L at rest, 5L with activity * generalized deconditioning and gait instability, high fall risk -will begin physical occupational therapy * anemia and thrombocytopenia likely related to her malignancy * hypomagnesemia -will give replacement as we are going to give her diuresis Anticipate needing 1-2 more days to get better strength and mobility and safety with ambulation before discharge. She will need home care. If for some reason does not progress to sufficient safety may need to consider longterm rehab Seen by me on hospitals rounds today as well as multidisciplinary rounds SUBJECTIVE: Says she feels better overall Still coughing with quite a bit of thick phlegm produced, denies feeling short of breath on oxygen, however has not ambulated outside of her room Using walker here When asked about the swelling in her ankles, it is worse than what she has had at home but is very unclear how long she has had it OBJECTIVE Vitals reviewed: Hypertensive, heart rate still occasionally getting over 100 but mostly in 90s now on metoprolol otherwise no fever Granulating Blender, my review: Sinus tachycardia Exam: alert oriented sitting in chair skin warm dry color ok resps not labored sitting in chair on oxygen lungs very diminished with coarse bronchitic sounds at both bases, no wheeze heart regular abd soft nondistended nontender, bowel sounds present limbs warm, 3+ bilateral edema from knees down to feet iv site ok Lab data: Magnesium low at 1.5, Anemia stable White blood cell count has increased at 10,000 today Platelets remain no better stable in the 90,000 range Objective: Vital Signs Temp Pulse Resp BP Pulse Ox 37.0 C 91 18 166/79 H 94 09/18/18 11:23 09/18/18 11:23 09/18/18 11:23 09/18/18 11:23 09/18/18 11:23 Laboratory Results 09/16/18 05:35 09/18/18 06:15 09/17/18 09/18/18 09/19/18 06:59 06:59 06:59 Intake Total 5050 2795 Output Total 700 225 200 Balance 4350 2570 -200 - Time Spent With Patient Time Spent with Patient: greater than 35 minutes Time Spent with Patient: Greater than 35 minutes spent on this patients care, greater than 50% of time spent counseling, educating, and coordinating care regarding the above mentioned plan. ICD10 Worksheet Patient Problems: Problems Problem Status Onset Atrial fibrillation Acute Carotid stenosis Acute Chest pain Acute Esophageal cancer Acute Hypokalemia Acute Hyponatremia Acute Nausea vomiting and diarrhea Acute Pneumonia Acute
[2018-09-18] MEDS ORDERED: MAGNESIUM SULF 1 GM/DEXTROSE 100 ML IV ONE (12:18)
[2018-09-18] MEDS: IPRATROPIUM BROMIDE 0.5 MG/2.5 ML DEYVIAL IH SCH ×2 (16:06→21:33)
[2018-09-18] MEDS: MAGNESIUM OXIDE 400 MG TAB PO SCH (17:59)
[2018-09-18] MEDS: PRAVASTATIN SODIUM 40 MG TAB PO SCH (20:33)
[2018-09-18] MEDS: POTASSIUM Cl (KCl) 100 ML IV SCH (21:27)
[2018-09-19] MEDS: POTASSIUM Cl (KCl) 100 ML IV SCH (00:32)
[2018-09-19] MEDS ORDERED: MAGNESIUM SULF 1 GM/DEXTROSE 100 ML IV ONE (05:26)
[2018-09-19] MEDS: AMPICILLIN/SULBACTAM 3 GM in NS 100 ML IV SCH ×3 (06:02→18:07)
[2018-09-19] MEDS: IPRATROPIUM BROMIDE 0.5 MG/2.5 ML DEYVIAL IH SCH ×3 (08:42→20:35)
[2018-09-19] MEDS: ENOXAPARIN 40 MG/0.4 ML SYR SC SCH (09:21)
[2018-09-19] MEDS: PANTOPRAZOLE SODIUM 40 MG TAB PO SCH (09:21)
[2018-09-19] MEDS: METOPROLOL TARTRATE 50 MG TAB PO SCH ×2 (09:21→22:01)
--- NOTE | 2018-09-19 13:01 | HOSPPROG ---
Hospitalist Progress Note Assessment/Plan: DIAGNOSES: * Recurrent esophageal cancer - small cell -complete esophageal obstruction, s/p esophageal stent and is swallowing solid and liquids much more easily -advance diet slowly -initiate immunotherapy as outpatient with Dr. Feliz * Aspiration pna -IV Unasyn, continue that for now, antibiotics through 09/21 -will add flutter valve device as she is still with quite a bit of thick phlegm * ?Afib - none seen since transfer to PCU - unclear if she has this; continue concrete analyst * Sinus tachycardia -initially very tachy HR 160 (sinus) with minimal ambulation, improved now on PO metoprolol -CTA negative for PE -continue concrete analyst at this time * acute right-sided CHF with chronic right-sided CHF / chronic hypoxemic respiratory failure /interstitial lung disease - 5L baseline at home -will need to begin diuresis at this time, will also use Josh stockings and change diet to 2 g sodium -needs pulmonary re-eval prior to initiating immunotherapy- outpatient Dr. Jurado -at baseline 3L at rest, 5L with activity * generalized deconditioning and gait instability, high fall risk -will begin physical occupational therapy * anemia and thrombocytopenia likely related to her malignancy * hypomagnesemia -will give replacement as we are going to give her diuresis Continue care here with ongoing diuresis physical therapy She will need home care at discharge Seen by me on hospitals rounds today as well as multidisciplinary rounds SUBJECTIVE: Says she feels better overall Still coughing with quite a bit of thick phlegm produced, denies feeling short of breath on oxygen, however has not ambulated outside of her room Using walker here When asked about the swelling in her ankles, it is worse than what she has had at home but is very unclear how long she has had it OBJECTIVE Vitals reviewed: Hypertensive, heart rate still occasionally getting over 100 but mostly in 90s now on metoprolol otherwise no fever Group Rooms Coordinator, my review: Sinus tachycardia Exam: alert oriented sitting in chair skin warm dry color ok resps not labored sitting in chair on oxygen lungs very diminished with some rales today bilaterally heart regular abd soft nondistended nontender, bowel sounds present limbs warm, 3+ bilateral edema from knees down to feet iv site ok Lab data: Magnesium and potassium now normal Objective: Vital Signs Temp Pulse Resp BP Pulse Ox 36.6 C 94 20 122/68 H 97 09/19/18 11:21 09/19/18 11:21 09/19/18 11:21 09/19/18 11:21 09/19/18 11:21 Laboratory Results 09/16/18 05:35 09/19/18 03:30 09/18/18 09/19/18 09/20/18 06:59 06:59 06:59 Intake Total 2795 1060 Output Total 225 1050 200 Balance 2570 10 -200 ICD10 Worksheet Patient Problems: Problems Problem Status Onset Atrial fibrillation Acute Carotid stenosis Acute Chest pain Acute Esophageal cancer Acute Hypokalemia Acute Hyponatremia Acute Nausea vomiting and diarrhea Acute Pneumonia Acute
[2018-09-19] MEDS: FUROSEMIDE 40 MG/4 ML VIAL IVP SCH (14:13)
[2018-09-19] MEDS: MAGNESIUM OXIDE 400 MG TAB PO SCH (18:07)
[2018-09-19] MEDS: PRAVASTATIN SODIUM 40 MG TAB PO SCH (22:01)
[2018-09-19] MEDS: POTASSIUM Cl (KCl) 50 ML IV SCH ×2 (22:14→23:22)
[2018-09-20] MEDS: POTASSIUM Cl (KCl) 50 ML IV SCH ×4 (00:36→12:49)
[2018-09-20] MEDS: AMPICILLIN/SULBACTAM 3 GM in NS 100 ML IV SCH ×3 (01:30→12:27)
[2018-09-20] MEDS: FUROSEMIDE 40 MG/4 ML VIAL IVP SCH (08:48)
[2018-09-20] MEDS: METOPROLOL TARTRATE 50 MG TAB PO SCH (08:49)
[2018-09-20] MEDS: ENOXAPARIN 40 MG/0.4 ML SYR SC SCH (08:49)
[2018-09-20] MEDS: PANTOPRAZOLE SODIUM 40 MG TAB PO SCH (08:49)
[2018-09-20] MEDS ORDERED: MAGNESIUM SULF 1 GM/DEXTROSE 100 ML IV ONE (09:00)
[2018-09-20] MEDS: IPRATROPIUM BROMIDE 0.5 MG/2.5 ML DEYVIAL IH SCH ×2 (09:42→17:01)
--- NOTE | 2018-09-20 12:50 | ASMTCMCOM ---
CM Note CM Note Notes: 09/20/2018 Case Management Note Discussed pt during rounds this morning. Pt has increased O2 needs today with tachycardia at times. 09/18 PT note discharges pt from hospital PT services. Please review palliative conference note on 09/18. Case Management d/c poc: remains independent with follow up as directed. Case Management will follow. Date Signed: 09/20/2018 12:49 PM Electronically Signed By:Keila Aguirre RN
--- NOTE | 2018-09-20 15:03 | PDIAF ---
- Diagnosis Diagnosis: Esophageal cancer, interstitial lung disease, chronic respiratory failure Code Status: Do Not Resuscitate - Medication Management Discharge Medications: electronically signed and located in the Home Medication List. - Orders Services needed: Home Care, Registered Nurse, Physical Therapy Home Care Face to Face: I certify that this patient was under my care and that I had the required olsh-ko-azon encounter meeting the encounter requirements on the discharge day. My findings support the fact that the patient is homebound as defined in Home Care Face to Face Continued: CMS Chapter 7 Medicare Benefits Manual 30.1.1 , The condition of the patient is such that there exists a normal inability to leave home and consequently, leaving home would require a considerable and taxing effort. Diet Recommendation: sodium restricted Diet Texture: Regular Texture Diet Activity/Weight Bearing Restrictions: Full weight-bearing Additional Instructions: Keep your appointments Dr. Med Jurado and [facility] - Follow Up Care Current Providers and Referrals: Oskar Feliz MD [Medical Doctor] - Lukasz Garces MD [Medical Doctor] - Dawn Watt MD [Primary Care Provider] - Med Jurado MD [Medical Doctor] -
--- NOTE | 2018-09-20 15:10 | PDDCSUM ---
Discharge Summary Discharge Summary: DISCHARGE DIAGNOSES: * Recurrent esophageal carcinoma with obstruction requiring stenting * Status post stent of distal esophagus * Aspiration pneumonitis with acute hypoxemic respiratory failure on chronic respiratory failure * Acute right-sided CHF * Generalized deconditioning weakness gait instability * Atrial tachycardia and frequent PACs (at 1 point a diagnosis of atrial fibrillation had been stated in this record but she did not appear to actually have atrial fibrillation, all appears to be PACs and atrial tachycardia) * Chronic interstitial lung disease * Anemia * Hypomagnesemia CONSULTANTS: Dr. Med Feliz PROCEDURES: Esophagogastroduodenoscopy with esophageal stent placement CT scans of abdomen and chest PICC line insertion HOSPITAL COURSE SUMMARY: This patient who has known esophageal carcinoma came in with chest discomfort, regurgitation and symptoms suggesting an aspiration pneumonitis. She did have a right lung aspiration pneumonia. She has a previous history of esophageal cancer was found have recurrence of that now with significant partial obstruction. She had a stent placed across the tumor and she is now able to swallow and eat with much less discomfort and much less regurgitation. There is still some regurgitation present. She was treated for her pneumonitis with Unasyn and that has worked very effectively with resolution of those symptoms. She did have some right-sided CHF and edema and was treated with some diuretics and that has been helpful. She has had some tachycardia with irregularity on cardiac tech here has very prevalent premature atrial contractions (PACs) but no other arrhythmia identified. She has been fairly weak but with treatment of her acute conditions and physical therapy she is now up and ambulating without difficulty in the hallways. She is using oxygen which she does at home and she is at her baseline oxygen The hope is to get her on further treatment for her esophageal cancer, however because of her lung condition she will be following up closely with Dr. Med Jurado before starting any therapy and he will coordinate with Dr. Feliz. She does have interstitial lung disease in the cause of this is unknown but in the past there has been some concern that could potentially been due to previous treatment of her cancer. PENDING TEST RESULTS: None MEDICATION CHANGES: Increase in metoprolol to 50 twice daily Addition of Tessalon Perles for cough FOLLOW-UP PLAN: With Dr. Med Jurado on October [address] Oskar Feliz after that for planning treatment of her recurrent tumor Greater than 35 minutes bedside and care coordination time today
--- NOTE | 2018-09-20 15:25 | ASMTLACE ---
LACE Length of stay for Answers: 7-13 days current admission Acuity / Level of Answers: Yes Care: Did the patient have an inpatient admission? Comorbidities - select Answers: Any tumor (including all that apply lymphoma or leukemia) Chronic pulmonary disease # of Emergency department Answers: 1-2 visits in the last 6 months Score: 13 Date Signed: 09/20/2018 03:24 PM Electronically Signed By:Keila Aguirre RN
--- NOTE | 2018-09-20 15:30 | ASDISCHSUM ---
Discharge Information Plan Status:Home with No Needs Medically Cleared to Leave:09/20/2018 Discharge Date:09/20/2018 CM D/C Disposition:Home, Routine, Self-Care ADT D/C Disposition:Home Health Service Projected Discharge Date:09/20/2018 Transportation at D/C:Family Discharge Delay Reason: Follow-Up Date:09/20/2018 Discharge Slot: Final Diagnosis: Placement Information Patient Contact Information Contact Name:RAMON Relationship:Daughter Address: Work Phone: City:[place] Geo Phone: State/Zip Code:[place] Email: Financial Information Financial Class:Medicare Advantage Plans Primary Plan Desc:[facility] ADVANTAGE PLANS Primary Plan Number:[id number] Secondary Plan Desc: Secondary Plan Number: Assessment Information LACE LACE Length of stay for Answers: 7-13 days current admission Acuity / Level of Answers: Yes Care: Did the patient have an inpatient admission? Comorbidities - select Answers: Any tumor (including all that apply lymphoma or leukemia) Chronic pulmonary disease # of Emergency department Answers: 1-2 visits in the last 6 months Score: 13 Date Signed: 09/20/2018 03:24 PM Electronically Signed By:Keila Aguirre RN [facility] Progress Note CM Note CM Note Notes: Chart reviewed. Patient admitted via ED with dysphagia for last 5 days. History significant for non small cell lung cancer. Last discharged to [facility] Back in June. Daughter Verónica is POA [phone]. Patient has had a GI consult and will have EGD this pm with anesthesia. CM to follow for needs. Plan: TBD Date Signed: 09/13/2018 10:14 AM Electronically Signed By:Colleen Aguilera RN BC CM Progress Note CM Note CM Note Notes: Patient to transfer to PCU for increased heart rate. CM to follow for needs. Plan: TBD Date Signed: 09/14/2018 09:48 AM Electronically Signed By:Colleen Aguilera RN BC CM Progress Note CM Note CM Note Notes: 09/15/2018 Case Management Note Met w/pt during rounds today. Irwin Ramirez present [phone]. PT has cleared pt for home independent. Pt used oxygen at home prior to admission. Case Management d/c poc: anticipating independent with follow up as directed. Case Management available if needs change. Date Signed: 09/15/2018 03:28 PM Electronically Signed By:Keila Aguirre RN [facility] CM Progress Note CM Note CM Note Notes: 09/17/2018 Case Management Note Discussed pt during rounds this morning. Advancing diet. Case Management d/c poc: remains home independent with support from irwinVerónica. Case Management to follow. Date Signed: 09/17/2018 02:43 PM Electronically Signed By:Keila Aguirre RN [facility] CM Progress Note CM Note CM Note Notes: 09/20/2018 Case Management Note Discussed pt during rounds this morning. Pt has increased O2 needs today with tachycardia at times. 09/18 PT note discharges pt from hospital PT services. Please review palliative conference note on 09/18. Case Management d/c poc: remains independent with follow up as directed. Case Management will follow. Date Signed: 09/20/2018 12:49 PM Electronically Signed By:Keila Aguirre RN Case Management Discharge Plan Note Case Management Discharge Discharge Order Complete? Answers: Yes Patient to Obtain Answers: via Family Medications Transportation Arranged Answers: Family/Friends Discharge Comments Notes: 09/20/2018 Case Management Note Pt to discharge home independent. There were no therapy evals ordered during this admission. Met w/pt to discuss MD order for home care. Pt refused home care "I don't like having them come to my home and tell me what to do" Pt was open with home care approxmately 6 weeks ago but was unable to recall agency name. Daughter to transport home. Case Management d/c poc: independent with follow up as directed. Intervention Information
[2018-09-20 16:09] VITALS: BP 117/67
== END 2018-09-20 18:00 | disposition home health service (06) | DRG 374 ==
LOC: F1N 14:11 → F2W 09-14 11:18
PROVIDERS: ADMIT Internal Medicine; ATTEND Internal Medicine
PROC: 0DB38ZX Excision of Lower Esophagus, Via Natural or Artificial Opening Endoscopic, Diagnostic (ICD-10-PCS; 2018-09-13)
PROC: 02HV33Z Insertion of Infusion Device into Superior Vena Cava, Percutaneous Approach (ICD-10-PCS; 2018-09-13)
PROC: 0D738DZ Dilation of Lower Esophagus with Intraluminal Device, Via Natural or Artificial Opening Endoscopic (ICD-10-PCS; principal; 2018-09-14 17:00)
DX: C15.5 Malignant neoplasm of lower third of esophagus (principal); J69.0 Pneumonitis due to inhalation of food and vomit; J96.21 Acute and chronic respiratory failure with hypoxia; I11.9 Hypertensive heart disease without heart failure; I50.811 Acute right heart failure; J84.9 Interstitial pulmonary disease, unspecified; I47.1 Supraventricular tachycardia; E83.42 Hypomagnesemia; R26.89 Other abnormalities of gait and mobility; D64.9 Anemia, unspecified; Z92.3 Personal history of irradiation; Z87.891 Personal history of nicotine dependence
CPT/HCPCS: 97161-GP; 97165-GO; C1751; C1769; C1874; J0295; J0330; J1650; J1940; J2405; J2704; J3475; J3480; Q9967

== ENCOUNTER 2018-09-25 10:28 | Emergency (ER) | payer OTHER ==
--- NOTE | 2018-09-25 11:02 | EDPHY ---
H & P Stated Complaint: Mechanical trip on edge of carpet-abrasion to L eye area. Time Seen by Provider: 09/25/18 10:33 HPI/ROS: CHIEF COMPLAINT: Fall HISTORY OF PRESENT ILLNESS: Patient is a 78-year-old female with a history of esophageal cancer and recent diagnosis of pneumonia on antibiotics. She had a mechanical fall today which she tripped over the carpet. She hit the right side of her face. She did not break her glasses. She has some bruising above her left eyebrow and to her left cheek. She denies neck pain or back pain. She denies pain to her arms or legs. She denies weakness or numbness or loss of consciousness. She denies worsening shortness of breath or chest pain. Her daughter and son-in-law are here with her. She is not anticoagulated. No headache. No nausea vomiting. Severity: Mild Modifying factors: None REVIEW OF SYSTEMS: Constitutional: denies: chills, fever, recent illness, recent injury EENTM: Abrasion above left eyebrow and to left cheek. denies: blurred vision, double vision, nose congestion Respiratory: denies: cough, shortness of breath Cardiac: denies: chest pain, irregular heart rate, lightheadedness, palpitations Gastrointestinal/Abdominal: denies: abdominal pain, diarrhea, nausea, vomiting, blood streaked stools Genitourinary: denies: dysuria, frequency, hematuria, pain Musculoskeletal: denies: joint pain, muscle pain Skin: denies: lesions, rash, jaundice, bruising Neurological: denies: headache, numbness, paresthesia, tingling, dizziness, weakness Hematologic/Lymphatic: denies: blood clots, easy bleeding, easy bruising Immunologic/allergic: denies: HIV/AIDS, transplant 10 systems reviewed and negative except as noted EXAM: GENERAL: Well-appearing, well-nourished and in no acute distress. HEAD: Atraumatic, normocephalic. EYES: Abrasions as above, no bony tenderness. No laceration. Pupils equal round and reactive to light, extraocular movements intact, sclera anicteric, conjunctiva are normal. ENT: TMs normal, nares patent, oropharynx clear without exudates. Moist mucous membranes. NECK: Normal range of motion, supple without lymphadenopathy or JVD. LUNGS: Breath sounds somewhat decreased but equal. On 5 L of oxygen at baseline. HEART: Regular rate and rhythm without murmurs, rubs or gallops. ABDOMEN: Soft, nontender, normoactive bowel sounds. No guarding, no rebound. No masses appreciated. BACK: No CVA tenderness, no spinal tenderness, step-offs or deformities EXTREMITIES: Normal range of motion, no pitting or edema. No clubbing or cyanosis. NEUROLOGICAL: Cranial nerves II through XII grossly intact. Normal speech, normal gait. 5/5 strength, normal movement in all extremities, normal sensation , normal reflexes PSYCH: Normal mood, normal affect. SKIN: Warm, dry, normal turgor, no visible rashes or lesions. Source: Patient Exam Limitations: No limitations - Personal History Current Tetanus/Diphtheria Vaccine: Unsure Current Tetanus Diphtheria and Acellular Pertussis (TDAP): Unsure Tetanus Vaccine Date: unsure, "but likely up to date with PCP" - Medical/Surgical History Hx Asthma: No Hx Chronic Respiratory Disease: Yes Hx Diabetes: No Hx Cardiac Disease: Yes Hx Renal Disease: No Hx Cirrhosis: No Hx Alcoholism: No Hx HIV/AIDS: No Hx Splenectomy or Spleen Trauma: No Other PMH: Esophageal cancer, hiatal hernia, atrial fibrillation. carotid endarectomy /tonsilectomy appy,hyster. Rotator cuff surg r shoulder 10 yrs ago - Family History Significant Family History: No pertinent family hx - Social History Smoking Status: Former smoker Alcohol Use: None Constitutional: Initial Vital Signs Temperature (C) 36.8 C 09/25/18 10:37 Heart Rate 94 09/25/18 10:37 Respiratory Rate 18 09/25/18 10:37 Blood Pressure 185/90 H 09/25/18 10:37 O2 Sat (%) 88 L 09/25/18 10:37 O2 Delivery Mode Nasal Cannula O2 (L/minute) 6 Allergies/Adverse Reactions: levofloxacin [From Levaquin] Allergy (Verified 09/25/18 10:36) Other-Enter Comments meclizine HCl [From Antivert] Allergy (Verified 09/25/18 10:36) Other-Enter Comments procainamide HCl [From Procan SR] Allergy (Verified 09/25/18 10:36) Unknown [id number] Allergy (Verified 09/25/18 10:36) Other-Enter Comments Home Medications: Medication Instructions Recorded Pravastatin Sodium [Pravachol] 40 mg PO HS 08/08/16 Cholecalciferol Vit D3 [Vitamin D3 2,000 units PO DAILY18 01/28/18 (*)] Magnesium Oxide [Magnesium] 250 mg PO DAILY@18 05/16/18 Pantoprazole Sodium [Protonix 40mg 40 mg PO DAILY tab 06/07/18 (*)] Sulfamethoxazole/Trimethoprim 1 tab PO DAILY #90 tablet 06/07/18 [Bactrim SS] Acetaminophen [Tylenol 325mg (*)] 650 mg PO Q4HRS PRN 09/12/18 Ipratropium [place] 0.5 mg IH TID@,15,21 09/12/18 Benzonatate [Tessalon Pearles] 200 mg PO TID PRN #30 cap 09/20/18 Metoprolol Tartrate [Lopressor 50 50 mg PO BID #60 tab 09/20/18 mg (*)] Furosemide [Lasix 40 MG (*)] 40 mg PO DAILY #7 tab 09/25/18 Medical Decision Making - Diagnostics Imaging: Discussed imaging studies w/ call center receptionist Radiologist ED Course/Re-evaluation: 11:[address] We discussed the CT results which are reassuring. While I was in there her daughter asked me about her oxygen level. It has been frequently decreasing to about 88%. She typically wears 5 L of oxygen which is what she is wearing now. She was in the hospital last week after being diagnosed with recurrent esophageal carcinoma and having a esophageal stent placed which resulted in aspiration pneumonia. She initially was on Unasyn and then discharged on Augmentin. She states that she feels comfortable breathing currently. She denies chest pain. She denies fevers. She has had some swelling in her ankles. Family states that in the hospital she was treated for day with Lasix. She does have a history of mild CHF. I recommended further testing and possibly admission. Patient adamantly declines admission and further testing. She states that a significant difficulty in obtaining an IV previously and had a PICC line. We discussed options. We agreed to treat her with oral Lasix for today and tomorrow and she will follow up with her oncologist tomorrow to discuss her breathing status. Family is in agreement with this plan. Differential Diagnosis: Partial list of the Differential diagnosis considered include but were not limited to; fall, abrasion, head injury, pulmonary edema, pneumonia and although unlikely based on the history and physical exam, I also considered pneumothorax, acute coronary disease, airway obstruction. I discussed these differential diagnoses and the plan with the patient as well as the usual and expected course. The patient understands that the diagnosis is provisional and that in medicine we are not always correct and that further workup is often warranted. Usual and customary warnings were given. All of the patient's questions were answered. The patient was instructed to return to the emergency department should the symptoms at all worsen or return, otherwise to followup with the physician as we discussed. - Data Points Medications Given: Discontinued Medications Furosemide (Lasix) 40 mg PO EDNOW ONE Stop: 09/25/18 11:50 Last Admin: 09/25/18 11:56 Dose: 40 mg Departure - Departure Disposition: Home, Routine, Self-Care Clinical Impression: abrasion left face, Hypoxia Fall Qualifiers: Encounter type: initial encounter Qualified Code(s): W19.XXXA - Unspecified fall, initial encounter Condition: Fair Instructions: Fall Prevention for Older Adults (ED), Hypoxia (ED) Additional Instructions: Take the Lasix as prescribed for the next several days and follow-up with your oncologist and primary care doctor to discuss adjustment. Referrals: Dawn Watt MD [Primary Care Provider] - 2-3 days, call for appt. Prescriptions: Furosemide [Lasix 40 MG (*)] 40 mg PO DAILY #7 tab
[2018-09-25] MEDS ORDERED: FUROSEMIDE 40 MG TAB PO ONE (11:49)
[2018-09-25 12:11] VITALS: BP 134/92
== END 2018-09-25 12:13 | disposition home or self-care (01) ==
LOC: EDUNIT#
DX: S00.81XA Abrasion of other part of head, initial encounter (principal); R09.02 Hypoxemia; W01.198A Fall on same level from slipping, tripping and stumbling with subsequent striking against other object, initial encounter; Z99.81 Dependence on supplemental oxygen

== ENCOUNTER 2018-10-16 15:20 | Inpatient (IN) | payer OTHER ==
[2018-10-16] MEDS ORDERED: ONDANSETRON DISINTEGRATING 4 MG TAB PO PRN (16:00)
[2018-10-16] MEDS ORDERED: ONDANSETRON 4 MG/2 ML VIAL IVP PRN (16:00)
[2018-10-16] MEDS ORDERED: ACETAMINOPHEN 325 MG TAB PO PRN (16:00)
--- NOTE | 2018-10-16 18:38 | PDGENHP ---
<Sabina Moreau - Last Filed: 10/16/18 19:30> History and Physical - Chief Complaint Altered mental status, diarrhea - History of Present Illness This is a 78-year-old female with history of recurrent esophageal cancer with recent esophageal stent placement in September 2018. It appears this has not metastasized, she is being seen by oncologist Dr.David Galdamez. She presented to the unit as a direct admit from the Oncology Clinic; she was seen at the Oncology Clinic due to diarrhea that she has been having for the last week. She describes this as watery, loose diarrhea, decrease in appetite and fluids, and a worsening in her acid reflux. She reports having soup a few days ago. No complaints urinating. Denies chest pain or palpitations. Per her daughter who was at bedside today her altered mental status began today with the patient repetitively asking the same questions however evaluating her myself, she was alert oriented x3. It was also mentioned by the patient and the daughter of drooling that takes place when the patient does eat which had similar characteristics to when she was initially diagnosed with her esophageal cancer. She is being admitted for further workup, treatment, and monitoring. History Information - Allergies/Home Medication List Allergies/Adverse Reactions: levofloxacin [From Levaquin] Allergy (Verified 10/12/18 14:51) "[place] like I couldn't come out of it" meclizine HCl [From Antivert] Allergy (Verified 10/12/18 14:51) "Gave me a heart attack" procainamide HCl [From Procan SR] Allergy (Verified 10/12/18 14:52) Unknown thallium-201 Allergy (Verified 10/12/18 14:51) "I had no heart beat or rhythm" Home Medications: Pravastatin Sodium [Pravachol] 40 mg PO HS 08/08/16 [Last Taken 10/15/18] Cholecalciferol Vit D3 [Vitamin D3 (*)] 2,000 units PO DAILY 01/28/18 [Last Taken 10/16/18] Metoprolol Tartrate [Lopressor 50 mg (*)] 50 mg PO BID 10/12/18 [Last Taken ] Pantoprazole Sodium [Protonix 40mg (*)] 40 mg PO DAILY 10/12/18 [Last Taken ] Ipratropium [Atrovent Neb (*)] 0.5 mg IH TID 10/16/18 [Last Taken 10/16/18] Magnesium Oxide 250 mg PO DAILY 10/16/18 [Last Taken 10/16/18] I have personally reviewed and updated: family history, medical history, social history, surgical history - Past Medical History cancer, COPD Additional medical history: Coronary artery disease, carotid artery stenosis, emphysema, malignant esophageal neoplasm, GERD, hyperlipidemia, hypertension, hypomagnesimia, interstitial lung disease requiring 5 L of oxygen at all times, peripheral vascular disease, COPD - Surgical History Reports: appendectomy, hysterectomy Additional surgical history: L CEA, right repair of rotator cuff, rhinoplasty - Family History Positive for: cancer Additional family history: Alzheimer's, GERD, breast cancer, myocardial infarction, hypertension, PSVT - Social History Smoking Status: Former smoker Alcohol Use: None Drug Use: None Additional social history: Lives alone, , retired, daughter at bedside Verónica Review of Systems Review of Systems: ROS: 10pt was reviewed & negative except for what was stated in HPI & below Physical Exam Physical Exam: Lab data and imaging were reviewed. White blood cell count: 10.90 Hemoglobin hematocrit: 10.1 and 32.7 Platelet count: 143 Sodium: 134 Potassium: 3.5 Chloride: 98 Carbon dioxide: 29 BUN/Cr: 14/0.7 Chest x-ray: Chronic interstitial lung disease noted, distal esophageal stent in stable position, focal scarring or consolidation is also stable inferior aspect right upper lobe laterally, small bilateral pleural effusions stable, mild increase in anterior wedge compression superior endplate of T10 Temp Pulse Resp BP Pulse Ox 36.7 C 106 H 20 122/82 H 82 L 10/16/18 16:38 10/16/18 16:38 10/16/18 16:38 10/16/18 16:38 10/16/18 16:38 O2 (L/minute) 5 Constitutional: no apparent distress, appears nourished, not in pain Eyes: PERRL, anicteric sclera, EOMI Ears, Nose, Mouth, Throat: hearing normal, ears appear normal, no oral mucosal ulcers, dry mucous membranes Cardiovascular: regular rate and rhythym, no murmur, rub, or gallop, No edema Peripheral Pulses: 2+: dorsalis-pedis (R), dorsalis-pedis (L) Respiratory: reduced air movement Gastrointestinal: soft, non-tender abdomen, no palpable masses, other ( Hypoactive bowel sounds) Genitourinary: no bladder fullness, no bladder tenderness Skin: warm, normal color, no rashes or abrasions, no fluctuance, no induration, No mottled Musculoskeletal: full muscle strength, no muscle tenderness, normal joint ROM, no joint effusions Neurologic: AAOx3, sensation intact bilaterally, CN II-XII Intact Psychiatric: interacting appropriately, not anxious, not encephalopathic, thought process linear Lymph, Heme, Immunologic: no cervical LAD, no supraclavicular LAD Assessment & Plan Plan: This is a 78-year-old female with an extensive recent history of recurrent esophageal cancer and recent esophageal stent placement in September 2018. She initially presented to the ICU in critical condition due to severe interstitial lung disease and is currently requiring 5 L of nasal cannula. Today she presents due to a weeks worth of watery, loose diarrhea to which she reports taking Imodium today. She does not have much of an appetite, denies difficulty swallowing. Her vital signs are the following: Blood pressure 122/82, heart rate 106, respirations 20, temperature 36.7 degrees an 96% on 5 L oxygen. # diarrhea -GI pathogen panel + for C-diff; initiated vancomycin p.O. 125 mg 4 times a day -she received a little bit of IV fluid while at the Oncology Clinic; she will receive gentle IV hydration x2 bags over night -CBC and BMP in the morning # altered mental status -her daughter believes onset was today due to the patient's repetitive questions while in the Oncology Clinic however with my evaluation, patient was acting appropriately and answering questions appropriately. She was alert and oriented x3. She is afebrile, mild leukocytosis however has been mildly elevated since mid September 2018 but could also be explained by C-diff infection -continue to monitor; could quite possibly be due to C-diff infection # Recurrent esophageal cancer with stent -per chest x-ray, stent does appear to be in stable position however will appreciate NETWORK CABLER consult -One time RN swallow, then may have regular diet -Oncology consulted and aware of presence in house -palliative care consulted # interstitial lung disease/COPD -requires continuous oxygen set at 5 L nasal cannula -continuous pulse ox monitoring -continue Atrovent # hypertension and hyperlipidemia -continue metoprolol and pravastatin # GERD -continue pantoprazole Diet: Regular Code: DNR VTE ppx: Lovenox Dispo: Admit to observation <Scott Oswald - Last Filed: 10/16/18 20:31> History and Physical - History of Present Illness Review of Systems Review of Systems: Physical Exam Physical Exam: Temp Pulse Resp BP Pulse Ox 36.8 C 100 18 138/73 H 94 10/16/18 19:23 10/16/18 20:26 10/16/18 20:26 10/16/18 19:23 10/16/18 20:26 O2 (L/minute) 5 Assessment & Plan Plan: Patient seen and evaluated independently and care plan reviewed with TEMO Moreau, agree with her assessment and plan as outlined above. Please see separate documentation for further details.
[2018-10-16] MEDS ORDERED: NS 1,000 ML IV SCH (19:00)
[2018-10-16] MEDS: IPRATROPIUM BROMIDE 0.5 MG/2.5 ML DEYVIAL IH SCH (20:21)
--- NOTE | 2018-10-16 20:35 | HOSPPROG ---
Hospitalist Progress Note Assessment/Plan: 78 yo F with hx of recurrent esophageal cancer with associated dysphagia and recurrent aspiration s/p esophageal stent presenting with increased confusion, diarrhea, and poor po intake found to have c difficile colitis # c diff colitis: in the setting of diarrhea reportedly for the last week, abdominal exam relatively benign, non septic appearing. Started on oral vancomycin # metabolic encephalopathy: reported by daughter to be having increased issues with memory and being perseverative in conversation, she is a bit reluctant to engage in too much communication currently but is oriented to time/place/name. Likely due to above, will monitor # anorexia: per patient she has not been having issues with swallowing or issues with increased dysphagia as prior but not eating due to lack of appetite and that she is having so much diarrhea and occasionally nausea when she eats, likely due to c diff as above, will ask WINDOW TRIMMER APPRENTICE to evaluate in am # esophageal cancer: recurrent but not metastatic, she does have a recently placed esophageal stent which appears to be in position on cxr, as above WINDOW TRIMMER APPRENTICE to evaluate in am, sent over by oncology who are aware of her admission and will follow while in house # COPD: without e/o acute exacerbation, continue home medications # chronic hypoxic respiratory failure: on her home oxygen currently, cxr personally reviewed and no e/o infiltrate or other acute findings, due to underlying copd and ILD # deconditioning/weakness: reportedly this has been a worsening issues, will get pt/ot to evaluate, oncology mentioned consideration for palliative consult but will defer to their evaluation in am # DNR # IP status, given weakness, deconditioning and c diff patient will require > 48 hours for eval/mgmt of above Patient new to my care. Old records reviewed and summarized as above. Further hx obtained from patients daughter present at bedside, care plan reviewed with TEMO Moreau, please see her separate H&P for further details. Objective: Vital Signs Temp Pulse Resp BP Pulse Ox 36.8 C 100 18 138/73 H 94 10/16/18 19:23 10/16/18 20:26 10/16/18 20:26 10/16/18 19:23 10/16/18 20:26 Microbiology 10/16/18 16:20 Gastrointestinal Tract Panel (PCR) - Final Stool Clostridium Difficile Detected ICD10 Worksheet Patient Problems: Problems Problem Status Onset Atrial fibrillation Acute Carotid stenosis Acute Chest pain Acute Esophageal cancer Acute Fall Acute Hypokalemia Acute Hyponatremia Acute Hypoxia Acute Nausea vomiting and diarrhea Acute Pneumonia Acute
[2018-10-16] MEDS: PRAVASTATIN SODIUM 40 MG TAB PO SCH (21:09)
[2018-10-16] MEDS: METOPROLOL TARTRATE 50 MG TAB PO SCH (21:09)
[2018-10-16] MEDS: VANCOMYCIN 125 MG/2.5 ML UDL PO SCH (21:09)
[2018-10-17 05:24] LABS: PLATELET COUNT 113 10^3/uL (150-400)
[2018-10-17] MEDS: VANCOMYCIN 125 MG/2.5 ML UDL PO SCH ×4 (05:54→20:54)
--- NOTE | 2018-10-17 08:53 | PDMN ---
Medical Necessity Medical necessity: [facility]GS[facility] Systemic or Infectious Condition: 78 yo direct admit from onc clinic (hx esophageal ca w/ recent esoph stent placement) w/ diarrhea and AMS. Eval reveals + Cdiff, general deconditioning and weakness. Pt is anemic H/H 8.4/27.7, hyponatremic Na+ 133, and hypokalemic K+2.9. IVF, vanco, PT/OT/CONVENIENCE STORE MANAGER, palliative care consult, isolation precautions . IP status, given weakness, deconditioning and c diff patient will require > 48 hours for eval/mgmt of above. Hx Coronary artery disease, carotid artery stenosis, emphysema, malignant esophageal neoplasm, GERD, hyperlipidemia, hypertension, hypomagnesimia, interstitial lung disease requiring 5 L of oxygen at all times, peripheral vascular disease, COPD, L CEA
[2018-10-17] MEDS: PANTOPRAZOLE SODIUM 40 MG TAB PO SCH (09:39)
[2018-10-17] MEDS: METOPROLOL TARTRATE 50 MG TAB PO SCH ×2 (09:40→20:55)
[2018-10-17] MEDS: MAGNESIUM OXIDE 400 MG TAB PO SCH (09:40)
[2018-10-17] MEDS: ENOXAPARIN 40 MG/0.4 ML SYR SC SCH (09:41)
[2018-10-17] MEDS: CHOLECALCIFEROL VIT D3 1,000 UNITS TAB PO SCH (09:41)
[2018-10-17] MEDS: IPRATROPIUM BROMIDE 0.5 MG/2.5 ML DEYVIAL IH SCH ×3 (09:41→22:38)
[2018-10-17] MEDS ORDERED: PROTOCOL CALCIUM 1 DOSE IV PRN (11:06)
[2018-10-17] MEDS ORDERED: PROTOCOL POTASSIUM 1 DOSE MISC PRN (11:06)
[2018-10-17] MEDS ORDERED: PROTOCOL MAGNESIUM 1 DOSE IV PRN (11:06)
[2018-10-17] MEDS ORDERED: POTASSIUM CL 20 MEQ/15 ML UDCUP PO ONE (11:30)
[2018-10-17] MEDS ORDERED: MAGNESIUM SULF 2 GM/WATER 50 ML IV ONE (11:44)
[2018-10-17] MEDS ORDERED: CALCIUM GLUCONATE 50 ML IV ONE (12:26)
--- NOTE | 2018-10-17 13:22 | GCON ---
[f rep st] CONSULTATION PALLIATIVE MEDICINE CONSULT. DATE OF CONSULTATION: 10/17/2018 CHIEF COMPLAINT: Dr. Scott Oswald requests symptom management and goals of care consultation. HISTORY OF PRESENT ILLNESS: This is a 78-year-old woman who was recently found to have locally recurrent esophageal cancer. She was having significant problems swallowing and therefore an esophageal stent was placed on September 19. She also was treated for pneumonia at that time. She was in the hospital from September 13 through September 20 with these problems. After returning home, she had a fall and was re-evaluated in the emergency room on September 25. She had a CT scan of the head, which was unrevealing. She had been doing well until the past week when she started to have more confusion and profuse diarrhea. Her daughter brought her to the hospital and she was diagnosed with Clostridium difficile. She currently denies any problems with swallowing or nausea. She states she has actually been gaining weight. In May, when her recurrence was identified, she had been seriously ill and had lost 30 pounds. She has gained 10 of those pounds back and now weighs 127 pounds. While she denies nausea, she does report early satiety. She denies pain anywhere. She denies problems breathing although recognizes she needs increased oxygen from her prior baseline. She feels she is homebound because she has not been able to find a portable oxygen that goes above 4 L/minute and she needs 5 L/minute. Because of the lack of portable oxygen, her mobility is also restricted. She no longer drives or walks around her apartment complex. She has macular degeneration but denies any acute vision changes. She denies numbness or tingling. She denies a cough or heart problems. Her diarrhea is improving. REVIEW OF SYSTEMS: As indicated in the HPI. PAST MEDICAL HISTORY: 1. Coronary artery disease. 2. COPD. 3. Gastroesophageal reflux disease. 4. Hyperlipidemia. 5. Hypertension. 6. Interstitial lung disease. 7. Peripheral vascular disease. 8. Macular degeneration. SOCIAL HISTORY: She no longer smokes. She does not drink. She would want her daughter, Funmi Hunter, to be her decision maker for both financial and medical issues should she become unable to make decisions for herself. She wishes to be do not attempt resuscitation. FAMILY HISTORY: Her mother of a heart attack and had hardening of the arteries, she was 62. Her father of hardening of the arteries as well as what sounds like a vasovagal episode, while in the hospital, at the age of 50. ALLERGIES: Levofloxacin, meclizine, procainamide and Valium. CURRENT MEDICATIONS: Were reviewed in [facility]. She is requiring significant electrolyte replacement. She is on Lovenox. Her metoprolol dose is 50 mg twice daily. Her Protonix is 40 mg daily. Her pravastatin is 40 mg at bedtime. She is receiving vancomycin 125 mg p.o. 4 times daily. PHYSICAL EXAM: VITAL SIGNS: Shows a blood pressure of 137/67, heart rate of 86 , respiratory rate is 16. She is currently saturating 98% on 4-1/2 L/minute of oxygen. General: She is alert, oriented x3. She knows the president is Kuldeep , the year is 2018 and the month is October. She is upbeat and humorous with an appropriate affect and level of interaction. HEENT: Normocephalic/atraumatic. Pupils are equal, round, reactive to light bilaterally. There is no scleral icterus. Hearing is intact. Neck: Supple. Cardiovascular: Regular rate and rhythm. Somewhat distant. She has intact pedal pulses. There is no significant lower extremity edema. Respiratory: Vesicular with very faint Velcro crackles worse on the right than the left. Diminished in the bases. Adequate effort and expansion. Abdomen: Positive bowel sounds. Soft, nontender, nondistended without palpable organomegaly. Musculoskeletal: She has 5/5 upper and lower extremity strength bilaterally without any obvious joint effusions. SIGNIFICANT LABORATORY DATA: Her white blood cell count of 6.49, hemoglobin 8.4 , and platelets 113. Her sodium is 133, potassium 2.9, chloride 99, bicarbonate 28, BUN 13, creatinine 0.7, glucose of 75. She is positive for Clostridium difficile. An echocardiogram done in September of this year showed an ejection fraction of 65% with grade 1 diastolic dysfunction and right ventricular systolic pressure of 48 mmHg. ASSESSMENT AND PLAN: This is a 78-year-old woman who has locally recurrent esophageal cancer that required an esophageal stent to be placed on September 19, 2018. She denies any current problems swallowing; however, should this happen I would recommend a promotility agent such as Reglan to aide in esophageal motility. This can be dosed 5 mg, 30 minutes before meals. I encouraged the patient to focus on small frequent meals in order to at least maintain her weight if not regain the weight she had previously lost. I also encouraged her to reach out to her oncologist, Dr. Feliz, as well as her primary care provider, Dr. Watt, to investigate options for portable oxygen at 5 L/minute or more. I suggested that her oxygen needs may be declining based on her current saturation of 98% on 4-1/2 L/minute. The patient is aware she will be starting immunotherapy very soon. She first needs to have a port placed. I let her know the focus of my care would be on symptom management as well as supporting her in her goals of care and decision making. She is clear that she would want Funmi Hunter, her daughter, as her decision maker. She is clear that she wishes to have no attempts at resuscitation and to allow a natural . After she starts chemotherapy, I let her know DARRELL would reach out to her to assess her desire for a home visit by myself or one of our other providers. Please note that approximately 45 minutes have been spent on this consult including review of hospital records and documentation. /[id number]/MODL MTDD
--- NOTE | 2018-10-17 14:16 | ASMTCMCOM ---
CM Note CM Note Notes: Chart review conducted by KAYLAN. Pt admitted for cdiff in the setting of recurrent esophageal cancer s/p esophageal stent placement. Pt is a and lives independently in [place] near her daughter. No therapies ordered at this time however, Palliative order was placed and palliative care team notified. CM to follow. D/C Plan: TBD Date Signed: 10/17/2018 02:15 PM Electronically Signed By:Pebbles Jackson
--- NOTE | 2018-10-17 14:21 | ASMTCMCOM ---
CM Note CM Note Notes: ADDENDUM: Pt followed by DARRELL Palliative care. Referral sent through [facility]. Date Signed: 10/17/2018 02:21 PM Electronically Signed By:Pebbles Jackson
--- NOTE | 2018-10-17 15:25 | HOSPPROG ---
Hospitalist Progress Note Assessment/Plan: 78 year old female with pmh of recurrent esophageal small cell carcinoma admitted with diarrhea, found to have c diff. Cdiff- no longer with diarrhea. On vancomycin 125 QID, first episode of cdiff. recently was on abx. not taking great PO. -cont po vanco -IV hydration -antiemetics # Recurrent esophageal cancer with stent- Dr. graves placed a stent, follows with Dr. Feliz at [facility] and being considered for FOLFOX with or without immune therapy. Patient mentions they were supposed to get a esophagram ordered by oncology. -oncology consulted and made aware of admission -DENTAL HYGIENE TEACHER eval, patient passed and cleared for regular diet. -scheduled to have port placed with Dr. Mota. Will discuss with them about placing here. # interstitial lung disease/COPD- Follows with Dr. Jurado. On 4.5 -5 liters at base. currently on baseline oxygen. I reviewed the CXR which appears stable from previous. no evidence of exacerbation or infection. -requires continuous oxygen set at 5 L nasal cannula -continuous pulse ox monitoring -continue Atrovent # hypertension and hyperlipidemia -continue metoprolol and pravastatin # GERD -continue pantoprazole Diet: Regular Code: DNR VTE ppx: Lovenox Dispo: change to inpatient for cdiff diarrhea. Subjective: no ab pain. some mild nausea, one loose stool overnight. Objective: Vital Signs Temp Pulse Resp BP Pulse Ox 36.8 C 89 16 179/70 H 98 10/17/18 12:20 10/17/18 12:20 10/17/18 12:20 10/17/18 12:20 10/17/18 12:20 Microbiology 10/16/18 16:20 Gastrointestinal Tract Panel (PCR) - Final Stool Clostridium Difficile Detected Laboratory Results 10/17/18 04:40 10/17/18 04:40 10/16/18 10/17/18 10/18/18 05:59 05:59 05:59 Intake Total 200 Balance 200 - Physical Exam Constitutional: no apparent distress, appears nourished, not in pain Eyes: PERRL, anicteric sclera, EOMI Ears, Nose, Mouth, Throat: moist mucous membranes, hearing normal, ears appear normal, no oral mucosal ulcers Cardiovascular: regular rate and rhythym, no murmur, rub, or gallop Respiratory: no respiratory distress, no rales or rhonchi, reduced air movement Gastrointestinal: normoactive bowel sounds, soft, non-tender abdomen, no palpable masses Genitourinary: no bladder fullness, no bladder tenderness, no renal bruits Skin: no rashes or abrasions, no fluctuance, no induration Musculoskeletal: full muscle strength, no muscle tenderness, normal joint ROM Neurologic: AAOx3, sensation intact bilaterally Psychiatric: interacting appropriately, not anxious, not encephalopathic, thought process linear Lymph, Heme, Immunologic: no cervical LAD, no supraclavicular LAD ICD10 Worksheet Patient Problems: Problems Problem Status Onset Atrial fibrillation Acute Carotid stenosis Acute Chest pain Acute Esophageal cancer Acute Fall Acute Hypokalemia Acute Hyponatremia Acute Hypoxia Acute Nausea vomiting and diarrhea Acute Pneumonia Acute
[2018-10-17] MEDS ORDERED: POTASSIUM CL 10 MEQ TAB PO ONE (20:13)
[2018-10-17] MEDS: PRAVASTATIN SODIUM 40 MG TAB PO SCH (20:55)
[2018-10-18 05:32] LABS: PLATELET COUNT 128 10^3/uL (150-400)
[2018-10-18] MEDS: VANCOMYCIN 125 MG/2.5 ML UDL PO SCH ×4 (05:33→21:50)
[2018-10-18] MEDS ORDERED: POTASSIUM CL 10 MEQ TAB PO ONE ×3 (08:02→13:00)
[2018-10-18] MEDS ORDERED: CALCIUM GLUCONATE 50 ML IV ONE ×2 (08:03→12:15)
[2018-10-18] MEDS ORDERED: MAGNESIUM SULF 1 GM/DEXTROSE 100 ML IV ONE ×2 (08:03→12:15)
[2018-10-18] MEDS: IPRATROPIUM BROMIDE 0.5 MG/2.5 ML DEYVIAL IH SCH ×3 (11:07→22:18)
[2018-10-18] MEDS: ENOXAPARIN 40 MG/0.4 ML SYR SC SCH (11:25)
[2018-10-18] MEDS: PANTOPRAZOLE SODIUM 40 MG TAB PO SCH (11:26)
[2018-10-18] MEDS: CHOLECALCIFEROL VIT D3 1,000 UNITS TAB PO SCH (11:27)
[2018-10-18] MEDS: METOPROLOL TARTRATE 50 MG TAB PO SCH ×2 (11:28→21:50)
[2018-10-18] MEDS: MAGNESIUM OXIDE 400 MG TAB PO SCH (11:29)
[2018-10-18] MEDS ORDERED: ceFAZolin 2 GM/DEXTROSE 100 ML IV ONE (12:39)
--- NOTE | 2018-10-18 14:16 | HOSPPROG ---
Hospitalist Progress Note Assessment/Plan: 78 year old female with pmh of recurrent esophageal small cell carcinoma admitted with diarrhea, found to have c diff. Cdiff- no longer with diarrhea. On vancomycin 125 QID, first episode of cdiff. recently was on abx. not taking great PO. -cont po vanco -IV hydration -antiemetics # Recurrent esophageal cancer with stent- Dr. graves placed a stent, follows with Dr. Feliz at [facility] and being considered for FOLFOX with or without immune therapy. Patient mentions they were supposed to get a esophagram ordered by oncology but i do not see this ordered or any mention of it. -oncology consulted and made aware of admission -HAND FILER BALANCE WHEEL eval, patient passed and cleared for regular diet. -I discussed the case with general surgery who will take the patient to the OR in am to have port placed for chemo. # interstitial lung disease/COPD- Follows with Dr. Jurado. On 4.5 -5 liters at base. currently on baseline oxygen. I reviewed the CXR which appears stable from previous. no evidence of exacerbation or infection. -requires continuous oxygen set at 5 L nasal cannula -continuous pulse ox monitoring -continue Atrovent # hypertension and hyperlipidemia -continue metoprolol and pravastatin # GERD -continue pantoprazole Diet: Regular Code: DNR VTE ppx: Lovenox Dispo: change to inpatient for cdiff diarrhea. Subjective: feels better today. toleraing Po moderately well. one BM today. Objective: Vital Signs Temp Pulse Resp BP Pulse Ox 36.8 C 94 14 147/77 H 96 10/18/18 07:47 10/18/18 11:28 10/18/18 11:08 10/18/18 11:28 10/18/18 11:08 Laboratory Results 10/18/18 04:44 10/18/18 04:44 10/17/18 10/18/18 10/19/18 05:59 05:59 05:59 Intake Total 200 1649 Output Total 600 Balance 200 1049 - Physical Exam Constitutional: no apparent distress, appears nourished, not in pain Eyes: PERRL, anicteric sclera, EOMI Ears, Nose, Mouth, Throat: moist mucous membranes, hearing normal, ears appear normal, no oral mucosal ulcers Cardiovascular: regular rate and rhythym, no murmur, rub, or gallop Respiratory: no respiratory distress, no rales or rhonchi, clear to auscultation Gastrointestinal: normoactive bowel sounds, soft, non-tender abdomen, no palpable masses Genitourinary: no bladder fullness, no bladder tenderness, no renal bruits Skin: no rashes or abrasions, no fluctuance, no induration Musculoskeletal: full muscle strength, no muscle tenderness, normal joint ROM Neurologic: AAOx3, sensation intact bilaterally Psychiatric: interacting appropriately, not anxious, not encephalopathic, thought process linear Lymph, Heme, Immunologic: no cervical LAD, no supraclavicular LAD ICD10 Worksheet Patient Problems: Problems Problem Status Onset Atrial fibrillation Acute Carotid stenosis Acute Chest pain Acute Esophageal cancer Acute Fall Acute Hypokalemia Acute Hyponatremia Acute Hypoxia Acute Nausea vomiting and diarrhea Acute Pneumonia Acute
[2018-10-18] MEDS: PRAVASTATIN SODIUM 40 MG TAB PO SCH (21:51)
[2018-10-19] MEDS: VANCOMYCIN 125 MG/2.5 ML UDL PO SCH ×4 (05:05→23:33)
[2018-10-19 05:27] LABS: PLATELET COUNT 115 10^3/uL (150-400)
[2018-10-19 05:30] LABS: INR 1.12 (0.83-1.16)
[2018-10-19] MEDS ORDERED: ceFAZolin 2 GM/DEXTROSE 100 ML IV ONE (06:00)
[2018-10-19] MEDS ORDERED: POTASSIUM CL 10 MEQ TAB PO ONE ×2 (08:04→22:34)
[2018-10-19] MEDS: MAGNESIUM OXIDE 400 MG TAB PO SCH (09:30)
[2018-10-19] MEDS: CHOLECALCIFEROL VIT D3 1,000 UNITS TAB PO SCH (09:30)
[2018-10-19] MEDS: PANTOPRAZOLE SODIUM 40 MG TAB PO SCH (09:30)
[2018-10-19] MEDS: IPRATROPIUM BROMIDE 0.5 MG/2.5 ML DEYVIAL IH SCH ×3 (09:38→21:06)
[2018-10-19] MEDS: METOPROLOL TARTRATE 50 MG TAB PO SCH ×2 (10:05→20:23)
[2018-10-19] MEDS: POTASSIUM Cl (KCl) 100 ML IV SCH ×3 (10:05→18:36)
[2018-10-19] MEDS ORDERED: BUPIVACAINE 0.5% 30 ML SDV ONE (12:54)
[2018-10-19] MEDS ORDERED: CALCIUM GLUCONATE 50 ML IV ONE (13:00)
[2018-10-19] MEDS ORDERED: PROPOFOL/EMULSION 500 MG/50 ML BOTTLE IV ONE (14:24)
--- NOTE | 2018-10-19 14:28 | PDANEPAE ---
ANE History of Present Illness access for chemo, esophageal cancer ANE Past Medical History - Cardiovascular History Hx Hypertension: Yes Hx Arrhythmias: Yes Hx Chest Pain: No Hx Coronary Artery / Peripheral Vascular Disease: Yes Hx CHF / Valvular Disease: No Hx Palpitations: Yes Cardiovascular History Comment: HYPERLIPIDEMIA. CAROTID ARTERY STENOSIS. PVD. followed by [facility] - Pulmonary History Hx COPD: Yes Hx Asthma/Reactive Airway Disease: No Hx Recent Upper Respiratory Infection: No Hx Oxygen in Use at Home: Yes O2 in Use at Home (L/minute): 5L Hx Sleep Apnea: No Pulmonary History Comment: + interstitial lung disease - Neurologic History Hx Cerebrovascular Accident: No Hx Seizures: No Hx Dementia: No Neurologic History Comment: DDD - Endocrine History Hx Diabetes: No Hypothyroid: No Hyperthyroid: No Obesity: no - Renal History Hx Renal Disorders: No - Liver History Hx Hepatic Disorders: No - Neurological & Psychiatric Hx Hx Neurological and Psychiatric Disorders: No - Cancer History Hx Cancer: No Cancer History Comment: ESOPHAGEAL CANCER - Congenital Disorder History Hx Congenital Disorders: No - GI History Hx Gastrointestinal Disorders: Yes Gastrointestinal History Comment: GERD. esophageal stent - Other Health History Other Health History: bilateral hearing aides. wears glasses - Chronic Pain History Chronic Pain: Yes (back pain) - Surgical History Prior Surgeries: 09/14/18 EGD with esophageal stent placement with Eric. EGD with esophageal biopsies with Mili. 11/04/17 port placement with Nakul. 04/13/16 and 03/25/15 left CEA with Nakul. HYSTERECTOMY. TONSILLECTOMY. DEVIATED SEPTUM. RHINOPLASTY. RTC R SHOULDER ANE Review of Systems Review of Systems: ANE Patient History - Allergies Allergies/Adverse Reactions: levofloxacin [From Levaquin] Allergy (Verified 10/12/18 14:51) "Locke like I couldn't come out of it" meclizine HCl [From Antivert] Allergy (Verified 10/12/18 14:51) "Gave me a heart attack" procainamide HCl [From Procan SR] Allergy (Verified 10/12/18 14:52) Unknown [id number] Allergy (Verified 10/12/18 14:51) "I had no heart beat or rhythm" - Home Medications Home medications: home medication list seen and reviewed Home Medications: Pravastatin Sodium [Pravachol] 40 mg PO HS 08/08/16 [Last Taken 10/15/18] Cholecalciferol Vit D3 [Vitamin D3 (*)] 2,000 units PO DAILY 01/28/18 [Last Taken 10/16/18] Metoprolol Tartrate [Lopressor 50 mg (*)] 50 mg PO BID 10/12/18 [Last Taken ] Pantoprazole Sodium [Protonix 40mg (*)] 40 mg PO DAILY 10/12/18 [Last Taken ] Ipratropium [Atrovent Neb (*)] 0.5 mg IH TID 10/16/18 [Last Taken 10/16/18] Magnesium Oxide 250 mg PO DAILY 10/16/18 [Last Taken 10/16/18] - NPO status NPO Status: no food or drink >8 hours - Anes Hx Anes Hx: no prior problems - Smoking Hx Smoking Status: Former smoker - Alcohol Use Alcohol Use: None - Family Anes Hx Family Hx Anesthesia Complications: none ANE Labs/Vital Signs - Labs Result Diagrams: 10/19/18 04:52 10/19/18 04:52 - Vital Signs Vital Signs: reviewed preoperatively; see RN documention for details Blood Pressure: 162/72 Heart Rate: 86 Respiratory Rate: 16 O2 Sat (%): 100 Height: 152.4 cm Weight: 57.748 kg ANE Physical Exam - Airway Neck exam: FROM Mallampati Score: Class 2 Mouth exam: normal dental/mouth exam - Pulmonary Pulmonary: no respiratory distress - Cardiovascular Cardiovascular: regular rate and rhythym - ASA Status ASA Status: IV ANE Anesthesia Plan Anesthesia Plan: GA with mask
[2018-10-19] MEDS ORDERED: LR 1,000 ML IV ONE (14:31)
--- NOTE | 2018-10-19 14:53 | HOSPPROG ---
Hospitalist Progress Note Assessment/Plan: 78 year old female with pmh of recurrent esophageal small cell carcinoma admitted with diarrhea, found to have c diff. Cdiff- no longer with diarrhea. On vancomycin 125 QID, first episode of cdiff. recently was on abx. not taking great PO. -cont po vanco -IV hydration -antiemetics # Recurrent esophageal cancer with stent- Dr. graves placed a stent, follows with Dr. Feliz at [facility] and being considered for FOLFOX with or without immune therapy. Patient mentions they were supposed to get a esophagram ordered by oncology but i do not see this ordered or any mention of it. -oncology consulted and made aware of admission -NETWORK DESIGNER eval, patient passed and cleared for regular diet. -surgery will place port today -repeat esophagram after port placement. # interstitial lung disease/COPD- Follows with Dr. Jurado. On 4.5 -5 liters at base. currently on baseline oxygen. I reviewed the CXR which appears stable from previous. no evidence of exacerbation or infection. -requires continuous oxygen set at 5 L nasal cannula -continuous pulse ox monitoring -continue Atrovent # hypertension and hyperlipidemia -continue metoprolol and pravastatin # GERD -continue pantoprazole Diet: Regular Code: DNR VTE ppx: Lovenox Dispo: change to inpatient for cdiff diarrhea. Subjective: wants to go home. hates the hospital food but no trouble swallowing , or other issues. Objective: Vital Signs Temp Pulse Resp BP Pulse Ox 36.7 C 86 16 162/72 H 100 10/19/18 08:01 10/19/18 14:28 10/19/18 14:28 10/19/18 14:28 10/19/18 14:28 Laboratory Results 10/19/18 04:52 10/19/18 04:52 10/18/18 10/19/18 10/20/18 05:59 05:59 05:59 Intake Total 1649 700 150 Output Total 600 150 Balance 1049 550 150 PT 14.0 SEC (12.0-15.0) 10/19/18 04:52 INR 1.12 (0.83-1.16) 10/19/18 04:52 - Physical Exam Constitutional: no apparent distress, appears nourished, not in pain Eyes: PERRL, anicteric sclera, EOMI Ears, Nose, Mouth, Throat: moist mucous membranes, hearing normal, ears appear normal, no oral mucosal ulcers Cardiovascular: regular rate and rhythym, no murmur, rub, or gallop Respiratory: no respiratory distress, no rales or rhonchi, clear to auscultation Gastrointestinal: normoactive bowel sounds, soft, non-tender abdomen, no palpable masses Genitourinary: no bladder fullness, no bladder tenderness, no renal bruits Skin: no rashes or abrasions, no fluctuance, no induration Musculoskeletal: full muscle strength, no muscle tenderness, normal joint ROM Neurologic: AAOx3, sensation intact bilaterally Psychiatric: interacting appropriately, not anxious, not encephalopathic, thought process linear Lymph, Heme, Immunologic: no cervical LAD, no supraclavicular LAD ICD10 Worksheet Patient Problems: Problems Problem Status Onset Atrial fibrillation Acute Carotid stenosis Acute Chest pain Acute Esophageal cancer Acute Fall Acute Hypokalemia Acute Hyponatremia Acute Hypoxia Acute Nausea vomiting and diarrhea Acute Pneumonia Acute
[2018-10-19] MEDS ORDERED: CEFAZOLIN 2 GM/DEXTROSE/100 ML BAG IV ONE (15:14)
[2018-10-19] MEDS ORDERED: fentaNYL 100 MCG/2 ML INJ IVP PRN (15:45)
[2018-10-19] MEDS ORDERED: LABETALOL HCL 5 MG/ML 20 ML MDV IVP PRN (15:45)
[2018-10-19] MEDS ORDERED: oxyCODONE IR 5 MG TAB PO PRN (15:45)
[2018-10-19] MEDS ORDERED: NALOXONE HCL 0.4 MG/ML INJ IVP PRN (15:45)
[2018-10-19] MEDS ORDERED: LR 500 ML IV PRN (15:45)
[2018-10-19] MEDS ORDERED: DEXAMETHASONE 4 MG/ML VIAL IVP PRN (15:45)
[2018-10-19] MEDS ORDERED: ONDANSETRON 4 MG/2 ML VIAL IVP PRN (15:45)
[2018-10-19] MEDS ORDERED: MEPERIDINE 25 MG/0.5 ML AMP IVP PRN (15:45)
[2018-10-19] MEDS ORDERED: ALBUTEROL 3 ML DEYVIAL IH PRN (15:45)
[2018-10-19] MEDS ORDERED: ACETAMINOPHEN 500 MG TAB PO PRN (15:45)
[2018-10-19] MEDS ORDERED: ALBUTEROL 3 ML DEYVIAL ONE (16:11)
--- NOTE | 2018-10-19 16:42 | POSTANESTH ---
Post Anesthetic Evaluation Cardiovascular Status: Normal, Stable Respiratory Status: Normal, Stable Level of Consciousness/Mental Status: Can Participate in Eval Pain Control: Adequate, Prn Tx Ordered Nausea/Vomiting Control: Adequate, Prn Tx Ordered Complications Possibly Related to Anesthesia: None Noted
--- NOTE | 2018-10-19 18:15 | POSTOPPROG ---
Post Op Note Date of Operation: 10/19/18 Surgeon: Timothy Mota Anesthesiologist: SAMIR SALAZAR Anesthesia: GET(General Endotracheal) Pre-op Diagnosis: ESOPHAGEAL CANCER Post-op Diagnosis: SAME Indication: CHEMOTHERAPY ACCESS Procedure: LEFT SUBCLAVIAN PORT PLACEMENT WITH FLUOROSCOPIC GUIDANCE Findings: GOOD POSITION AND FLOW Inf/Abcess present in the surg proc area at time of surgery?: No Depth: Deep Incisional (Fascial) EBL: Minimal Complications: NONE
[2018-10-19] MEDS: PRAVASTATIN SODIUM 40 MG TAB PO SCH (20:23)
[2018-10-19] MEDS: HYDROCODONE/APAP 5/325 TAB PO PRN (22:02)
[2018-10-20] MEDS: VANCOMYCIN 125 MG/2.5 ML UDL PO SCH ×4 (06:27→20:39)
--- NOTE | 2018-10-20 09:00 | ASMTCMCOM ---
CM Note CM Note Notes: CM attempted to meet with Pt but discussed with RN & chart reviewed for discharge. Lynne had a left subclavian port placed using fluoroscope guidance for Chemo access place on 10/19. Pt continues on IV antibiotics. Pt vomiting x2 this morning and schedules for an esophagram today. CM available for needs. PLAN: TBD Date Signed: 10/20/2018 08:59 AM Electronically Signed By:Gabbi Fields
[2018-10-20] MEDS ORDERED: MAGNESIUM SULF 2 GM/WATER 50 ML IV ONE (09:54)
[2018-10-20] MEDS ORDERED: CALCIUM GLUCONATE 50 ML IV ONE (09:54)
[2018-10-20] MEDS: METOPROLOL TARTRATE 50 MG TAB PO SCH ×2 (09:55→20:39)
[2018-10-20] MEDS: PANTOPRAZOLE SODIUM 40 MG TAB PO SCH (09:55)
--- NOTE | 2018-10-20 09:56 | ASMTCMCOM ---
CM Note CM Note Notes: Daughter Verónica in to visit her mother who is at a test. Verónica ask to speak with me and verbalize that she has some concerns with her mother going home by herself. Verónica feels her mother seems weaker, she's drooling and is stubborn cause she insists on going home independently Pt did rehab at [facility] and she gain strength last time. I discussed these concerns with MD and requested PT,OT, and CONCRETE WORKER evals. CM available for needs. PLAN:TBD Date Signed: 10/20/2018 09:55 AM Electronically Signed By:Gabbi Fields
[2018-10-20] MEDS: MAGNESIUM OXIDE 400 MG TAB PO SCH (09:57)
[2018-10-20] MEDS: IPRATROPIUM BROMIDE 0.5 MG/2.5 ML DEYVIAL IH SCH ×3 (09:58→21:15)
[2018-10-20] MEDS: CHOLECALCIFEROL VIT D3 1,000 UNITS TAB PO SCH (09:58)
--- NOTE | 2018-10-20 18:33 | GCON ---
[f rep st] CONSULTATION DATE OF CONSULTATION: 10/18/2018 Patient is a 78-year-old female, well known to me, who presents with recurrent esophageal cancer. Desiree green is in need of a port for chemotherapy access. She has had a port previously and it was removed not so long in the office, but now needs replacement for further chemotherapy. Risks and options have b een fully discussed and she wishes to proceed. She is presently in the hospital because of C diffici le infection. ALLERGIES: Levaquin, meclizine, procainamide, and thallium. MEDICATIONS: Pravachol, vitamin D, magnesium, Atrovent, Protonix, and Lopressor. PAST HISTORY: Includes coronary artery disease, carotid endarterectomy, emphysema, esophageal cancer , GERD hypertension, hyperlipidemia, interstitial lung disease, and chronic respiratory insufficiency , peripheral vascular disease. She has had an appendectomy, and a hysterectomy, a left carotid endar terectomy, a right rotator cuff repair, and a rhinoplasty. SOCIAL HISTORY: Reveals that she is an ex-smoker, but not currently, and lives alone. REVIEW OF SYSTEMS: Negative on a full 10-point review. PHYSICAL EXAM: GENERAL: Reveals an alert 78-year-old female who is in no acute distress. HEAD AND NECK: Reveals no icterus, adenopathy, or oral lesions. NECK: Supple. Full range of motion. No ca rotid bruits. CHEST: Clear but some distant breath sounds consistent with emphysema. CARDIAC: Exam was regular rhythm. ABDOMEN: Soft and nontender. EXTREMITIES: Reveal full range of motion. Full pulses. NEUROLOGIC: Exam was physiologic. IMPRESSION: 1. Clostridium difficile diarrhea. 2. Recurrent esophageal cancer in need of chemotherapy access. Again the risks and options were ful ly discussed. We plan to proceed with port placement the a.m. /[id number]/MODL
[2018-10-20] MEDS: PRAVASTATIN SODIUM 40 MG TAB PO SCH (20:39)
[2018-10-20] MEDS: HYDROCODONE/APAP 5/325 TAB PO PRN (20:49)
--- NOTE | 2018-10-20 20:53 | HOSPPROG ---
Hospitalist Progress Note Assessment/Plan: 78 year old female with pmh of recurrent esophageal small cell carcinoma admitted with diarrhea, found to have c diff. Cdiff- no longer with diarrhea. On vancomycin 125 QID, first episode of cdiff. recently was on abx. not taking great PO. -cont po vanco -IV hydration -antiemetics # Recurrent esophageal cancer with stent- Dr. graves placed a stent, follows with Dr. Feliz at [facility] and being considered for FOLFOX with or without immune therapy. Patient mentions they were supposed to get a esophagram ordered by oncology but i do not see this ordered or any mention of it. -oncology consulted and made aware of admission -AIRWAYS CONTROL SPECIALIST evred, patient passed and cleared for regular diet. -port placed by surgery -repeat esophagram today # interstitial lung disease/COPD- Follows with Dr. Jurado. On 4.5 -5 liters [place] base. currently on baseline oxygen. I reviewed the CXR which appears stable from previous. no evidence of exacerbation or infection. -requires continuous oxygen set at 5 L nasal cannula -continuous pulse ox monitoring -continue Atrovent # hypertension and hyperlipidemia -continue metoprolol and pravastatin # GERD -continue pantoprazole Diet: Regular Code: DNR VTE ppx: Lovenox Dispo: concern for patients ability to care for herself by daughter. PT/OT AIRWAYS CONTROL SPECIALIST cog cathy pending. Subjective: wants to go home. some nausea this am. Objective: Vital Signs Temp Pulse Resp BP Pulse Ox 36.6 C 94 18 146/66 H 94 10/20/18 20:00 10/20/18 20:00 10/20/18 20:00 10/20/18 20:39 10/20/18 20:00 Laboratory Results 10/19/18 04:52 10/20/18 19:24 10/19/18 10/20/18 10/21/18 05:59 05:59 05:59 Intake Total 700 650 875 Output Total 150 Balance 550 650 875 PT 14.0 SEC (12.0-15.0) 10/19/18 04:52 INR 1.12 (0.83-1.16) 10/19/18 04:52 - Physical Exam Constitutional: no apparent distress, appears nourished, not in pain Eyes: PERRL, anicteric sclera, EOMI Ears, Nose, Mouth, Throat: moist mucous membranes, hearing normal, ears appear normal, no oral mucosal ulcers Cardiovascular: regular rate and rhythym, no murmur, rub, or gallop Respiratory: no respiratory distress, no rales or rhonchi, clear to auscultation Gastrointestinal: normoactive bowel sounds, soft, non-tender abdomen, no palpable masses Genitourinary: no bladder fullness, no bladder tenderness, no renal bruits Skin: no rashes or abrasions, no fluctuance, no induration Musculoskeletal: full muscle strength, no muscle tenderness, normal joint ROM Neurologic: AAOx3, sensation intact bilaterally Psychiatric: interacting appropriately, not anxious, not encephalopathic, thought process linear Lymph, Heme, Immunologic: no cervical LAD, no supraclavicular LAD ICD10 Worksheet Patient Problems: Problems Problem Status Onset Atrial fibrillation Acute Carotid stenosis Acute Chest pain Acute Esophageal cancer Acute Fall Acute Hypokalemia Acute Hyponatremia Acute Hypoxia Acute Nausea vomiting and diarrhea Acute Pneumonia Acute
[2018-10-21] MEDS: VANCOMYCIN 125 MG/2.5 ML UDL PO SCH ×3 (06:16→16:51)
[2018-10-21] MEDS: PANTOPRAZOLE SODIUM 40 MG TAB PO SCH (08:18)
[2018-10-21] MEDS: METOPROLOL TARTRATE 50 MG TAB PO SCH (08:18)
[2018-10-21] MEDS: CHOLECALCIFEROL VIT D3 1,000 UNITS TAB PO SCH (08:18)
[2018-10-21] MEDS: MAGNESIUM OXIDE 400 MG TAB PO SCH (08:18)
[2018-10-21] MEDS ORDERED: POTASSIUM CL 10 MEQ TAB PO ONE (09:00)
[2018-10-21] MEDS ORDERED: MAGNESIUM SULF 1 GM/DEXTROSE 100 ML IV ONE (09:00)
[2018-10-21] MEDS: IPRATROPIUM BROMIDE 0.5 MG/2.5 ML DEYVIAL IH SCH ×2 (09:17→16:35)
[2018-10-21 12:47] VITALS: BP 124/73
--- NOTE | 2018-10-21 15:00 | PDIAF ---
- Diagnosis Code Status: Do Not Resuscitate - Medication Management Mobile Health Vehicle Operator Antibiotics: continue oral vancomycin 125 QID through 10/25/18 [facility] Antibiotic Stop Date: 10/25/18 Discharge Medications: electronically signed and located in the Home Medication List. - Orders Services needed: Registered Nurse, Certified Gas Pit Worker, Physical Therapy, Occupational Therapy Isolation Type: CDIFF Isolation, Contact Isolation Diet Recommendation: no restrictions on diet Diet Texture: Regular Texture Diet, Thin Liquids, Meds Whole w/Liquids Additional Instructions: continue oral vancomycin through the 25 of October for a total of 10 days. Follow up with oncology for your chemotherapy. Follow up with your PCP as soon as able. - Follow Up Care Current Providers and Referrals: Dawn Watt MD [Primary Care Provider] -
--- NOTE | 2018-10-21 15:53 | HOSPPROG ---
Hospitalist Progress Note Assessment/Plan: 78 year old female with pmh of recurrent esophageal small cell carcinoma admitted with diarrhea, found to have c diff. Cdiff- no longer with diarrhea. On vancomycin 125 QID, first episode of cdiff. recently was on abx. not taking great PO. -cont po vanco -IV hydration -antiemetics # Recurrent esophageal cancer with stent- Dr. graves placed a stent, follows with Dr. Feliz at [facility] and being considered for FOLFOX with or without immune therapy. Patient mentions they were supposed to get a esophagram ordered by oncology but i do not see this ordered or any mention of it. -oncology consulted and made aware of admission -CHUTE TENDER eval, patient passed and cleared for regular diet. -port placed by surgery -repeat esophagram today # interstitial lung disease/COPD- Follows with Dr. Jurado. On 4.5 -5 liters at base. currently on baseline oxygen. I reviewed the CXR which appears stable from previous. no evidence of exacerbation or infection. -requires continuous oxygen set at 5 L nasal cannula -continuous pulse ox monitoring -continue Atrovent # hypertension and hyperlipidemia -continue metoprolol and pravastatin # GERD -continue pantoprazole Diet: Regular Code: DNR VTE ppx: Lovenox Dispo: to [facility] when cleared by CM. Subjective: tired of being here. no complaints. no longer with diarrhea. Objective: Vital Signs Temp Pulse Resp BP Pulse Ox 36.6 C 82 17 124/73 H 100 10/21/18 12:41 10/21/18 12:41 10/21/18 12:41 10/21/18 12:41 10/21/18 12:41 Laboratory Results 10/19/18 04:52 10/21/18 04:22 10/20/18 10/21/18 10/22/18 05:59 05:59 05:59 Intake Total 650 1075 200 Balance 650 1075 200 PT 14.0 SEC (12.0-15.0) 10/19/18 04:52 INR 1.12 (0.83-1.16) 10/19/18 04:52 - Physical Exam Constitutional: no apparent distress, appears nourished, not in pain Eyes: PERRL, anicteric sclera, EOMI Ears, Nose, Mouth, Throat: moist mucous membranes, hearing normal, ears appear normal, no oral mucosal ulcers Cardiovascular: regular rate and rhythym, no murmur, rub, or gallop Respiratory: no respiratory distress, no rales or rhonchi, clear to auscultation Gastrointestinal: normoactive bowel sounds, soft, non-tender abdomen, no palpable masses Genitourinary: no bladder fullness, no bladder tenderness, no renal bruits Skin: no rashes or abrasions, no fluctuance, no induration Musculoskeletal: full muscle strength, no muscle tenderness, normal joint ROM Neurologic: AAOx3, sensation intact bilaterally Psychiatric: interacting appropriately, not anxious, not encephalopathic, thought process linear Lymph, Heme, Immunologic: no cervical LAD, no supraclavicular LAD ICD10 Worksheet Patient Problems: Problems Problem Status Onset Atrial fibrillation Acute Carotid stenosis Acute Chest pain Acute Esophageal cancer Acute Fall Acute Hypokalemia Acute Hyponatremia Acute Hypoxia Acute Nausea vomiting and diarrhea Acute Pneumonia Acute
--- NOTE | 2018-10-21 16:38 | ASMTLACE ---
LACE Length of stay for Answers: 4-6 days current admission Acuity / Level of Answers: Yes Care: Did the patient have an inpatient admission? Comorbidities - select Answers: Any tumor (including all that apply lymphoma or leukemia) Chronic pulmonary disease Coronary Artery Disease Opioid dependence / Chronic pain Peripheral vascular disease Other Notes: HTN; Interstitial lung disease # of Emergency department Answers: 1-2 visits in the last 6 months Score: 20 Date Signed: 10/21/2018 04:37 PM Electronically Signed By:Dianna Bojorquez
--- NOTE | 2018-10-21 16:39 | ASMTDCNOTE ---
Case Management Discharge Discharge Order Complete? Answers: Yes Patient to Obtain Answers: Other Notes: [facility] Transportation Arranged Answers: Other Notes: [facility] Transport will Pick (Date 10/21/2018 06:00 PM & Time) Faxed Final Orders Answers: Yes Agency/Facility Transfer Answers: Yes Report Printed & Faxed to Receiving Agency Family Notified Answers: Yes Discharge Comments Notes: Pt is d/cing at 6PM to [facility]. CM spoke with her daughter. Date Signed: 10/21/2018 04:39 PM Electronically Signed By:Dianna Bojorquez
--- NOTE | 2018-10-21 16:40 | PDDCSUM ---
Discharge Summary Discharge Summary: Discharge diagnosis Clostridium difficile diarrhea COPD A KI Hyponatremia Esophageal cancer Debility Hypertension The patient was referred over from Oncology Clinic for concerns of weakness and diarrhea. C diff testing was positive and the patient was started on oral vancomycin 125 mg four times daily. Her diarrhea quickly resolved. She was scheduled to have a port placed for upcoming chemotherapy and so General surgery was consulted who was graciously able to place this early. Patient was also supposed to have an esophagram and so this was obtained which showed patent esophageal stenting although the patient did have kami reflux if she lied down. She was treated with oral antibiotics and IV fluids and her diarrhea and electrolyte abnormalities corrected. Her daughter was concerned about cognitive decline and so speech language performed a cognitive eval which the patient actually scored quite well on showing no evidence of substantial cognitive decline. She was also seen by Physical therapy and Occupational therapy who did recommend that the patient go to a alf facility for rehab. Ultimately the patient was discharged to [facility] for aggressive rehabilitation. She was discharged on oral vancomycin to complete a course of 10 days total for her C diff diarrhea. She was instructed to follow up with her oncologist and primary care physician further evaluation and management . Disposition [facility] New medications Vancomycin oral 125 four times daily to complete 10 days I spent over 30 min on the discharge of this patient
--- NOTE | 2018-10-22 16:29 | ASDISCHSUM ---
Discharge Information Plan Status:Hospice-Home Medically Cleared to Leave: Discharge Date:10/21/2018 05:59 PM CM D/C Disposition: ADT D/C Disposition:Group Home Facility Projected Discharge Date:10/22/2018 11:00 AM Transportation at D/C: Discharge Delay Reason: Follow-Up Date:10/22/2018 11:00 AM Discharge Slot: Final Diagnosis: Placement Information Referral Type:Palliative Care Referral ID:[id number] Provider Name:[facility] Address 1:[address] [place] Address 2: City:[place] Selection Factors: State:[place] Referral Type:*Long-Term/SNF Referral ID:[id number] Provider Name: Address 1: Phone Number: Address 2: Fax Number: City: Selection Factors: State: Patient Contact Information Contact Name:RAMON Relationship:Daughter Address:[address] Work Phone: City:[place] [facility] Phone: State/Zip Code:[place] [address] Email: Financial Information Financial Class:Medicare Advantage Plans Primary Plan Desc:[facility] SwitchNote Primary Plan Number:[id number] Secondary Plan Desc: Secondary Plan Number: Assessment Information [facility] KAYLAN Progress Note CM Note CM Note Notes: Chart review conducted by KAYLAN. Pt admitted for cdiff in the setting of recurrent esophageal cancer s/p esophageal stent placement. Pt is a and lives independently in [place] near her daughter. No therapies ordered at this time however, Palliative order was placed and palliative care team notified. CM to follow. D/C Plan: TBD Date Signed: 10/17/2018 02:15 PM Electronically Signed By:Pebbles Jackson [facility] KAYLAN Progress Note CM Note CM Note Notes: ADDENDUM: Pt followed by [facility] Palliative care. Referral sent through [employer]. Date Signed: 10/17/2018 02:21 PM Electronically Signed By:Pebbles Jackson LACE LACE Length of stay for Answers: 4-6 days current admission Acuity / Level of Answers: Yes Care: Did the patient have an inpatient admission? Comorbidities - select Answers: Any tumor (including all that apply lymphoma or leukemia) Chronic pulmonary disease Coronary Artery Disease Opioid dependence / Chronic pain Peripheral vascular disease Other Notes: HTN; Interstitial lung disease # of Emergency department Answers: 1-2 visits in the last 6 months Score: 20 Date Signed: 10/21/2018 04:37 PM Electronically Signed By:Dianna Bojorquez [facility] CM Progress Note CM Note CM Note Notes: CM attempted to meet with Pt but discussed with RN & chart reviewed for discharge. Lynne had a left subclavian port placed using fluoroscope guidance for Chemo access place on 10/19. Pt continues on IV antibiotics. Pt vomiting x2 this morning and schedules for an esophagram today. CM available for needs. PLAN: TBD Date Signed: 10/20/2018 08:59 AM Electronically Signed By:Gabbi Fields [facility] Progress Note CM Note CM Note Notes: Daughter Verónica in to visit her mother who is at a test. Verónica ask to speak with me and verbalize that she has some concerns with her mother going home by herself. Verónica feels her mother seems weaker, she's drooling and is stubborn cause she insists on going home independently Pt did rehab at [facility] and she gain strength last time. I discussed these concerns with MD and requested PT,OT, and REGULATOR [employer]SEMBLER latoya. CM available for needs. PLAN:TBD Date Signed: 10/20/2018 09:55 AM Electronically Signed By:Gabbi Fields Case Management Discharge Plan Note Case Management Discharge Discharge Order Complete? Answers: Yes Patient to Obtain Answers: Other Notes: [facility] Transportation Arranged Answers: Other Notes: [facility] will Pick (Date 10/21/2018 06:00 PM & Time) Faxed Final Orders Answers: Yes Agency/Facility Transfer Answers: Yes Report Printed & Faxed to Receiving Agency Family Notified Answers: Yes Discharge Comments Notes: Pt is d/cing at 6PM to [facility]. CM spoke with her daughter. Date Signed: 10/21/2018 04:39 PM Electronically Signed By:Dianna Bojorquez Intervention Information
--- NOTE | 2018-10-24 14:33 | GOP ---
[f rep st] OPERATIVE REPORT DATE OF OPERATION: 10/19/2018 SURGEON: Timothy Mota MD PREOPERATIVE DIAGNOSIS: Esophageal cancer. POSTOPERATIVE DIAGNOSIS: Esophageal cancer. PROCEDURE PERFORMED: Left subclavian port placement with fluoroscopic guidance for chemotherapy acce . FINDINGS: Patient was found to have good position and flow. DESCRIPTION OF PROCEDURE: Patient was taken to the operating room where she received a satisfactory general endotracheal anesthesia by Dr. Light. She was prepped and draped in the usual sterile fas hion in the supine position and then placed in Trendelenburg. A single stick was made in the left hardy bclavian vein. Guidewire was introduced, position was confirmed with fluoroscopy. A subcu pocket wa s made in the 2nd intercostal space in the old site of her previous port. Subcu pocket was developed and the port tubing was passed from that pocket to the subclavian insertion site. It was trimmed to the appropriate length using fluoroscopic guidance and then introduced via the introducer sheath and dilator system into the right atrium. Good backflow was achieved. The catheter was flushed with he bruno saline. The port was secured to the fascia with 3-0 Vicryl. The pocket was closed with 3-0 Vi cryl for the subcu, and 4-0 Monocryl subcuticular stitch for the skin. All layers infiltrated with 0 .5% Marcaine. Blood loss negligible. Taken to recovery room in good condition. There were no compl ications. /[id number]/MODL
== END 2018-10-21 17:59 | DRG 372 ==
LOC: F1N 16:11
PROVIDERS: ADMIT Internal Medicine; ATTEND Internal Medicine
PROC: 02H633Z Insertion of Infusion Device into Right Atrium, Percutaneous Approach (ICD-10-PCS; principal; 2018-10-19 15:00)
PROC: 0JH60XZ Insertion of Tunneled Vascular Access Device into Chest Subcutaneous Tissue and Fascia, Open Approach (ICD-10-PCS; principal; 2018-10-19 15:00)
DX: A04.72 Enterocolitis due to Clostridium difficile, not specified as recurrent (principal); C15.9 Malignant neoplasm of esophagus, unspecified; N17.9 Acute kidney failure, unspecified; J84.9 Interstitial pulmonary disease, unspecified; J44.9 Chronic obstructive pulmonary disease, unspecified; I10 Essential (primary) hypertension; E78.5 Hyperlipidemia, unspecified; K21.9 Gastro-esophageal reflux disease without esophagitis; Z66 Do not resuscitate
CPT/HCPCS: 92523-GN; 92610-GN; 97161-GP; 97166-GO; C1788; J0610; J0690; J1642; J1650; J2405; J2704; J3475; J3480; J7613

== ENCOUNTER 2018-12-18 14:41 | Inpatient (IN) | payer OTHER | END 2018-12-26 19:51 | disposition home or self-care (01) | LOC: F1N 16:59 ==

== ENCOUNTER → 2018-12-18 | Outpatient (CLI) | payer OTHER | LOC: FIMAGING 09:53 ==